=== PATIENT | male | born 1935 | race Caucasian/White ===

== ENCOUNTER 2016-05-27 14:31 | Inpatient (IN) | payer MEDICARE, OTHER ==
[~2016-05-27] VITALS: Ht 180.3 cm; Wt 59.2 kg
[~2016-05-27 14:31] MED LIST: /ADVA50050; /AUGM875TA; /TAMS4CA; ACET500T37 PO; ACET65TA; ALBU17IN INH; AMLO10TA2 PO; AMLO25TA PO; AMOX875T PO; ASPI1TAB PO; ASPI81TA3; BREO1INH INH; BREO1INH3 INH; CALCTAB68 PO; CARB25TA PO; COMBAER6 INH; COUM2.5T11 PO; FERR325T; FERR325T3 PO; FINA5TAB2 PO; FLOM5CAP PO; IPRA2IN INH; IPRASOL4 IN; LANS30CA PO; LATA5OPD OD; LEVA750T PO; MINO100T PO; NASAL SPRAY; OCUVTAB PO; OXYB5TAB PO; PERC5TAB6 PO; PRED20TA; PRED20TA PO; PRED5TA PO; PRIL20CA; ROPI0.5T PO; ROPI2TAB PO; SENO8.6T10 PO; SIMV40TA2 PO; SIMVPOW2; SYMB16INH INH; SYMB80INH INH; TYLE325T5 PO; VENTAER; VITA100072 PO; VITAMIN B12 IM; XALATAN; ZOCO20TA; [UNRECOGNIZED DRUG - OTHER]; mycostatin powder TOP
[2016-05-27] MEDS ORDERED: PERCOCET 5MG/325MG TAB PO PRN (15:15)
[2016-05-27] MEDS ORDERED: ALBUTEROL 90 MCG/ACT 8GM HFA INHALER INH PRN (15:15)
[2016-05-27] MEDS ORDERED: IPRATROPIUM 0.02% SOLN 0.5MG/2.5 ML NEB INH PRN (15:15)
[2016-05-27 15:45] VITALS: BP 112/60
--- NOTE | 2016-05-27 16:24 | HPEPDOC ---
Tire Balancer Note T[employer] Balancer History & Physical Tire Balancer Note DATE OF ADMISSION: May 27, 2016 at 15:40 HISTORY OF PRESENT ILLNESS: 80-year-old male, right hand dominant, independent with ADLs and ambulation (at baseline), with multiple medical comorbidities, on 05/25/2016, was admitted to [facility] after sustaining a mechanical fall at home. He fell while attempting to ambulate to the bathroom, as per records, patient reports that his left leg gave way. Acute trauma workup in the ED revealed left distal femoral neck hip fracture( transverse fracture of the distal subcapital portion of the femoral neck). On 05/25/2016, the patient underwent urgent left hip arthroplasty. Pre-operative patient was found to have dyspnea. He was evaluated and cleared for surgery by medicine. Post- operative patient was found to have intermittent confusion, infectious etiology was ruled out, presumed post-operative anesthesia-induced. His cognitive status improved over the acute hospital course. Since his surgery, patient reports having post-surgical site pain with modest improvement with pain medication. His current weight-bearing status is weight-bearing as tolerated ( WBAT). He remains medically stable on 2L oxygen. He denies any headache, dizziness or chest pain. On 05/27/2016, patient was admitted to acute inpatient [facility] rehabilitation. PAST MEDICAL HISTORY: 1. Parkinson's disease 2. Bulbous pemphigus 3. Peripheral Neuropathy 4. Peripheral vascular disease 5. Hyperlipidemia 6. Chronic obstructive pulmonary disease (COPD) 7. Gastric reflux disease 8. Benign prostatic hypertrophy (BPH) 9. Thyroid Mass (new) PAST SURGICAL HISTORY: 1. Abdominal aortic aneurysm s/p bilateral iliac artery stents (percutaneous placement) 2. Appendectomy 3. Tonsils and adenoids 4. Bilateral cataracts ALLERGIES: See Below MEDICATIONS: See Below FAMILY HISTORY: Mother- breast cancer; father- congestive heart failure; older brother- heart failure SOCIAL HISTORY:The patient is and lives with his . And has supportive family and children. They live in a house with 4 steps to enter. Ex -smoker, he quit smoking about 10 years ago. Denies alcohol use or illicit drug use. REVIEW OF SYSTEMS: Review of Systems: General: +fatigue, no chills, no weight changes. Eyes: no change of vision, wears glasses only for driving long distances. Ears, Nose & Throat: hard of hearing (does not wear hearing aid), no sore throat, no nasal discharge. + history of thyroid mass. Cardiovascular: + bilateral peripheral edema, + history of claudication secondary to peripheral vascular disease, no chest pain, no syncopal episodes. Pul: + cough, +SOB requiring oxygen (at rest) , no orthopnea. GI: + GERD, no constipation, no abdominal pain, no nausea or vomiting. Genitourinary: no dysuria. Musculoskeletal: + left hip pain, + bilateral foot pain. + Mild back, no neck pain, no muscle pain (except for surgical site). Neurological: no tremors, progressive weakness, seizures, or headache. Hematological: No bleeding disorders. Skin: + Bulbous pemphigus lesion with granulation tissue on scalp, discoloration of feet (secondary to severe peripheral vascular disease), + thin skin, chronic subcutaneous hematoma. rashes. Psychiatric: no depression, anxiety, behavioral issues. VITAL SIGNS: 97.5F, pulse of 82, respiratory rate of 18, blood pressure 104/62, 97% saturation on 2L oxygen PHYSICAL EXAMINATION: is at the beside GENERAL: appears mildly pale, cachetic, laying still in bed, no acute distress. Poor hearing, request that provider speak loudly and refer to him as Bhavesh. HEENT: Normocephalic, healing bullous lesion on scalp (no active drainage, no bleeding and no redness). Indolent (with loose teeth) Flat affect, but has appropriate sense of humor. No active signs of confusion. Able to speak in short brief sentences. No facial droop. No lymphadenopathy. No jugular venous distention (JVD). PERRL, EOMI CARDIOVASCULAR: S1, S2, regular rate. + edema bilateral foot, no calf tenderness LUNGS: Significant anterior chest wheezing and congest, decreased breath sounds throughout lungs to auscultation bilaterally ABDOMEN: Soft, nontender, nondistended. Positive normoactive bowel sounds throughout. MUSCULOSKELETAL: Severe tenderness with light palpation to the 4th and 5th metatarsal on left greater than the right. Manual muscle testin/5 strength bilateral upper limbs and right lower limb in all major muscle groups. Except right dorsiflexion and plantar flexion 4+/5; left hip flexors, abductor 4/5; distally 4+/5 on the left. Sensation: Intact to light touch bilateral upper and lower limbs. Deep tendon reflexes: Unable to elicit biceps or patellar bilaterally Skin: left proximal lateral hip surgical site covered with pad, no visible bleeding or drainage. Healing bullous on scalp. Chronic violaceous changes to both feet. Distal pulses palpable, skin cold to touch, bilateral. Neurologic: Alert and oriented x 3. Answers all questions appropriately. Able to follow commands. SKIN: Left lateral hip surgical site covered + luisa in place, no active drainage or bleeding. LABORATORY DATA: Please see below. IMAGING: Reviewed, see [employer]. FUNCTIONAL STATUS: Premorbid: Independent with ADL and ambulation, used cane (infrequent, for balance). On Admission: Patient requires assistance with bed mobility, transfers, total assist with ambulation, bathing and toileting. ASSESSMENT AND PLAN: 80-year-old male status post mechanical fall with left femoral neck fracture now status post hemiarthroplasty with gait abnormality and dysfunctional ADLs. 1. Right displaced femoral neck fracture status post right hemiarthroplasty: Patient is weightbearing as tolerated. He will undergo thorough physical and occupational therapy evaluations followed by daily intensive therapy. Rehabilitation nursing for bladder, bowel, medication management and wound care. 2. Left foot metatarsalgia- new finding on admission, given severe pain with light palpation to left foot, left foot X-ray to rule out possible occult fracture. Right foot exam consistent with sprain/strain, pain significant less on right. 3. COPD/Bronchitis: severe anterior chest wheezing, start on chest PT, Acapella , duo nebs scheduled and prn for wheezing and shortness of breath, and inspirometry. Monitor for signs of possible bacterial infection. As symptoms improved taper off oxygen (NC). 4. Pain: oxycodone 5mg q4 as needed, Percocet 1-2 tabs q4 as needed. 5. Peripheral Neuropathy- gabapentin 200mg tid 6. Peripheral vascular disease/CAD- aspirin 81mg daily, minocycline 100mg bid 7. Parkinson's disease- home regimen Sinemet 1 tab bid and Requip 2mg tid 8. Acute blood loss anemia- in setting of surgery, continue iron supplement bid and vitamin C to increase GI absorption 9. Benign prostatic hypertrophy (BPH)- continue home regimen, finasteride 5mg daily and Ditropan 5mg qhs 10. DVT PPx- Coumadin dose by Nia Cross of the orthopedic service, continue on current dose warfarin 5mg daily. Monitor INR levels. Well also provide SCD and EVELIN stockings. 11. Skin- Bulbous pemphigus- high risk of skin tearing and bleeding, history of closely monitor daily for skin lesions, frequent turns and weight shift. Keep skin clean, dry and apply Eucerin to prevent xeroderma 12. Hyperlipidemia- continue home regimen, simvastatin 40mg qhs. 13. Thyroid Mass (new)- incidental finding during acute hospital admission. Outpatient work-up recommended. 14. Diet/nutrition: Check prealbumin to assess for malnutrition. Mechanical soft diet given indolent with loose teeth. Patient was scheduled for outpatient dental appointment (missed appointment give acute hospitalization). PROGNOSIS: Good ESTIMATED LENGTH OF STAY: 10-14 days. Home Medications Scheduled Aspirin (Aspirin 81) 81 Mg Tab 81 MG PO QPM (Reported) Calcium/Vitamin D (Calcium 600 + D 600-400 mg-Unit) 1 Tab Tab 1 TAB PO DAILY ( Reported) Carbidopa/Levodopa (Carbidopa/Levodopa 25-100 mg) 1 Tab Tab 1 TAB PO TID ( Reported) Finasteride (Finasteride) 5 Mg Tab 5 MG PO QPM (Reported) Fluticasone/Vilanterol (Breo Ellipta 200-25 Mcg/INH) 1 Inh Inh 1 PUFF INH DAILY (Reported) Lansoprazole (Lansoprazole) 30 Mg Cap 30 MG PO QPM (Reported) Latanoprost (Latanoprost) 50 Drop/2.5 Ml Soln 1 DROP OD QHS (Reported) Minocycline HCl (Minocycline HCl) 100 Mg Tab 100 MG PO BID (Reported) Multivitamins (Ocuvite) 1 Tab Tab 1 TAB PO QPM (Reported) Oxybutynin Chloride (Oxybutynin Chloride ER) 5 Mg Tab 5 MG PO QPM (Reported) Prednisone (Prednisone) 5 Mg Tab 5 MG PO DAILY (Reported) Ropinirole Hydrochloride (Ropinirole HCl) 2 Mg Tab 2 MG PO TID (Reported) Simvastatin - High Dose (Simvastatin) 40 Mg Tab 40 MG PO QPM (Reported) Warfarin Sod (Coumadin) 2.5 Mg Tab 1 TAB PO ASDIRECTED MDD = 6 tabs Scheduled PRN Albuterol Sulfate (Ventolin Hfa) 200 Puff/8 Gm Aers 2 PUFF INH Q4H PRN PRN SHORTNESS OF BREATH (Reported) Ipratropium Marks (Ipratropium Marks) 0.5 Mg/2.5 Ml Soln 0.5 MG INH TID PRN PRN SHORTNESS OF BREATH (Reported) Oxycodone/Acetaminophen (Percocet 5-325 mg) 1 Tab Tab 1 TAB PO Q4H PRN PRN PAIN MDD = 6 Allergies Coded Allergies: No Known Allergies (Verified , 05/05/08) ROXIE NIX MD May 27, 2016 16:24 Vital Signs VITAL SIGNS: 97.5F, pulse of 82, respiratory rate of 18, blood pressure 104/62, 97% saturation on 2L oxygen Home Medications Scheduled Aspirin (Aspirin 81) 81 Mg Tab 81 MG PO QPM (Reported) Calcium/Vitamin D (Calcium 600 + D 600-400 mg-Unit) 1 Tab Tab 1 TAB PO DAILY ( Reported) Carbidopa/Levodopa (Carbidopa/Levodopa 25-100 mg) 1 Tab Tab 1 TAB PO TID ( Reported) Finasteride (Finasteride) 5 Mg Tab 5 MG PO QPM (Reported) Fluticasone/Vilanterol (Breo Ellipta 200-25 Mcg/INH) 1 Inh Inh 1 PUFF INH DAILY (Reported) Lansoprazole (Lansoprazole) 30 Mg Cap 30 MG PO QPM (Reported) Latanoprost (Latanoprost) 50 Drop/2.5 Ml Soln 1 DROP OD QHS (Reported) Minocycline HCl (Minocycline HCl) 100 Mg Tab 100 MG PO BID (Reported) Multivitamins (Ocuvite) 1 Tab Tab 1 TAB PO QPM (Reported) Oxybutynin Chloride (Oxybutynin Chloride ER) 5 Mg Tab 5 MG PO QPM (Reported) Prednisone (Prednisone) 5 Mg Tab 5 MG PO DAILY (Reported) Ropinirole Hydrochloride (Ropinirole HCl) 2 Mg Tab 2 MG PO TID (Reported) Simvastatin - High Dose (Simvastatin) 40 Mg Tab 40 MG PO QPM (Reported) Warfarin Sod (Coumadin) 2.5 Mg Tab 1 TAB PO ASDIRECTED MDD = 6 tabs Scheduled PRN Albuterol Sulfate (Ventolin Hfa) 200 Puff/8 Gm Aers 2 PUFF INH Q4H PRN PRN SHORTNESS OF BREATH (Reported) Ipratropium Marks (Ipratropium Marks) 0.5 Mg/2.5 Ml Soln 0.5 MG INH TID PRN PRN SHORTNESS OF BREATH (Reported) Oxycodone/Acetaminophen (Percocet 5-325 mg) 1 Tab Tab 1 TAB PO Q4H PRN PRN PAIN MDD = 6 Allergies Coded Allergies: No Known Allergies (Verified , 05/05/08) ROXIE NIX MD May 27, 2016 16:24 Allergies Coded Allergies: No Known Allergies (Verified , 05/05/08) ROXIE NIX MD May 27, 2016 16:24 drainage. ~ 2cm sore right heel, 2mm sore right lateral malleolus PHYSICAL EXAMINATION: GENERAL: HEENT: . CARDIOVASCULAR: . LUNGS: . ABDOMEN: . NEUROLOGICAL: . EXTREMITIES: . SKIN: . LABORATORY DATA: Please see below. IMAGING: FUNCTIONAL STATUS: Premorbid: On Admission: ASSESSMENT AND PLAN: 1. . 2. . 3. . 4. . 5. . 6. . POST ADMISSION PHYSICIAN EVALUATION: PROGNOSIS: ESTIMATED LENGTH OF STAY: days. Home Medications Scheduled Aspirin (Aspirin 81) 81 Mg Tab 81 MG PO QPM (Reported) Calcium/Vitamin D (Calcium 600 + D 600-400 mg-Unit) 1 Tab Tab 1 TAB PO DAILY ( Reported) Carbidopa/Levodopa (Carbidopa/Levodopa 25-100 mg) 1 Tab Tab 1 TAB PO TID ( Reported) Finasteride (Finasteride) 5 Mg Tab 5 MG PO QPM (Reported) Fluticasone/Vilanterol (Breo Ellipta 200-25 Mcg/INH) 1 Inh Inh 1 PUFF INH DAILY (Reported) Lansoprazole (Lansoprazole) 30 Mg Cap 30 MG PO QPM (Reported) Latanoprost (Latanoprost) 50 Drop/2.5 Ml Soln 1 DROP OD QHS (Reported) Minocycline HCl (Minocycline HCl) 100 Mg Tab 100 MG PO BID (Reported) Multivitamins (Ocuvite) 1 Tab Tab 1 TAB PO QPM (Reported) Oxybutynin Chloride (Oxybutynin Chloride ER) 5 Mg Tab 5 MG PO QPM (Reported) Prednisone (Prednisone) 5 Mg Tab 5 MG PO DAILY (Reported) Ropinirole Hydrochloride (Ropinirole HCl) 2 Mg Tab 2 MG PO TID (Reported) Simvastatin - High Dose (Simvastatin) 40 Mg Tab 40 MG PO QPM (Reported) Warfarin Sod (Coumadin) 2.5 Mg Tab 1 TAB PO ASDIRECTED MDD = 6 tabs Scheduled PRN Albuterol Sulfate (Ventolin Hfa) 200 Puff/8 Gm Aers 2 PUFF INH Q4H PRN PRN SHORTNESS OF BREATH (Reported) Ipratropium Marks (Ipratropium Marks) 0.5 Mg/2.5 Ml Soln 0.5 MG INH TID PRN PRN SHORTNESS OF BREATH (Reported) Oxycodone/Acetaminophen (Percocet 5-325 mg) 1 Tab Tab 1 TAB PO Q4H PRN PRN PAIN MDD = 6 Allergies Coded Allergies: No Known Allergies (Verified , 05/05/08) ROXIE NIX MD May 27, 2016 16:24
[2016-05-27] MEDS ORDERED: IPRATROPIUM 0.5MG/ALBUTEROL 2.5MG INH SOL UD 3ML (DUONEB)(J7620) NEB PRN (16:30)
[2016-05-27] MEDS ORDERED: oxyCODONE 5MG TAB PO PRN (16:30)
[2016-05-27] MEDS ORDERED: guaiFENesin 200 MG TAB PO PRN (16:45)
--- NOTE | 2016-05-27 17:39 | REP ---
Left foot series: Two views. History: Tenderness of the fourth and fifth digits after a fall. Findings: AP and lateral views are obtained. There is considerable overlap of the phalanges on the lateral radiograph. There is no visible fracture or subluxation. There is soft tissue swelling about the ankle mortise. Impression: No fracture appreciated. Limited study. Signed by Dmitriy Stoll MD 05/27/2016 06:45 P
[2016-05-27] MEDS: SINEMET 25-100 MG TAB PO SCH ×2 (18:06→21:13)
[2016-05-27] MEDS: WARFARIN SOD 5 MG TAB PO SCH (18:06)
[2016-05-27] MEDS: rOPINIRole 1MG TAB PO SCH ×2 (18:06→21:14)
[2016-05-27 20:00] VITALS: BP 107/60
[2016-05-27] MEDS ORDERED: ACETYLCYSTEINE 20% 4 ML VIAL (200MG/ML) INH SCH (20:00)
[2016-05-27] MEDS: IPRATROPIUM 0.5MG/ALBUTEROL 2.5MG INH SOL UD 3ML (DUONEB)(J7620) NEB SCH ×2 (20:07→23:45)
[2016-05-27] MEDS: FINASTERIDE 5 MG TAB PO SCH (21:13)
[2016-05-27] MEDS: MINOCYCLINE 50 MG CAP PO SCH (21:13)
[2016-05-27] MEDS: oxyBUTYnin *DITROPAN XL* 5 MG TABCR PO SCH (21:13)
[2016-05-27] MEDS: SIMVASTATIN 40 MG TAB PO SCH (21:13)
[2016-05-27] MEDS: FERROUS GLUCONATE 324 MG TAB PO SCH (21:13)
[2016-05-27] MEDS: ASCORBIC ACID 500 MG TAB PO SCH (21:13)
[2016-05-27] MEDS: EUCERIN 120GM CREAM TOP SCH (21:13)
[2016-05-27] MEDS: OCUVITE 1 TAB PO SCH (21:14)
[2016-05-27] MEDS: GABAPENTIN 100 MG CAP PO SCH (21:14)
[2016-05-27] MEDS: ASPIRIN 81 MG ENTERIC TAB PO SCH (21:14)
[2016-05-28] VITALS: BP 134/71
[2016-05-28] MEDS: LATANOPROST 0.005% OPHTH SOLN 2.5 ML OD SCH ×2 (00:10→20:49)
[2016-05-28] MEDS: IPRATROPIUM 0.5MG/ALBUTEROL 2.5MG INH SOL UD 3ML (DUONEB)(J7620) NEB SCH ×5 (03:21→20:05)
[2016-05-28 06:00] VITALS: BP 132/73
[2016-05-28] MEDS ORDERED: CALCIUM CARBONATE 500 MG CHEW U/D PO ONE (06:00)
[2016-05-28 06:54] LABS: BASO % 0.1 % (0.0-1.0); EOS % 0.1 % (0.0-3.0); LARGE UNSTAINED CELL # 0.2 K/mm3 (0.0-0.4); LARGE UNSTAINED CELL % 1.6 % (0.0-4.0); LYMPH # 1.1 K/mm3 (1.5-4.5); LYMPH % 9.1 % (24.0-44.0); MEAN CORPUSCULAR HEMOGLOBIN 26.6 pg (27.0-33.0); MEAN CORPUSCULAR HGB CONC 30.2 g/dl (32.0-36.5); MEAN CORPUSCULAR VOLUME 87.8 fl (80.0-96.0); MONO # 0.6 K/mm3 (0.0-0.8); MONO % 4.7 % (0.0-5.0); NEUTROPHILS # 10.6 K/mm3 (1.8-7.7); NEUTROPHILS % 84.4 % (36.0-66.0); PLATELET COUNT, AUTOMATED 244 k/mm3 (150-450); RED CELL DISTRIBUTION WIDTH 15.4 % (11.5-14.5); WHITE BLOOD COUNT 12.6 K/mm3 (4.0-10.0)
[2016-05-28 07:19] LABS: ALBUMIN 2.5 GM/DL (3.2-5.2); ALBUMIN/GLOBULIN RATIO 0.78 (1.00-1.93); BILIRUBIN,TOTAL 0.5 MG/DL (0.2-1.0); CALCIUM LEVEL 8.2 MG/DL (8.8-10.2); CREATININE FOR GFR 1.26 MG/DL (0.70-1.30); GLOMERULAR FILTRATION RATE 58.5 (>35); POTASSIUM SERUM 4.5 MEQ/L (3.5-5.1); TOTAL PROTEIN 5.7 GM/DL (6.4-8.2)
[2016-05-28] MEDS: rOPINIRole 1MG TAB PO SCH ×3 (08:26→20:47)
[2016-05-28] MEDS: ASCORBIC ACID 500 MG TAB PO SCH ×2 (08:26→20:47)
[2016-05-28] MEDS: GABAPENTIN 100 MG CAP PO SCH ×3 (08:26→20:48)
[2016-05-28] MEDS: FERROUS GLUCONATE 324 MG TAB PO SCH ×2 (08:26→20:48)
[2016-05-28] MEDS: predniSONE 5 MG TAB PO SCH (08:26)
[2016-05-28] MEDS: SINEMET 25-100 MG TAB PO SCH ×3 (08:26→20:49)
[2016-05-28] MEDS: MINOCYCLINE 50 MG CAP PO SCH ×2 (08:26→20:49)
[2016-05-28] MEDS: MULTIVITAMINS/MINERALS THERAP 1 TAB PO SCH (08:26)
[2016-05-28] MEDS: EUCERIN 120GM CREAM TOP SCH ×2 (08:27→20:50)
[2016-05-28 14:00] VITALS: BP 110/56
[2016-05-28] MEDS: WARFARIN SOD 5 MG TAB PO SCH (17:05)
[2016-05-28 20:00] VITALS: BP 90/54
[2016-05-28] MEDS: FINASTERIDE 5 MG TAB PO SCH (20:47)
[2016-05-28] MEDS: ASPIRIN 81 MG ENTERIC TAB PO SCH (20:47)
[2016-05-28] MEDS: SIMVASTATIN 40 MG TAB PO SCH (20:48)
[2016-05-28] MEDS: OCUVITE 1 TAB PO SCH (20:48)
[2016-05-28] MEDS: oxyBUTYnin *DITROPAN XL* 5 MG TABCR PO SCH (20:48)
[2016-05-28 23:47] VITALS: BP 104/48
[2016-05-29 06:00] VITALS: BP 115/66
[2016-05-29 06:41] LABS: INR 2.2
[2016-05-29] MEDS: IPRATROPIUM 0.5MG/ALBUTEROL 2.5MG INH SOL UD 3ML (DUONEB)(J7620) NEB SCH ×5 (07:18→20:06)
[2016-05-29] MEDS: rOPINIRole 1MG TAB PO SCH ×3 (08:49→21:40)
[2016-05-29] MEDS: predniSONE 5 MG TAB PO SCH (08:50)
[2016-05-29] MEDS: FERROUS GLUCONATE 324 MG TAB PO SCH ×2 (08:50→21:39)
[2016-05-29] MEDS: GABAPENTIN 100 MG CAP PO SCH ×3 (08:51→21:39)
[2016-05-29] MEDS: MINOCYCLINE 50 MG CAP PO SCH ×2 (08:51→21:39)
[2016-05-29] MEDS: MULTIVITAMINS/MINERALS THERAP 1 TAB PO SCH (08:51)
[2016-05-29] MEDS: SINEMET 25-100 MG TAB PO SCH ×3 (08:52→21:40)
[2016-05-29] MEDS: ASCORBIC ACID 500 MG TAB PO SCH ×2 (08:52→21:39)
[2016-05-29] MEDS: EUCERIN 120GM CREAM TOP SCH ×2 (09:00→21:40)
[2016-05-29 14:00] VITALS: BP 120/70
[2016-05-29 20:00] VITALS: BP 118/60
[2016-05-29] MEDS: oxyBUTYnin *DITROPAN XL* 5 MG TABCR PO SCH (21:39)
[2016-05-29] MEDS: OCUVITE 1 TAB PO SCH (21:39)
[2016-05-29] MEDS: LATANOPROST 0.005% OPHTH SOLN 2.5 ML OD SCH (21:40)
[2016-05-29] MEDS: SIMVASTATIN 40 MG TAB PO SCH (21:40)
[2016-05-29] MEDS: FINASTERIDE 5 MG TAB PO SCH (21:40)
[2016-05-29] MEDS: ASPIRIN 81 MG ENTERIC TAB PO SCH (21:40)
[2016-05-30] VITALS (7 sets, daily range): BP systolic 68–120; BP diastolic 40–60
[2016-05-30 06:55] LABS: BASO % 0.3 % (0.0-1.0); EOS % 0.2 % (0.0-3.0); LARGE UNSTAINED CELL # 0.2 K/mm3 (0.0-0.4); LARGE UNSTAINED CELL % 2.4 % (0.0-4.0); LYMPH # 1.2 K/mm3 (1.5-4.5); LYMPH % 14.3 % (24.0-44.0); MEAN CORPUSCULAR HEMOGLOBIN 26.3 pg (27.0-33.0); MEAN CORPUSCULAR HGB CONC 30.2 g/dl (32.0-36.5); MEAN CORPUSCULAR VOLUME 87.3 fl (80.0-96.0); MONO # 0.5 K/mm3 (0.0-0.8); MONO % 6.3 % (0.0-5.0); NEUTROPHILS # 6.3 K/mm3 (1.8-7.7); NEUTROPHILS % 76.5 % (36.0-66.0); PLATELET COUNT, AUTOMATED 280 k/mm3 (150-450); RED CELL DISTRIBUTION WIDTH 15.6 % (11.5-14.5); WHITE BLOOD COUNT 8.2 K/mm3 (4.0-10.0)
[2016-05-30 07:03] LABS: INR 2.42
[2016-05-30] MEDS: IPRATROPIUM 0.5MG/ALBUTEROL 2.5MG INH SOL UD 3ML (DUONEB)(J7620) NEB SCH ×5 (07:20→22:23)
[2016-05-30 07:21] LABS: ANION GAP 10 MEQ/L (8-16); BLOOD UREA NITROGEN 38 MG/DL (7-18); CALCIUM LEVEL 7.7 MG/DL (8.8-10.2); CARBON DIOXIDE LEVEL 26 MEQ/L (21-32); CHLORIDE LEVEL 104 MEQ/L (98-107); GLOMERULAR FILTRATION RATE > 60.0 (>35); GLUCOSE, FASTING 83 MG/DL (83-110); POTASSIUM SERUM 4.3 MEQ/L (3.5-5.1); SODIUM LEVEL 140 MEQ/L (136-145)
[2016-05-30] MEDS: predniSONE 5 MG TAB PO SCH (08:27)
[2016-05-30] MEDS: FERROUS GLUCONATE 324 MG TAB PO SCH ×2 (08:27→20:11)
[2016-05-30] MEDS: ASCORBIC ACID 500 MG TAB PO SCH ×2 (08:27→20:11)
[2016-05-30] MEDS: SINEMET 25-100 MG TAB PO SCH ×3 (08:27→20:11)
[2016-05-30] MEDS: GABAPENTIN 100 MG CAP PO SCH ×3 (08:28→20:10)
[2016-05-30] MEDS: rOPINIRole 1MG TAB PO SCH ×3 (08:28→20:10)
[2016-05-30] MEDS: MULTIVITAMINS/MINERALS THERAP 1 TAB PO SCH (08:29)
[2016-05-30] MEDS: MINOCYCLINE 50 MG CAP PO SCH ×2 (08:29→20:11)
[2016-05-30] MEDS: EUCERIN 120GM CREAM TOP SCH ×2 (08:29→20:12)
[2016-05-30 10:19] LABS: ABG BASE EXCESS 1.7 (-2.0-2.0); ABG HCO3 25.3 MEQ/L (22.0-26.0); ABG PARTIAL PRESSURE CO2 35.6 mmHg (35.0-45.0); ABG PARTIAL PRESSURE O2 67.8 mmHg (75.0-100.0); ABG TOTAL CO2 26.4 MEQ/L (23.0-31.0); ABG pH (ARTERIAL) 7.469 UNITS (7.350-7.450)
--- NOTE | 2016-05-30 10:38 | REP ---
Clinical: Shortness of breath. Comparison: 05/25/2016. Findings: Diffuse chronic interstitial changes are appreciated. Left lower lobe [id number] consolidation and pleural effusion/chronic pleural reaction is again identified. New right lower lobe infiltrate is now appreciated as well. No pneumothorax. Mediastinum and cardiac silhouette stable. Skeletal structures demonstrate osteopenia and degenerative changes. Impression: Left lower lobe consolidation and suspected moderate pleural effusion as well as a right lower lobe consolidation are identified. Associated pulmonary vascular congestion and interstitial edema cannot be excluded. Signed by Don Brownlee MD 05/30/2016 10:29 A
[2016-05-30] MEDS: NS 1,000 ML IV SCH ×2 (10:43→17:36)
[2016-05-30] MEDS ORDERED: VANCOMYCIN HCL 1,000 MG, VIAL MATE ADAPTER 1 EACH in D5W 250 ML IV ONE (14:00)
[2016-05-30] MEDS: DOCUSATE SODIUM 100 MG CAP PO SCH ×2 (14:18→20:11)
[2016-05-30] MEDS: MIRALAX *UNIT DOSE* 17GM PACKET PO SCH (14:19)
--- NOTE | 2016-05-30 14:40 | PHACANCOPD ---
PHARMACY VANCOMYCIN DOSING Pt Demographics Demographics Patient Age:80 , Weight:58.000 , Gender: male Adjusted Body Weight Date: 05/30/16, Adjusted Body Weight: [58] Kg (actual BW) Events Past 24 Hours Events Past 24 Hours: NO: Change in CrCl, Dialysis, Diuretic Therapy, Elevation in WBC, Fever, Other, Pending Diagnostics, Pending Procedures Vancomycin Vancomycin indication: HCAP Vancomycin Target Ranges: 15-20 mcg/ml Vancomycin Load Y/N: Yes Load Dose Date Time Vancomycin Load Dose: 1000mg Date: 05/30 Time: 14:19 Vancomycin Dose Date: 05/30/16. Current Vancomycin Dose: [1g IV q24h @09] Intermittent Dosing?: No Labs Labs Item Value Date Time White Blood Count 12.6 K/mm3 H 05/28/16 0620 White Blood Count 8.2 K/mm3 05/30/16 0644 Creatinine 1.26 MG/DL 05/28/16 0620 Creatinine 1.20 MG/DL 05/30/16 0644 Creatinine Clearance Date:05/30/16. Creatinine Clearance: [39 ml/min using actual BW]. Pending Labs Vanco trough scheduled 06/01 @08:00 Assessment and Plan Maintaining Current Dose?: Yes Reason for dose change: No Dose Change Pharmacist Note Pharmacist Note Date: 05/30/16. Pharmacist note: pt has been started on Cefepime and Vanco for HCAP. He has not been on vancomycin at our facility in the past and does not have a pertinent culture Hx. He received 1g of vancomycin IV this afternoon and I have started him on 1g q24h to start tomorrow morning. I have a trough scheduled before the 3rd dose, we will continue to monitor. Sesar Moe Pharm.D. May 30, 2016 14:40
--- NOTE | 2016-05-30 15:11 | CR.PDOC ---
[facility] Consultation Consultation DATE OF CONSULTATION: 05/30/16 ATTENDING: Montserrat Hightower MD CHIEF COMPLAINT: SOB HISTORY OF PRESENT ILLNESS: 80-year-old male with past medical history of Parkinson's disease, AAA repair, COPD, bullous pemphigus who presents status post fall. In a recent admission, pt had transverse displaced fracture of the subcapital portion of the left femoral neck, evaluated by orthopedics and had a left total hip arthroplasty. Patient tolerated surgery well. He was also anticoagulated with Coumadin for DVT prophylaxis by orthopedics. Pt was transferred to inpatient rehabilitation. Patient and are aware of the thyroid mass with ? tracheal involvement and want to follow-up outpatient for repeat CT chest. I was called by nurse to evaluate patient's for orthostatic hypotension, which patient had an episode earlier today. Upon evaluation of patient, he did note that he's been having a productive cough recently. Has rhonchi. Chest x-ray was done at bedside noting bilateral pneumonia. As patient does not require a higher level of care at this time, patient will be started on broad-spectrum antibiotics at the rehabilitation center. PAST MEDICAL HISTORY: As per HPI PAST SURGICAL HISTORY: Appendectomy, tonsillectomy, AAA repair, cataract repair bilaterally FAMILY HISTORY: Noncontributory: SOCIAL HISTORY: History of tobacco abuse, quit in 1969. Denies alcohol or illicit drug use. ALLERGIES: No known drug allergies REVIEW OF SYSTEMS: HEENT: Denies sore throat/headache CARDIOVASCULAR: Denies chest pain/palpitations RESPIRATORY: No shortness of breath/cough GASTROINTESTINAL: denies nausea/vomiting GENITOURINARY: Denies dysuria/urinary urgency. MUSCULOSKELETAL: Denies myalgias/arthralgias NEUROLOGICAL: Denies any focal weakness Rest of ROS negative. HOME MEDICATIONS: Please see below. PHYSICAL EXAMINATION: VITAL SIGNS: See below General: No acute distress, laying comfortably in bed. HEENT: Moist mucous membranes. Healing bullous lesion on scalp Neck: No JVD or lymphadenopathy Cardiac: RRR, No murmurs Pulm: Coarse crackles and diminished breath sounds b/l. No wheezing, + rhonchi b /l Abd: NT/ND + BS Ext: No edema or cyanosis. Healed bullous on LE. Distal pulses intact b/l. Chronic violaceous changes b/l feet. No bleeding at the surgical site. LABORATORY DATA: See below. IMAGING: CXR 05/30/16 Impression: Left lower lobe consolidation and suspected moderate pleural effusion as well as a right lower lobe consolidation are identified. Associated pulmonary vascular congestion and interstitial edema cannot be excluded. ASSESSMENT/PLAN: HCAP - CXR noted above with b/l PNA. Lactic acid 1.9. Ph 7.46 . WBC 8.2. IVF NS started. Mucinex. Left femur fracture- status post mechanical fall. s/p left total hip arthroplasty by ortho. Getting rehab at this time. Thyroid mass - Pt and would like to f/u outpt. COPD- stable; continue nebs Parkinson's disease- continue home meds GERD- continue meds History of AAA repair - continue aspirin and statin DVT prophylaxis- per orthopedics. Vital Signs/I&O Vital Signs Date Time Temp Pulse Resp B/P Pulse Ox O2 Delivery O2 Flow Rate FiO2 05/30/16 14:00 97.9 92 18 97/55 94 Room Air 05/30/16 08:20 3.0 I&O- Last 24 Hours up to 6 AM 05/30/16 05:59 Intake Total 300 ml Output Total 250 ml Balance 50 ml Laboratory Data Labs 24H Laboratory Tests 2 05/30/16 06:44: Anion Gap 10, White Blood Count 8.2, Red Blood Count 3.13L, Hemoglobin 8.2L, Hematocrit 27.3L, Mean Corpuscular Volume 87.3, Mean Corpuscular Hemoglobin 26.3L, Mean Corpuscular Hemoglobin Concent 30.2L, Red Cell Distribution Width 15.6H, Platelet Count 280, Neutrophils (%) (Auto) 76.5H, Lymphocytes (%) (Auto) 14.3L, Monocytes (%) (Auto) 6.3H, Eosinophils (%) (Auto) 0.2, Basophils (%) ( Auto) 0.3, Neutrophils # (Auto) 6.3, Lymphocytes # (Auto) 1.2L, Monocytes # ( Auto) 0.5, Eosinophils # (Auto) 0.0, Basophils # (Auto) 0.0, Blood Urea Nitrogen 38H, Creatinine 1.20, Sodium Level 140, Potassium Level 4.3, Chloride Level 104, Carbon Dioxide Level 26, Calcium Level 7.7L, Glomerular Filtration Rate > 60.0, Large Unclassified Cells # 0.2, Large Unclassified Cells % 2.4, Prealbumin 12.3L, Prothromb Time International Ratio 2.42, Prothrombin Time 26.4H 05/30/16 10:11: Arterial Blood pH 7.469H, Arterial Blood Partial Pressure CO2 35.6, Arterial Blood Partial Pressure O2 67.8L, Arterial Blood Total CO2 26.4, Arterial Blood HCO3 25.3, Arterial Blood Base Excess 1.7, Arterial Blood Oxygen Saturation 94.4L, Blood Gas Bicarbonate Standard 26.0 05/30/16 14:07: Lactic Acid Level 1.9 CBC/BMP Laboratory Tests 05/30/16 06:44 Calcium Level 7.7 L, Red Blood Count 3.13 L, Mean Corpuscular Volume 87.3, Mean Corpuscular Hemoglobin 26.3 L, Mean Corpuscular Hemoglobin Concent 30.2 L, Red Cell Distribution Width 15.6 H, Neutrophils (%) (Auto) 76.5 H, Lymphocytes (%) ( Auto) 14.3 L, Monocytes (%) (Auto) 6.3 H, Eosinophils (%) (Auto) 0.2, Basophils (%) (Auto) 0.3, Neutrophils # (Auto) 6.3, Lymphocytes # (Auto) 1.2 L, Monocytes # (Auto) 0.5, Eosinophils # (Auto) 0.0, Basophils # (Auto) 0.0 Allergies Coded Allergies: No Known Allergies (Verified , 05/05/08) Home Medications Scheduled Aspirin (Aspirin 81) 81 Mg Tab 81 MG PO QPM (Reported) Calcium/Vitamin D (Calcium 600 + D 600-400 mg-Unit) 1 Tab Tab 1 TAB PO DAILY ( Reported) Carbidopa/Levodopa (Carbidopa/Levodopa 25-100 mg) 1 Tab Tab 1 TAB PO TID ( Reported) Finasteride (Finasteride) 5 Mg Tab 5 MG PO QPM (Reported) Fluticasone/Vilanterol (Breo Ellipta 200-25 Mcg/INH) 1 Inh Inh 1 PUFF INH DAILY (Reported) Lansoprazole (Lansoprazole) 30 Mg Cap 30 MG PO QPM (Reported) Latanoprost (Latanoprost) 50 Drop/2.5 Ml Soln 1 DROP OD QHS (Reported) Minocycline HCl (Minocycline HCl) 100 Mg Tab 100 MG PO BID (Reported) Multivitamins (Ocuvite) 1 Tab Tab 1 TAB PO QPM (Reported) Oxybutynin Chloride (Oxybutynin Chloride ER) 5 Mg Tab 5 MG PO QPM (Reported) Prednisone (Prednisone) 5 Mg Tab 5 MG PO DAILY (Reported) Ropinirole Hydrochloride (Ropinirole HCl) 2 Mg Tab 2 MG PO TID (Reported) Simvastatin - High Dose (Simvastatin) 40 Mg Tab 40 MG PO QPM (Reported) Warfarin Sod (Coumadin) 2.5 Mg Tab #90 1 TAB PO ASDIRECTED MDD = 6 tabs Scheduled PRN Albuterol Sulfate (Ventolin Hfa) 200 Puff/8 Gm Aers 2 PUFF INH Q4H PRN PRN SHORTNESS OF BREATH (Reported) Ipratropium [place] (Ipratropium [place]) 0.5 Mg/2.5 Ml Soln 0.5 MG INH TID PRN PRN SHORTNESS OF BREATH (Reported) Oxycodone/Acetaminophen (Percocet 5-325 mg) 1 Tab Tab #40 1 TAB PO Q4H PRN PRN PAIN MDD = 6 MONTSERRAT HIGHTOWER MD May 30, 2016 15:11
[2016-05-30] MEDS: CEFEPIME HCL 2 GM in D5W MINI-BAG PLUS 50 ML IV SCH (18:06)
[2016-05-30] MEDS: oxyBUTYnin *DITROPAN XL* 5 MG TABCR PO SCH (20:10)
[2016-05-30] MEDS: guaiFENesin ER 600 MG TAB PO SCH (20:10)
[2016-05-30] MEDS: SIMVASTATIN 40 MG TAB PO SCH (20:11)
[2016-05-30] MEDS: ASPIRIN 81 MG ENTERIC TAB PO SCH (20:11)
[2016-05-30] MEDS: OCUVITE 1 TAB PO SCH (20:11)
[2016-05-30] MEDS: FINASTERIDE 5 MG TAB PO SCH (20:11)
[2016-05-30] MEDS: LATANOPROST 0.005% OPHTH SOLN 2.5 ML OD SCH (20:12)
[2016-05-31] VITALS (8 sets, daily range): BP systolic 69–108; BP diastolic 49–69
--- NOTE | 2016-05-31 01:40 | REPUSA ---
CLINICAL HISTORY: Congestion. COMMENTS: The cardiac silhouette is enlarged. There is evidence for pulmonary venous congestion compatible with CHF. Small pleural effusions. Atelectatic airspace disease of the lower lobes. Bronchitis. Bony structures appear normal. Moderately enlarged right thyroid lobe. Mass effect on the trachea which is deviated to the left side . IMPRESSION: 1. Enlarged cardiac silhouette. 2. Pulmonary venous congestion compatible with CHF. 3. Small pleural effusions. Passive atelectatic airspace disease of the lower lobes. 4. Moderately enlarged right thyroid lobe. Mass effect on the trachea which is deviated to the left s nestor. Thank you for your kind referral of this patient.
[2016-05-31] MEDS ORDERED: FUROSEMIDE 40 MG/4 ML VIAL (J1940) IV ONE (02:00)
[2016-05-31] MEDS: CEFEPIME HCL 2 GM in D5W MINI-BAG PLUS 50 ML IV SCH ×2 (05:37→18:01)
[2016-05-31 06:56] LABS: BASO # 0.1 K/mm3 (0.0-0.2); BASO % 0.5 % (0.0-1.0); EOS % 0.1 % (0.0-3.0); LARGE UNSTAINED CELL # 0.2 K/mm3 (0.0-0.4); LARGE UNSTAINED CELL % 1.7 % (0.0-4.0); LYMPH # 1.5 K/mm3 (1.5-4.5); LYMPH % 11.1 % (24.0-44.0); MEAN CORPUSCULAR HEMOGLOBIN 26.6 pg (27.0-33.0); MEAN CORPUSCULAR HGB CONC 30.5 g/dl (32.0-36.5); MEAN CORPUSCULAR VOLUME 87.2 fl (80.0-96.0); MONO # 0.6 K/mm3 (0.0-0.8); MONO % 5.3 % (0.0-5.0); NEUTROPHILS # 9.2 K/mm3 (1.8-7.7); NEUTROPHILS % 81.3 % (36.0-66.0); PLATELET COUNT, AUTOMATED 357 k/mm3 (150-450); RED CELL DISTRIBUTION WIDTH 16.6 % (11.5-14.5); WHITE BLOOD COUNT 11.3 K/mm3 (4.0-10.0)
[2016-05-31 06:58] LABS: INR 2.37
[2016-05-31 07:15] LABS: CREATININE FOR GFR 1.38 MG/DL (0.70-1.30); GLOMERULAR FILTRATION RATE 52.6 (>35); POTASSIUM SERUM 4.2 MEQ/L (3.5-5.1)
[2016-05-31] MEDS: IPRATROPIUM 0.5MG/ALBUTEROL 2.5MG INH SOL UD 3ML (DUONEB)(J7620) NEB SCH ×5 (08:00→20:47)
--- NOTE | 2016-05-31 08:48 | REP ---
Clinical: Thyroid mass. Findings: The right thyroid lobe is heterogeneous and measures 6.4 cm maximal diameter extending to the level of the clavicles causing contralateral deviation of an otherwise normal and patent trachea. Remainder of the evaluation of a noncontrast neck is essentially unremarkable. There is no adenopathy. Osseous structures are normal. Visualized sinuses are within normal limits. Musculature and soft tissues are symmetric. Impression: Heterogeneous enlarged right thyroid lobe measuring 6.4 cm maximal diameter causing contralateral tracheal deviation. Signed by Don Brownlee MD 05/31/2016 08:40 A
[2016-05-31] MEDS: DOCUSATE SODIUM 100 MG CAP PO SCH ×2 (09:30→21:18)
[2016-05-31] MEDS: predniSONE 5 MG TAB PO SCH (09:30)
[2016-05-31] MEDS: FERROUS GLUCONATE 324 MG TAB PO SCH ×2 (09:30→21:18)
[2016-05-31] MEDS: MULTIVITAMINS/MINERALS THERAP 1 TAB PO SCH (09:30)
[2016-05-31] MEDS: guaiFENesin ER 600 MG TAB PO SCH (09:31)
[2016-05-31] MEDS: MINOCYCLINE 50 MG CAP PO SCH (09:31)
[2016-05-31] MEDS: GABAPENTIN 100 MG CAP PO SCH ×3 (09:31→21:18)
[2016-05-31] MEDS: SINEMET 25-100 MG TAB PO SCH ×3 (09:31→21:18)
[2016-05-31] MEDS: VANCOMYCIN HCL 1,000 MG, VIAL MATE ADAPTER 1 EACH in D5W 250 ML IV SCH (09:31)
[2016-05-31] MEDS: rOPINIRole 1MG TAB PO SCH ×3 (09:31→21:19)
[2016-05-31] MEDS: ASCORBIC ACID 500 MG TAB PO SCH ×2 (09:31→21:18)
[2016-05-31] MEDS: MIRALAX *UNIT DOSE* 17GM PACKET PO SCH (09:31)
[2016-05-31] MEDS: EUCERIN 120GM CREAM TOP SCH ×2 (09:32→21:20)
[2016-05-31] MEDS: LACTOBACILLUS ACIDOPHILUS CAP (BACID) PO SCH ×3 (11:11→21:19)
[2016-05-31] MEDS ORDERED: predniSONE 5 MG TAB PO ONE (12:30)
--- NOTE | 2016-05-31 12:57 | IPNPDOC ---
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 Found to have a left displaced femoral neck fracture status post left hip hemiarthroplasty on 05/25/2016. Code Status: Full Weight Bearing: WBAT Subjective: Patient without specific complaints. States his breathing is about the same since his surgery. Reports productive cough, but not always able to expectorate. Denies any chest pain. Report lightheadedness upon sitting and standing. States current lower limb edema is his baseline. Pain adequately controlled. Denies any diaphoresis. Denies any nausea / vomiting. Denies dysuria or constipation. VS: Temperature 99.2F, pulse 95, respiratory rate of 20, blood pressure 106/52 , 93% saturation on 3 L via nasal cannula Physical Exam: GENERAL: Well nourished, well developed, sitting up in bed, no acute distress. HEENT: Normocephalic, + lg leasion parietal region w/ scab, PERRL, EOMI CARDIOVASCULAR: S1, S2, regular rate. 2+ edema left foot, 1+ right foot. LUNGS: Bilateral rhonchi correction up, wheezing upper lung chau. ABDOMEN: Soft, nontender, nondistended. Normoactive bowel sounds throughout. MUSCULOSKELETAL: Manual muscle testing: Approximately 5/5 strength bilateral upper and lower limbs. 3/5 left hip flexors, 5/5 remainder of the left lower limb in all major muscle groups. 5/5 right lower limb in all major muscle groups.. NEUROLOGICAL: Alert and oriented x 3. Answers all questions appropriately. Able to follow commands. SKIN: Left lateral hip thigh surgical site covered with OptiForm. Scalp lesion as above. Diffuse bruising bilateral upper limbs. Labs: 05/31/16 reviewed, see below Assessment & Plan: 80-year-old gentleman with left femoral neck fracture status post hemiarthroplasty. Postoperative course complicated by healthcare associated pneumonia. 1. Femoral neck fracture status post hemiarthroplasty: Weightbearing as tolerated. OptiForm dressing to surgical site every 5-7 days or as needed. Anticoagulation per orthopedic service. Hold on therapy secondary to acute medical issues (Brief exceptions policy). Rehabilitation nursing for bladder, bowel, medication management and wound care. 2. HCAP: Patient started on broad spectrum abx (vancomycin and cefepime) last evening. Will trend inflammatory markers, although interpretation will have to take into account recent surgery. Given his current wheezing, will increase his steroids. Add Tessalon Perles. Continue nebulizer treatments as needed. Continue oxygen supplementation via nasal cannula. 3. Acute kidney injury: Patient is status post IV fluids and subsequent IV diuresis secondary to concern for pulmonary edema. Medications reviewed, will need to monitor renal function closely while on vancomycin. I&Os reviewed, but inaccurate secondary to episodes of incontinence last evening. Will order daily weights in efforts to monitor fluid status. Ordered urinalysis/Ucx, although this likely be inaccurate secondary to his current antibiotics. Obtain bladder scan eval for retention. 4. Hypotension/orthostasis: Patient is s/p IV Lasix but currently not on any antihypertensives. Suspect this is secondary to his infection. As above will continue antibiotics. If patients clinical status does not improve over the next 24 hours, well likely obtain pulmonology and nephrology consultations. 5. Anemia, ABL: Slight trend down today, but this may be delutional. Am labs with iron studies. 6. DVT prophylaxis: Anticoagulation per DARIAN Colin of orthopedic service. SCD and EVELIN orr. 7. Skin - per the patients , the patient was on oral steroid taper at home just prior to admission for his skin condition. As stated above, oral steroids have been continued and are being increased secondary to his pulmonary wheezing. Patient will need outpatient follow-up after discharge for his skin condition. 8. Diet/malnutrition: Prealbumin low. Ensure supplements. Continue regular diet. 9. Pain Management - adequately controlled. Continue Percocet and acetaminophen when necessary. 10. Bowel - added lactobacillus given currently on antibiotics. 11. Bladder -as above, sent to urine sample to evaluate for urinary tract infection. 12. Thyroid nodule: Reviewed CT of the neck report with the patient and his only because patients was insisting on CT results. Informed the and the patient he would need outpatient follow-up on for further recommendations. PREMORBID FUNCTIONAL STATUS: Independent to modified independent with ADLs and ambulation. INTERDISCIPLINARY CARE and DISCHARGE PLANNING 1. The patient continues to require 24-hour rehabilitation nursing and physician management 2. The patient continues to benefit from current level of interdisciplinary care 3. Post discharge follow-up medical appointments: PCP, central supply assistant, orthopedics. 4. Team conference dates: 05/31/16 5. Anticipated discharge date: TBD 6. Anticipated discharge location: Home 7. Anticipated discharge needs: HHS: PT, OT, RN, Bath Aide. Equipment needs: TBD. / Vital Signs Vital Sign - Last 24 Hours 05/30/16 05/30/16 05/30/16 05/30/16 14:00 15:36 16:00 18:11 Temp 97.9 97.6 Pulse 92 84 91 Resp 18 18 18 B/P 97/55 98/58 107/59 Pulse Ox 94 98 O2 Delivery Nasal Cannula Nasal Cannula 05/30/16 05/30/16 05/30/16 05/30/16 18:47 19:50 20:00 20:00 Temp 98.1 Pulse 89 Resp 19 20 B/P 106/58 Pulse Ox 98 O2 Delivery Nasal Cannula Nasal Cannula Nasal Cannula O2 Flow Rate 3.0 3.0 3.0 05/31/16 05/31/16 05/31/16 05/31/16 00:00 00:28 04:00 06:00 Temp 98.3 99.0 99.2 Pulse 92 95 95 Resp 20 20 20 B/P 100/58 106/52 106/52 Pulse Ox 88 93 93 O2 Delivery Nasal Cannula Nasal Cannula Nasal Cannula Nasal Cannula O2 Flow Rate 3.0 3.0 3.0 3.0 05/31/16 05/31/16 05/31/16 08:45 09:00 09:00 B/P 69/49 108/69 O2 Delivery Nasal Cannula O2 Flow Rate 3.0 Laboratory Data CBC/BMP Laboratory Tests 05/31/16 06:29 Calcium Level 8.0 L, Red Blood Count 3.33 L, Mean Corpuscular Volume 87.2, Mean Corpuscular Hemoglobin 26.6 L, Mean Corpuscular Hemoglobin Concent 30.5 L, Red Cell Distribution Width 16.6 H, Neutrophils (%) (Auto) 81.3 H, Lymphocytes (%) ( Auto) 11.1 L, Monocytes (%) (Auto) 5.3 H, Eosinophils (%) (Auto) 0.1, Basophils (%) (Auto) 0.5, Neutrophils # (Auto) 9.2 H, Lymphocytes # (Auto) 1.5, Monocytes # (Auto) 0.6, Eosinophils # (Auto) 0.0, Basophils # (Auto) 0.1 Labs 24H Laboratory Tests 2 05/30/16 14:07: Lactic Acid Level 1.9 05/30/16 19:01: Lactic Acid Level 0.9 05/31/16 06:29: Anion Gap 11, White Blood Count 11.3H, Red Blood Count 3.33L, Hemoglobin 8.9L, Hematocrit 29.0L, Mean Corpuscular Volume 87.2, Mean Corpuscular Hemoglobin 26.6L, Mean Corpuscular Hemoglobin Concent 30.5L, Red Cell Distribution Width 16.6H, Platelet Count 357, Neutrophils (%) (Auto) 81.3H, Lymphocytes (%) (Auto) 11.1L, Monocytes (%) (Auto) 5.3H, Eosinophils (%) (Auto) 0.1, Basophils (%) ( Auto) 0.5, Neutrophils # (Auto) 9.2H, Lymphocytes # (Auto) 1.5, Monocytes # ( Auto) 0.6, Eosinophils # (Auto) 0.0, Basophils # (Auto) 0.1, Blood Urea Nitrogen 36H, Creatinine 1.38H, Sodium Level 141, Potassium Level 4.2, Chloride Level 103, Carbon Dioxide Level 27, Calcium Level 8.0L, Glomerular Filtration Rate 52.6, Large Unclassified Cells # 0.2, Large Unclassified Cells % 1.7, Prothromb Time International Ratio 2.37, Prothrombin Time 26.0H Allergies Allergies: Coded Allergies: No Known Allergies (Verified , 05/05/08) Current Medications Current Medications Current Medications Acetylcysteine (Mucomyst 20% (200mg/ml)) 400 mg RBID INH ; Start 05/27/16 at 20 :00; Stop 05/27/16 at 20:00; Status DC Albuterol Sulfate (Proventil, Ventolin Hfa) 2 puff Q4H PRN INH SHORTNESS OF BREATH; Start 05/27/16 at 15:15; Stop 05/27/16 at 16:28; Status DC Albuterol/ Ipratropium (Duoneb (Ipr 0.5mg/Alb 2.5mg)) 3 ml Q2HP PRN NEB SOB/ WHEEZING Last administered on 05/31/16t 00:31; Start 05/27/16 at 16:30; Stop at 16:29 Albuterol/ Ipratropium (Duoneb (Ipr 0.5mg/Alb 2.5mg)) 3 ml RQ4H NEB Last administered on 05/31/16 12:03; Start 05/27/16 at 20:00; Stop 06/26/16 at 19:59 Ascorbic Acid (Vitamin C) 500 mg BID PO Last administered on 05/31/16 09:31; Start 05/27/16 at 21:00; Stop 06/26/16 at 20:59 Aspirin (Ecotrin) 81 mg QPM PO Last administered on 05/30/16 20:11; Start at 21:00; Stop 06/26/16 at 20:59 Benzonatate (Tessalon Perles) 100 mg TID PO ; Start 05/31/16 at 16:00; Stop at 15:59 Calcium Carbonate 500 mg 500 mg ONCE ONCE PO Last administered on 05/28/16at 06:10; Start 05/28/16 at 06:00; Stop 05/28/16 at 06:01; Status DC Carbidopa/Levodopa (Sinemet 25/100) 1 tab TID PO Last administered on 05/31/16 09:31; Start 05/27/16 at 16:00; Stop 06/26/16 at 15:59 Cefepime HCl/ Dextrose (Maxipime/ Dextrose 5% Mini-Bag Plus) 50 ml @ 100 mls/ hr Q12H IV Last administered on 05/31/16 05:37; Start 05/30/16 at 18:00; Stop at 17:59 Docusate Sodium (Colace) 100 mg BID PO Last administered on 05/31/16 09:30; Start 05/30/16 at 09:00; Stop 06/29/16 at 08:59 Ferrous Gluconate (Fergon) 324 mg BID PO Last administered on 05/31/16 09:30; Start 05/27/16 at 21:00; Stop 06/26/16 at 20:59 Finasteride (Proscar) 5 mg QPM PO Last administered on 05/30/16 20:11; Start 05/27/16 at 21:00; Stop 06/26/16 at 20:59 Furosemide (Lasix) 40 mg ONCE ONCE IV Last administered on 05/31/16 02:10; Start 05/31/16 at 02:00; Stop 05/31/16 at 02:01; Status DC Gabapentin (Neurontin) 200 mg TID PO Last administered on 05/31/16 09:31; Start 05/27/16 at 21:00; Stop 06/26/16 at 20:59 Guaifenesin (Mucinex) 1,200 mg BID PO Last administered on 05/31/16 09:31; Start 05/30/16 at 21:00; Stop 05/31/16 at 12:16; Status DC Guaifenesin (Robitussin) 600 mg Q6HP PRN PO WHEEZING; Start 05/27/16 at 16:45 ; Stop 05/30/16 at 15:13; Status DC Ipratropium [place] (Atrovent 0.02%) 0.5 mg TID PRN INH SHORTNESS OF BREATH; Start 05/27/16 at 15:15; Stop 05/27/16 at 16:30; Status DC Lactobacillus Acidophilus (Bacid) 1 ea TID PO Last administered on 05/31/16 11: 11; Start 05/31/16 at 09:00; Stop 06/30/16 at 08:59 Latanoprost (Xalatan 0.005% Op Soln) 1 drop QHS OD Last administered on 20:12; Start 05/27/16 at 21:00; Stop 06/26/16 at 20:59 Mineral Oil/White Petrolatum (Eucerin) APPLY TO Feet BID TOP Last administered on 05/31/16 09:32; Start 05/27/16 at 21:00; Stop 06/26/16 at 20:59 Minocycline HCl (Minocin) 100 mg BID PO Last administered on 05/31/16 09:31; Start 05/27/16 at 21:00; Stop 05/31/16 at 10:32; Status DC Multivitamins (Ocuvite(I-Marcos)) 1 tab QPM PO Last administered on 05/30/16 20: 11; Start 05/27/16 at 21:00; Stop 06/26/16 at 20:59 Multivitamins (Theragram-M) 1 tab DAILY PO Last administered on 05/31/16 09:30 ; Start 05/28/16 at 09:00; Stop 06/27/16 at 08:59 Oxybutynin Chloride (Ditropan Xl) 5 mg QPM PO Last administered on 05/30/16 20: 10; Start 05/27/16 at 21:00; Stop 06/26/16 at 20:59 Oxycodone HCl (Roxicodone, Oxyir) 10 mg Q6HP PRN PO SEVERE PAIN (PS 8-10); Start 05/27/16 at 16:30; Stop 05/31/16 at 10:33; Status DC Oxycodone/ Acetaminophen (Percocet 5mg/ 325mg Tablet) 1 tab Q4H PRN PO PAIN Last administered on 05/30/16 18:11; Start 05/27/16 at 15:15; Stop 06/03/16 at 15:14 Polyethylene Glycol 1 pkt 1 pkt DAILY PO Last administered on 05/31/16 09:31; Start 05/30/16 at 09:00; Stop 06/29/16 at 08:59 Prednisone (Deltasone) 5 mg DAILY PO Last administered on 05/31/16 09:30; Start 05/28/16 at 09:00; Stop 05/31/16 at 12:14; Status DC Prednisone (Deltasone) 5 mg ONCE ONCE PO Last administered on 05/31/16 12:47; Start 05/31/16 at 12:30; Stop 05/31/16 at 12:31; Status DC Prednisone (Deltasone) 10 mg DAILY PO ; Start 06/01/16 at 09:00; Stop 07/01/16 at 08:59 Ropinirole HCl (Requip) 2 mg TID PO Last administered on 05/31/16 09:31; Start 05/27/16 at 16:00; Stop 06/26/16 at 15:59 Simvastatin (Zocor) 40 mg QPM PO Last administered on 05/30/16 20:11; Start at 21:00; Stop 06/26/16 at 20:59 Sodium Chloride 1,000 ml @ 150 mls/hr Q6H40M IV Last administered on 05/30/16 10:43; Start 05/30/16 at 09:30; Stop 05/30/16 at 22:06; Status DC Vancomycin HCl 1000 mg/IV Miscellaneous Supplies 1 each/ Dextrose 270 ml @ 270 mls/hr ONCE ONCE IV Last administered on 05/30/16 14:19; Start 05/30/16 at 14: 00; Stop 05/30/16 at 14:59; Status DC Vancomycin HCl/IV Miscellaneous Supplies/Dextrose (Vancomycin HCl/ Adapter-Vial Mate/ Dextrose 5%) 270 ml @ 270 mls/hr Q24H IV Last administered on 05/31/16 09:31; Start 05/31/16 at 09:00; Stop 06/07/16 at 08:59 Warfarin Sodium (Coumadin) 5 mg DAILY@17 PO Last administered on 05/28/16at 17: 05; Start 05/27/16 at 17:00; Stop 05/29/16 at 08:05; Status DC ARNEL HERRERA MD May 31, 2016 12:57
--- NOTE | 2016-05-31 13:53 | IPNPDOC ---
Text Note Date of Service The patient was seen on 05/31/16 at 13:48. NOTE Subjective: Patient states shortness of breath has improved. Objective: Vitals: (see below) General: No acute distress, laying comfortably in bed. HEENT: Moist mucous membranes. Healing bullous lesion on scalp Neck: No JVD or lymphadenopathy Cardiac: RRR, No murmurs Pulm: Coarse crackles and diminished breath sounds b/l. No wheezing, + rhonchi b /l Abd: NT/ND + BS Ext: No edema or cyanosis. Healed bullous on LE. Distal pulses intact b/l. Chronic violaceous changes b/l feet. No bleeding at the surgical site. Labs (see below) Images: CXR 05/30/16 Impression: Left lower lobe consolidation and suspected moderate pleural effusion as well as a right lower lobe consolidation are identified. Associated pulmonary vascular congestion and interstitial edema cannot be excluded. CT Neck 05/31/16 Impression: Heterogeneous enlarged right thyroid lobe measuring 6.4 cm maximal diameter causing contralateral tracheal deviation. ASSESSMENT/PLAN: HCAP - CXR noted above with b/l PNA. Lactic acid 1.9. Ph 7.46 . WBC 8.2. IVF NS started. Mucinex. Continue vancomycin and cefepime. Left femur fracture- status post mechanical fall. s/p left total hip arthroplasty by ortho. Getting rehab at this time. Thyroid mass -patient did have a CT of the neck today which shows that the mass is 6.4 cm. There is some tracheal deviation. No airway compromise. I did speak with the ENT Dr. Modi, who will be seeing the patient tomorrow. TSH, T3, T4 and a.m. Nuclear thyroid scan ordered for tomorrow as well. COPD- stable; continue nebs Parkinson's disease- continue home meds GERD- continue meds History of AAA repair - continue aspirin and statin DVT prophylaxis- per orthopedics. VS,Fishbone, I+O VS, Fishbone, I+O Laboratory Tests 05/31/16 06:29 Calcium Level 8.0 L, Red Blood Count 3.33 L, Mean Corpuscular Volume 87.2, Mean Corpuscular Hemoglobin 26.6 L, Mean Corpuscular Hemoglobin Concent 30.5 L, Red Cell Distribution Width 16.6 H, Neutrophils (%) (Auto) 81.3 H, Lymphocytes (%) ( Auto) 11.1 L, Monocytes (%) (Auto) 5.3 H, Eosinophils (%) (Auto) 0.1, Basophils (%) (Auto) 0.5, Neutrophils # (Auto) 9.2 H, Lymphocytes # (Auto) 1.5, Monocytes # (Auto) 0.6, Eosinophils # (Auto) 0.0, Basophils # (Auto) 0.1 Vital Signs Date Time Temp Pulse Resp B/P Pulse Ox O2 Delivery O2 Flow Rate FiO2 05/31/16 09:00 108/69 05/31/16 09:00 Nasal Cannula 3.0 05/31/16 06:00 99.2 95 20 93 I&O- Last 24 Hours up to 6 AM 05/31/16 06:00 Intake Total 2478 ml Output Total 925 ml Balance 1553 ml MONTSERRAT JAIN MD May 31, 2016 13:53
[2016-05-31] MEDS: BENZONATATE 100 MG CAP PO SCH ×2 (16:26→21:18)
[2016-05-31] MEDS: SIMVASTATIN 40 MG TAB PO SCH (21:18)
[2016-05-31] MEDS: ASPIRIN 81 MG ENTERIC TAB PO SCH (21:18)
[2016-05-31] MEDS: LATANOPROST 0.005% OPHTH SOLN 2.5 ML OD SCH (21:19)
[2016-05-31] MEDS: OCUVITE 1 TAB PO SCH (21:19)
[2016-05-31] MEDS: FINASTERIDE 5 MG TAB PO SCH (21:19)
[2016-06-01] MEDS: CEFEPIME HCL 2 GM in D5W MINI-BAG PLUS 50 ML IV SCH ×2 (05:32→18:03)
[2016-06-01 06:00] VITALS: BP 140/78
[2016-06-01] MEDS: IPRATROPIUM 0.5MG/ALBUTEROL 2.5MG INH SOL UD 3ML (DUONEB)(J7620) NEB SCH ×4 (08:00→20:17)
[2016-06-01 08:21] LABS: INR 2.08
[2016-06-01 08:47] LABS: FREE T4 0.87 NG/DL (0.76-1.46)
[2016-06-01] MEDS: LACTOBACILLUS ACIDOPHILUS CAP (BACID) PO SCH ×3 (08:58→20:52)
[2016-06-01] MEDS: GABAPENTIN 100 MG CAP PO SCH ×3 (08:58→20:52)
[2016-06-01] MEDS: FERROUS GLUCONATE 324 MG TAB PO SCH ×2 (08:58→20:52)
[2016-06-01] MEDS: rOPINIRole 1MG TAB PO SCH ×3 (08:58→20:52)
[2016-06-01] MEDS: MULTIVITAMINS/MINERALS THERAP 1 TAB PO SCH (08:58)
[2016-06-01] MEDS: DOCUSATE SODIUM 100 MG CAP PO SCH ×2 (08:58→20:51)
[2016-06-01] MEDS: BENZONATATE 100 MG CAP PO SCH ×3 (08:58→20:51)
[2016-06-01] MEDS: SINEMET 25-100 MG TAB PO SCH ×3 (08:59→20:52)
[2016-06-01] MEDS: ASCORBIC ACID 500 MG TAB PO SCH ×2 (08:59→20:52)
[2016-06-01] MEDS: EUCERIN 120GM CREAM TOP SCH ×2 (08:59→20:52)
[2016-06-01] MEDS: MIRALAX *UNIT DOSE* 17GM PACKET PO SCH (08:59)
[2016-06-01] MEDS: VANCOMYCIN HCL 1,000 MG, VIAL MATE ADAPTER 1 EACH in D5W 250 ML IV SCH (08:59)
[2016-06-01] MEDS: predniSONE 10 MG TAB PO SCH (08:59)
[2016-06-01] MEDS ORDERED: MAGNESIUM CITRATE 300 ML BTL PO ONE (09:30)
[2016-06-01 09:32] LABS: BASO % 0.2 % (0.0-1.0); EOS # 0.1 K/mm3 (0.0-0.50); EOS % 0.7 % (0.0-3.0); LARGE UNSTAINED CELL # 0.2 K/mm3 (0.0-0.4); LARGE UNSTAINED CELL % 1.8 % (0.0-4.0); LYMPH # 1.6 K/mm3 (1.5-4.5); LYMPH % 15.9 % (24.0-44.0); MEAN CORPUSCULAR HEMOGLOBIN 26.4 pg (27.0-33.0); MEAN CORPUSCULAR HGB CONC 29.9 g/dl (32.0-36.5); MEAN CORPUSCULAR VOLUME 88.2 fl (80.0-96.0); MONO # 0.5 K/mm3 (0.0-0.8); MONO % 5.2 % (0.0-5.0); NEUTROPHILS # 7.7 K/mm3 (1.8-7.7); NEUTROPHILS % 76.2 % (36.0-66.0); PLATELET COUNT, AUTOMATED 374 k/mm3 (150-450); RED CELL DISTRIBUTION WIDTH 15.8 % (11.5-14.5); WHITE BLOOD COUNT 10.1 K/mm3 (4.0-10.0)
[2016-06-01 09:34] LABS: ANION GAP 11 MEQ/L (8-16); BLOOD UREA NITROGEN 33 MG/DL (7-18); CALCIUM LEVEL 7.9 MG/DL (8.8-10.2); CARBON DIOXIDE LEVEL 25 MEQ/L (21-32); CHLORIDE LEVEL 107 MEQ/L (98-107); CREATININE FOR GFR 1.26 MG/DL (0.70-1.30); GLOMERULAR FILTRATION RATE 58.5 (>35); GLUCOSE, FASTING 101 MG/DL (83-110); POTASSIUM SERUM 3.9 MEQ/L (3.5-5.1); SODIUM LEVEL 143 MEQ/L (136-145)
[2016-06-01] MEDS: PANTOPRAZOLE 40MG TAB (PROTONIX) PO SCH ×2 (10:30→20:51)
[2016-06-01 11:20] VITALS: BP 119/63
[2016-06-01 14:00] VITALS: BP 111/55
--- NOTE | 2016-06-01 14:39 | IPNPDOC ---
Text Note Date of Service The patient was seen on 06/01/16 at 14:27. NOTE Subjective: Patient is an 80 year old male with a PMHx of Parkinson's disease, AAA repair, COPD, bullous pemphigus who presented after a fall. He was found to have a transverse displaced fracture of the left femoral neck. He is s/p left total hip arthroplasty. He was transferred to inpatient rehabilitation. He was noted have positive orthostatics in the Rehab unit and he noted that he had a productive cough. Patient was seen and examined at the bedside. Clinically he does not have any complaints. He does not that his cough is still persistant. Objective: Vitals (See below) General: Lying in bed, no acute distress, AAOx3 HEENT: NC, AT CVS: RRR, +S1S2 Lungs: Fair air entry b/l, - w/r/r Abdomen: Soft, ND, NT, +BSx4 Extremities: +PPx4, - edema, - calf tenderness Assessment and plan: 1. Hypotension - possibly 2/2 infection, possibly 2/2 autonomic instability 2/2 Parkinson's - BP well controlled at this time - will continue to record orthostatic vital signs - s/p IV fluid hydration 2. HCAP - has has cough that is persistent - no fevers recorded - mild leukocytosis, no elevation in lactic acid - will trend CRP - CXR with left lower lobe consolidation and suspected moderate pleural effusion - will c/w vancomycin and cefepime (Day #2) 2. Left femur fracture - s/p total left hip replacement - c/w rehabilitation 3. Thyroid mass - CT shows evidence of tracheal deviation - TSH elevated with low Free T3 and normal Free T4 - Will check Total T3 - Will need nuclear scan - ENT consulted (Dr. Modi) - appreciate their input 4. COPD - no evidence of exacerbation - c/w duonebs 5. Parkinson's disease - c/w home medications 6. GERD - c/w protonix 7. History of AAA repair - c/w ASA and statin 8. DVT prophylaxis - per orthopedic surgery VS,Fishbone, I+O VS, Fishbone, I+O Laboratory Tests 06/01/16 07:54 Red Blood Count 3.36 L, Mean Corpuscular Volume 88.2, Mean Corpuscular Hemoglobin 26.4 L, Mean Corpuscular Hemoglobin Concent 29.9 L, Red Cell Distribution Width 15.8 H, Neutrophils (%) (Auto) 76.2 H, Lymphocytes (%) (Auto ) 15.9 L, Monocytes (%) (Auto) 5.2 H, Eosinophils (%) (Auto) 0.7, Basophils (%) (Auto) 0.2, Neutrophils # (Auto) 7.7, Lymphocytes # (Auto) 1.6, Monocytes # ( Auto) 0.5, Eosinophils # (Auto) 0.1, Basophils # (Auto) 0.0 06/01/16 07:57 Calcium Level 7.9 L Vital Signs Date Time Temp Pulse Resp B/P Pulse Ox O2 Delivery O2 Flow Rate FiO2 06/01/16 11:20 96.7 79 20 119/63 97 Nasal Cannula 3.0 I&O- Last 24 Hours up to 6 AM 06/01/16 06:00 Intake Total 600 ml Output Total 1425 ml Balance -825 ml WANG SCHWAB MD Jun 01, 2016 14:39
[2016-06-01] MEDS ORDERED: WARFARIN SOD 1 MG TAB PO ONE (17:00)
--- NOTE | 2016-06-01 17:10 | IPNPDOC ---
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 Found to have a left displaced femoral neck fracture status post left hip hemiarthroplasty on 05/25/2016. Code Status: Full Weight Bearing: WBAT Subjective: Patient states feels ok, but still tired. Breathing better. Reported heartburn earlier today (Trop neg). Still with lightheadedness upon sitting and standing. Pain adequately controlled. Denies any diaphoresis. Denies any nausea / vomiting. Denies dysuria.+ constipation. VS: Temperature 96.9F, pulse 79, respiratory rate of 20, blood pressure 111/55 , 95% saturation on 3 L via nasal cannula Physical Exam: GENERAL: Well developed, sitting up in bed, no acute distress. HEENT: Normocephalic, + lg leasion parietal region (~stable), PERRL, EOMI CARDIOVASCULAR: S1, S2, regular rate. 2+ edema left foot, 1+ right foot (~stable ). LUNGS: Bilateral rhonchi (decreased), no wheezing. ABDOMEN: Soft, nontender, nondistended. Normoactive bowel sounds throughout. MUSCULOSKELETAL: MMT: Approximately 5/5 strength bilateral upper and lower limbs. 3/5 left hip flexors, 5/5 remainder of the left lower limb in all major muscle groups. 5/5 right lower limb in all major muscle groups.. NEUROLOGICAL: Alert and oriented x 3. Answers all questions appropriately. Able to follow commands. SKIN: Left lateral hip thigh surgical site covered with OptiForm. Scalp lesion as above. Diffuse bruising bilateral upper limbs (~stable). Labs: 06/01/16 reviewed, see below Assessment & Plan: 80-year-old gentleman with left femoral neck fracture status post hemiarthroplasty. Postoperative course complicated by healthcare associated pneumonia. 1. Femoral neck fracture status post hemiarthroplasty: Weightbearing as tolerated. OptiForm dressing to surgical site every 5-7 days. Anticoagulation per orthopedic service. Continue daily physical and occupational therapy. Rehabilitation nursing for bladder, bowel, medication management and wound care. 2. HCAP: Patient on broad spectrum abx (vancomycin and cefepime) improved today over yesterday. Will trend inflammatory markers, although interpretation will have to take into account recent surgery. Continue oral steroids. Continue Tessalon Perles. Continue nebulizer treatments as needed. Continue oxygen supplementation via nasal cannula. 3. Acute kidney injury: Patient is status post IV fluids and subsequent IV diuresis secondary to concern for pulmonary edema. Monitor renal function closely while on vancomycin. I&Os inaccurate secondary to episodes of incontinence. Continue daily weights in efforts to monitor fluid status. F/u Ucx 4. Hypotension/orthostasis: Patient is s/p IV Lasix but currently not on any antihypertensives. Hold Proscar starting today. As above will continue antibiotics. Reasses clinical status in am. 5. Anemia, ABL: ~stable. Am labs. F/u iron studies. 6. DVT prophylaxis: Anticoagulation per DARIAN Colin of orthopedic service. SCD and EVELIN orr. 7. 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 Patient will need outpatient follow-up after discharge for his skin condition. 8. Diet/malnutrition: Prealbumin low. Ensure supplements. Continue regular diet. 9. Pain Management - adequately controlled. Continue Percocet and acetaminophen when necessary. 10. Bowel Constipation. Mag citrate today. Continue lactobacillus given currently on antibiotics. 11. Bladder -as above, f/u UCx. 12. Thyroid nodule: Dr Hernandez c/s appreciated. Patient will need outpatient f /u. PREMORBID FUNCTIONAL STATUS: Independent to modified independent with ADLs and ambulation. INTERDISCIPLINARY CARE and DISCHARGE PLANNING 1. The patient continues to require 24-hour rehabilitation nursing and physician management 2. The patient continues to benefit from current level of interdisciplinary care 3. 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 4. Team conference dates: 05/31/16 5. Anticipated discharge date: TBD 6. Anticipated discharge location: TBD pending medical stability 7. Anticipated discharge needs: HHS: PT, OT, RN, Bath Aide. Equipment needs: TBD. / Vital Signs Vital Sign - Last 24 Hours 05/31/16 05/31/16 06/01/16 06/01/16 20:00 20:00 06:00 09:00 Temp 97.5 96.5 Pulse 100 88 Resp 20 18 B/P 108/56 140/78 Pulse Ox 94 92 O2 Delivery Nasal Cannula Nasal Cannula Nasal Cannula Nasal Cannula O2 Flow Rate 3.0 3.0 3.0 3.0 06/01/16 06/01/16 06/01/16 11:20 11:20 14:00 Temp 96.7 96.7 96.9 Pulse 79 79 79 Resp 20 20 20 B/P 119/63 119/63 111/55 Pulse Ox 97 97 95 O2 Delivery Nasal Cannula Nasal Cannula Nasal Cannula O2 Flow Rate 3.0 3.0 3.0 Laboratory Data CBC/BMP Laboratory Tests 06/01/16 07:54 Red Blood Count 3.36 L, Mean Corpuscular Volume 88.2, Mean Corpuscular Hemoglobin 26.4 L, Mean Corpuscular Hemoglobin Concent 29.9 L, Red Cell Distribution Width 15.8 H, Neutrophils (%) (Auto) 76.2 H, Lymphocytes (%) (Auto ) 15.9 L, Monocytes (%) (Auto) 5.2 H, Eosinophils (%) (Auto) 0.7, Basophils (%) (Auto) 0.2, Neutrophils # (Auto) 7.7, Lymphocytes # (Auto) 1.6, Monocytes # ( Auto) 0.5, Eosinophils # (Auto) 0.1, Basophils # (Auto) 0.0 06/01/16 07:57 Calcium Level 7.9 L Labs 24H Laboratory Tests 2 06/01/16 07:54: White Blood Count 10.1H, Red Blood Count 3.36L, Hemoglobin 8.9L, Hematocrit 29.7L, Mean Corpuscular Volume 88.2, Mean Corpuscular Hemoglobin 26.4L, Mean Corpuscular Hemoglobin Concent 29.9L, Red Cell Distribution Width 15.8H, Platelet Count 374, Neutrophils (%) (Auto) 76.2H, Lymphocytes (%) (Auto) 15.9L, Monocytes (%) (Auto) 5.2H, Eosinophils (%) (Auto) 0.7, Basophils (%) (Auto) 0.2 , Neutrophils # (Auto) 7.7, Lymphocytes # (Auto) 1.6, Monocytes # (Auto) 0.5, Eosinophils # (Auto) 0.1, Basophils # (Auto) 0.0, Large Unclassified Cells # 0.2 , Large Unclassified Cells % 1.8 06/01/16 07:57: Anion Gap 11, C-Reactive Protein, Quantitative 10.80H, Blood Urea Nitrogen 33H, Creatinine 1.26, Sodium Level 143, Potassium Level 3.9, Chloride Level 107, Carbon Dioxide Level 25, Calcium Level 7.9L, Free Thyroxine 0.87, Free Triiodothyronine 1.2L, Glomerular Filtration Rate 58.5, Prothromb Time International Ratio 2.08, Prothrombin Time 23.5H, Thyroid Stimulating Hormone ( TSH) 4.330H, Troponin I < 0.02, Vancomycin Level Trough 12.9 Microbiology Microbiology 05/31/16 Urine Culture, Received Pending Allergies Allergies: Coded Allergies: No Known Allergies (Verified , 05/05/08) Current Medications Current Medications Current Medications Acetylcysteine (Mucomyst 20% (200mg/ml)) 400 mg RBID INH ; Start 05/27/16 at 20 :00; Stop 05/27/16 at 20:00; Status DC Albuterol Sulfate (Proventil, Ventolin Hfa) 2 puff Q4H PRN INH SHORTNESS OF BREATH; Start 05/27/16 at 15:15; Stop 05/27/16 at 16:28; Status DC Albuterol/ Ipratropium (Duoneb (Ipr 0.5mg/Alb 2.5mg)) 3 ml Q2HP PRN NEB SOB/ WHEEZING Last administered on 05/31/16 00:31; Start 05/27/16 at 16:30; Stop at 16:29 Albuterol/ Ipratropium (Duoneb (Ipr 0.5mg/Alb 2.5mg)) 3 ml RQ4H NEB Last administered on 06/01/16 08:00; Start 05/27/16 at 20:00; Stop 06/26/16 at 19:59 Ascorbic Acid (Vitamin C) 500 mg BID PO Last administered on 06/01/16 08:59; Start 05/27/16 at 21:00; Stop 06/26/16 at 20:59 Aspirin (Ecotrin) 81 mg QPM PO Last administered on 05/31/16 21:18; Start at 21:00; Stop 06/26/16 at 20:59 Benzonatate (Tessalon Perles) 100 mg TID PO Last administered on 06/01/16 16:08 ; Start 05/31/16 at 16:00; Stop 06/30/16 at 15:59 Calcium Carbonate (Tums) 1,000 mg Q4HP PRN PO HEARTBURN; Start 06/01/16 at 14:30 ; Stop 07/01/16 at 14:29 Calcium Carbonate 500 mg 500 mg ONCE ONCE PO Last administered on 05/28/16at 06:10; Start 05/28/16 at 06:00; Stop 05/28/16 at 06:01; Status DC Carbidopa/Levodopa (Sinemet 25/100) 1 tab TID PO Last administered on 06/01/16 16:08; Start 05/27/16 at 16:00; Stop 06/26/16 at 15:59 Cefepime HCl/ Dextrose (Maxipime/ Dextrose 5% Mini-Bag Plus) 50 ml @ 100 mls/ hr Q12H IV Last administered on 06/01/16 05:32; Start 05/30/16 at 18:00; Stop at 17:59 Docusate Sodium (Colace) 100 mg BID PO Last administered on 06/01/16 08:58; Start 05/30/16 at 09:00; Stop 06/29/16 at 08:59 Ferrous Gluconate (Fergon) 324 mg BID PO Last administered on 06/01/16 08:58; Start 05/27/16 at 21:00; Stop 06/26/16 at 20:59 Finasteride (Proscar) 5 mg QPM PO Last administered on 05/31/16 21:19; Start 05/27/16 at 21:00; Stop 06/26/16 at 20:59; Status Future hold Furosemide (Lasix) 40 mg ONCE ONCE IV Last administered on 05/31/16 02:10; Start 05/31/16 at 02:00; Stop 05/31/16 at 02:01; Status DC Gabapentin (Neurontin) 200 mg TID PO Last administered on 06/01/16 16:09; Start 05/27/16 at 21:00; Stop 06/26/16 at 20:59 Guaifenesin (Mucinex) 1,200 mg BID PO Last administered on 05/31/16 09:31; Start 05/30/16 at 21:00; Stop 05/31/16 at 12:16; Status DC Guaifenesin (Robitussin) 600 mg Q6HP PRN PO WHEEZING; Start 05/27/16 at 16:45 ; Stop 05/30/16 at 15:13; Status DC Ipratropium [place] (Atrovent 0.02%) 0.5 mg TID PRN INH SHORTNESS OF BREATH; Start 05/27/16 at 15:15; Stop 05/27/16 at 16:30; Status DC Lactobacillus Acidophilus (Bacid) 1 ea TID PO Last administered on 06/01/16 16: 09; Start 05/31/16 at 09:00; Stop 06/30/16 at 08:59 Latanoprost (Xalatan 0.005% Op Soln) 1 drop QHS OD Last administered on 21:19; Start 05/27/16 at 21:00; Stop 06/26/16 at 20:59 Magnesium Citrate (Citrate Of Magnesia) 300 ml ONCE ONCE PO Last administered on 06/01/16 10:30; Start 06/01/16 at 09:30; Stop 06/01/16 at 09:31; Status DC Mineral Oil/White Petrolatum (Eucerin) APPLY TO Feet BID TOP Last administered on 06/01/16 08:59; Start 05/27/16 at 21:00; Stop 06/26/16 at 20:59 Minocycline HCl (Minocin) 100 mg BID PO Last administered on 05/31/16 09:31; Start 05/27/16 at 21:00; Stop 05/31/16 at 10:32; Status DC Multivitamins (Ocuvite(I-Marcos)) 1 tab QPM PO Last administered on 05/31/16 21: 19; Start 05/27/16 at 21:00; Stop 06/26/16 at 20:59 Multivitamins (Theragram-M) 1 tab DAILY PO Last administered on 06/01/16 08:58 ; Start 05/28/16 at 09:00; Stop 06/27/16 at 08:59 Oxybutynin Chloride (Ditropan Xl) 5 mg QPM PO Last administered on 05/30/16 20: 10; Start 05/27/16 at 21:00; Stop 05/31/16 at 13:00; Status DC Oxycodone HCl (Roxicodone, Oxyir) 10 mg Q6HP PRN PO SEVERE PAIN (PS 8-10); Start 05/27/16 at 16:30; Stop 05/31/16 at 10:33; Status DC Oxycodone/ Acetaminophen (Percocet 5mg/ 325mg Tablet) 1 tab Q4H PRN PO PAIN Last administered on 05/30/16 18:11; Start 05/27/16 at 15:15; Stop 06/03/16 at 15:14 Pantoprazole Sodium (Protonix) 40 mg BID PO Last administered on 06/01/16 10:30 ; Start 06/01/16 at 09:00; Stop 07/01/16 at 08:59 Polyethylene Glycol 1 pkt 1 pkt DAILY PO Last administered on 06/01/16 08:59; Start 05/30/16 at 09:00; Stop 06/29/16 at 08:59 Prednisone (Deltasone) 5 mg DAILY PO Last administered on 05/31/16 09:30; Start 05/28/16 at 09:00; Stop 05/31/16 at 12:14; Status DC Prednisone (Deltasone) 5 mg ONCE ONCE PO Last administered on 05/31/16 12:47; Start 05/31/16 at 12:30; Stop 05/31/16 at 12:31; Status DC Prednisone (Deltasone) 10 mg DAILY PO Last administered on 06/01/16 08:59; Start 06/01/16 at 09:00; Stop 07/01/16 at 08:59 Ropinirole HCl (Requip) 2 mg TID PO Last administered on 06/01/16 16:09; Start 05/27/16 at 16:00; Stop 06/26/16 at 15:59 Simvastatin (Zocor) 40 mg QPM PO Last administered on 05/31/16 21:18; Start at 21:00; Stop 06/26/16 at 20:59 Sodium Chloride 1,000 ml @ 150 mls/hr Q6H40M IV Last administered on 05/30/16 10:43; Start 05/30/16 at 09:30; Stop 05/30/16 at 22:06; Status DC Vancomycin HCl 1000 mg/IV Miscellaneous Supplies 1 each/ Dextrose 270 ml @ 270 mls/hr ONCE ONCE IV Last administered on 05/30/16 14:19; Start 05/30/16 at 14: 00; Stop 05/30/16 at 14:59; Status DC Vancomycin HCl/IV Miscellaneous Supplies/Dextrose (Vancomycin HCl/ Adapter-Vial Mate/ Dextrose 5%) 270 ml @ 270 mls/hr Q24H IV Last administered on 06/01/16 08:59; Start 05/31/16 at 09:00; Stop 06/07/16 at 08:59 Warfarin Sodium (Coumadin) 1 mg 1T@17 ONCE PO ; Start 06/01/16 at 17:00; Stop at 17:01; Status DC Warfarin Sodium (Coumadin) 5 mg DAILY@17 PO Last administered on 05/28/16at 17: 05; Start 05/27/16 at 17:00; Stop 05/29/16 at 08:05; Status DC ARNEL HERRERA MD Jun 01, 2016 17:10
[2016-06-01] MEDS: SODIUM CHLORIDE NASAL 0.65% SPRAY BTL (OCEAN) SCH ×2 (18:04→20:53)
[2016-06-01 20:00] VITALS: BP 128/72
[2016-06-01] MEDS: SIMVASTATIN 40 MG TAB PO SCH (20:51)
[2016-06-01] MEDS: OCUVITE 1 TAB PO SCH (20:52)
[2016-06-01] MEDS: ASPIRIN 81 MG ENTERIC TAB PO SCH (20:52)
[2016-06-01] MEDS: LATANOPROST 0.005% OPHTH SOLN 2.5 ML OD SCH (20:53)
[2016-06-02] MEDS: IPRATROPIUM 0.5MG/ALBUTEROL 2.5MG INH SOL UD 3ML (DUONEB)(J7620) NEB SCH ×6 (04:00→20:12)
[2016-06-02 05:00] VITALS: BP 126/68
[2016-06-02] MEDS: CEFEPIME HCL 2 GM in D5W MINI-BAG PLUS 50 ML IV SCH ×2 (05:20→17:56)
[2016-06-02 07:12] LABS: ANION GAP 7 MEQ/L (8-16); BLOOD UREA NITROGEN 35 MG/DL (7-18); CALCIUM LEVEL 7.9 MG/DL (8.8-10.2); CARBON DIOXIDE LEVEL 29 MEQ/L (21-32); CHLORIDE LEVEL 106 MEQ/L (98-107); CREATININE FOR GFR 1.21 MG/DL (0.70-1.30); FERRITIN 413 NG/ML (26-388); GLOMERULAR FILTRATION RATE > 60.0 (>35); GLUCOSE, FASTING 100 MG/DL (83-110); PERCENT SATURATION 17.4 % (19.7-37.4); POTASSIUM SERUM 4.3 MEQ/L (3.5-5.1); SODIUM LEVEL 142 MEQ/L (136-145); TOTAL IRON BINDING CAPACITY 161 UG/DL (250-450)
[2016-06-02 07:13] LABS: INR 2.12
[2016-06-02 07:19] LABS: BASO # 0.1 K/mm3 (0.0-0.2); BASO % 1.3 % (0.0-1.0); EOS # 0.1 K/mm3 (0.0-0.50); EOS % 0.6 % (0.0-3.0); LARGE UNSTAINED CELL # 0.2 K/mm3 (0.0-0.4); LARGE UNSTAINED CELL % 1.5 % (0.0-4.0); LYMPH # 1.7 K/mm3 (1.5-4.5); LYMPH % 14.3 % (24.0-44.0); MEAN CORPUSCULAR HEMOGLOBIN 26.3 pg (27.0-33.0); MEAN CORPUSCULAR HGB CONC 29.6 g/dl (32.0-36.5); MEAN CORPUSCULAR VOLUME 88.9 fl (80.0-96.0); MONO # 0.5 K/mm3 (0.0-0.8); MONO % 4.7 % (0.0-5.0); NEUTROPHILS # 8.4 K/mm3 (1.8-7.7); NEUTROPHILS % 77.5 % (36.0-66.0); PLATELET COUNT, AUTOMATED 392 k/mm3 (150-450); RED CELL DISTRIBUTION WIDTH 16.7 % (11.5-14.5); WHITE BLOOD COUNT 10.8 K/mm3 (4.0-10.0)
[2016-06-02] MEDS: EUCERIN 120GM CREAM TOP SCH ×2 (09:00→20:38)
[2016-06-02] MEDS: SODIUM CHLORIDE NASAL 0.65% SPRAY BTL (OCEAN) SCH ×3 (09:00→20:41)
[2016-06-02] MEDS: VANCOMYCIN HCL 1,000 MG, VIAL MATE ADAPTER 1 EACH in D5W 250 ML IV SCH (09:48)
[2016-06-02] MEDS: MIRALAX *UNIT DOSE* 17GM PACKET PO SCH (09:48)
[2016-06-02] MEDS: BENZONATATE 100 MG CAP PO SCH ×3 (09:51→20:35)
[2016-06-02] MEDS: predniSONE 10 MG TAB PO SCH (09:52)
[2016-06-02] MEDS: FERROUS GLUCONATE 324 MG TAB PO SCH ×3 (09:52→20:35)
[2016-06-02] MEDS: LACTOBACILLUS ACIDOPHILUS CAP (BACID) PO SCH ×3 (09:52→20:34)
[2016-06-02] MEDS: DOCUSATE SODIUM 100 MG CAP PO SCH ×2 (09:53→20:34)
[2016-06-02] MEDS: SINEMET 25-100 MG TAB PO SCH ×3 (09:53→20:35)
[2016-06-02] MEDS: rOPINIRole 1MG TAB PO SCH ×3 (09:53→20:34)
[2016-06-02] MEDS: MULTIVITAMINS/MINERALS THERAP 1 TAB PO SCH (09:54)
[2016-06-02] MEDS: GABAPENTIN 100 MG CAP PO SCH ×3 (09:54→20:34)
[2016-06-02] MEDS: PANTOPRAZOLE 40MG TAB (PROTONIX) PO SCH ×2 (09:54→20:34)
[2016-06-02] MEDS: ASCORBIC ACID 500 MG TAB PO SCH ×3 (09:54→20:35)
[2016-06-02] MEDS ORDERED: BISACODYL 10 MG SUPP PR ONE (11:45)
--- NOTE | 2016-06-02 11:55 | IPNPDOC ---
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 Found to have a left displaced femoral neck fracture status post left hip hemiarthroplasty on 05/25/2016. Code Status: Full Weight Bearing: WBAT Subjective: Patient states feels better than yesterday, but still tired. Breathing better. Still gets lightheaded. No further heartburn. Wants Andujar out. Pain adequately controlled. Denies any diaphoresis. Denies any nausea / vomiting. Denies dysuria. No BM yet. VS: Temperature 96.3F, pulse 82, respiratory rate of 20, blood pressure 126/68 , 89% saturation on 2L via nasal cannula Physical Exam: GENERAL: Well developed, sitting up in bed, no acute distress. HEENT: Normocephalic, + lg lesion parietal region (~stable), PERRL, EOMI CARDIOVASCULAR: S1, S2, regular rate. 2+ edema left foot, 1+ right foot (~stable ). LUNGS: Scattered rhonchi (decreased since yesterday), no wheezing. ABDOMEN: Soft, nontender, nondistended. Normoactive bowel sounds throughout. MUSCULOSKELETAL: +point tenderness right paraspinals ~T4 level. MMT: Approximately 5/5 strength bilateral upper and lower limbs. 3/5 left hip flexors , 5/5 remainder of the left lower limb in all major muscle groups. 5/5 right lower limb in all major muscle groups.. NEUROLOGICAL: Alert and oriented x 3. Answers all questions appropriately. Able to follow commands. SKIN: Left lateral hip thigh surgical site covered with OptiForm no significant visible drainage. Scalp lesion as above. Diffuse bruising bilateral upper limbs (~stable). 3cm abrasion left proximal forearm. Labs: 06/02/16 reviewed, see below UCx 05/31/16: NG Assessment & Plan: 80-year-old gentleman with left femoral neck fracture status post hemiarthroplasty. Postoperative course complicated by pneumonia. 1. Femoral neck fracture status post hemiarthroplasty: Weightbearing as tolerated. OptiForm dressing to surgical site every 5-7 days. Anticoagulation per orthopedic service. Continue daily physical and occupational therapy. Rehabilitation nursing for bladder, bowel, medication management and wound care. 2. HCAP/early sepsis: Patient on broad spectrum abx (vancomycin and cefepime) patients clinical status continues to improve, but still with orthostasis.Discussed transferring to acute medical floor, but patient requested to be able to try to do his therapies today. Will reassess after today s sessions. Continue oral steroids. Continue Tessalon Perles. Continue nebulizer treatments as needed. Continue oxygen supplementation via nasal cannula. 3. Acute kidney injury: Resolved. [Hx: Patient is status post IV fluids and subsequent IV diuresis secondary to concern for pulmonary edema]. Monitor renal function closely while on vancomycin. Continue daily weights in efforts to monitor fluid status. 4. Hypotension/orthostasis: Patient is s/p IV Lasix but currently not on any antihypertensives. Proscar on hold as of 06/01/16. As above will continue antibiotics. 5. Acute urinary retention: Will do voiding trial today given patients improved clinical status and eagerness to get Andujar removed. 6. Anemia (ABL + iron deficient): Still iron deficient so increased iron supplementation. 7. DVT prophylaxis: Anticoagulation per DARIAN Colin of orthopedic service. SCD and EVELIN orr. 8. Skin PONY TRIMMER condition being treated oral steroids. Patient will need outpatient follow-up after discharge for his skin condition. 9. Diet/malnutrition: Prealbumin low. Ensure supplements. Continue regular diet. 10. Pain Management Will trial Lidoderm patch over upper back pain. Continue Percocet and acetaminophen when necessary. 11. Bowel Constipation, persistent. Dulcolax suppository today. Continue lactobacillus given currently on antibiotics. 12. Thyroid nodule: Dr Hernandez c/s appreciated. Patient will need outpatient f /u [see his c/s note for details]. PREMORBID FUNCTIONAL STATUS: Independent to modified independent with ADLs and ambulation. INTERDISCIPLINARY CARE and DISCHARGE PLANNING 1. The patient continues to require 24-hour rehabilitation nursing and physician management 2. The patient continues to benefit from current level of interdisciplinary care 3. 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 4. Team conference dates: 05/31/16 5. Anticipated discharge date: TBD (not set at last team rounds 2nd acute medical issue) 6. Anticipated discharge location: TBD pending medical stability 7. Anticipated discharge needs: HHS: PT, OT, RN, Bath Aide. Equipment needs: TBD. / Vital Signs Vital Sign - Last 24 Hours 06/01/16 06/01/16 06/01/16 06/01/16 14:00 20:00 20:00 20:17 Temp 96.9 98.1 Pulse 79 91 Resp 20 20 B/P 111/55 128/72 Pulse Ox 95 95 O2 Delivery Nasal Cannula Nasal Cannula Nasal Cannula Nasal Cannula O2 Flow Rate 3.0 3.0 2.0 2.0 06/02/16 05:00 Temp 96.3 Pulse 82 Resp 20 B/P 126/68 Pulse Ox 89 O2 Delivery Nasal Cannula O2 Flow Rate 2.0 Laboratory Data CBC/BMP Laboratory Tests 06/02/16 06:33 Calcium Level 7.9 L, Red Blood Count 3.22 L, Mean Corpuscular Volume 88.9, Mean Corpuscular Hemoglobin 26.3 L, Mean Corpuscular Hemoglobin Concent 29.6 L, Red Cell Distribution Width 16.7 H, Neutrophils (%) (Auto) 77.5 H, Lymphocytes (%) ( Auto) 14.3 L, Monocytes (%) (Auto) 4.7, Eosinophils (%) (Auto) 0.6, Basophils (% ) (Auto) 1.3 H, Neutrophils # (Auto) 8.4 H, Lymphocytes # (Auto) 1.7, Monocytes # (Auto) 0.5, Eosinophils # (Auto) 0.1, Basophils # (Auto) 0.1 Labs 24H Laboratory Tests 2 06/02/16 06:33: Anion Gap 7L, White Blood Count 10.8H, Red Blood Count 3.22L, Hemoglobin 8.5L, Hematocrit 28.6L, Mean Corpuscular Volume 88.9, Mean Corpuscular Hemoglobin 26.3L, Mean Corpuscular Hemoglobin Concent 29.6L, Red Cell Distribution Width 16.7H, Platelet Count 392, Neutrophils (%) (Auto) 77.5H, Lymphocytes (%) (Auto) 14.3L, Monocytes (%) (Auto) 4.7, Eosinophils (%) (Auto) 0.6, Basophils (%) (Auto ) 1.3H, Neutrophils # (Auto) 8.4H, Lymphocytes # (Auto) 1.7, Monocytes # (Auto) 0.5, Eosinophils # (Auto) 0.1, Basophils # (Auto) 0.1, C-Reactive Protein, Quantitative 6.87H, Blood Urea Nitrogen 35H, Creatinine 1.21, Sodium Level 142, Potassium Level 4.3, Chloride Level 106, Carbon Dioxide Level 29, Calcium Level 7.9L, Ferritin 413H, Glomerular Filtration Rate > 60.0, Iron Level 28L, Large Unclassified Cells # 0.2, Large Unclassified Cells % 1.5, Prothromb Time International Ratio 2.12, Prothrombin Time 23.8H, Total Iron Binding Capacity 161L, Transferrin % Saturation 17.4L, Troponin I < 0.02 Microbiology Microbiology 05/31/16 Urine Culture - Final, Complete Allergies Allergies: Coded Allergies: No Known Allergies (Verified , 05/05/08) Current Medications Current Medications Current Medications Acetylcysteine (Mucomyst 20% (200mg/ml)) 400 mg RBID INH ; Start 05/27/16 at 20 :00; Stop 05/27/16 at 20:00; Status DC Albuterol Sulfate (Proventil, Ventolin Hfa) 2 puff Q4H PRN INH SHORTNESS OF BREATH; Start 05/27/16 at 15:15; Stop 05/27/16 at 16:28; Status DC Albuterol/ Ipratropium (Duoneb (Ipr 0.5mg/Alb 2.5mg)) 3 ml Q2HP PRN NEB SOB/ WHEEZING Last administered on 05/31/16 00:31; Start 05/27/16 at 16:30; Stop at 16:29 Albuterol/ Ipratropium (Duoneb (Ipr 0.5mg/Alb 2.5mg)) 3 ml RQ4H NEB Last administered on 06/01/16 16:45; Start 05/27/16 at 20:00; Stop 06/26/16 at 19:59 Ascorbic Acid (Vitamin C) 500 mg BID PO Last administered on 06/01/16 20:52; Start 05/27/16 at 21:00; Stop 06/02/16 at 08:45; Status DC Ascorbic Acid (Vitamin C) 500 mg TID PO Last administered on 06/02/16 09:54; Start 06/02/16 at 09:00; Stop 07/02/16 at 08:59 Aspirin (Ecotrin) 81 mg QPM PO Last administered on 06/01/16 20:52; Start at 21:00; Stop 06/26/16 at 20:59 Benzonatate (Tessalon Perles) 100 mg TID PO Last administered on 06/02/16 09:51 ; Start 05/31/16 at 16:00; Stop 06/30/16 at 15:59 Bisacodyl (Dulcolax) 10 mg ONCE ONCE RI ; Start 06/02/16 at 11:45; Stop 06/02/16 at 11:46; Status DC Calcium Carbonate (Tums) 1,000 mg Q4HP PRN PO HEARTBURN; Start 06/01/16 at 14:30 ; Stop 07/01/16 at 14:29 Calcium Carbonate 500 mg 500 mg ONCE ONCE PO Last administered on 05/28/16at 06:10; Start 05/28/16 at 06:00; Stop 05/28/16 at 06:01; Status DC Carbidopa/Levodopa (Sinemet 25/100) 1 tab TID PO Last administered on 06/02/16 09:53; Start 05/27/16 at 16:00; Stop 06/26/16 at 15:59 Cefepime HCl/ Dextrose (Maxipime/ Dextrose 5% Mini-Bag Plus) 50 ml @ 100 mls/ hr Q12H IV Last administered on 06/02/16 05:20; Start 05/30/16 at 18:00; Stop at 17:59 Docusate Sodium (Colace) 100 mg BID PO Last administered on 06/02/16 09:53; Start 05/30/16 at 09:00; Stop 06/29/16 at 08:59 Ferrous Gluconate (Fergon) 324 mg BID PO Last administered on 06/01/16 20:52; Start 05/27/16 at 21:00; Stop 06/02/16 at 08:45; Status DC Ferrous Gluconate (Fergon) 324 mg TID PO Last administered on 06/02/16 09:52; Start 06/02/16 at 09:00; Stop 07/02/16 at 08:59 Finasteride (Proscar) 5 mg QPM PO Last administered on 05/31/16 21:19; Start 05/27/16 at 21:00; Stop 06/26/16 at 20:59; Status Future hold Furosemide (Lasix) 40 mg ONCE ONCE IV Last administered on 05/31/16 02:10; Start 05/31/16 at 02:00; Stop 05/31/16 at 02:01; Status DC Gabapentin (Neurontin) 200 mg TID PO Last administered on 06/02/16 09:54; Start 05/27/16 at 21:00; Stop 06/26/16 at 20:59 Guaifenesin (Mucinex) 1,200 mg BID PO Last administered on 05/31/16 09:31; Start 05/30/16 at 21:00; Stop 05/31/16 at 12:16; Status DC Guaifenesin (Robitussin) 600 mg Q6HP PRN PO WHEEZING; Start 05/27/16 at 16:45 ; Stop 05/30/16 at 15:13; Status DC Ipratropium Trivoli (Atrovent 0.02%) 0.5 mg TID PRN INH SHORTNESS OF BREATH; Start 05/27/16 at 15:15; Stop 05/27/16 at 16:30; Status DC Lactobacillus Acidophilus (Bacid) 1 ea TID PO Last administered on 06/02/16 09: 52; Start 05/31/16 at 09:00; Stop 06/30/16 at 08:59 Latanoprost (Xalatan 0.005% Op Soln) 1 drop QHS OD Last administered on 20:53; Start 05/27/16 at 21:00; Stop 06/26/16 at 20:59 Lidocaine (Lidoderm Patch) 1 patch DAILY TD ; Start 06/02/16 at 09:00; Stop at 08:59 Magnesium Citrate (Citrate Of Magnesia) 300 ml ONCE ONCE PO Last administered on 06/01/16 10:30; Start 06/01/16 at 09:30; Stop 06/01/16 at 09:31; Status DC Mineral Oil/White Petrolatum (Eucerin) APPLY TO Feet BID TOP Last administered on 06/02/16 09:00; Start 05/27/16 at 21:00; Stop 06/26/16 at 20:59 Minocycline HCl (Minocin) 100 mg BID PO Last administered on 05/31/16 09:31; Start 05/27/16 at 21:00; Stop 05/31/16 at 10:32; Status DC Multivitamins (Ocuvite(I-Marcos)) 1 tab QPM PO Last administered on 06/01/16 20: 52; Start 05/27/16 at 21:00; Stop 06/26/16 at 20:59 Multivitamins (Theragram-M) 1 tab DAILY PO Last administered on 06/02/16 09:54 ; Start 05/28/16 at 09:00; Stop 06/27/16 at 08:59 Non-Formulary Medication ( See Comment Field Below ) REMOVE LIDODERM PATCH DAILY@21 XX ; Start 06/02/16 at 21:00; Stop 07/02/16 at 20:59 Oxybutynin Chloride (Ditropan Xl) 5 mg QPM PO Last administered on 05/30/16 20: 10; Start 05/27/16 at 21:00; Stop 05/31/16 at 13:00; Status DC Oxycodone HCl (Roxicodone, Oxyir) 10 mg Q6HP PRN PO SEVERE PAIN (PS 8-10); Start 05/27/16 at 16:30; Stop 05/31/16 at 10:33; Status DC Oxycodone/ Acetaminophen (Percocet 5mg/ 325mg Tablet) 1 tab Q4H PRN PO PAIN Last administered on 05/30/16 18:11; Start 05/27/16 at 15:15; Stop 06/03/16 at 15:14 Pantoprazole Sodium (Protonix) 40 mg BID PO Last administered on 06/02/16 09:54 ; Start 06/01/16 at 09:00; Stop 07/01/16 at 08:59 Polyethylene Glycol 1 pkt 1 pkt DAILY PO Last administered on 06/02/16 09:48; Start 05/30/16 at 09:00; Stop 06/29/16 at 08:59 Prednisone (Deltasone) 5 mg DAILY PO Last administered on 05/31/16 09:30; Start 05/28/16 at 09:00; Stop 05/31/16 at 12:14; Status DC Prednisone (Deltasone) 5 mg ONCE ONCE PO Last administered on 05/31/16 12:47; Start 05/31/16 at 12:30; Stop 05/31/16 at 12:31; Status DC Prednisone (Deltasone) 10 mg DAILY PO Last administered on 06/02/16 09:52; Start 06/01/16 at 09:00; Stop 07/01/16 at 08:59 Ropinirole HCl (Requip) 2 mg TID PO Last administered on 06/02/16 09:53; Start 05/27/16 at 16:00; Stop 06/26/16 at 15:59 Simvastatin (Zocor) 40 mg QPM PO Last administered on 06/01/16 20:51; Start at 21:00; Stop 06/26/16 at 20:59 Sodium Chloride 1,000 ml @ 150 mls/hr Q6H40M IV Last administered on 05/30/16 10:43; Start 05/30/16 at 09:30; Stop 05/30/16 at 22:06; Status DC Sodium Chloride ([place] Nasal [place]) 2 spray TID NA Last administered on 20:53; Start 06/01/16 at 16:00; Stop 07/01/16 at 15:59 Vancomycin HCl 1000 mg/IV Miscellaneous Supplies 1 each/ Dextrose 270 ml @ 270 mls/hr ONCE ONCE IV Last administered on 05/30/16 14:19; Start 05/30/16 at 14: 00; Stop 05/30/16 at 14:59; Status DC Vancomycin HCl/IV Miscellaneous Supplies/Dextrose (Vancomycin HCl/ Adapter-Vial Mate/ Dextrose 5%) 270 ml @ 270 mls/hr Q24H IV Last administered on 06/02/16 09:48; Start 05/31/16 at 09:00; Stop 06/07/16 at 08:59 Warfarin Sodium (Coumadin) 1 mg 1T@17 ONCE PO Last administered on 06/01/16 18 :03; Start 06/01/16 at 17:00; Stop 06/01/16 at 17:01; Status DC Warfarin Sodium (Coumadin) 1 mg 1T@17 ONCE PO ; Start 06/02/16 at 17:00; Stop at 17:01 Warfarin Sodium (Coumadin) 5 mg DAILY@17 PO Last administered on 05/28/16at 17: 05; Start 05/27/16 at 17:00; Stop 05/29/16 at 08:05; Status DC ARNEL HERRERA MD Jun 02, 2016 11:55
[2016-06-02] MEDS: LIDOCAINE 5% (LIDODERM) PATCH TD SCH (13:07)
[2016-06-02 14:00] VITALS: BP_SYST 105; BP_SYST 95; BP_DIAS 52; BP_DIAS 55
[2016-06-02] MEDS ORDERED: SODIUM CHLORIDE 0.9% 1000 ML IV ONE (14:45)
--- NOTE | 2016-06-02 15:05 | IPNPDOC ---
Text Note Date of Service The patient was seen on 06/02/16 at 14:54. NOTE Subjective: Patient is an 80 year old male with a PMHx of Parkinson's disease, AAA repair, COPD, bullous pemphigus who presented after a fall. He was found to have a transverse displaced fracture of the left femoral neck. He is s/p left total hip arthroplasty. He was transferred to inpatient rehabilitation. He was noted have positive orthostatics in the Rehab unit and he noted that he had a productive cough. Patient was seen and examined at the bedside. He notes that he is feeling tired. He did report that he has been making some progress with physical therapy today. He did some activities in bed. I attempted to get orthostatic vital signs from the patient, however he was too dizzy to remain standing. Immediately upon sitting his BP was noted to be 65/40. Objective: Vitals (See below) General: Lying in bed, no acute distress, AAOx3 HEENT: NC, AT CVS: RRR, +S1S2 Lungs: Fair air entry b/l, - w/r/r Abdomen: Soft, ND, NT, +BSx4 Extremities: +PPx4, - edema, - calf tenderness Assessment and plan: 1. Hypotension - possibly 2/2 infection, possibly 2/2 autonomic instability 2/2 Parkinson's - BP was hypotensive upon examination today; BP of 60s/40s - will continue to record orthostatic vital signs - Ins/outs shows negative fluid balance over last 48 hours - will check cortisol level - will give IV fluid bolus at this time - will check lactic acid 2. HCAP - has has cough that is persistent - no fevers recorded - mild leukocytosis, no elevation in lactic acid - CRP has been noted to be trending down - CXR with left lower lobe consolidation and suspected moderate pleural effusion - will c/w vancomycin and cefepime (Day #3) 3. Left femur fracture - s/p total left hip replacement - c/w rehabilitation 4. Thyroid mass - CT shows evidence of tracheal deviation - TSH elevated with low Free T3 and normal Free T4 - Will check Total T3 - Will need nuclear scan as an outpatient - ENT consulted (Dr. Modi) - appreciate their input 5. Normocytic anemia - likely 2/2 RICH - c/w ferrous sulfate - will continue to follow H&H 6. s/p LISSET - likely 2/2 pre-renal etiology - Cr peaked at 1.38 - has trended down 7. COPD - no evidence of exacerbation - c/w duonebs 8. Parkinson's disease - c/w home medications 9. History of AAA repair - c/w ASA and statin 10. Skin condition - on prednisone - will need outpatient follow up 11. GERD - c/w protonix 12. DVT prophylaxis - per orthopedic surgery VS,Fishbone, I+O VS, Fishbone, I+O Laboratory Tests 06/02/16 06:33 Calcium Level 7.9 L, Red Blood Count 3.22 L, Mean Corpuscular Volume 88.9, Mean Corpuscular Hemoglobin 26.3 L, Mean Corpuscular Hemoglobin Concent 29.6 L, Red Cell Distribution Width 16.7 H, Neutrophils (%) (Auto) 77.5 H, Lymphocytes (%) ( Auto) 14.3 L, Monocytes (%) (Auto) 4.7, Eosinophils (%) (Auto) 0.6, Basophils (% ) (Auto) 1.3 H, Neutrophils # (Auto) 8.4 H, Lymphocytes # (Auto) 1.7, Monocytes # (Auto) 0.5, Eosinophils # (Auto) 0.1, Basophils # (Auto) 0.1 Vital Signs Date Time Temp Pulse Resp B/P Pulse Ox O2 Delivery O2 Flow Rate FiO2 06/02/16 05:00 96.3 82 20 126/68 89 Nasal Cannula 2.0 I&O- Last 24 Hours up to 6 AM 06/02/16 06:00 Intake Total 880 ml Output Total 825 ml Balance 55 ml WANG SCHWAB MD Jun 02, 2016 15:05
[2016-06-02] MEDS ORDERED: WARFARIN SOD 1 MG TAB PO ONE (17:00)
[2016-06-02 20:15] VITALS: BP 100/50
[2016-06-02] MEDS: OCUVITE 1 TAB PO SCH (20:34)
[2016-06-02] MEDS: SODIUM CHLORIDE 0.9% INJ 10 ML SYR IV SCH (20:35)
[2016-06-02] MEDS: ASPIRIN 81 MG ENTERIC TAB PO SCH (20:35)
[2016-06-02] MEDS: LATANOPROST 0.005% OPHTH SOLN 2.5 ML OD SCH (20:38)
[2016-06-02] MEDS: SIMVASTATIN 40 MG TAB PO SCH (20:41)
[2016-06-02] MEDS: **NOTE PATIENT COMMENT** MISC XX SCH (20:42)
[2016-06-03] MEDS: IPRATROPIUM 0.5MG/ALBUTEROL 2.5MG INH SOL UD 3ML (DUONEB)(J7620) NEB SCH ×6 (04:00→20:00)
[2016-06-03 06:00] VITALS: BP 123/69
[2016-06-03] MEDS: CEFEPIME HCL 2 GM in D5W MINI-BAG PLUS 50 ML IV SCH ×2 (06:00→18:18)
[2016-06-03] MEDS: SODIUM CHLORIDE 0.9% INJ 10 ML SYR IV PRN ×2 (06:00→11:34)
[2016-06-03] MEDS: SODIUM CHLORIDE 0.9% INJ 10 ML SYR IV SCH ×2 (06:46→18:00)
[2016-06-03 07:20] LABS: INR 2.1
[2016-06-03 07:21] LABS: BASO % 0.5 % (0.0-1.0); EOS # 0.1 K/mm3 (0.0-0.50); EOS % 0.9 % (0.0-3.0); LARGE UNSTAINED CELL # 0.2 K/mm3 (0.0-0.4); LARGE UNSTAINED CELL % 1.9 % (0.0-4.0); LYMPH # 1.7 K/mm3 (1.5-4.5); LYMPH % 18.1 % (24.0-44.0); MEAN CORPUSCULAR HEMOGLOBIN 26.3 pg (27.0-33.0); MEAN CORPUSCULAR HGB CONC 29.5 g/dl (32.0-36.5); MONO # 0.4 K/mm3 (0.0-0.8); MONO % 4.7 % (0.0-5.0); NEUTROPHILS # 6.9 K/mm3 (1.8-7.7); NEUTROPHILS % 73.8 % (36.0-66.0); PLATELET COUNT, AUTOMATED 444 k/mm3 (150-450); RED CELL DISTRIBUTION WIDTH 15.9 % (11.5-14.5); WHITE BLOOD COUNT 9.3 K/mm3 (4.0-10.0)
[2016-06-03 07:36] LABS: ANION GAP 9 MEQ/L (8-16); BLOOD UREA NITROGEN 29 MG/DL (7-18); CALCIUM LEVEL 7.7 MG/DL (8.8-10.2); CARBON DIOXIDE LEVEL 28 MEQ/L (21-32); CHLORIDE LEVEL 105 MEQ/L (98-107); CREATININE FOR GFR 1.23 MG/DL (0.70-1.30); GLOMERULAR FILTRATION RATE > 60.0 (>35); GLUCOSE, FASTING 91 MG/DL (83-110); SODIUM LEVEL 142 MEQ/L (136-145)
[2016-06-03] MEDS: MIRALAX *UNIT DOSE* 17GM PACKET PO SCH (08:57)
[2016-06-03] MEDS: VANCOMYCIN HCL 1,000 MG, VIAL MATE ADAPTER 1 EACH in D5W 250 ML IV SCH (08:58)
[2016-06-03] MEDS: LIDOCAINE 5% (LIDODERM) PATCH TD SCH (09:00)
[2016-06-03] MEDS: BENZONATATE 100 MG CAP PO SCH ×3 (09:05→21:38)
[2016-06-03] MEDS: PANTOPRAZOLE 40MG TAB (PROTONIX) PO SCH ×2 (09:05→21:39)
[2016-06-03] MEDS: DOCUSATE SODIUM 100 MG CAP PO SCH ×2 (09:05→21:39)
[2016-06-03] MEDS: ASCORBIC ACID 500 MG TAB PO SCH ×3 (09:05→21:38)
[2016-06-03] MEDS: FERROUS GLUCONATE 324 MG TAB PO SCH ×3 (09:06→21:38)
[2016-06-03] MEDS: SINEMET 25-100 MG TAB PO SCH ×3 (09:06→21:39)
[2016-06-03] MEDS: MULTIVITAMINS/MINERALS THERAP 1 TAB PO SCH (09:06)
[2016-06-03] MEDS: rOPINIRole 1MG TAB PO SCH ×3 (09:06→21:38)
[2016-06-03] MEDS: GABAPENTIN 100 MG CAP PO SCH ×3 (09:06→21:38)
[2016-06-03] MEDS: predniSONE 10 MG TAB PO SCH (09:07)
[2016-06-03] MEDS: LACTOBACILLUS ACIDOPHILUS CAP (BACID) PO SCH ×3 (09:07→21:37)
[2016-06-03] MEDS: SODIUM CHLORIDE NASAL 0.65% SPRAY BTL (OCEAN) SCH ×3 (09:07→21:39)
[2016-06-03] MEDS: EUCERIN 120GM CREAM TOP SCH ×2 (09:08→21:40)
[2016-06-03] MEDS ORDERED: SODIUM CHLORIDE 0.9% 1000 ML IV ONE (10:45)
[2016-06-03 10:49] LABS: CORTISOL AM 17.1 UG/DL (4.3-22.4)
[2016-06-03] MEDS ORDERED: NS 1,000 ML IV ONE (11:15)
--- NOTE | 2016-06-03 13:15 | IPNPDOC ---
Text Note Date of Service The patient was seen on 06/03/16 at 13:06. NOTE Subjective: Patient is an 80 year old male with a PMHx of Parkinson's disease, AAA repair, COPD, bullous pemphigus who presented after a fall. He was found to have a transverse displaced fracture of the left femoral neck. He is s/p left total hip arthroplasty. He was transferred to inpatient rehabilitation. He was noted have positive orthostatics in the Rehab unit and he noted that he had a productive cough. On 06/02 patient was noted to be hypotensive (SBPs of 80s) with an elevated lactic acid. He had a PICC line placed urgently. His blood pressure prior to Iv fluid infusion was 120s. He received 500cc of NS bolus. His lactic acid trended down. Patient was seen and examined at the bedside. Today he was still found to have positive orthostatics. He was also found to have urinary retention and a urinary catheter was placed this morning. Objective: Vitals (See below) General: Lying in bed, no acute distress, AAOx3 HEENT: NC, AT CVS: RRR, +S1S2 Lungs: Fair air entry b/l, - w/r/r Abdomen: Soft, ND, NT, +BSx4 Extremities: +PPx4, - edema, - calf tenderness Assessment and plan: 1. Orthostatic hypotension - possibly 2/2 infection, possibly 2/2 autonomic instability 2/2 Parkinson's - BP was normotensive upon examination today; however his orthostatics remained positive - will continue to record orthostatic vital signs - will continue to follow ins/outs - cortisol level appropriate - lactic acid elevated initially; normalized with IV fluid hydration - will c/w IV fluid hydration 2. Sepsis 2/2 HCAP - has has cough that is persistent - no fevers recorded - mild leukocytosis - resolving, lactic acid elevated - but normalized now - CRP has been noted to be trending down - CXR with left lower lobe consolidation and suspected moderate pleural effusion - c/w vancomycin and cefepime (Day #4) 3. Left femur fracture - s/p total left hip replacement - c/w rehabilitation 4. Thyroid mass - CT shows evidence of tracheal deviation - TSH elevated with low Free T3 and normal Free T4 - Will check Total T3 - Will need nuclear scan as an outpatient - ENT consulted (Dr. Modi) - appreciate their input 5. Normocytic anemia - likely 2/2 RICH - Hg slightly lower than baseline from yesterday; will continue to follow - c/w ferrous sulfate - will transfuse if Hg if <7 or symptomatic - will continue to follow H&H 6. s/p LISSET - likely 2/2 pre-renal etiology - Cr peaked at 1.38 - has trended down 7. COPD - no evidence of exacerbation - c/w duonebs 8. Parkinson's disease - c/w home medications 9. History of AAA repair - c/w ASA and statin 10. Skin condition - on prednisone - will need outpatient follow up 11. GERD - c/w protonix 12. DVT prophylaxis - per orthopedic surgery VS,Fishbone, I+O VS, Fishbone, I+O Laboratory Tests 06/03/16 06:40 Calcium Level 7.7 L, Red Blood Count 3.06 L, Mean Corpuscular Volume 89.0, Mean Corpuscular Hemoglobin 26.3 L, Mean Corpuscular Hemoglobin Concent 29.5 L, Red Cell Distribution Width 15.9 H, Neutrophils (%) (Auto) 73.8 H, Lymphocytes (%) ( Auto) 18.1 L, Monocytes (%) (Auto) 4.7, Eosinophils (%) (Auto) 0.9, Basophils (% ) (Auto) 0.5, Neutrophils # (Auto) 6.9, Lymphocytes # (Auto) 1.7, Monocytes # ( Auto) 0.4, Eosinophils # (Auto) 0.1, Basophils # (Auto) 0.0 Vital Signs Date Time Temp Pulse Resp B/P Pulse Ox O2 Delivery O2 Flow Rate FiO2 06/03/16 09:10 Nasal Cannula 3.0 06/03/16 06:00 96.8 78 20 123/69 97 I&O- Last 24 Hours up to 6 AM 06/03/16 06:00 Intake Total 1040 ml Output Total 825 ml Balance 215 ml WANG SCHWAB MD Jun 03, 2016 13:15
[2016-06-03 15:08] VITALS: BP 116/60
--- NOTE | 2016-06-03 15:14 | IPNPDOC ---
Scanner Supervisor Progress Note PROGRESS NOTE DATE OF SERVICE: 06/03/2016 DATE OF ADMISSION: 05/27/2016 Patient Identification: 80-year-old gentleman with multiple medical comorbidities including COPD admitted to [facility] status post mechanical fall. Found to have a left displaced femoral neck fracture status post left hip hemiarthroplasty on 05/25/2016. Code Status: Full Weight Bearing: WBAT Subjective: Patient states feels ok, still tired but better than yesterday. Breathing better. Still gets lightheaded when seated or standing. No further heartburn. Hasnt been able to urinate, no pressure. Pain adequately controlled. Denies any diaphoresis. Denies any nausea / vomiting. Denies dysuria. No BM yet. VS: Temperature 96.8F, pulse 78, respiratory rate of 20, blood pressure 123/69 , 97% saturation on 2L via nasal cannula Physical Exam: GENERAL: Well developed, sitting up in bed, no acute distress. HEENT: Normocephalic, + lg lesion parietal region (~stable), PERRL, EOMI CARDIOVASCULAR: S1, S2, regular rate. 2+ edema left foot, 1+ right foot (~stable ). LUNGS: Scattered rhonchi (decreased), no wheezing. ABDOMEN: Soft, nontender, nondistended. Normoactive bowel sounds throughout. MUSCULOSKELETAL: MMT: 5/5 strength bilateral upper and lower limbs. 3/5 left hip flexors, 5/5 remainder of the left lower limb in all major muscle groups. 5/ 5 right lower limb in all major muscle groups.. NEUROLOGICAL: Alert and oriented x 3. Answers all questions appropriately. Able to follow commands. SKIN: Left lateral hip thigh surgical site covered with OptiForm no significant visible drainage. Scalp lesion as above. Diffuse bruising bilateral upper limbs (~stable). 3cm abrasion left proximal forearm. Labs: 06/03/16 reviewed, see below UCx 05/31/16: NG Assessment & Plan: 80-year-old gentleman with left femoral neck fracture status post hemiarthroplasty. Postoperative course complicated by pneumonia. 1. Femoral neck fracture status post hemiarthroplasty: Weightbearing as tolerated. OptiForm dressing to surgical site every 5-7 days. Anticoagulation per orthopedic service. Continue daily physical and occupational therapy. Rehabilitation nursing for bladder, bowel, medication management and wound care. 2. HCAP/sepsis: Patient responding to abx (vancomycin and cefepime) & his clinical status continues to improve, but still with orthostasis. Now on IVF. Patient adement about doing therapy wants to go home. Though d/c too far away. Informed him if he progresses rapidly, can advance date. Continue oral steroids. Continue Tessalon Perles. Continue nebulizer treatments as needed. Continue oxygen supplementation via nasal cannula. 3. Acute kidney injury: Resolved. [Hx: Patient is status post IV fluids and subsequent IV diuresis secondary to concern for pulmonary edema]. Monitor renal function closely while on vancomycin. Continue daily weights in efforts to monitor fluid status. 4. Hypotension/orthostasis: Patient now on IVF. Countinue to monitor fluid status. Proscar on hold as of 06/01/16. As above will continue antibiotics. 5. Acute urinary retention: Failed voiding trial. Will reinsert Andujar and repeat trial after restarting Proscar and once more ambulatory. 6. Anemia (ABL + iron deficient): S/p increased iron supplementation 06/02/16. 7. DVT prophylaxis: Anticoagulation per DARIAN Colin of orthopedic service. SCD and EVELIN orr. 8. Skin [employer] condition being treated oral steroids. Patient will need outpatient follow-up after discharge for his skin condition. 9. Diet/malnutrition: Prealbumin low. Ensure supplements. Continue regular diet. 10. Pain Management Continue Percocet and acetaminophen when necessary. Never trial Lidoderm due to back pain resolving. 11. Bowel Had BM yesterday s/p Dulcolax suppository. Continue lactobacillus given currently on antibiotics. 12. Thyroid nodule: Dr Hernandez c/s appreciated. Patient will need outpatient f /u [see his c/s note for details]. PREMORBID FUNCTIONAL STATUS: Independent to modified independent with ADLs and ambulation. INTERDISCIPLINARY CARE and DISCHARGE PLANNING 1. The patient continues to require 24-hour rehabilitation nursing and physician management 2. The patient continues to benefit from current level of interdisciplinary care 3. Post discharge follow-up medical appointments: PCP, general dentist, orthopedics, ENT. 4. Team conference dates: 05/31/16 5. Anticipated discharge date: 06/16/16 6. Anticipated discharge location: TBD pending medical stability 7. Anticipated discharge needs: HHS: PT, OT, RN, Bath Aide. Equipment needs: TBD. / Vital Signs Vital Sign - Last 24 Hours 06/02/16 06/02/16 06/02/16 06/03/16 20:00 20:12 20:15 06:00 Temp 98.0 96.8 Pulse 85 78 Resp 20 20 B/P 100/50 123/69 Pulse Ox 97 97 O2 Delivery Nasal Cannula Nasal Cannula Nasal Cannula Nasal Cannula O2 Flow Rate 3.0 3.0 3.0 3.0 06/03/16 06/03/16 06/03/16 09:10 14:00 15:08 Temp 97.2 Pulse 83 Resp 20 B/P 116/60 Pulse Ox 99 O2 Delivery Nasal Cannula Nasal Cannula Nasal Cannula O2 Flow Rate 3.0 2.0 2.0 Laboratory Data CBC/BMP Laboratory Tests 06/03/16 06:40 Calcium Level 7.7 L, Red Blood Count 3.06 L, Mean Corpuscular Volume 89.0, Mean Corpuscular Hemoglobin 26.3 L, Mean Corpuscular Hemoglobin Concent 29.5 L, Red Cell Distribution Width 15.9 H, Neutrophils (%) (Auto) 73.8 H, Lymphocytes (%) ( Auto) 18.1 L, Monocytes (%) (Auto) 4.7, Eosinophils (%) (Auto) 0.9, Basophils (% ) (Auto) 0.5, Neutrophils # (Auto) 6.9, Lymphocytes # (Auto) 1.7, Monocytes # ( Auto) 0.4, Eosinophils # (Auto) 0.1, Basophils # (Auto) 0.0 Labs 24H Laboratory Tests 2 06/02/16 19:48: Lactic Acid Level 1.3 06/03/16 06:40: Anion Gap 9, White Blood Count 9.3, Red Blood Count 3.06L, Hemoglobin 8.0L, Hematocrit 27.3L, Mean Corpuscular Volume 89.0, Mean Corpuscular Hemoglobin 26.3L, Mean Corpuscular Hemoglobin Concent 29.5L, Red Cell Distribution Width 15.9H, Platelet Count 444, Neutrophils (%) (Auto) 73.8H, Lymphocytes (%) (Auto) 18.1L, Monocytes (%) (Auto) 4.7, Eosinophils (%) (Auto) 0.9, Basophils (%) (Auto ) 0.5, Neutrophils # (Auto) 6.9, Lymphocytes # (Auto) 1.7, Monocytes # (Auto) 0.4, Eosinophils # (Auto) 0.1, Basophils # (Auto) 0.0, C-Reactive Protein, Quantitative 4.45H, Blood Urea Nitrogen 29H, Creatinine 1.23, Sodium Level 142, Potassium Level 4.0, Chloride Level 105, Carbon Dioxide Level 28, Calcium Level 7.7L, Cortisol AM Sample 17.1, Glomerular Filtration Rate > 60.0, Large Unclassified Cells # 0.2, Large Unclassified Cells % 1.9, Prothromb Time International Ratio 2.10, Prothrombin Time 23.6H 06/03/16 06:41: Lactic Acid Level 0.9, B-Type Natriuretic Peptide 95.8 Microbiology Microbiology 05/31/16 Urine Culture - Final, Complete Allergies Allergies: Coded Allergies: No Known Allergies (Verified , 05/05/08) Current Medications Current Medications Current Medications Acetylcysteine (Mucomyst 20% (200mg/ml)) 400 mg RBID INH ; Start 05/27/16 at 20 :00; Stop 05/27/16 at 20:00; Status DC Albuterol Sulfate (Proventil, Ventolin Hfa) 2 puff Q4H PRN INH SHORTNESS OF BREATH; Start 05/27/16 at 15:15; Stop 05/27/16 at 16:28; Status DC Albuterol/ Ipratropium (Duoneb (Ipr 0.5mg/Alb 2.5mg)) 3 ml Q2HP PRN NEB SOB/ WHEEZING Last administered on 05/31/16 00:31; Start 05/27/16 at 16:30; Stop at 16:29 Albuterol/ Ipratropium (Duoneb (Ipr 0.5mg/Alb 2.5mg)) 3 ml RQ4H NEB Last administered on 06/03/16 07:05; Start 05/27/16 at 20:00; Stop 06/26/16 at 19:59 Ascorbic Acid (Vitamin C) 500 mg BID PO Last administered on 06/01/16 20:52; Start 05/27/16 at 21:00; Stop 06/02/16 at 08:45; Status DC Ascorbic Acid (Vitamin C) 500 mg TID PO Last administered on 06/03/16 09:05; Start 06/02/16 at 09:00; Stop 07/02/16 at 08:59 Aspirin (Ecotrin) 81 mg QPM PO Last administered on 06/02/16 20:35; Start at 21:00; Stop 06/26/16 at 20:59 Benzonatate (Tessalon Perles) 100 mg TID PO Last administered on 06/03/16 09:05 ; Start 05/31/16 at 16:00; Stop 06/30/16 at 15:59 Bisacodyl (Dulcolax) 10 mg ONCE ONCE ND Last administered on 06/02/16 13:06; Start 06/02/16 at 11:45; Stop 06/02/16 at 11:46; Status DC Calcium Carbonate (Tums) 1,000 mg Q4HP PRN PO HEARTBURN; Start 06/01/16 at 14:30 ; Stop 07/01/16 at 14:29 Calcium Carbonate 500 mg 500 mg ONCE ONCE PO Last administered on 05/28/16at 06:10; Start 05/28/16 at 06:00; Stop 05/28/16 at 06:01; Status DC Carbidopa/Levodopa (Sinemet 25/100) 1 tab TID PO Last administered on 06/03/16 09:06; Start 05/27/16 at 16:00; Stop 06/26/16 at 15:59 Cefepime HCl/ Dextrose (Maxipime/ Dextrose 5% Mini-Bag Plus) 50 ml @ 100 mls/ hr Q12H IV Last administered on 06/03/16 06:00; Start 05/30/16 at 18:00; Stop at 17:59 Docusate Sodium (Colace) 100 mg BID PO Last administered on 06/03/16 09:05; Start 05/30/16 at 09:00; Stop 06/29/16 at 08:59 Ferrous Gluconate (Fergon) 324 mg BID PO Last administered on 06/01/16 20:52; Start 05/27/16 at 21:00; Stop 06/02/16 at 08:45; Status DC Ferrous Gluconate (Fergon) 324 mg TID PO Last administered on 06/03/16 09:06; Start 06/02/16 at 09:00; Stop 07/02/16 at 08:59 Finasteride (Proscar) 5 mg QPM PO Last administered on 05/31/16 21:19; Start 05/27/16 at 21:00; Stop 06/26/16 at 20:59; Status Future hold Furosemide (Lasix) 40 mg ONCE ONCE IV Last administered on 05/31/16 02:10; Start 05/31/16 at 02:00; Stop 05/31/16 at 02:01; Status DC Gabapentin (Neurontin) 200 mg TID PO Last administered on 06/03/16 09:06; Start 05/27/16 at 21:00; Stop 06/26/16 at 20:59 Guaifenesin (Mucinex) 1,200 mg BID PO Last administered on 05/31/16 09:31; Start 05/30/16 at 21:00; Stop 05/31/16 at 12:16; Status DC Guaifenesin (Robitussin) 600 mg Q6HP PRN PO WHEEZING; Start 05/27/16 at 16:45 ; Stop 05/30/16 at 15:13; Status DC Heparin Sodium (Heparin (Flush)) 200 units ASDIRECTED PRN IV SEE LABEL COMMENTS Last administered on 06/03/16 11:34; Start 06/02/16 at 20:00; Stop at 19:59 Heparin Sodium (Heparin (Flush)) 200 units PICC IV Last administered on 06:00; Start 06/03/16 at 06:00; Stop 07/03/16 at 05:59 Heparin Sodium (Heparin (Flush)) 300 units STK-MED ONCE As Ordered ; Start at 16:18; Stop 06/02/16 at 16:19; Status DC Heparin Sodium (Heparin Flush Bag) 1,000 units STK-MED ONCE As Ordered ; Start 06/02/16 at 16:18; Stop 06/02/16 at 16:19; Status DC Ipratropium [place] (Atrovent 0.02%) 0.5 mg TID PRN INH SHORTNESS OF BREATH; Start 05/27/16 at 15:15; Stop 05/27/16 at 16:30; Status DC Lactobacillus Acidophilus (Bacid) 1 ea TID PO Last administered on 06/03/16 09: 07; Start 05/31/16 at 09:00; Stop 06/30/16 at 08:59 Latanoprost (Xalatan 0.005% Op Soln) 1 drop QHS OD Last administered on 20:38; Start 05/27/16 at 21:00; Stop 06/26/16 at 20:59 Lidocaine (Lidoderm Patch) 1 patch DAILY TD Last administered on 06/02/16 13:07 ; Start 06/02/16 at 09:00; Stop 07/02/16 at 08:59 Magnesium Citrate (Citrate Of Magnesia) 300 ml ONCE ONCE PO Last administered on 06/01/16 10:30; Start 06/01/16 at 09:30; Stop 06/01/16 at 09:31; Status DC Mineral Oil/White Petrolatum (Eucerin) APPLY TO Feet BID TOP Last administered on 06/03/16 09:08; Start 05/27/16 at 21:00; Stop 06/26/16 at 20:59 Minocycline HCl (Minocin) 100 mg BID PO Last administered on 05/31/16 09:31; Start 05/27/16 at 21:00; Stop 05/31/16 at 10:32; Status DC Multivitamins (Ocuvite(I-Marcos)) 1 tab QPM PO Last administered on 06/02/16 20: 34; Start 05/27/16 at 21:00; Stop 06/26/16 at 20:59 Multivitamins (Theragram-M) 1 tab DAILY PO Last administered on 06/03/16 09:06 ; Start 05/28/16 at 09:00; Stop 06/27/16 at 08:59 Non-Formulary Medication ( See Comment Field Below ) REMOVE LIDODERM PATCH DAILY@21 XX Last administered on 06/02/16 20:42; Start 06/02/16 at 21:00; Stop 07/02/16 at 20:59 Oxybutynin Chloride (Ditropan Xl) 5 mg QPM PO Last administered on 05/30/16 20: 10; Start 05/27/16 at 21:00; Stop 05/31/16 at 13:00; Status DC Oxycodone HCl (Roxicodone, Oxyir) 10 mg Q6HP PRN PO SEVERE PAIN (PS 8-10); Start 05/27/16 at 16:30; Stop 05/31/16 at 10:33; Status DC Oxycodone/ Acetaminophen (Percocet 5mg/ 325mg Tablet) 1 tab Q4H PRN PO PAIN Last administered on 05/30/16 18:11; Start 05/27/16 at 15:15; Stop 06/09/16 at 15:14 Pantoprazole Sodium (Protonix) 40 mg BID PO Last administered on 06/03/16 09:05 ; Start 06/01/16 at 09:00; Stop 07/01/16 at 08:59 Polyethylene Glycol 1 pkt 1 pkt DAILY PO Last administered on 06/03/16 08:57; Start 05/30/16 at 09:00; Stop 06/29/16 at 08:59 Prednisone (Deltasone) 5 mg DAILY PO Last administered on 05/31/16 09:30; Start 05/28/16 at 09:00; Stop 05/31/16 at 12:14; Status DC Prednisone (Deltasone) 5 mg ONCE ONCE PO Last administered on 05/31/16 12:47; Start 05/31/16 at 12:30; Stop 05/31/16 at 12:31; Status DC Prednisone (Deltasone) 10 mg DAILY PO Last administered on 06/03/16 09:07; Start 06/01/16 at 09:00; Stop 07/01/16 at 08:59 Ropinirole HCl (Requip) 2 mg TID PO Last administered on 06/03/16 09:06; Start 05/27/16 at 16:00; Stop 06/26/16 at 15:59 Simvastatin (Zocor) 40 mg QPM PO Last administered on 06/02/16 20:41; Start at 21:00; Stop 06/26/16 at 20:59 Sodium Chloride 1,000 ml @ 150 mls/hr Q6H40M IV Last administered on 05/30/16 10:43; Start 05/30/16 at 09:30; Stop 05/30/16 at 22:06; Status DC Sodium Chloride (Nacl 0.9%) 500 ml BOLUS ONCE IV Last administered on 15:00; Start 06/02/16 at 14:45; Stop 06/02/16 at 14:46; Status DC Sodium Chloride (Nacl 0.9%) 1,000 ml @ 80 mls/hr [id number] ONCE IV Last administered on 06/03/16 11:43; Start 06/03/16 at 11:15; Stop 06/03/16 at 23:44 Sodium Chloride ([place] Nasal [place]) 2 spray TID NA Last administered on 09:07; Start 06/01/16 at 16:00; Stop 07/01/16 at 15:59 Sodium Chloride (Saline Lock Flush) 10 ml ASDIRECTED PRN IV SEE LABEL COMMENTS Last administered on 06/03/16 11:34; Start 06/02/16 at 20:00; Stop 07/02/16 at 19: 59 Sodium Chloride (Saline Lock Flush) 10 ml PICC IV Last administered on 06:46; Start 06/02/16 at 20:00; Stop 07/02/16 at 19:59 Sodium Chloride 80 ml 80 ml BOLUS ONCE IV ; Start 06/03/16 at 10:45; Stop at 11:06; Status DC Vancomycin HCl 1000 mg/IV Miscellaneous Supplies 1 each/ Dextrose 270 ml @ 270 mls/hr ONCE ONCE IV Last administered on 05/30/16 14:19; Start 05/30/16 at 14: 00; Stop 05/30/16 at 14:59; Status DC Vancomycin HCl/IV Miscellaneous Supplies/Dextrose (Vancomycin HCl/ Adapter-Vial Mate/ Dextrose 5%) 270 ml @ 270 mls/hr Q24H IV Last administered on 06/03/16 08:58; Start 05/31/16 at 09:00; Stop 06/07/16 at 08:59 Warfarin Sodium (Coumadin) 1 mg 1T@17 ONCE PO Last administered on 06/01/16 18 :03; Start 06/01/16 at 17:00; Stop 06/01/16 at 17:01; Status DC Warfarin Sodium (Coumadin) 1 mg 1T@17 ONCE PO Last administered on 06/02/16 18 :07; Start 06/02/16 at 17:00; Stop 06/02/16 at 17:01; Status DC Warfarin Sodium (Coumadin) 2 mg 1T@17 ONCE PO ; Start 06/03/16 at 17:00; Stop at 17:01 Warfarin Sodium (Coumadin) 5 mg DAILY@17 PO Last administered on 05/28/16at 17: 05; Start 05/27/16 at 17:00; Stop 05/29/16 at 08:05; Status DC ARNEL HERRERA MD Jun 03, 2016 15:13
[2016-06-03 15:15] VITALS: BP 94/54
[2016-06-03] MEDS ORDERED: WARFARIN SOD 2 MG TAB PO ONE (17:00)
[2016-06-03 20:00] VITALS: BP 103/57
[2016-06-03] MEDS: **NOTE PATIENT COMMENT** MISC XX SCH (21:00)
[2016-06-03] MEDS: OCUVITE 1 TAB PO SCH (21:37)
[2016-06-03] MEDS: SIMVASTATIN 40 MG TAB PO SCH (21:38)
[2016-06-03] MEDS: ASPIRIN 81 MG ENTERIC TAB PO SCH (21:38)
[2016-06-03] MEDS: LATANOPROST 0.005% OPHTH SOLN 2.5 ML OD SCH (21:39)
[2016-06-03] MEDS: FINASTERIDE 5 MG TAB PO SCH (21:39)
[2016-06-04] MEDS: IPRATROPIUM 0.5MG/ALBUTEROL 2.5MG INH SOL UD 3ML (DUONEB)(J7620) NEB SCH ×7 (00:43→21:33)
[2016-06-04] MEDS: SODIUM CHLORIDE 0.9% INJ 10 ML SYR IV SCH ×3 (05:14→17:20)
[2016-06-04 06:00] VITALS: BP 112/60
[2016-06-04] MEDS: GABAPENTIN 100 MG CAP PO SCH ×3 (08:32→21:24)
[2016-06-04] MEDS: ASCORBIC ACID 500 MG TAB PO SCH ×3 (08:32→21:24)
[2016-06-04] MEDS: DOCUSATE SODIUM 100 MG CAP PO SCH ×2 (08:32→21:24)
[2016-06-04] MEDS: BENZONATATE 100 MG CAP PO SCH ×3 (08:32→21:24)
[2016-06-04] MEDS: rOPINIRole 1MG TAB PO SCH ×3 (08:33→21:24)
[2016-06-04] MEDS: PANTOPRAZOLE 40MG TAB (PROTONIX) PO SCH ×2 (08:33→21:24)
[2016-06-04] MEDS: SINEMET 25-100 MG TAB PO SCH ×3 (08:33→21:24)
[2016-06-04] MEDS: FERROUS GLUCONATE 324 MG TAB PO SCH ×3 (08:33→21:24)
[2016-06-04] MEDS: predniSONE 10 MG TAB PO SCH (08:33)
[2016-06-04] MEDS: MULTIVITAMINS/MINERALS THERAP 1 TAB PO SCH (08:33)
[2016-06-04] MEDS: LACTOBACILLUS ACIDOPHILUS CAP (BACID) PO SCH ×3 (08:33→21:24)
[2016-06-04] MEDS: SODIUM CHLORIDE NASAL 0.65% SPRAY BTL (OCEAN) SCH ×3 (08:34→21:24)
[2016-06-04] MEDS: EUCERIN 120GM CREAM TOP SCH ×2 (08:35→21:28)
[2016-06-04] MEDS: MIRALAX *UNIT DOSE* 17GM PACKET PO SCH (08:37)
[2016-06-04 08:48] LABS: MEAN CORPUSCULAR HEMOGLOBIN 25.9 pg (27.0-33.0); MEAN CORPUSCULAR HGB CONC 29.4 g/dl (32.0-36.5); PLATELET COUNT, AUTOMATED 460 k/mm3 (150-450); WHITE BLOOD COUNT 10.1 K/mm3 (4.0-10.0)
[2016-06-04 08:53] LABS: ALBUMIN 2.2 GM/DL (3.2-5.2); ALBUMIN/GLOBULIN RATIO 0.85 (1.00-1.93); ALKALINE PHOSPHATASE 64 U/L (45-117); ALT/SGPT 16 U/L (12-78); ANION GAP 8 MEQ/L (8-16); AST/SGOT 24 U/L (15-37); BILIRUBIN,TOTAL 0.4 MG/DL (0.2-1.0); BLOOD UREA NITROGEN 23 MG/DL (7-18); CALCIUM LEVEL 7.5 MG/DL (8.8-10.2); CARBON DIOXIDE LEVEL 28 MEQ/L (21-32); CHLORIDE LEVEL 107 MEQ/L (98-107); CREATININE FOR GFR 1.05 MG/DL (0.70-1.30); GLOMERULAR FILTRATION RATE > 60.0 (>35); GLUCOSE, FASTING 94 MG/DL (83-110); MAGNESIUM LEVEL 2.4 MG/DL (1.8-2.4); POTASSIUM SERUM 3.8 MEQ/L (3.5-5.1); SODIUM LEVEL 143 MEQ/L (136-145); TOTAL PROTEIN 4.8 GM/DL (6.4-8.2)
[2016-06-04 09:00] LABS: INR 2.13
[2016-06-04 09:04] LABS: ANISOCYTOSIS 1+; EOSINOPHILS 1 % (0-5); HYPOCHROMASIA 2+; NUCLEATED RED BLOOD CELL 2 % (0-0)
--- NOTE | 2016-06-04 11:52 | IPNPDOC ---
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 Found to have a left displaced femoral neck fracture status post left hip hemiarthroplasty on 05/25/2016. Code Status: Full Weight Bearing: WBAT Subjective: Patient states feels tired, didnt sleep well 2nd being interrupted by nurse. Breathing ok. Still gets lightheaded when seated or standing, but less. Pain adequately controlled. Denies any diaphoresis. Denies any nausea / vomiting. Denies dysuria. No BM yet. VS: Temperature 96.9F, pulse 68, respiratory rate of 20, blood pressure 112/60 , 97% saturation on 3L via nasal cannula Physical Exam: GENERAL: Well developed, sitting up in bed, no acute distress. HEENT: Normocephalic, + lg lesion parietal region (~stable), PERRL, EOMI CARDIOVASCULAR: S1, S2, regular rate. 1-2+ edema left foot (decreased), trace - 1+ right foot (decreased). LUNGS: Improved BS, no wheezing. ABDOMEN: Soft, nontender, nondistended. Normoactive bowel sounds throughout. MUSCULOSKELETAL: MMT: 5/5 strength bilateral upper and lower limbs. 3/5 left hip flexors, 5/5 remainder of the left lower limb in all major muscle groups. 5/ 5 right lower limb in all major muscle groups.. NEUROLOGICAL: Alert and oriented x 3. Answers all questions appropriately. Able to follow commands. SKIN: Left lateral hip thigh surgical site covered with OptiForm no significant visible drainage. Scalp lesion as above. Diffuse bruising bilateral upper limbs (~stable). 3cm abrasion left proximal forearm. +PICC right arm Labs: 06/04/16 reviewed, see below UCx 05/31/16: NG Assessment & Plan: 80-year-old gentleman with left femoral neck fracture status post hemiarthroplasty. Postoperative course complicated by pneumonia. 1. Femoral neck fracture status post hemiarthroplasty: WBAT. OptiForm dressing to surgical site every 5-7 days. Anticoagulation per orthopedic service. Continue daily physical and occupational therapy. Rehabilitation nursing for bladder, bowel, medication management and wound care. 2. HCAP/sepsis: S/p PICC 06/02/16 per RN, arm became swollen last night and persistently set of pump alarm. Have ordered Fluoro w contrast to eval for placement and patency. Patient is responding to abx (vancomycin and cefepime) & his clinical status continues to improve, although still with orthostasis. IVF were stopped last evening 2nd issue with PICC. Continue oral steroids (pending clinical status will consider slow taper). Continue Tessalon Perles. Continue nebulizer treatments as needed. Continue oxygen supplementation via nasal cannula. 3. Acute kidney injury: Resolved. [Hx: Patient is status post IV fluids and subsequent IV diuresis secondary to concern for pulmonary edema]. Monitor renal function closely while on vancomycin. Continue daily weights in efforts to monitor fluid status. 4. Hypotension/orthostasis: Will consider restarting IVF once PICC evaluated. Countinue to monitor fluid status. Proscar on hold as of 06/01/16. As above will continue antibiotics. 5. Acute urinary retention: Failed voiding trial. Reinsert Andujar 06/03/16 and repeat trial after restarting Proscar and once more ambulatory. 6. Anemia (ABL + iron deficient): S/p increased iron supplementation 06/02/16. 7. DVT prophylaxis: Anticoagulation per DARIAN Colin of orthopedic service. SCD and EVELIN orr. 8. 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 Patient will need outpatient follow-up after discharge for his skin condition. 9. Diet/malnutrition: Prealbumin low. Ensure supplements. Continue regular diet. 10. Pain Management Continue Percocet and acetaminophen when necessary. Never trial Lidoderm due to back pain resolving. 11. Bowel Constipation resolved s/p Dulcolax suppository. Continue lactobacillus given currently on antibiotics. 12. Thyroid nodule: Dr Hernandez c/s appreciated. Patient will need outpatient f /u [see his c/s note for details]. PREMORBID FUNCTIONAL STATUS: Independent to modified independent with ADLs and ambulation. INTERDISCIPLINARY CARE and DISCHARGE PLANNING 1. The patient continues to require 24-hour rehabilitation nursing and physician management 2. The patient continues to benefit from current level of interdisciplinary care 3. Post discharge follow-up medical appointments: PCP, straightener, orthopedics, ENT. 4. Team conference dates: 05/31/16 5. Anticipated discharge date: 06/16/16 6. Anticipated discharge location: TBD pending medical stability 7. Anticipated discharge needs: HHS: PT, OT, RN, Bath Aide. Equipment needs: TBD. / Vital Signs Vital Sign - Last 24 Hours 06/03/16 06/03/16 06/03/16 06/03/16 14:00 15:08 15:15 20:00 Temp 97.2 Pulse 83 82 Resp 20 B/P 116/60 94/54 Pulse Ox 99 O2 Delivery Nasal Cannula Nasal Cannula Nasal Cannula O2 Flow Rate 2.0 2.0 3.0 06/03/16 06/04/16 06/04/16 20:00 06:00 09:00 Temp 97.8 96.9 Pulse 87 68 Resp 20 20 B/P 103/57 112/60 Pulse Ox 96 97 O2 Delivery Nasal Cannula Nasal Cannula Nasal Cannula O2 Flow Rate 3.0 3.0 3.0 Laboratory Data CBC/BMP Laboratory Tests 06/04/16 08:12 Calcium Level 7.5 L, Aspartate Amino Transf (AST/SGOT) 24, Alanine Aminotransferase (ALT/SGPT) 16, Alkaline Phosphatase 64, Total Bilirubin 0.4, Total Protein 4.8 L, Albumin 2.2 L, Red Blood Count 3.30 L, Mean Corpuscular Volume 88.0, Mean Corpuscular Hemoglobin 25.9 L, Mean Corpuscular Hemoglobin Concent 29.4 L, Red Cell Distribution Width 16.0 H, Neutrophils (%) (Auto) , Lymphocytes (%) (Auto) , Monocytes (%) (Auto) , Eosinophils (%) (Auto) , Basophils (%) (Auto) , Neutrophils # (Auto) , Lymphocytes # (Auto) , Monocytes # (Auto) , Eosinophils # (Auto) , Basophils # (Auto) Labs 24H Laboratory Tests 2 06/04/16 08:12: Blood Urea Nitrogen 23H, Creatinine 1.05, Sodium Level 143, Potassium Level 3.8 , Chloride Level 107, Carbon Dioxide Level 28, Calcium Level 7.5L, Aspartate Amino Transf (AST/SGOT) 24, Alanine Aminotransferase (ALT/SGPT) 16, Alkaline Phosphatase 64, Total Bilirubin 0.4, Total Protein 4.8L, Albumin 2.2L, Albumin/ Globulin Ratio 0.85L, Anion Gap 8, Anisocytosis 1+, Atypical Lymphocytes 1, White Blood Count 10.1H, Red Blood Count 3.30L, Hemoglobin 8.5L, Hematocrit 29.1L, Mean Corpuscular Volume 88.0, Mean Corpuscular Hemoglobin 25.9L, Mean Corpuscular Hemoglobin Concent 29.4L, Red Cell Distribution Width 16.0H, Platelet Count 460H, Neutrophils (%) (Auto) , Lymphocytes (%) (Auto) , Monocytes (%) (Auto) , Eosinophils (%) (Auto) , Basophils (%) (Auto) , Neutrophils # (Auto) , Lymphocytes # (Auto) , Monocytes # (Auto) , Eosinophils # (Auto) , Basophils # (Auto) , C-Reactive Protein, Quantitative 3.27H, Eosinophils (Manual) 1, Glomerular Filtration Rate > 60.0, Hypochromasia 2+, Large Unclassified Cells # , Large Unclassified Cells % , Lymphocytes (Manual) 13L, Magnesium Level 2.4, Metamyelocytes 6H, Monocytes (Manual) 4, Myelocytes 3H , Neutrophils 72, Nucleated Red Blood Cells 2H, Platelet Estimate INCREASED, Prothromb Time International Ratio 2.13, Prothrombin Time 23.9H, Vancomycin Level Trough 16.9 Microbiology Microbiology 05/31/16 Urine Culture - Final, Complete Allergies Allergies: Coded Allergies: No Known Allergies (Verified , 05/05/08) Current Medications Current Medications Current Medications Acetylcysteine (Mucomyst 20% (200mg/ml)) 400 mg RBID INH ; Start 05/27/16 at 20 :00; Stop 05/27/16 at 20:00; Status DC Albuterol Sulfate (Proventil, Ventolin Hfa) 2 puff Q4H PRN INH SHORTNESS OF BREATH; Start 05/27/16 at 15:15; Stop 05/27/16 at 16:28; Status DC Albuterol/ Ipratropium (Duoneb (Ipr 0.5mg/Alb 2.5mg)) 3 ml Q2HP PRN NEB SOB/ WHEEZING Last administered on 05/31/16 00:31; Start 05/27/16 at 16:30; Stop at 16:29 Albuterol/ Ipratropium (Duoneb (Ipr 0.5mg/Alb 2.5mg)) 3 ml RQ4H NEB Last administered on 06/04/16 11:41; Start 05/27/16 at 20:00; Stop 06/26/16 at 19:59 Ascorbic Acid (Vitamin C) 500 mg BID PO Last administered on 06/01/16 20:52; Start 05/27/16 at 21:00; Stop 06/02/16 at 08:45; Status DC Ascorbic Acid (Vitamin C) 500 mg TID PO Last administered on 06/04/16 08:32; Start 06/02/16 at 09:00; Stop 07/02/16 at 08:59 Aspirin (Ecotrin) 81 mg QPM PO Last administered on 06/03/16 21:38; Start at 21:00; Stop 06/26/16 at 20:59 Benzonatate (Tessalon Perles) 100 mg TID PO Last administered on 06/04/16 08:32 ; Start 05/31/16 at 16:00; Stop 06/30/16 at 15:59 Bisacodyl (Dulcolax) 10 mg ONCE ONCE [place] Last administered on 06/02/16 13:06; Start 06/02/16 at 11:45; Stop 06/02/16 at 11:46; Status DC Calcium Carbonate (Tums) 1,000 mg Q4HP PRN PO HEARTBURN; Start 06/01/16 at 14:30 ; Stop 07/01/16 at 14:29 Calcium Carbonate 500 mg 500 mg ONCE ONCE PO Last administered on 05/28/16at 06:10; Start 05/28/16 at 06:00; Stop 05/28/16 at 06:01; Status DC Carbidopa/Levodopa (Sinemet 25/100) 1 tab TID PO Last administered on 06/04/16 08:33; Start 05/27/16 at 16:00; Stop 06/26/16 at 15:59 Cefepime HCl/ Dextrose (Maxipime/ Dextrose 5% Mini-Bag Plus) 50 ml @ 100 mls/ hr Q12H IV Last administered on 06/03/16 18:18; Start 05/30/16 at 18:00; Stop at 17:59; Status Future hold Docusate Sodium (Colace) 100 mg BID PO Last administered on 06/04/16 08:32; Start 05/30/16 at 09:00; Stop 06/29/16 at 08:59 Ferrous Gluconate (Fergon) 324 mg BID PO Last administered on 06/01/16 20:52; Start 05/27/16 at 21:00; Stop 06/02/16 at 08:45; Status DC Ferrous Gluconate (Fergon) 324 mg TID PO Last administered on 06/04/16 08:33; Start 06/02/16 at 09:00; Stop 07/02/16 at 08:59 Finasteride (Proscar) 5 mg QPM PO Last administered on 06/03/16 21:39; Start 05/27/16 at 21:00; Stop 06/26/16 at 20:59; Status Future hold Furosemide (Lasix) 40 mg ONCE ONCE IV Last administered on 05/31/16 02:10; Start 05/31/16 at 02:00; Stop 05/31/16 at 02:01; Status DC Gabapentin (Neurontin) 200 mg TID PO Last administered on 06/04/16 08:32; Start 05/27/16 at 21:00; Stop 06/26/16 at 20:59 Guaifenesin (Mucinex) 1,200 mg BID PO Last administered on 05/31/16 09:31; Start 05/30/16 at 21:00; Stop 05/31/16 at 12:16; Status DC Guaifenesin (Robitussin) 600 mg Q6HP PRN PO WHEEZING; Start 05/27/16 at 16:45 ; Stop 05/30/16 at 15:13; Status DC Heparin Sodium (Heparin (Flush)) 200 units ASDIRECTED PRN IV SEE LABEL COMMENTS Last administered on 06/03/16 11:34; Start 06/02/16 at 20:00; Stop at 19:59 Heparin Sodium (Heparin (Flush)) 200 units PICC IV Last administered on 06:00; Start 06/03/16 at 06:00; Stop 07/03/16 at 05:59 Heparin Sodium (Heparin (Flush)) 300 units STK-MED ONCE As Ordered ; Start at 16:18; Stop 06/02/16 at 16:19; Status DC Heparin Sodium (Heparin Flush Bag) 1,000 units STK-MED ONCE As Ordered ; Start 06/02/16 at 16:18; Stop 06/02/16 at 16:19; Status DC Ipratropium [place] (Atrovent 0.02%) 0.5 mg TID PRN INH SHORTNESS OF BREATH; Start 05/27/16 at 15:15; Stop 05/27/16 at 16:30; Status DC Lactobacillus Acidophilus (Bacid) 1 ea TID PO Last administered on 06/04/16 08: 33; Start 05/31/16 at 09:00; Stop 06/30/16 at 08:59 Latanoprost (Xalatan 0.005% Op Soln) 1 drop QHS OD Last administered on 21:39; Start 05/27/16 at 21:00; Stop 06/26/16 at 20:59 Lidocaine (Lidoderm Patch) 1 patch DAILY TD Last administered on 06/02/16 13:07 ; Start 06/02/16 at 09:00; Stop 06/03/16 at 17:44; Status DC Magnesium Citrate (Citrate Of Magnesia) 300 ml ONCE ONCE PO Last administered on 06/01/16 10:30; Start 06/01/16 at 09:30; Stop 06/01/16 at 09:31; Status DC Mineral Oil/White Petrolatum (Eucerin) APPLY TO Feet BID TOP Last administered on 06/04/16 08:35; Start 05/27/16 at 21:00; Stop 06/26/16 at 20:59 Minocycline HCl (Minocin) 100 mg BID PO Last administered on 05/31/16 09:31; Start 05/27/16 at 21:00; Stop 05/31/16 at 10:32; Status DC Multivitamins (Ocuvite(I-Marcos)) 1 tab QPM PO Last administered on 06/03/16 21: 37; Start 05/27/16 at 21:00; Stop 06/26/16 at 20:59 Multivitamins (Theragram-M) 1 tab DAILY PO Last administered on 06/04/16 08:33 ; Start 05/28/16 at 09:00; Stop 06/27/16 at 08:59 Non-Formulary Medication ( See Comment Field Below ) REMOVE LIDODERM PATCH DAILY@21 XX Last administered on 06/03/16 21:00; Start 06/02/16 at 21:00; Stop 07/02/16 at 20:59 Oxybutynin Chloride (Ditropan Xl) 5 mg QPM PO Last administered on 05/30/16 20: 10; Start 05/27/16 at 21:00; Stop 05/31/16 at 13:00; Status DC Oxycodone HCl (Roxicodone, Oxyir) 10 mg Q6HP PRN PO SEVERE PAIN (PS 8-10); Start 05/27/16 at 16:30; Stop 05/31/16 at 10:33; Status DC Oxycodone/ Acetaminophen (Percocet 5mg/ 325mg Tablet) 1 tab Q4H PRN PO PAIN Last administered on 05/30/16 18:11; Start 05/27/16 at 15:15; Stop 06/09/16 at 15:14 Pantoprazole Sodium (Protonix) 40 mg BID PO Last administered on 06/04/16 08:33 ; Start 06/01/16 at 09:00; Stop 07/01/16 at 08:59 Polyethylene Glycol 1 pkt 1 pkt DAILY PO Last administered on 06/04/16 08:37; Start 05/30/16 at 09:00; Stop 06/29/16 at 08:59 Prednisone (Deltasone) 5 mg DAILY PO Last administered on 05/31/16 09:30; Start 05/28/16 at 09:00; Stop 05/31/16 at 12:14; Status DC Prednisone (Deltasone) 5 mg ONCE ONCE PO Last administered on 05/31/16 12:47; Start 05/31/16 at 12:30; Stop 05/31/16 at 12:31; Status DC Prednisone (Deltasone) 10 mg DAILY PO Last administered on 06/04/16 08:33; Start 06/01/16 at 09:00; Stop 07/01/16 at 08:59 Ropinirole HCl (Requip) 2 mg TID PO Last administered on 06/04/16 08:33; Start 05/27/16 at 16:00; Stop 06/26/16 at 15:59 Simvastatin (Zocor) 40 mg QPM PO Last administered on 06/03/16 21:38; Start at 21:00; Stop 06/26/16 at 20:59 Sodium Chloride 1,000 ml @ 150 mls/hr Q6H40M IV Last administered on 05/30/16 10:43; Start 05/30/16 at 09:30; Stop 05/30/16 at 22:06; Status DC Sodium Chloride (Nacl 0.9%) 500 ml BOLUS ONCE IV Last administered on 15:00; Start 06/02/16 at 14:45; Stop 06/02/16 at 14:46; Status DC Sodium Chloride (Nacl 0.9%) 1,000 ml @ 80 mls/hr [id number] ONCE IV Last administered on 06/03/16 11:43; Start 06/03/16 at 11:15; Stop 06/03/16 at 23:44; Status DC Sodium Chloride ([place] Nasal [place]) 2 spray TID NA Last administered on 08:34; Start 06/01/16 at 16:00; Stop 07/01/16 at 15:59 Sodium Chloride (Saline Lock Flush) 10 ml ASDIRECTED PRN IV SEE LABEL COMMENTS Last administered on 06/03/16 11:34; Start 06/02/16 at 20:00; Stop 07/02/16 at 19: 59 Sodium Chloride (Saline Lock Flush) 10 ml PICC IV Last administered on 06:46; Start 06/02/16 at 20:00; Stop 07/02/16 at 19:59 Sodium Chloride 80 ml 80 ml BOLUS ONCE IV ; Start 06/03/16 at 10:45; Stop at 11:06; Status DC Vancomycin HCl 1000 mg/IV Miscellaneous Supplies 1 each/ Dextrose 270 ml @ 270 mls/hr ONCE ONCE IV Last administered on 05/30/16 14:19; Start 05/30/16 at 14: 00; Stop 05/30/16 at 14:59; Status DC Vancomycin HCl/IV Miscellaneous Supplies/Dextrose (Vancomycin HCl/ Adapter-Vial Mate/ Dextrose 5%) 270 ml @ 270 mls/hr Q24H IV Last administered on 06/03/16 08:58; Start 05/31/16 at 09:00; Stop 06/07/16 at 08:59; Status Future hold Warfarin Sodium (Coumadin) 1 mg 1T@17 ONCE PO Last administered on 06/01/16 18 :03; Start 06/01/16 at 17:00; Stop 06/01/16 at 17:01; Status DC Warfarin Sodium (Coumadin) 1 mg 1T@17 ONCE PO Last administered on 06/02/16 18 :07; Start 06/02/16 at 17:00; Stop 06/02/16 at 17:01; Status DC Warfarin Sodium (Coumadin) 1 mg 1T@17 ONCE PO ; Start 06/04/16 at 17:00; Stop at 17:01 Warfarin Sodium (Coumadin) 2 mg 1T@17 ONCE PO Last administered on 06/03/16 16 :42; Start 06/03/16 at 17:00; Stop 06/03/16 at 17:01; Status DC Warfarin Sodium (Coumadin) 5 mg DAILY@17 PO Last administered on 05/28/16at 17: 05; Start 05/27/16 at 17:00; Stop 05/29/16 at 08:05; Status DC ARNEL HERRERA MD Jun 04, 2016 11:52
[2016-06-04] MEDS ORDERED: ISOVUE-300 61% 50ML VIAL (Q9967) As Ordered ONE (12:43)
[2016-06-04] MEDS ORDERED: ISOVUE-370 76% 100ML VIAL (Q9967) As Ordered ONE (12:43)
--- NOTE | 2016-06-04 13:33 | REP ---
Procedure: PICC line insertion with [place] The procedure was performed under the direct supervision of Dr. Monroy. The risks and benefits of the procedure were explained to the patient and informed consent was obtained. The right basilic vein was localized using ultrasound guidance. The skin was prepped and draped in a sterile fashion. 2% lidocaine was used as a local anesthetic. Using ultrasound guidance the basilic vein was cannulated and a 0.018 guidewire was inserted and advanced to the SVC using fluoroscopic guidance. The needle was removed and a 4.5 [place] dilator and peel-away sheath was inserted over the guide wire. A 4.5 [place] single lumen catheter was cut to length of 43 cm. The dilator was removed and the catheter was inserted over the guide wire with the tip ending in the SVC. The peel-away sheath was removed and the catheter was flushed with heparinized saline as per Hospital protocol. The catheter was affixed to the skin and a sterile dressing was applied. The the patient tolerated the procedure well and there were no immediate complications. 0.3 minutes of fluoro time was utilized for this procedure. Reviewed by JIN Moore 06/03/2016 04:43 PSigned by Darin Monroy MD 06/04/2016 01:25 P
[2016-06-04 14:00] VITALS: BP 99/54
--- NOTE | 2016-06-04 15:10 | REP ---
FLUORO GUIDANCE FOR PICC LINE PATENCY CHECK: The procedure was performed under the direct supervision of Dr. Monroy. The patient had a PICC line inserted on 06/02/2016. Last evening the patient was receiving an infusion and complained of arm pain and possible occlusion. The patient is referred for a patency check. 3 mL of Isovue-300 was injected. There is free flow of contrast into the superior vena cava. There is no evidence of occlusion or extravasation. The tip of the catheter is in the appropriate place in the SVC. These findings were relayed to Dr. Chauhan through the nurse on the floor. 0.1 minutes of fluoroscopy time was utilized for this procedure. Reviewed by JIN Moore 06/04/2016 04:22 PEdited and Signed by Darin Monroy MD 06/04/2016 05:25 P
[2016-06-04] MEDS: CEFEPIME HCL 2 GM in D5W MINI-BAG PLUS 50 ML IV SCH (15:12)
[2016-06-04] MEDS: CALCIUM CARBONATE 500 MG CHEW U/D PO PRN (15:23)
[2016-06-04] MEDS: VANCOMYCIN HCL 1,000 MG, VIAL MATE ADAPTER 1 EACH in D5W 250 ML IV SCH (15:52)
--- NOTE | 2016-06-04 16:07 | IPNPDOC ---
Text Note Date of Service The patient was seen on 06/04/16 at 15:59. NOTE Subjective: Patient is an 80 year old male with a PMHx of Parkinson's disease, AAA repair, COPD, bullous pemphigus who presented after a fall. He was found to have a transverse displaced fracture of the left femoral neck. He is s/p left total hip arthroplasty. He was transferred to inpatient rehabilitation. He was noted have positive orthostatics in the Rehab unit and he noted that he had a productive cough. On 06/02 patient was noted to be hypotensive (SBPs of 80s) with an elevated lactic acid. He had a PICC line placed urgently. His blood pressure prior to Iv fluid infusion was 120s. He received 500cc of NS bolus. His lactic acid trended down. On 06/03 evening patient had what was suspected to be an infiltration of his PICC line. They had stopped IV fluids overnight and missed his AM dose of antibiotics. He subsequently went for evaluation of the PICC line that afternoon. Good placement. Patient was seen and examined at the bedside. Again he remains dizzy upon standing. Objective: Vitals (See below) General: Lying in bed, no acute distress, AAOx3 HEENT: NC, AT CVS: RRR, +S1S2 Lungs: Fair air entry b/l, - w/r/r Abdomen: Soft, ND, NT, +BSx4 Extremities: +PPx4, - edema, - calf tenderness Assessment and plan: 1. Orthostatic hypotension - possibly 2/2 medication or autonomic instability 2/ 2 Parkinson's, possibly 2/2 infection - BP was normotensive upon examination today; however his orthostatics remained positive - will continue to record orthostatic vital signs - will continue to follow ins/outs - cortisol level appropriate - lactic acid elevated initially; normalized with IV fluid hydration - will c/w IV fluid hydration until his symptoms have resolved 2. Sepsis 2/2 HCAP - has has cough that is persistent - no fevers recorded - mild leukocytosis - resolving, lactic acid elevated - but normalized now - CRP has been noted to be trending down - CXR with left lower lobe consolidation and suspected moderate pleural effusion - c/w vancomycin and cefepime (Day #5) - missed 1 dose of cefepime 1/6 AM 3. Infiltration of R arm PICC line - re-evaluated in laboratory machinist with fluroscopy; no evidence of thrombosis - in good position - will continue to use 4. Left femur fracture - s/p total left hip replacement - c/w rehabilitation 5. Thyroid mass - CT shows evidence of tracheal deviation - TSH elevated with low Free T3 and normal Free T4, total T3 low - Will need nuclear scan as an outpatient - ENT consulted (Dr. Modi) - appreciate their input 6. Normocytic anemia - likely 2/2 RICH - Hg slightly lower than baseline from yesterday; will continue to follow - c/w ferrous sulfate - will transfuse if Hg if <7 or symptomatic - will continue to follow H&H 7. s/p LISSET - likely 2/2 pre-renal etiology - Cr peaked at 1.38 - has trended down 8. COPD - no evidence of exacerbation - c/w dustephani 9. Parkinson's disease - c/w home medications 10. History of AAA repair - c/w ASA and statin 11. Skin condition - on prednisone - will need outpatient follow up 12. GERD - c/w protonix 13. DVT prophylaxis - per orthopedic surgery VS,Fishbone, I+O VS, Fishbone, I+O Laboratory Tests 06/04/16 08:12 Calcium Level 7.5 L, Aspartate Amino Transf (AST/SGOT) 24, Alanine Aminotransferase (ALT/SGPT) 16, Alkaline Phosphatase 64, Total Bilirubin 0.4, Total Protein 4.8 L, Albumin 2.2 L, Red Blood Count 3.30 L, Mean Corpuscular Volume 88.0, Mean Corpuscular Hemoglobin 25.9 L, Mean Corpuscular Hemoglobin Concent 29.4 L, Red Cell Distribution Width 16.0 H, Neutrophils (%) (Auto) , Lymphocytes (%) (Auto) , Monocytes (%) (Auto) , Eosinophils (%) (Auto) , Basophils (%) (Auto) , Neutrophils # (Auto) , Lymphocytes # (Auto) , Monocytes # (Auto) , Eosinophils # (Auto) , Basophils # (Auto) Vital Signs Date Time Temp Pulse Resp B/P Pulse Ox O2 Delivery O2 Flow Rate FiO2 06/04/16 09:00 Nasal Cannula 3.0 06/04/16 06:00 96.9 68 20 112/60 97 I&O- Last 24 Hours up to 6 AM 06/04/16 05:59 Intake Total 1667 ml Output Total 600 ml Balance 1067 ml WANG SCHWAB MD Jun 04, 2016 16:07
[2016-06-04] MEDS ORDERED: WARFARIN SOD 1 MG TAB PO ONE (17:00)
[2016-06-04] MEDS: NS 1,000 ML IV SCH (17:18)
[2016-06-04 20:00] VITALS: BP 111/55
[2016-06-04] MEDS: **NOTE PATIENT COMMENT** MISC XX SCH (21:00)
[2016-06-04] MEDS: ASPIRIN 81 MG ENTERIC TAB PO SCH (21:24)
[2016-06-04] MEDS: LATANOPROST 0.005% OPHTH SOLN 2.5 ML OD SCH (21:24)
[2016-06-04] MEDS: FINASTERIDE 5 MG TAB PO SCH (21:24)
[2016-06-04] MEDS: SIMVASTATIN 40 MG TAB PO SCH (21:24)
[2016-06-04] MEDS: OCUVITE 1 TAB PO SCH (21:27)
[2016-06-05 06:00] VITALS: BP 114/63
[2016-06-05] MEDS: CEFEPIME HCL 2 GM in D5W MINI-BAG PLUS 50 ML IV SCH (06:10)
[2016-06-05 06:55] LABS: BASO % 0.5 % (0.0-1.0); EOS # 0.1 K/mm3 (0.0-0.50); EOS % 0.5 % (0.0-3.0); INR 1.73; LARGE UNSTAINED CELL # 0.2 K/mm3 (0.0-0.4); LARGE UNSTAINED CELL % 1.9 % (0.0-4.0); LYMPH # 2.1 K/mm3 (1.5-4.5); LYMPH % 18.5 % (24.0-44.0); MEAN CORPUSCULAR HGB CONC 29.2 g/dl (32.0-36.5); MEAN CORPUSCULAR VOLUME 89.2 fl (80.0-96.0); MONO # 0.4 K/mm3 (0.0-0.8); NEUTROPHILS # 8.3 K/mm3 (1.8-7.7); NEUTROPHILS % 74.7 % (36.0-66.0); PLATELET COUNT, AUTOMATED 433 k/mm3 (150-450); RED CELL DISTRIBUTION WIDTH 16.2 % (11.5-14.5); WHITE BLOOD COUNT 11.1 K/mm3 (4.0-10.0)
[2016-06-05 07:12] LABS: ANION GAP 9 MEQ/L (8-16); BLOOD UREA NITROGEN 22 MG/DL (7-18); CALCIUM LEVEL 7.7 MG/DL (8.8-10.2); CARBON DIOXIDE LEVEL 26 MEQ/L (21-32); CHLORIDE LEVEL 110 MEQ/L (98-107); GLOMERULAR FILTRATION RATE > 60.0 (>35); GLUCOSE, FASTING 119 MG/DL (83-110); POTASSIUM SERUM 3.8 MEQ/L (3.5-5.1); SODIUM LEVEL 145 MEQ/L (136-145)
[2016-06-05] MEDS: IPRATROPIUM 0.5MG/ALBUTEROL 2.5MG INH SOL UD 3ML (DUONEB)(J7620) NEB SCH ×5 (08:02→23:23)
[2016-06-05] MEDS: MIRALAX *UNIT DOSE* 17GM PACKET PO SCH (08:26)
[2016-06-05] MEDS: ASCORBIC ACID 500 MG TAB PO SCH ×3 (08:27→21:37)
[2016-06-05] MEDS: predniSONE 10 MG TAB PO SCH (08:27)
[2016-06-05] MEDS: GABAPENTIN 100 MG CAP PO SCH ×3 (08:27→21:37)
[2016-06-05] MEDS: PANTOPRAZOLE 40MG TAB (PROTONIX) PO SCH ×2 (08:27→21:38)
[2016-06-05] MEDS: SINEMET 25-100 MG TAB PO SCH ×3 (08:27→21:38)
[2016-06-05] MEDS: FERROUS GLUCONATE 324 MG TAB PO SCH ×3 (08:27→21:42)
[2016-06-05] MEDS: BENZONATATE 100 MG CAP PO SCH ×3 (08:27→21:38)
[2016-06-05] MEDS: DOCUSATE SODIUM 100 MG CAP PO SCH ×2 (08:27→21:37)
[2016-06-05] MEDS: LACTOBACILLUS ACIDOPHILUS CAP (BACID) PO SCH ×3 (08:27→21:38)
[2016-06-05] MEDS: MULTIVITAMINS/MINERALS THERAP 1 TAB PO SCH (08:27)
[2016-06-05] MEDS: VANCOMYCIN HCL 1,000 MG, VIAL MATE ADAPTER 1 EACH in D5W 250 ML IV SCH (08:28)
[2016-06-05] MEDS: rOPINIRole 1MG TAB PO SCH ×3 (08:33→21:37)
[2016-06-05] MEDS: SODIUM CHLORIDE NASAL 0.65% SPRAY BTL (OCEAN) SCH ×3 (08:33→21:38)
[2016-06-05] MEDS: EUCERIN 120GM CREAM TOP SCH ×2 (08:33→21:39)
--- NOTE | 2016-06-05 09:46 | REP ---
portable chest x-ray: Sitting AP view. History: Evaluate consolidation. Comparison chest x-ray May 31, 2016. Findings: A right-sided PICC line is seen in place with its tip in the superior vena cava. There is blunting of the left lateral pleural angle indicating a small left pleural effusion. Cardiomegaly is observed. These findings are unchanged. There is a large right thyroid mass widening the right mediastinum and deviating the trachea to the left unchanged from the comparison study. Increased markings persist in the right base and right perihilar region. These are unchanged from the comparison study. No new infiltrate is seen. Signed by Dmitriy Stoll MD 06/05/2016 10:12 A
[2016-06-05] MEDS: NS 1,000 ML IV SCH (13:21)
[2016-06-05 13:43] LABS: MEAN CORPUSCULAR HEMOGLOBIN 26.3 pg (27.0-33.0); MEAN CORPUSCULAR VOLUME 90.7 fl (80.0-96.0); PLATELET COUNT, AUTOMATED 446 k/mm3 (150-450); RED CELL DISTRIBUTION WIDTH 17.3 % (11.5-14.5); WHITE BLOOD COUNT 14.4 K/mm3 (4.0-10.0)
[2016-06-05 13:55] LABS: ANISOCYTOSIS 1+; BASOPHILS 1 % (0-4); HYPOCHROMASIA 2+
[2016-06-05 14:00] VITALS: BP 130/68
--- NOTE | 2016-06-05 14:24 | IPNPDOC ---
Text Note Date of Service The patient was seen on 06/05/16 at 14:20. NOTE Subjective: Patient is an 80 year old male with a PMHx of Parkinson's disease, AAA repair, COPD, bullous pemphigus who presented after a fall. He was found to have a transverse displaced fracture of the left femoral neck. He is s/p left total hip arthroplasty. He was transferred to inpatient rehabilitation. He was noted have positive orthostatics in the Rehab unit and he noted that he had a productive cough. On 06/02 patient was noted to be hypotensive (SBPs of 80s) with an elevated lactic acid. He had a PICC line placed urgently. His blood pressure prior to Iv fluid infusion was 120s. He received 500cc of NS bolus. His lactic acid trended down. On 06/03 evening patient had what was suspected to be an infiltration of his PICC line. They had stopped IV fluids overnight and missed his AM dose of antibiotics. He subsequently went for evaluation of the PICC line that afternoon. Good placement. Patient was seen and examined at the bedside. He reports that he doesn't get dizzy upon siting up in bed. Has been continuing to make progress with physical therapy. Objective: Vitals (See below) General: Lying in bed, no acute distress, AAOx3 HEENT: NC, AT CVS: RRR, +S1S2 Lungs: Fair air entry b/l, - w/r/r Abdomen: Soft, ND, NT, +BSx4 Extremities: +PPx4, - edema, - calf tenderness Assessment and plan: 1. Orthostatic hypotension - possibly 2/2 medication or autonomic instability 2/ 2 Parkinson's, possibly 2/2 infection - BP was normotensive upon examination today; - will continue to record orthostatic vital signs - will continue to follow ins/outs - cortisol level appropriate - lactic acid elevated initially; normalized with IV fluid hydration - will c/w IV fluid hydration until his symptoms have resolved - no signs of fluid overload on physical this morning 2. Sepsis 2/2 HCAP - has has cough that is persistent - no fevers recorded - lactic acid elevated - but normalized now - CRP has been noted to be trending down; Zachery in WBC count this morning - CXR with left lower lobe consolidation and suspected moderate pleural effusion - will follow up blood cultures, sputum cultures, urine legionella / strep pneumonia antigens, stool for c. diff - On vancomycin and cefepime (Day #6 of antibiotics) - missed 1 dose of cefepime 1/6 AM - Will d/c Cefepime and start Meropenem 3. Infiltration of R arm PICC line - re-evaluated in lab head with fluroscopy; no evidence of thrombosis - in good position - will continue to use 4. Left femur fracture - s/p total left hip replacement - c/w rehabilitation 5. Thyroid mass - CT shows evidence of tracheal deviation - TSH elevated with low Free T3 and normal Free T4, total T3 low - Will need nuclear scan as an outpatient - ENT consulted (Dr. Modi) - appreciate their input 6. Normocytic anemia - likely 2/2 RICH - Hg this morning of 7.5; repeat CBC shows 8.1 - will check stool occult blood - will transfuse if Hg if <7 or symptomatic - will hold for now - will continue to follow H&H - c/w ferrous sulfate 7. s/p LISSET - likely 2/2 pre-renal etiology - Cr peaked at 1.38 - has trended down 8. COPD - no evidence of exacerbation - c/w manju 9. Parkinson's disease - c/w home medications 10. History of AAA repair - c/w ASA and statin 11. Skin condition - on prednisone - will need outpatient follow up 12. GERD - c/w protonix 13. DVT prophylaxis - per orthopedic surgery VS,Fishbone, I+O VS, Fishbone, I+O Laboratory Tests 06/05/16 06:08 Calcium Level 7.7 L, Red Blood Count 2.87 L, Mean Corpuscular Volume 89.2, Mean Corpuscular Hemoglobin 26.0 L, Mean Corpuscular Hemoglobin Concent 29.2 L, Red Cell Distribution Width 16.2 H, Neutrophils (%) (Auto) 74.7 H, Lymphocytes (%) ( Auto) 18.5 L, Monocytes (%) (Auto) 4.0, Eosinophils (%) (Auto) 0.5, Basophils (% ) (Auto) 0.5, Neutrophils # (Auto) 8.3 H, Lymphocytes # (Auto) 2.1, Monocytes # (Auto) 0.4, Eosinophils # (Auto) 0.1, Basophils # (Auto) 0.0 06/05/16 13:12 Red Blood Count 3.10 L, Mean Corpuscular Volume 90.7, Mean Corpuscular Hemoglobin 26.3 L, Mean Corpuscular Hemoglobin Concent 29.0 L, Red Cell Distribution Width 17.3 H, Neutrophils (%) (Auto) , Lymphocytes (%) (Auto) , Monocytes (%) (Auto) , Eosinophils (%) (Auto) , Basophils (%) (Auto) , Neutrophils # (Auto) , Lymphocytes # (Auto) , Monocytes # (Auto) , Eosinophils # (Auto) , Basophils # (Auto) Vital Signs Date Time Temp Pulse Resp B/P Pulse Ox O2 Delivery O2 Flow Rate FiO2 06/05/16 14:00 97.9 88 20 130/68 98 Nasal Cannula 3.0 I&O- Last 24 Hours up to 6 AM 06/05/16 06:00 Intake Total 785 ml Output Total 1050 ml Balance -265 ml WANG SCHWAB MD Jun 05, 2016 14:24
[2016-06-05] MEDS: MEROPENEM INJ 1 GM in D5W MINI-BAG PLUS 100 ML IV SCH ×2 (16:18→23:53)
[2016-06-05] MEDS ORDERED: WARFARIN SOD 2.5 MG TAB PO ONE (17:00)
[2016-06-05] MEDS: SODIUM CHLORIDE 0.9% INJ 10 ML SYR IV SCH (18:15)
[2016-06-05 21:00] VITALS: BP 103/65
[2016-06-05] MEDS: OCUVITE 1 TAB PO SCH (21:37)
[2016-06-05] MEDS: FINASTERIDE 5 MG TAB PO SCH (21:38)
[2016-06-05] MEDS: SIMVASTATIN 40 MG TAB PO SCH (21:38)
[2016-06-05] MEDS: ASPIRIN 81 MG ENTERIC TAB PO SCH (21:38)
[2016-06-05] MEDS: LATANOPROST 0.005% OPHTH SOLN 2.5 ML OD SCH (21:38)
[2016-06-06] MEDS: CALCIUM CARBONATE 500 MG CHEW U/D PO PRN (03:44)
[2016-06-06] MEDS: IPRATROPIUM 0.5MG/ALBUTEROL 2.5MG INH SOL UD 3ML (DUONEB)(J7620) NEB SCH ×5 (04:00→20:00)
[2016-06-06 06:00] VITALS: BP 107/58
[2016-06-06] MEDS: SODIUM CHLORIDE 0.9% INJ 10 ML SYR IV SCH ×2 (06:00→17:45)
[2016-06-06 06:58] LABS: INR 1.29
[2016-06-06 07:01] LABS: BASO # 0.1 K/mm3 (0.0-0.2); BASO % 0.5 % (0.0-1.0); EOS # 0.1 K/mm3 (0.0-0.50); EOS % 0.9 % (0.0-3.0); LARGE UNSTAINED CELL # 0.2 K/mm3 (0.0-0.4); LARGE UNSTAINED CELL % 1.5 % (0.0-4.0); LYMPH # 2.1 K/mm3 (1.5-4.5); LYMPH % 15.1 % (24.0-44.0); MEAN CORPUSCULAR HEMOGLOBIN 26.3 pg (27.0-33.0); MEAN CORPUSCULAR HGB CONC 29.4 g/dl (32.0-36.5); MEAN CORPUSCULAR VOLUME 89.6 fl (80.0-96.0); MONO # 0.5 K/mm3 (0.0-0.8); MONO % 3.5 % (0.0-5.0); NEUTROPHILS # 10.6 K/mm3 (1.8-7.7); NEUTROPHILS % 78.4 % (36.0-66.0); PLATELET COUNT, AUTOMATED 427 k/mm3 (150-450); RED CELL DISTRIBUTION WIDTH 16.6 % (11.5-14.5); WHITE BLOOD COUNT 13.6 K/mm3 (4.0-10.0)
[2016-06-06 07:05] LABS: ANION GAP 8 MEQ/L (8-16); BLOOD UREA NITROGEN 19 MG/DL (7-18); CALCIUM LEVEL 7.8 MG/DL (8.8-10.2); CARBON DIOXIDE LEVEL 28 MEQ/L (21-32); CHLORIDE LEVEL 109 MEQ/L (98-107); CREATININE FOR GFR 0.93 MG/DL (0.70-1.30); GLOMERULAR FILTRATION RATE > 60.0 (>35); GLUCOSE, FASTING 107 MG/DL (83-110); POTASSIUM SERUM 3.6 MEQ/L (3.5-5.1); SODIUM LEVEL 145 MEQ/L (136-145)
[2016-06-06] MEDS: MEROPENEM INJ 1 GM in D5W MINI-BAG PLUS 100 ML IV SCH ×2 (08:05→16:01)
[2016-06-06] MEDS: NS 1,000 ML IV SCH (08:30)
[2016-06-06] MEDS: DOCUSATE SODIUM 100 MG CAP PO SCH ×2 (08:42→21:00)
[2016-06-06] MEDS: PANTOPRAZOLE 40MG TAB (PROTONIX) PO SCH ×2 (08:42→21:01)
[2016-06-06] MEDS: LACTOBACILLUS ACIDOPHILUS CAP (BACID) PO SCH ×3 (08:43→21:00)
[2016-06-06] MEDS: SINEMET 25-100 MG TAB PO SCH ×3 (08:43→21:02)
[2016-06-06] MEDS: predniSONE 10 MG TAB PO SCH (08:43)
[2016-06-06] MEDS: VANCOMYCIN HCL 1,000 MG, VIAL MATE ADAPTER 1 EACH in D5W 250 ML IV SCH (08:43)
[2016-06-06] MEDS: ASCORBIC ACID 500 MG TAB PO SCH ×3 (08:43→21:02)
[2016-06-06] MEDS: FERROUS GLUCONATE 324 MG TAB PO SCH ×3 (08:43→21:01)
[2016-06-06] MEDS: MULTIVITAMINS/MINERALS THERAP 1 TAB PO SCH (08:43)
[2016-06-06] MEDS: MIRALAX *UNIT DOSE* 17GM PACKET PO SCH (08:43)
[2016-06-06] MEDS: rOPINIRole 1MG TAB PO SCH ×3 (08:43→21:00)
[2016-06-06] MEDS: BENZONATATE 100 MG CAP PO SCH ×3 (08:43→21:01)
[2016-06-06] MEDS: GABAPENTIN 100 MG CAP PO SCH ×3 (08:43→21:01)
[2016-06-06] MEDS: SODIUM CHLORIDE NASAL 0.65% SPRAY BTL (OCEAN) SCH ×3 (08:44→21:04)
[2016-06-06] MEDS: EUCERIN 120GM CREAM TOP SCH ×2 (08:44→21:04)
[2016-06-06 14:00] VITALS: BP 110/57
--- NOTE | 2016-06-06 15:43 | IPNPDOC ---
Text Note Date of Service The patient was seen on 06/06/16 at 15:38. NOTE Subjective: Patient is an 80 year old male with a PMHx of Parkinson's disease, AAA repair, COPD, bullous pemphigus who presented after a fall. He was found to have a transverse displaced fracture of the left femoral neck. He is s/p left total hip arthroplasty. He was transferred to inpatient rehabilitation. He was noted have positive orthostatics in the Rehab unit and he noted that he had a productive cough. On 06/02 patient was noted to be hypotensive (SBPs of 80s) with an elevated lactic acid. He had a PICC line placed urgently. His blood pressure prior to Iv fluid infusion was 120s. He received 500cc of NS bolus. His lactic acid trended down. On 06/03 evening patient had what was suspected to be an infiltration of his PICC line. They had stopped IV fluids overnight and missed his AM dose of antibiotics. He subsequently went for evaluation of the PICC line that afternoon. Good placement. Patient was seen and examined at the bedside. He denies any problems, is very conversive. Has had some physical therapy this morning. Objective: Vitals (See below) General: Lying in bed, no acute distress, AAOx3 HEENT: NC, AT CVS: RRR, +S1S2 Lungs: Fair air entry b/l, - w/r/r Abdomen: Soft, ND, NT, +BSx4 Extremities: +PPx4, - edema, - calf tenderness Assessment and plan: 1. Orthostatic hypotension - possibly 2/2 medication or autonomic instability 2/ 2 Parkinson's, possibly 2/2 infection - BP was normotensive upon examination today; - will continue to record orthostatic vital signs - will continue to follow ins/outs - cortisol level appropriate - lactic acid elevated initially; normalized with IV fluid hydration - will c/w IV fluid hydration until his symptoms have resolved - no signs of fluid overload on physical this morning 2. Sepsis 2/2 HCAP - persistent cough, afebrile - normalized lactic acid - CRP has been noted to be trending down; Leukocytosis improving - CXR with left lower lobe consolidation and suspected moderate pleural effusion - Blood cultures /7 negative; Sputum culture pending, urine legionella / strep pneumonia antigens - c/w vancomycin and meropenem (Day #7 of antibiotics); s/p cefepime 3. Normocytic anemia - likely 2/2 RICH - Hg this morning of 7.6 - will check stool occult blood - will continue to follow H&H - Will transfuse 1 unit PRBC today - c/w ferrous sulfate 4. Infiltration of R arm PICC line - re-evaluated in laborer prestressed concrete with fluroscopy; no evidence of thrombosis - in good position - will continue to use 5. Left femur fracture - s/p total left hip replacement - c/w rehabilitation 6. Thyroid mass - CT shows evidence of tracheal deviation - TSH elevated with low Free T3 and normal Free T4, total T3 low - Will need nuclear scan as an outpatient - ENT consulted (Dr. Modi) - appreciate their input 7. s/p LISSET - likely 2/2 pre-renal etiology - Cr peaked at 1.38 - has trended down 8. COPD - no evidence of exacerbation - c/w duonebs 9. Parkinson's disease - c/w home medications 10. History of AAA repair - c/w ASA and statin 11. Skin condition - on prednisone - will need outpatient follow up 12. GERD - c/w protonix 13. DVT prophylaxis - per orthopedic surgery VS,Fishbone, I+O VS, Fishbone, I+O Laboratory Tests 06/06/16 06:14 Calcium Level 7.8 L, Red Blood Count 2.87 L, Mean Corpuscular Volume 89.6, Mean Corpuscular Hemoglobin 26.3 L, Mean Corpuscular Hemoglobin Concent 29.4 L, Red Cell Distribution Width 16.6 H, Neutrophils (%) (Auto) 78.4 H, Lymphocytes (%) ( Auto) 15.1 L, Monocytes (%) (Auto) 3.5, Eosinophils (%) (Auto) 0.9, Basophils (% ) (Auto) 0.5, Neutrophils # (Auto) 10.6 H, Lymphocytes # (Auto) 2.1, Monocytes # (Auto) 0.5, Eosinophils # (Auto) 0.1, Basophils # (Auto) 0.1 Vital Signs Date Time Temp Pulse Resp B/P Pulse Ox O2 Delivery O2 Flow Rate FiO2 06/06/16 14:00 98.3 80 20 110/57 98 Nasal Cannula 3.0 I&O- Last 24 Hours up to 6 AM 06/06/16 06:00 Intake Total 1525 ml Output Total 950 ml Balance 575 ml WANG SCHWAB MD Jun 06, 2016 15:43
[2016-06-06 15:58] LABS: ADD MORPHOLOGY? YES; BASO # 0.1 K/mm3 (0.0-0.2); BASO % 0.7 % (0.0-1.0); EOS % 0.2 % (0.0-3.0); LARGE UNSTAINED CELL # 0.1 K/mm3 (0.0-0.4); LARGE UNSTAINED CELL % 0.8 % (0.0-4.0); LYMPH # 0.9 K/mm3 (1.5-4.5); LYMPH % 5.3 % (24.0-44.0); MEAN CORPUSCULAR HEMOGLOBIN 26.4 pg (27.0-33.0); MEAN CORPUSCULAR HGB CONC 31.1 g/dl (32.0-36.5); MEAN CORPUSCULAR VOLUME 85.1 fl (80.0-96.0); MONO # 0.4 K/mm3 (0.0-0.8); MONO % 2.5 % (0.0-5.0); NEUTROPHILS # 13.6 K/mm3 (1.8-7.7); NEUTROPHILS % 90.5 % (36.0-66.0); PLATELET COUNT, AUTOMATED 433 k/mm3 (150-450); RED CELL DISTRIBUTION WIDTH 17.6 % (11.5-14.5)
[2016-06-06 16:28] LABS: POLYCHROMASIA 1+
[2016-06-06 16:29] LABS: ANISOCYTOSIS 2+; HYPOCHROMASIA 2+
[2016-06-06] MEDS ORDERED: WARFARIN SOD 3 MG TAB PO ONE (17:00)
[2016-06-06 20:00] VITALS: BP 102/56
[2016-06-06] MEDS: OCUVITE 1 TAB PO SCH (21:00)
[2016-06-06] MEDS: ASPIRIN 81 MG ENTERIC TAB PO SCH (21:01)
[2016-06-06] MEDS: FINASTERIDE 5 MG TAB PO SCH (21:01)
[2016-06-06] MEDS: LATANOPROST 0.005% OPHTH SOLN 2.5 ML OD SCH (21:02)
[2016-06-06] MEDS: SIMVASTATIN 40 MG TAB PO SCH (21:02)
[2016-06-07] MEDS: MEROPENEM INJ 1 GM in D5W MINI-BAG PLUS 100 ML IV SCH ×3 (00:18→15:55)
[2016-06-07] MEDS: IPRATROPIUM 0.5MG/ALBUTEROL 2.5MG INH SOL UD 3ML (DUONEB)(J7620) NEB SCH ×6 (03:08→20:56)
[2016-06-07] MEDS: SODIUM CHLORIDE 0.9% INJ 10 ML SYR IV SCH ×2 (05:20→17:35)
[2016-06-07] MEDS: NS 1,000 ML IV SCH (05:24)
[2016-06-07 06:00] VITALS: BP 109/61
[2016-06-07 07:54] LABS: ADD MORPHOLOGY? YES; BASO # 0.1 K/mm3 (0.0-0.2); BASO % 0.6 % (0.0-1.0); EOS # 0.1 K/mm3 (0.0-0.50); EOS % 0.7 % (0.0-3.0); LARGE UNSTAINED CELL # 0.2 K/mm3 (0.0-0.4); LARGE UNSTAINED CELL % 1.5 % (0.0-4.0); LYMPH # 1.9 K/mm3 (1.5-4.5); LYMPH % 14.6 % (24.0-44.0); MEAN CORPUSCULAR VOLUME 86.8 fl (80.0-96.0); MONO # 0.5 K/mm3 (0.0-0.8); MONO % 3.8 % (0.0-5.0); NEUTROPHILS # 10.5 K/mm3 (1.8-7.7); NEUTROPHILS % 78.9 % (36.0-66.0); PLATELET COUNT, AUTOMATED 402 k/mm3 (150-450); RED CELL DISTRIBUTION WIDTH 17.3 % (11.5-14.5); WHITE BLOOD COUNT 13.2 K/mm3 (4.0-10.0)
[2016-06-07 08:00] LABS: INR 1.3
[2016-06-07] MEDS: MIRALAX *UNIT DOSE* 17GM PACKET PO SCH (08:12)
[2016-06-07] MEDS: ASCORBIC ACID 500 MG TAB PO SCH ×3 (08:13→20:39)
[2016-06-07] MEDS: FERROUS GLUCONATE 324 MG TAB PO SCH ×3 (08:13→20:40)
[2016-06-07] MEDS: DOCUSATE SODIUM 100 MG CAP PO SCH ×2 (08:13→20:40)
[2016-06-07] MEDS: SINEMET 25-100 MG TAB PO SCH ×3 (08:13→20:40)
[2016-06-07] MEDS: rOPINIRole 1MG TAB PO SCH ×3 (08:13→20:39)
[2016-06-07] MEDS: PANTOPRAZOLE 40MG TAB (PROTONIX) PO SCH ×2 (08:13→20:40)
[2016-06-07] MEDS: BENZONATATE 100 MG CAP PO SCH ×3 (08:13→20:40)
[2016-06-07] MEDS: LACTOBACILLUS ACIDOPHILUS CAP (BACID) PO SCH ×3 (08:13→20:40)
[2016-06-07] MEDS: predniSONE 10 MG TAB PO SCH (08:13)
[2016-06-07] MEDS: GABAPENTIN 100 MG CAP PO SCH ×3 (08:13→20:40)
[2016-06-07] MEDS: MULTIVITAMINS/MINERALS THERAP 1 TAB PO SCH (08:13)
[2016-06-07] MEDS: EUCERIN 120GM CREAM TOP SCH ×2 (08:14→20:41)
[2016-06-07] MEDS: SODIUM CHLORIDE NASAL 0.65% SPRAY BTL (OCEAN) SCH ×3 (08:14→20:41)
[2016-06-07 08:19] LABS: ALBUMIN 1.9 GM/DL (3.2-5.2); ALKALINE PHOSPHATASE 61 U/L (45-117); ALT/SGPT 11 U/L (12-78); ANION GAP 9 MEQ/L (8-16); AST/SGOT 17 U/L (15-37); BILIRUBIN,TOTAL 0.3 MG/DL (0.2-1.0); BLOOD UREA NITROGEN 18 MG/DL (7-18); CALCIUM LEVEL 7.4 MG/DL (8.8-10.2); CARBON DIOXIDE LEVEL 28 MEQ/L (21-32); CHLORIDE LEVEL 110 MEQ/L (98-107); CREATININE FOR GFR 0.91 MG/DL (0.70-1.30); GLOMERULAR FILTRATION RATE > 60.0 (>35); GLUCOSE, FASTING 109 MG/DL (83-110); MAGNESIUM LEVEL 2.2 MG/DL (1.8-2.4); PHOSPHORUS LEVEL 1.6 MG/DL (2.5-4.9); POTASSIUM SERUM 3.4 MEQ/L (3.5-5.1); SODIUM LEVEL 147 MEQ/L (136-145); TOTAL PROTEIN 4.6 GM/DL (6.4-8.2)
[2016-06-07 08:21] LABS: HYPOCHROMASIA 2+
[2016-06-07 08:22] LABS: ANISOCYTOSIS 1+; POLYCHROMASIA 1+
[2016-06-07] MEDS ORDERED: POTASSIUM CHLORIDE 10 MEQ SR TABLET PO ONE ×3 (08:30→10:45)
[2016-06-07] MEDS: VANCOMYCIN HCL 1,000 MG, VIAL MATE ADAPTER 1 EACH in D5W 250 ML IV SCH (08:52)
[2016-06-07] MEDS ORDERED: PRED10TA PO (08:55)
[2016-06-07] MEDS ORDERED: IPRASOL4 NEB ×2 (08:55)
[2016-06-07] MEDS ORDERED: ROPI1TAB PO (08:55)
[2016-06-07] MEDS ORDERED: CARB25TA PO (08:55)
[2016-06-07] MEDS ORDERED: RISATAB3 PO (08:55)
[2016-06-07] MEDS ORDERED: VITA-130 PO (08:55)
[2016-06-07] MEDS ORDERED: PANT40TA2 PO (08:55)
[2016-06-07] MEDS ORDERED: BENZ100C5 PO (08:55)
[2016-06-07] MEDS ORDERED: FERR32TA PO (08:55)
--- NOTE | 2016-06-07 10:41 | DS.PDOC ---
Insurance Adjustor Discharge Note DISCHARGE SUMMARY DATE OF DISCHARGE: 06/07/2016 DATE OF ADMISSION: 05/27/2016 DISCHARGE DIAGNOSES 1. Femoral neck fracture status post hemiarthroplasty 2. HCAP/sepsis 3. Acute kidney injury 4. Hypotension/orthostasis 5. Acute urinary retention 6. Acute blood loss 7. COPD 8. Malnutrition 9. Constipation Patient Identification: 80-year-old gentleman with multiple medical comorbidities including COPD admitted to [facility] status post mechanical fall. Found to have a left displaced femoral neck fracture status post left hip hemiarthroplasty on 05/25/2016. Code Status: Full Weight Bearing: WBAT HOSPITAL COURSE Patient was admitted to the acute rehabilitation unit. He underwent thorough physical and occupational therapy evaluations. He was noted to be requiring supplemental oxygen via nasal cannula, which was not his baseline. He developed signs and symptoms of pneumonia/only sepsis. He was placed on brief exceptions policy and started on IV antibiotics. His oral prednisone which he had been on for a skin condition was increased by 5 mg. During this time he underwent an ENT consult for thyroid nodule seen on imaging. Recommendation was for follow- up testing once medically appropriate. PICC line was placed due to poor venous access. Patient was also received gentle IV hydration. Patients pulmonary condition improved so therapy was resumed. However, patient remained significantly orthostatic. He was also found to be in acute urinary retention for which a Andujar catheter was replaced. Proscar was discontinued after replacing Andujar catheter due to concerns for contributing to the orthostasis. However, after several days of being off Proscar, there was no improvement in his orthostatic hypertension. On 06/05/2016 patient was noted to have acute decline in his hemoglobin. He underwent a transfusion of one unit of packed red blood cells with appropriate rise in his hemoglobin, but subsequent decline in the following day. Due to his persistent acute medical issues (pneumonia/sepsis , orthostatic hypotension, acute blood loss, and acute urinary retention) repeat preempting awful participation in the acute rehabilitation program, patient was discharged on 06/07/16 back to the hospitalist service for higher level of care and medical stabilization. VS: Temperature 98.2F, pulse 83, respiratory rate 20, blood pressure 109/61, 94 % saturation on 3L via nasal cannula Physical Exam: GENERAL: Well developed, sitting up in bed, no acute distress. HEENT: Normocephalic, +lg lesion parietal region (decreased), PERRL, EOMI CARDIOVASCULAR: S1, S2, regular rate. 1-2+ edema left foot (decreased), trace - 1+ right foot (decreased). LUNGS: Improved BS, no wheezing. ABDOMEN: Soft, nontender, nondistended. Normoactive bowel sounds throughout. MUSCULOSKELETAL: MMT: 5/5 strength bilateral upper and lower limbs. 3/5 left hip flexors, 5/5 remainder of the left lower limb in all major muscle groups. 5/ 5 right lower limb in all major muscle groups. NEUROLOGICAL: Alert and oriented x 3. Answers all questions appropriately. Able to follow commands. SKIN: Left lateral hip thigh surgical site covered with OptiForm no significant visible drainage. Scalp lesion as above. Diffuse bruising bilateral upper limbs (~stable). 3cm abrasion left proximal forearm. +PICC right arm Labs: 06/07/16 reviewed, see below Sputum 06/06/16: pending Respiratory virus panel 06/05/16: negative BloodCx 06/05/16: NGTD UCx 05/31/16: NG CXR 06/05/16: L LL consolidation and pleural effusion DISCHARGE DISPOSITION: 1. The patient discharge to [facility] under care of Dr. Waller for higher level of service 2. The patient discharged in stable condition 3. Medications: see below, changes per hospitalist team 4. 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 / Vital Signs/I&O Vital Sign - Last 24 Hours 06/06/16 06/06/16 06/06/16 06/07/16 14:00 20:00 21:30 06:00 Temp 98.3 98.1 98.2 Pulse 80 90 83 Resp 20 20 20 B/P 110/57 102/56 109/61 Pulse Ox 98 96 94 O2 Delivery Nasal Cannula Nasal Cannula Nasal Cannula Nasal Cannula O2 Flow Rate 3.0 3.0 3.0 3.0 I&O- Last 24 Hours up to 6 AM 06/07/16 06:00 Intake Total 2531 ml Output Total 950 ml Balance 1581 ml Laboratory Data CBC/BMP Laboratory Tests 06/05/16 13:12 Red Blood Count 3.10 L, Mean Corpuscular Volume 90.7, Mean Corpuscular Hemoglobin 26.3 L, Mean Corpuscular Hemoglobin Concent 29.0 L, Red Cell Distribution Width 17.3 H, Neutrophils (%) (Auto) , Lymphocytes (%) (Auto) , Monocytes (%) (Auto) , Eosinophils (%) (Auto) , Basophils (%) (Auto) , Neutrophils # (Auto) , Lymphocytes # (Auto) , Monocytes # (Auto) , Eosinophils # (Auto) , Basophils # (Auto) 06/06/16 06:14 Red Blood Count 2.87 L, Mean Corpuscular Volume 89.6, Mean Corpuscular Hemoglobin 26.3 L, Mean Corpuscular Hemoglobin Concent 29.4 L, Red Cell Distribution Width 16.6 H, Neutrophils (%) (Auto) 78.4 H, Lymphocytes (%) (Auto ) 15.1 L, Monocytes (%) (Auto) 3.5, Eosinophils (%) (Auto) 0.9, Basophils (%) ( Auto) 0.5, Neutrophils # (Auto) 10.6 H, Lymphocytes # (Auto) 2.1, Monocytes # ( Auto) 0.5, Eosinophils # (Auto) 0.1, Basophils # (Auto) 0.1, Calcium Level 7.8 L 06/06/16 15:26 Red Blood Count 3.24 L, Mean Corpuscular Volume 85.1, Mean Corpuscular Hemoglobin 26.4 L, Mean Corpuscular Hemoglobin Concent 31.1 L, Red Cell Distribution Width 17.6 H, Neutrophils (%) (Auto) 90.5 H, Lymphocytes (%) (Auto ) 5.3 L, Monocytes (%) (Auto) 2.5, Eosinophils (%) (Auto) 0.2, Basophils (%) ( Auto) 0.7, Neutrophils # (Auto) 13.6 H, Lymphocytes # (Auto) 0.9 L, Monocytes # (Auto) 0.4, Eosinophils # (Auto) 0.0, Basophils # (Auto) 0.1 06/07/16 07:33 Red Blood Count 3.09 L, Mean Corpuscular Volume 86.8, Mean Corpuscular Hemoglobin 26.0 L, Mean Corpuscular Hemoglobin Concent 30.0 L, Red Cell Distribution Width 17.3 H, Neutrophils (%) (Auto) 78.9 H, Lymphocytes (%) (Auto ) 14.6 L, Monocytes (%) (Auto) 3.8, Eosinophils (%) (Auto) 0.7, Basophils (%) ( Auto) 0.6, Neutrophils # (Auto) 10.5 H, Lymphocytes # (Auto) 1.9, Monocytes # ( Auto) 0.5, Eosinophils # (Auto) 0.1, Basophils # (Auto) 0.1, Calcium Level 7.4 L , Phosphorus Level 1.6 L, Aspartate Amino Transf (AST/SGOT) 17, Alanine Aminotransferase (ALT/SGPT) 11 L, Alkaline Phosphatase 61, Total Bilirubin 0.3, Total Protein 4.6 L, Albumin 1.9 L Labs 48H Laboratory Tests 06/05/16 13:12: Anisocytosis 1+, Atypical Lymphocytes 1, White Blood Count 14.4H, Red Blood Count 3.10L, Hemoglobin 8.1L, Hematocrit 28.1L, Mean Corpuscular Volume 90.7, Mean Corpuscular Hemoglobin 26.3L, Mean Corpuscular Hemoglobin Concent 29.0L, Red Cell Distribution Width 17.3H, Platelet Count 446, Neutrophils (%) (Auto) , Lymphocytes (%) (Auto) , Monocytes (%) (Auto) , Eosinophils (%) (Auto) , Basophils (%) (Auto) , Neutrophils # (Auto) , Lymphocytes # (Auto) , Monocytes # (Auto) , Eosinophils # (Auto) , Basophils # (Auto) , Basophils (Manual) 1, Hypochromasia 2+, Large Unclassified Cells # , Large Unclassified Cells % , Lymphocytes (Manual) 8L, Metamyelocytes 5H, Monocytes (Manual) 2, Neutrophils 83H, Platelet Estimate INCREASED 06/05/16 16:12: 06/06/16 06:14: White Blood Count 13.6H, Red Blood Count 2.87L, Hemoglobin 7.6L, Hematocrit 25.7L, Mean Corpuscular Volume 89.6, Mean Corpuscular Hemoglobin 26.3L, Mean Corpuscular Hemoglobin Concent 29.4L, Red Cell Distribution Width 16.6H, Platelet Count 427, Neutrophils (%) (Auto) 78.4H, Lymphocytes (%) (Auto) 15.1L, Monocytes (%) (Auto) 3.5, Eosinophils (%) (Auto) 0.9, Basophils (%) (Auto) 0.5, Neutrophils # (Auto) 10.6H, Lymphocytes # (Auto) 2.1, Monocytes # (Auto) 0.5, Eosinophils # (Auto) 0.1, Basophils # (Auto) 0.1, Large Unclassified Cells # 0.2 , Large Unclassified Cells % 1.5, Anion Gap 8, B-Type Natriuretic Peptide 81.1, Blood Urea Nitrogen 19H, Creatinine 0.93, Sodium Level 145, Potassium Level 3.6 , Chloride Level 109H, Carbon Dioxide Level 28, Calcium Level 7.8L, C-Reactive Protein, Quantitative 1.31H, Fasting Glucose 107, Glomerular Filtration Rate > 60.0, Prothromb Time International Ratio 1.29, Prothrombin Time 16.2H 06/06/16 15:26: Anisocytosis 2+, White Blood Count 15.0H, Red Blood Count 3.24L, Hemoglobin 8.6L , Hematocrit 27.6L, Mean Corpuscular Volume 85.1, Mean Corpuscular Hemoglobin 26.4L, Mean Corpuscular Hemoglobin Concent 31.1L, Red Cell Distribution Width 17.6H, Platelet Count 433, Neutrophils (%) (Auto) 90.5H, Lymphocytes (%) (Auto) 5.3L, Monocytes (%) (Auto) 2.5, Eosinophils (%) (Auto) 0.2, Basophils (%) (Auto ) 0.7, Neutrophils # (Auto) 13.6H, Lymphocytes # (Auto) 0.9L, Monocytes # (Auto ) 0.4, Eosinophils # (Auto) 0.0, Basophils # (Auto) 0.1, Hypochromasia 2+, Large Unclassified Cells # 0.1, Large Unclassified Cells % 0.8, Platelet Estimate NORMAL, Polychromasia 1+ 06/07/16 07:33: Blood Urea Nitrogen 18, Creatinine 0.91, Sodium Level 147H, Potassium Level 3.4L , Chloride Level 110H, Carbon Dioxide Level 28, Calcium Level 7.4L, Phosphorus Level 1.6L, Aspartate Amino Transf (AST/SGOT) 17, Alanine Aminotransferase (ALT/ SGPT) 11L, Alkaline Phosphatase 61, Total Bilirubin 0.3, Total Protein 4.6L, Albumin 1.9L, Albumin/Globulin Ratio 0.70L, Anion Gap 9, Anisocytosis 1+, White Blood Count 13.2H, Red Blood Count 3.09L, Hemoglobin 8.0L, Hematocrit 26.8L, Mean Corpuscular Volume 86.8, Mean Corpuscular Hemoglobin 26.0L, Mean Corpuscular Hemoglobin Concent 30.0L, Red Cell Distribution Width 17.3H, Platelet Count 402, Neutrophils (%) (Auto) 78.9H, Lymphocytes (%) (Auto) 14.6L, Monocytes (%) (Auto) 3.8, Eosinophils (%) (Auto) 0.7, Basophils (%) (Auto) 0.6, Neutrophils # (Auto) 10.5H, Lymphocytes # (Auto) 1.9, Monocytes # (Auto) 0.5, Eosinophils # (Auto) 0.1, Basophils # (Auto) 0.1, Fasting Glucose 109, Glomerular Filtration Rate > 60.0, Hypochromasia 2+, Large Unclassified Cells # 0.2, Large Unclassified Cells % 1.5, Magnesium Level 2.2, Platelet Estimate NORMAL, Polychromasia 1+, Prothromb Time International Ratio 1.30, Prothrombin Time 16.3H Microbiology Microbiology 06/05/16 Blood Culture - Preliminary, Resulted No Growth after 48 hours. All Specime... 06/05/16 Blood Culture - Preliminary, Resulted No Growth after 48 hours. All Specime... 06/06/16 Gram Stain - Final, Resulted 06/06/16 Sputum Culture, Resulted Pending 06/05/16 Respiratory Virus Panel (PCR) (VIOLETTE) - Final, Complete 05/31/16 Urine Culture - Final, Complete Medications Medications Current Medications Acetylcysteine (Mucomyst 20% (200mg/ml)) 400 mg RBID INH ; Start 05/27/16 at 20 :00; Stop 05/27/16 at 20:00; Status DC Albuterol Sulfate (Proventil, Ventolin Hfa) 2 puff Q4H PRN INH SHORTNESS OF BREATH; Start 05/27/16 at 15:15; Stop 05/27/16 at 16:28; Status DC Albuterol/ Ipratropium (Duoneb (Ipr 0.5mg/Alb 2.5mg)) 3 ml Q2HP PRN NEB SOB/ WHEEZING Last administered on 05/31/16t 00:31; Start 05/27/16 at 16:30; Stop at 16:29 Albuterol/ Ipratropium (Duoneb (Ipr 0.5mg/Alb 2.5mg)) 3 ml RQ4H NEB Last administered on 06/07/16 07:42; Start 05/27/16 at 20:00; Stop 06/26/16 at 19:59 Ascorbic Acid (Vitamin C) 500 mg BID PO Last administered on 06/01/16 20:52; Start 05/27/16 at 21:00; Stop 06/02/16 at 08:45; Status DC Ascorbic Acid (Vitamin C) 500 mg TID PO Last administered on 06/07/16 08:13; Start 06/02/16 at 09:00; Stop 07/02/16 at 08:59 Aspirin (Ecotrin) 81 mg QPM PO Last administered on 06/06/16 21:01; Start at 21:00; Stop 06/26/16 at 20:59 Benzonatate (Tessalon Perles) 100 mg TID PO Last administered on 06/07/16 08:13 ; Start 05/31/16 at 16:00; Stop 06/30/16 at 15:59 Bisacodyl (Dulcolax) 10 mg ONCE ONCE AL Last administered on 06/02/16 13:06; Start 06/02/16 at 11:45; Stop 06/02/16 at 11:46; Status DC Calcium Carbonate (Tums) 1,000 mg Q4HP PRN PO HEARTBURN Last administered on 03:44; Start 06/01/16 at 14:30; Stop 07/01/16 at 14:29 Calcium Carbonate 500 mg 500 mg ONCE ONCE PO Last administered on 05/28/16at 06:10; Start 05/28/16 at 06:00; Stop 05/28/16 at 06:01; Status DC Carbidopa/Levodopa (Sinemet 25/100) 1 tab TID PO Last administered on 06/07/16 08:13; Start 05/27/16 at 16:00; Stop 06/26/16 at 15:59 Cefepime HCl/ Dextrose (Maxipime/ Dextrose 5% Mini-Bag Plus) 50 ml @ 100 mls/ hr Q12H IV Last administered on 06/05/16 06:10; Start 05/30/16 at 18:00; Stop at 14:20; Status DC Docusate Sodium (Colace) 100 mg BID PO Last administered on 06/07/16 08:13; Start 05/30/16 at 09:00; Stop 06/29/16 at 08:59 Ferrous Gluconate (Fergon) 324 mg BID PO Last administered on 06/01/16 20:52; Start 05/27/16 at 21:00; Stop 06/02/16 at 08:45; Status DC Ferrous Gluconate (Fergon) 324 mg TID PO Last administered on 06/07/16 08:13; Start 06/02/16 at 09:00; Stop 07/02/16 at 08:59 Finasteride (Proscar) 5 mg QPM PO Last administered on 06/06/16 21:01; Start 05/27/16 at 21:00; Stop 06/26/16 at 20:59; Status Future hold Furosemide (Lasix) 40 mg ONCE ONCE IV Last administered on 05/31/16 02:10; Start 05/31/16 at 02:00; Stop 05/31/16 at 02:01; Status DC Gabapentin (Neurontin) 200 mg TID PO Last administered on 06/07/16 08:13; Start 05/27/16 at 21:00; Stop 06/26/16 at 20:59 Guaifenesin (Mucinex) 1,200 mg BID PO Last administered on 05/31/16 09:31; Start 05/30/16 at 21:00; Stop 05/31/16 at 12:16; Status DC Guaifenesin (Robitussin) 600 mg Q6HP PRN PO WHEEZING; Start 05/27/16 at 16:45 ; Stop 05/30/16 at 15:13; Status DC Heparin Sodium (Heparin (Flush)) 200 units ASDIRECTED PRN IV SEE LABEL COMMENTS Last administered on 06/03/16 11:34; Start 06/02/16 at 20:00; Stop at 19:59 Heparin Sodium (Heparin (Flush)) 200 units PICC IV Last administered on 17:45; Start 06/03/16 at 06:00; Stop 07/03/16 at 05:59 Heparin Sodium (Heparin (Flush)) 300 units STK-MED ONCE As Ordered ; Start at 16:18; Stop 06/02/16 at 16:19; Status DC Heparin Sodium (Heparin (Flush)) 300 units STK-MED ONCE As Ordered ; Start at 12:43; Stop 06/04/16 at 12:44; Status DC Heparin Sodium (Heparin Flush Bag) 1,000 units STK-MED ONCE As Ordered ; Start 06/02/16 at 16:18; Stop 06/02/16 at 16:19; Status DC Heparin Sodium 1000 units 1,000 units STK-MED ONCE As Ordered ; Start 06/04/16 at 12:43; Stop 06/04/16 at 12:44; Status DC Iopamidol (Isovue-300 61%) 50 ml STK-MED ONCE As Ordered ; Start 06/04/16 at 12: 43; Stop 06/04/16 at 12:44; Status DC Iopamidol (Isovue-370 76%) 100 ml STK-MED ONCE As Ordered ; Start 06/04/16 at 12: 43; Stop 06/04/16 at 12:44; Status DC Ipratropium Superior (Atrovent 0.02%) 0.5 mg TID PRN INH SHORTNESS OF BREATH; Start 05/27/16 at 15:15; Stop 05/27/16 at 16:30; Status DC Lactobacillus Acidophilus (Bacid) 1 ea TID PO Last administered on 06/07/16 08: 13; Start 05/31/16 at 09:00; Stop 06/30/16 at 08:59 Latanoprost (Xalatan 0.005% Op Soln) 1 drop QHS OD Last administered on 21:02; Start 05/27/16 at 21:00; Stop 06/26/16 at 20:59 Lidocaine (Lidoderm Patch) 1 patch DAILY TD Last administered on 06/02/16 13:07 ; Start 06/02/16 at 09:00; Stop 06/03/16 at 17:44; Status DC Magnesium Citrate (Citrate Of Magnesia) 300 ml ONCE ONCE PO Last administered on 06/01/16 10:30; Start 06/01/16 at 09:30; Stop 06/01/16 at 09:31; Status DC Meropenem/Dextrose (Merrem/Dextrose 5% Mini-Bag Plus) 100 ml @ 200 mls/hr Q8H IV Last administered on 06/07/16 08:12; Start 06/05/16 at 16:00; Stop 06/12/16 at 15:59 Mineral Oil/White Petrolatum (Eucerin) APPLY TO Feet BID TOP Last administered on 06/07/16 08:14; Start 05/27/16 at 21:00; Stop 06/26/16 at 20:59 Minocycline HCl (Minocin) 100 mg BID PO Last administered on 05/31/16 09:31; Start 05/27/16 at 21:00; Stop 05/31/16 at 10:32; Status DC Multivitamins (Ocuvite(I-Marcos)) 1 tab QPM PO Last administered on 06/06/16 21: 00; Start 05/27/16 at 21:00; Stop 06/26/16 at 20:59 Multivitamins (Theragram-M) 1 tab DAILY PO Last administered on 06/07/16 08:13 ; Start 05/28/16 at 09:00; Stop 06/27/16 at 08:59 Non-Formulary Medication ( See Comment Field Below ) REMOVE LIDODERM PATCH DAILY@21 XX Last administered on 06/03/16 21:00; Start 06/02/16 at 21:00; Stop 06/05/16 at 04:43; Status DC Oxybutynin Chloride (Ditropan Xl) 5 mg QPM PO Last administered on 05/30/16 20: 10; Start 05/27/16 at 21:00; Stop 05/31/16 at 13:00; Status DC Oxycodone HCl (Roxicodone, Oxyir) 10 mg Q6HP PRN PO SEVERE PAIN (PS 8-10); Start 05/27/16 at 16:30; Stop 05/31/16 at 10:33; Status DC Oxycodone/ Acetaminophen (Percocet 5mg/ 325mg Tablet) 1 tab Q4H PRN PO PAIN Last administered on 05/30/16 18:11; Start 05/27/16 at 15:15; Stop 06/09/16 at 15:14 Pantoprazole Sodium (Protonix) 40 mg BID PO Last administered on 06/07/16 08:13 ; Start 06/01/16 at 09:00; Stop 07/01/16 at 08:59 Polyethylene Glycol 1 pkt 1 pkt DAILY PO Last administered on 06/07/16 08:12; Start 05/30/16 at 09:00; Stop 06/29/16 at 08:59 Potassium Chloride (Micro-K Extencaps) 20 meq ONCE ONCE PO Last administered on 06/07/16 08:52; Start 06/07/16 at 08:45; Stop 06/07/16 at 08:46; Status DC Potassium Chloride (Micro-K Extencaps) 20 meq ONCE ONCE PO ; Start 06/07/16 at 10:45; Stop 06/07/16 at 10:46; Status UNV Potassium Chloride (Micro-K Extencaps) 40 meq ONCE ONCE PO ; Start 06/07/16 at 08:30; Stop 06/07/16 at 08:30; Status DC Prednisone (Deltasone) 5 mg DAILY PO Last administered on 05/31/16 09:30; Start 05/28/16 at 09:00; Stop 05/31/16 at 12:14; Status DC Prednisone (Deltasone) 5 mg ONCE ONCE PO Last administered on 05/31/16 12:47; Start 05/31/16 at 12:30; Stop 05/31/16 at 12:31; Status DC Prednisone (Deltasone) 10 mg DAILY PO Last administered on 06/07/16 08:13; Start 06/01/16 at 09:00; Stop 07/01/16 at 08:59 Ropinirole HCl (Requip) 2 mg TID PO Last administered on 06/07/16 08:13; Start 05/27/16 at 16:00; Stop 06/26/16 at 15:59 Simvastatin (Zocor) 40 mg QPM PO Last administered on 06/06/16 21:02; Start at 21:00; Stop 06/26/16 at 20:59 Sodium Chloride 1,000 ml @ 50 mls/hr Q20H IV Last administered on 06/07/16 05: 24; Start 06/04/16 at 16:15; Stop 07/04/16 at 16:14 Sodium Chloride 1,000 ml @ 150 mls/hr Q6H40M IV Last administered on 05/30/16 10:43; Start 05/30/16 at 09:30; Stop 05/30/16 at 22:06; Status DC Sodium Chloride (Nacl 0.9%) 500 ml BOLUS ONCE IV Last administered on 15:00; Start 06/02/16 at 14:45; Stop 06/02/16 at 14:46; Status DC Sodium Chloride (Nacl 0.9%) 1,000 ml @ 80 mls/hr [id number] ONCE IV Last administered on 06/03/16 11:43; Start 06/03/16 at 11:15; Stop 06/03/16 at 23:44; Status DC Sodium Chloride (Mineral Nasal [place]) 2 spray TID NA Last administered on 08:14; Start 06/01/16 at 16:00; Stop 07/01/16 at 15:59 Sodium Chloride (Saline Lock Flush) 10 ml ASDIRECTED PRN IV SEE LABEL COMMENTS Last administered on 06/03/16 11:34; Start 06/02/16 at 20:00; Stop 07/02/16 at 19: 59 Sodium Chloride (Saline Lock Flush) 10 ml PICC IV Last administered on 17:45; Start 06/02/16 at 20:00; Stop 07/02/16 at 19:59 Sodium Chloride 80 ml 80 ml BOLUS ONCE IV ; Start 06/03/16 at 10:45; Stop at 11:06; Status DC Vancomycin HCl 1000 mg/IV Miscellaneous Supplies 1 each/ Dextrose 270 ml @ 270 mls/hr ONCE ONCE IV Last administered on 05/30/16 14:19; Start 05/30/16 at 14: 00; Stop 05/30/16 at 14:59; Status DC Vancomycin HCl/IV Miscellaneous Supplies/Dextrose (Vancomycin HCl/ Adapter-Vial Mate/ Dextrose 5%) 270 ml @ 270 mls/hr Q24H IV Last administered on 06/04/16 15:52; Start 05/31/16 at 09:00; Stop 06/04/16 at 19:00; Status DC Vancomycin HCl/IV Miscellaneous Supplies/Dextrose (Vancomycin HCl/ Adapter-Vial Mate/ Dextrose 5%) 270 ml @ 270 mls/hr Q24H IV Last administered on 06/07/16 08:52; Start 06/05/16 at 09:00; Stop 06/13/16 at 08:59 Warfarin Sodium (Coumadin) 1 mg 1T@17 ONCE PO Last administered on 06/01/16 18 :03; Start 06/01/16 at 17:00; Stop 06/01/16 at 17:01; Status DC Warfarin Sodium (Coumadin) 1 mg 1T@17 ONCE PO Last administered on 06/02/16 18 :07; Start 06/02/16 at 17:00; Stop 06/02/16 at 17:01; Status DC Warfarin Sodium (Coumadin) 1 mg 1T@17 ONCE PO Last administered on 06/04/16 17 :18; Start 06/04/16 at 17:00; Stop 06/04/16 at 17:01; Status DC Warfarin Sodium (Coumadin) 2 mg 1T@17 ONCE PO Last administered on 06/03/16 16 :42; Start 06/03/16 at 17:00; Stop 06/03/16 at 17:01; Status DC Warfarin Sodium (Coumadin) 5 mg DAILY@17 PO Last administered on 05/28/16at 17: 05; Start 05/27/16 at 17:00; Stop 05/29/16 at 08:05; Status DC Warfarin Sodium (Coumadin) 6 mg 1T@17 ONCE PO Last administered on 06/06/16 17 :45; Start 06/06/16 at 17:00; Stop 06/06/16 at 17:01; Status DC Warfarin Sodium (Coumadin) 7.5 mg 1T@17 ONCE PO ; Start 06/07/16 at 17:00; Stop 06/07/16 at 17:01 Warfarin Sodium 2.5 mg 2.5 mg 1T@17 ONCE PO Last administered on 06/05/16 18: 15; Start 06/05/16 at 17:00; Stop 06/05/16 at 17:01; Status DC Scheduled ([place]-Bid Probiotic) 1 Tab Tab 1 EA PO TID Albuterol/Ipratropium (Ipratropium Superior/Albut 0.5-2.5 (3) mg/3Ml) 1 Samantha Samantha 3 ML NEB RQ4H Ascorbic Acid (Vitamin C) 500 Mg Tab 500 MG PO TID Aspirin (Aspirin 81) 81 Mg Tab 81 MG PO QPM (Reported) Benzonatate (Benzonatate) 100 Mg Cap 100 MG PO TID Calcium/Vitamin D (Calcium 600 + D 600-400 mg-Unit) 1 Tab Tab 1 TAB PO DAILY ( Reported) Carbidopa/Levodopa (Carbidopa/Levodopa 25-100 mg) 1 Tab Tab 1 TAB PO TID Ferrous Gluconate (Ferrous Gluconate) 324 Mg Tab 324 MG PO TID Finasteride (Finasteride) 5 Mg Tab 5 MG PO QPM (Reported) Fluticasone/Vilanterol (Breo Ellipta 200-25 Mcg/INH) 1 Inh Inh 1 PUFF INH DAILY (Reported) Latanoprost (Latanoprost) 50 Drop/2.5 Ml Soln 1 DROP OD QHS (Reported) Multivitamins (Ocuvite) 1 Tab Tab 1 TAB PO QPM (Reported) Pantoprazole Sodium (Pantoprazole Sodium) 40 Mg Tab 40 MG PO BID Prednisone (Prednisone) 10 Mg Tab 10 MG PO DAILY Ropinirole Hydrochloride (Ropinirole HCl) 1 Mg Tab 2 MG PO TID Simvastatin - High Dose (Simvastatin) 40 Mg Tab 40 MG PO QPM (Reported) Scheduled PRN Albuterol Sulfate (Ventolin Hfa) 200 Puff/8 Gm Aers 2 PUFF INH Q4H PRN PRN SHORTNESS OF BREATH (Reported) Albuterol/Ipratropium (Ipratropium Superior/Albut 0.5-2.5 (3) mg/3Ml) 1 Samantha Samantha 3 ML NEB Q2HP PRN PRN SOB/WHEEZING Oxycodone/Acetaminophen (Percocet 5-325 mg) 1 Tab Tab 1 TAB PO Q4H PRN PRN PAIN MDD = 6 Allergies Coded Allergies: No Known Allergies (Verified , 05/05/08) ARNEL HERRERA MD Jun 07, 2016 10:41
--- NOTE | 2016-06-07 11:16 | CR ---
DATE OF CONSULTATION: 06/01/2016 Dr. Hightower requested ears, nose, and throat (ENT) consultation on this pleasant 80-year-old white male who was admitted because of a hip fracture. He underwent surgery for repair of his hip fracture, and he developed pneumonia. A CT scan of his chest showed an enlarged right lobe of his thyroid, and a CT scan of his neck performed on 05/31/2016 showed an enlarged right lobe of the thyroid measuring 6.4 cm in hits largest diameter, causing the trachea to be deviated to the contralateral side. They requested ENT consultation because of this mass. In discussing with the patient his thyroid nodule, he has known that for some time now. It was evaluated by Dr. Glover some time back, and it was decided not to proceed with any further intervention on it. At the present time, the patient has no ear pain, drainage, difficulty hearing, or ringing in his ears. He has no trouble breathing through his nose, runny nose, or postnasal drip. He has no sore throat or hoarseness. He does note some burning when he swallows. Nurses note that he has been started on Protonix today and has been taking Tums, because he has been on steroids for quite some time. PHYSICAL EXAMINATION: The patient's ear canals are clear. The tympanic membranes are intact with normal coloration and landmarks. Examination of the nose reveal a little dried, crusty mucus in the nose secondary to his oxygen by nasal cannula, which has no heated humidity, but otherwise there are no masses or mucosal lesions. Examination of the mouth and pharynx are unremarkable. Examination of the neck: The large right lobe of the thyroid is readily palpable and feels approximately the size as is measured on the CT scan. Review of the patient's lab work that had been obtained on 06/01/2016: His T3 is 1.2, which is a little low. His T4 is 0.87, which is within normal limits, and his TSH is 4.330, which is elevated. The CT scan of his neck on 05/31/2016, as reported in his initial history, showed a right lobe his thyroid measuring 6.4 cm in largest dimension with a deviation of the trachea to the left. The trachea, on viewing the films, does not appear to be compromised in terms of its lumen, or just being pushed off to the side by the enlarged lobe of the thyroid. IMPRESSION: Large thyroid nodule occupying essentially the complete right lobe of the thyroid. RECOMMENDATIONS: I would recommend a nuclear medicine scan of the patient's thyroid. This has been postponed because of his needs for time and physical therapy on the rehabilitation unit but can be scheduled when time seems appropriate. He also needs to have an ultrasound-guided fine needle biopsy of his right lobe of his thyroid done in radiology. I will follow the patient while he is in the hospital. If these cannot be performed while he is in the hospital, then they can be done as an outpatient on an outpatient basis. Once he is discharged further planning for treatment of this large right lobe of his thyroid can then be made. Thank you very much for this consult. Will follow.
[2016-06-07 14:00] VITALS: BP 118/59
--- NOTE | 2016-06-07 16:27 | HPEPDOC ---
General Date of Admission May 27, 2016 at 15:40 Chief Complaint The patient is a 80-year-old male Transferred from inpatient acute rehabilitation unit because of orthostatic hypotension History of Present Illness Patient is an 80 year old male with a PMHx of Parkinson's disease, AAA repair, COPD, bullous pemphigus who presented after a fall. At home patient is very independent. Patient was ambulating to bathroom when he fell. He was taken to the ER where he was found to have a transverse displaced fracture of the left femoral neck. He was admitted to hospitalist service and cleared for surgery. He is s/p left total hip arthroplasty. He was transferred to inpatient rehabilitation. In the inpatient acute rehabilitation he was noted have positive orthostatics in the Rehab unit and he noted that he had a productive cough. Hospitalist team was consulted. He had imaging which revealed a new developing pneumonia and he was given 1 L of NS and started on Cefepime and Vacomycin. On 06/02 patient was noted to be hypotensive (SBPs of 80s) with an elevated lactic acid. He had a PICC line placed urgently. His blood pressure prior to Iv fluid infusion was 120s. He received 500cc of NS bolus. His lactic acid trended down. On 06/03 evening patient had what was suspected to be an infiltration of his PICC line. They had stopped IV fluids overnight and missed his AM dose of antibiotics. He subsequently went for evaluation of the PICC line that afternoon. Good placement. On 06/06 he was found to have a lower than baseline Hg and was transfused 1 unit of PRBC. This morning patient is not able to continue with physical therapy given that he continues to feel dizzy with positive orthostatics. He was transferred to acute medical floor. Home Medications Scheduled ([place]-Bid Probiotic) 1 Tab Tab 1 EA PO TID Albuterol/Ipratropium (Ipratropium [place]/Albut 0.5-2.5 (3) mg/3Ml) 1 Samantha Samantha 3 ML NEB RQ4H Ascorbic Acid (Vitamin C) 500 Mg Tab 500 MG PO TID Aspirin (Aspirin 81) 81 Mg Tab 81 MG PO QPM (Reported) Benzonatate (Benzonatate) 100 Mg Cap 100 MG PO TID Calcium/Vitamin D (Calcium 600 + D 600-400 mg-Unit) 1 Tab Tab 1 TAB PO DAILY ( Reported) Carbidopa/Levodopa (Carbidopa/Levodopa 25-100 mg) 1 Tab Tab 1 TAB PO TID Ferrous Gluconate (Ferrous Gluconate) 324 Mg Tab 324 MG PO TID Finasteride (Finasteride) 5 Mg Tab 5 MG PO QPM (Reported) Fluticasone/Vilanterol (Breo Ellipta 200-25 Mcg/INH) 1 Inh Inh 1 PUFF INH DAILY (Reported) Latanoprost (Latanoprost) 50 Drop/2.5 Ml Soln 1 DROP OD QHS (Reported) Multivitamins (Ocuvite) 1 Tab Tab 1 TAB PO QPM (Reported) Pantoprazole Sodium (Pantoprazole Sodium) 40 Mg Tab 40 MG PO BID Prednisone (Prednisone) 10 Mg Tab 10 MG PO DAILY Ropinirole Hydrochloride (Ropinirole HCl) 1 Mg Tab 2 MG PO TID Simvastatin - High Dose (Simvastatin) 40 Mg Tab 40 MG PO QPM (Reported) Scheduled PRN Albuterol Sulfate (Ventolin Hfa) 200 Puff/8 Gm Aers 2 PUFF INH Q4H PRN PRN SHORTNESS OF BREATH (Reported) Albuterol/Ipratropium (Ipratropium [place]/Albut 0.5-2.5 (3) mg/3Ml) 1 Samantha Samantha 3 ML NEB Q2HP PRN PRN SOB/WHEEZING Oxycodone/Acetaminophen (Percocet 5-325 mg) 1 Tab Tab 1 TAB PO Q4H PRN PRN PAIN MDD = 6 Allergies Coded Allergies: No Known Allergies (Verified , 05/05/08) Past Medical History Medical History Parkinson's disease AAA repair COPD Bullous pemphigus Neuropathy DLP GERD Thyroid mass (recently diagnosed) Surgical History s/p bilateral iliac artery stents (percutaneous placement) for Abdominal aortic aneurysm s/p Appendectomy s/p Tonsillectomy and adenoidectomy s/p Bilateral cataract surgery Family History Family History Non contributory Social History Social History - Denies the use of alcohol or illicit drugs; Quit smoking 10 years ago - Denies recent travel or sick contacts - Lives with Review of Symptoms Other systems Constitutional: Denies weight loss, change in appetite, Trauma prior to arrival Eyes: No visual changes or eye pain Ears, Nose, Throat: Denies nose bleeds, or difficulty swallowing Cardiovascular: Denies chest pain, sweating, or orthopnea Respiratory: Positive cough, No wheezing, or shortness of breath GI: Mingo nausea, vomiting, abdominal pain, diarrhea or constipation : Denies pain with urination or frequency; Has had urinary retention problems as an inpatient Musculoskeletal: Denies joint pain or swelling Neuro / Psych: Denies muscle weakness or sensory loss; Reports generalized fatigue Skin: No skin rashes noted All other review of systems negative; otherwise stated in history of present illness Vital Signs - Vitals: BP 118/59, HR 84, RR 18, Sat 97%NC3L, Temp 97.6F - General: Lying in bed, No acute distress, Speaking in full sentences, AAOx3 - HEENT: NC, AT, PERRLA, EOMI - CVS: RRR, +S1S2 - Lungs: Fair air entry bilaterally, Clear to auscultation, No wheezing / rales / rhonchi - Abdomen: Soft, Non-distended, Non-tender, + Bowel sounds x 4 - Extremities: + PPx4, No lower extremity edema, No calf tenderness - Neuro: No focal motor or sensory deficit - Skin: No visible rashes Laboratory Data Labs 24H Laboratory Tests 2 06/07/16 07:33: Blood Urea Nitrogen 18, Creatinine 0.91, Sodium Level 147H, Potassium Level 3.4L , Chloride Level 110H, Carbon Dioxide Level 28, Calcium Level 7.4L, Phosphorus Level 1.6L, Aspartate Amino Transf (AST/SGOT) 17, Alanine Aminotransferase (ALT/ SGPT) 11L, Alkaline Phosphatase 61, Total Bilirubin 0.3, Total Protein 4.6L, Albumin 1.9L, Albumin/Globulin Ratio 0.70L, Anion Gap 9, Anisocytosis 1+, White Blood Count 13.2H, Red Blood Count 3.09L, Hemoglobin 8.0L, Hematocrit 26.8L, Mean Corpuscular Volume 86.8, Mean Corpuscular Hemoglobin 26.0L, Mean Corpuscular Hemoglobin Concent 30.0L, Red Cell Distribution Width 17.3H, Platelet Count 402, Neutrophils (%) (Auto) 78.9H, Lymphocytes (%) (Auto) 14.6L, Monocytes (%) (Auto) 3.8, Eosinophils (%) (Auto) 0.7, Basophils (%) (Auto) 0.6, Neutrophils # (Auto) 10.5H, Lymphocytes # (Auto) 1.9, Monocytes # (Auto) 0.5, Eosinophils # (Auto) 0.1, Basophils # (Auto) 0.1, Glomerular Filtration Rate > 60.0, Hypochromasia 2+, Large Unclassified Cells # 0.2, Large Unclassified Cells % 1.5, Magnesium Level 2.2, Platelet Estimate NORMAL, Polychromasia 1+, Prothromb Time International Ratio 1.30, Prothrombin Time 16.3H CBC/BMP Laboratory Tests 06/07/16 07:33 Calcium Level 7.4 L, Phosphorus Level 1.6 L, Aspartate Amino Transf (AST/SGOT) 17, Alanine Aminotransferase (ALT/SGPT) 11 L, Alkaline Phosphatase 61, Total Bilirubin 0.3, Total Protein 4.6 L, Albumin 1.9 L, Red Blood Count 3.09 L, Mean Corpuscular Volume 86.8, Mean Corpuscular Hemoglobin 26.0 L, Mean Corpuscular Hemoglobin Concent 30.0 L, Red Cell Distribution Width 17.3 H, Neutrophils (%) ( Auto) 78.9 H, Lymphocytes (%) (Auto) 14.6 L, Monocytes (%) (Auto) 3.8, Eosinophils (%) (Auto) 0.7, Basophils (%) (Auto) 0.6, Neutrophils # (Auto) 10.5 H, Lymphocytes # (Auto) 1.9, Monocytes # (Auto) 0.5, Eosinophils # (Auto) 0.1, Basophils # (Auto) 0.1 Microbiology Microbiology 06/05/16 Blood Culture - Preliminary, Resulted No Growth after 48 hours. All Specime... 06/05/16 Blood Culture - Preliminary, Resulted No Growth after 48 hours. All Specime... 06/06/16 Gram Stain - Final, Resulted 06/06/16 Sputum Culture, Resulted Pending 06/05/16 Respiratory Virus Panel (PCR) (VIOLETTE) - Final, Complete 05/31/16 Urine Culture - Final, Complete Plan / VTE VTE Prophylaxis Ordered?: Yes Plan / Urinary Catheter Reason for insertion/continuin: Acute obstruct/retention Plan Plan 1. Orthostatic hypotension - possibly 2/2 medication or autonomic instability 2/ 2 Parkinson's, possibly 2/2 infection - Examination of orthostatics today were positive; 107/60 laying flat, 103/61 sitting up, 71/43 standing - will continue to record orthostatic vital signs - will continue to follow ins/outs - cortisol level appropriate - s/p lactic acidosis - will c/w IV fluid hydration until his symptoms have resolved - no signs of fluid overload on physical this morning - will order thigh high compression stockings 2. Sepsis 2/2 HCAP - persistent cough, afebrile - normalized lactic acid - CRP has been noted to be trending down; Leukocytosis improving - CXR with left lower lobe consolidation and suspected moderate pleural effusion - Blood cultures 06/05 negative; Sputum culture pending, urine legionella / strep pneumonia antigens - c/w vancomycin and meropenem 06/05, s/p cefepime (Day #8 of antibiotics) 3. Normocytic anemia - likely 2/2 RICH - Hg this morning of 8.0 - will check stool occult blood - will continue to follow H&H - s/p 1 unit PRBC today - c/w ferrous sulfate 4. Infiltration of R arm PICC line - re-evaluated in finishing lab technician with fluroscopy; no evidence of thrombosis - in good position - will continue to use 5. Left femur fracture - s/p total left hip replacement - c/w rehabilitation 6. Thyroid mass - CT shows evidence of tracheal deviation - TSH elevated with low Free T3 and normal Free T4, total T3 low - Will need nuclear scan as an outpatient - ENT consulted (Dr. Modi) - appreciate their input 7. s/p LISSET - likely 2/2 pre-renal etiology - Cr peaked at 1.38 - has trended down 8. COPD - no evidence of exacerbation - c/w duonebs 9. Parkinson's disease - c/w home medications 10. History of AAA repair - c/w ASA and statin 11. Skin condition - on prednisone - will need outpatient follow up 12. GERD - c/w protonix 13. DVT prophylaxis - per orthopedic surgery WANG SCHWAB MD Jun 07, 2016 16:27
[2016-06-07] MEDS ORDERED: WARFARIN SOD 7.5 MG TAB PO ONE (17:00)
[2016-06-07 17:39] LABS: BASO % 0.3 % (0.0-1.0); EOS % 0.3 % (0.0-3.0); LARGE UNSTAINED CELL # 0.1 K/mm3 (0.0-0.4); LARGE UNSTAINED CELL % 0.7 % (0.0-4.0); LYMPH # 0.9 K/mm3 (1.5-4.5); LYMPH % 5.7 % (24.0-44.0); MEAN CORPUSCULAR HEMOGLOBIN 26.3 pg (27.0-33.0); MEAN CORPUSCULAR HGB CONC 29.9 g/dl (32.0-36.5); MEAN CORPUSCULAR VOLUME 88.1 fl (80.0-96.0); MONO # 0.4 K/mm3 (0.0-0.8); MONO % 2.6 % (0.0-5.0); NEUTROPHILS # 14.4 K/mm3 (1.8-7.7); NEUTROPHILS % 90.5 % (36.0-66.0); PLATELET COUNT, AUTOMATED 450 k/mm3 (150-450); RED CELL DISTRIBUTION WIDTH 17.3 % (11.5-14.5); WHITE BLOOD COUNT 15.9 K/mm3 (4.0-10.0)
[2016-06-07 20:00] VITALS: BP 134/63
[2016-06-07] MEDS: SIMVASTATIN 40 MG TAB PO SCH (20:39)
[2016-06-07] MEDS: ASPIRIN 81 MG ENTERIC TAB PO SCH (20:40)
[2016-06-07] MEDS: FINASTERIDE 5 MG TAB PO SCH (20:40)
[2016-06-07] MEDS: OCUVITE 1 TAB PO SCH (20:40)
[2016-06-07] MEDS: LATANOPROST 0.005% OPHTH SOLN 2.5 ML OD SCH (20:41)
[2016-06-12 00:08] LABS: ORGANISM ID Not indicated. (.); SPECIMEN SOURCE Urine (.)
== END 2016-06-07 22:31 | DRG 559 ==
LOC: M PM&R 15:40
PROVIDERS: ADMIT Pain Medicine Interventional Pain Medicine; ATTEND Internal Medicine
PROC: 02HV33Z Insertion of Infusion Device into Superior Vena Cava, Percutaneous Approach (ICD-10-PCS; 2016-06-02)
PROC: 30233N1 Transfusion of Nonautologous Red Blood Cells into Peripheral Vein, Percutaneous Approach (ICD-10-PCS; principal; 2016-06-06)
DX: S72.012D Unspecified intracapsular fracture of left femur, subsequent encounter for closed fracture with routine healing (principal); A41.9 Sepsis, unspecified organism; J18.9 Pneumonia, unspecified organism; N17.9 Acute kidney failure, unspecified; D62 Acute posthemorrhagic anemia; E46 Unspecified protein-calorie malnutrition; L12.0 Bullous pemphigoid; K59.00 Constipation, unspecified; J44.9 Chronic obstructive pulmonary disease, unspecified; Z96.642 Presence of left artificial hip joint; E04.1 Nontoxic single thyroid nodule; I95.1 Orthostatic hypotension; R33.9 Retention of urine, unspecified; G20 Parkinson's disease; N40.0 Benign prostatic hyperplasia without lower urinary tract symptoms; E78.5 Hyperlipidemia, unspecified; M77.42 Metatarsalgia, left foot; Z79.899 Other long term (current) drug therapy; Z79.82 Long term (current) use of aspirin

== ENCOUNTER 2016-06-07 17:39 | Inpatient (IN) | payer MEDICARE, OTHER ==
[~2016-06-07] VITALS: Ht 180.3 cm; Wt 60.1 kg
[~2016-06-07 17:39] MED LIST changes: +BENZ100C5 PO; +FERR32TA PO; +IPRASOL4 NEB; +PANT40TA2 PO; +PRED10TA PO; +RISATAB3 PO; +ROPI1TAB PO; +VITA-130 PO
[2016-06-07] MEDS ORDERED: NS 1,000 ML IV SCH (17:41)
[2016-06-07] MEDS ORDERED: IPRATROPIUM 0.5MG/ALBUTEROL 2.5MG INH SOL UD 3ML (DUONEB)(J7620) NEB PRN (18:00)
[2016-06-07] MEDS ORDERED: PERCOCET 5MG/325MG TAB PO PRN (18:00)
[2016-06-07] MEDS ORDERED: CALCIUM CARBONATE 500 MG CHEW U/D PO PRN (18:00)
[2016-06-07] MEDS: NS 1,000 ML IV SCH (18:00)
--- NOTE | 2016-06-07 18:37 | IPNPDOC ---
Text Note Date of Service The patient was seen on 06/07/16 at 18:35. NOTE [facility] History and Physical Patient Name: Victoriano Agosto Unit Number: [id number] Date of : 1935 Patient Status: Admitted Inpatient Attending Doctor: Theo Schwab MD [facility] Medical History & Physical General Date of Admission May 27, 2016 at 15:40 Chief Complaint The patient is a 80-year-old male Transferred from inpatient acute rehabilitation unit because of orthostatic hypotension History of Present Illness Patient is an 80 year old male with a PMHx of Parkinson's disease, AAA repair, COPD, bullous pemphigus who presented after a fall. At home patient is very independent. Patient was ambulating to bathroom when he fell. He was taken to the ER where he was found to have a transverse displaced fracture of the left femoral neck. He was admitted to hospitalist service and cleared for surgery. He is s/p left total hip arthroplasty. He was transferred to inpatient rehabilitation. In the inpatient acute rehabilitation he was noted have positive orthostatics in the Rehab unit and he noted that he had a productive cough. Hospitalist team was consulted. He had imaging which revealed a new developing pneumonia and he was given 1 L of NS and started on Cefepime and Vacomycin. On 06/02 patient was noted to be hypotensive (SBPs of 80s) with an elevated lactic acid. He had a PICC line placed urgently. His blood pressure prior to Iv fluid infusion was 120s. He received 500cc of NS bolus. His lactic acid trended down. On 06/03 evening patient had what was suspected to be an infiltration of his PICC line. They had stopped IV fluids overnight and missed his AM dose of antibiotics. He subsequently went for evaluation of the PICC line that afternoon. Good placement. On 06/06 he was found to have a lower than baseline Hg and was transfused 1 unit of PRBC. This morning patient is not able to continue with physical therapy given that he continues to feel dizzy with positive orthostatics. He was transferred to acute medical floor. Home Medications Scheduled ([place]-Bid Probiotic) 1 Tab Tab 1 EA PO TID Albuterol/Ipratropium (Ipratropium [place]/Albut 0.5-2.5 (3) mg/3Ml) 1 Samantha Samantha 3 ML NEB RQ4H Ascorbic Acid (Vitamin C) 500 Mg Tab 500 MG PO TID Aspirin (Aspirin 81) 81 Mg Tab 81 MG PO QPM (Reported) Benzonatate (Benzonatate) 100 Mg Cap 100 MG PO TID Calcium/Vitamin D (Calcium 600 + D 600-400 mg-Unit) 1 Tab Tab 1 TAB PO DAILY ( Reported) Carbidopa/Levodopa (Carbidopa/Levodopa 25-100 mg) 1 Tab Tab 1 TAB PO TID Ferrous Gluconate (Ferrous Gluconate) 324 Mg Tab 324 MG PO TID Finasteride (Finasteride) 5 Mg Tab 5 MG PO QPM (Reported) Fluticasone/Vilanterol (Breo Ellipta 200-25 Mcg/INH) 1 Inh Inh 1 PUFF INH DAILY (Reported) Latanoprost (Latanoprost) 50 Drop/2.5 Ml Soln 1 DROP OD QHS (Reported) Multivitamins (Ocuvite) 1 Tab Tab 1 TAB PO QPM (Reported) Pantoprazole Sodium (Pantoprazole Sodium) 40 Mg Tab 40 MG PO BID Prednisone (Prednisone) 10 Mg Tab 10 MG PO DAILY Ropinirole Hydrochloride (Ropinirole HCl) 1 Mg Tab 2 MG PO TID Simvastatin - High Dose (Simvastatin) 40 Mg Tab 40 MG PO QPM (Reported) Scheduled PRN Albuterol Sulfate (Ventolin Hfa) 200 Puff/8 Gm Aers 2 PUFF INH Q4H PRN PRN SHORTNESS OF BREATH (Reported) Albuterol/Ipratropium (Ipratropium [place]/Albut 0.5-2.5 (3) mg/3Ml) 1 Samantha Samantha 3 ML NEB Q2HP PRN PRN SOB/WHEEZING Oxycodone/Acetaminophen (Percocet 5-325 mg) 1 Tab Tab 1 TAB PO Q4H PRN PRN PAIN MDD = 6 Allergies Coded Allergies: No Known Allergies (Verified , 05/05/08) Past Medical History Parkinson's disease AAA repair COPD Bullous pemphigus Neuropathy DLP GERD Thyroid mass (recently diagnosed) Surgical History s/p bilateral iliac artery stents (percutaneous placement) for Abdominal aortic aneurysm s/p Appendectomy s/p Tonsillectomy and adenoidectomy s/p Bilateral cataract surgery Family History Non contributory Social History - Denies the use of alcohol or illicit drugs; Quit smoking 10 years ago - Denies recent travel or sick contacts - Lives with Review of Systems Constitutional: Denies weight loss, change in appetite, Trauma prior to arrival Eyes: No visual changes or eye pain Ears, Nose, Throat: Denies nose bleeds, or difficulty swallowing Cardiovascular: Denies chest pain, sweating, or orthopnea Respiratory: Positive cough, No wheezing, or shortness of breath GI: Mingo nausea, vomiting, abdominal pain, diarrhea or constipation : Denies pain with urination or frequency; Has had urinary retention problems as an inpatient Musculoskeletal: Denies joint pain or swelling Neuro / Psych: Denies muscle weakness or sensory loss; Reports generalized fatigue Skin: No skin rashes noted All other review of systems negative; otherwise stated in history of present illness Physical Examination Vital Signs - Vitals: BP 118/59, HR 84, RR 18, Sat 97%NC3L, Temp 97.6F - General: Lying in bed, No acute distress, Speaking in full sentences, AAOx3 - HEENT: NC, AT, PERRLA, EOMI - CVS: RRR, +S1S2 - Lungs: Fair air entry bilaterally, Clear to auscultation, No wheezing / rales / rhonchi - Abdomen: Soft, Non-distended, Non-tender, + Bowel sounds x 4 - Extremities: + PPx4, No lower extremity edema, No calf tenderness - Neuro: No focal motor or sensory deficit - Skin: No visible rashes Laboratory Data Labs 24H Laboratory Tests 2 06/07/16 07:33: Blood Urea Nitrogen 18, Creatinine 0.91, Sodium Level 147H, Potassium Level 3.4L , Chloride Level 110H, Carbon Dioxide Level 28, Calcium Level 7.4L, Phosphorus Level 1.6L, Aspartate Amino Transf (AST/SGOT) 17, Alanine Aminotransferase (ALT/ SGPT) 11L, Alkaline Phosphatase 61, Total Bilirubin 0.3, Total Protein 4.6L, Albumin 1.9L, Albumin/Globulin Ratio 0.70L, Anion Gap 9, Anisocytosis 1+, White Blood Count 13.2H, Red Blood Count 3.09L, Hemoglobin 8.0L, Hematocrit 26.8L, Mean Corpuscular Volume 86.8, Mean Corpuscular Hemoglobin 26.0L, Mean Corpuscular Hemoglobin Concent 30.0L, Red Cell Distribution Width 17.3H, Platelet Count 402, Neutrophils (%) (Auto) 78.9H, Lymphocytes (%) (Auto) 14.6L, Monocytes (%) (Auto) 3.8, Eosinophils (%) (Auto) 0.7, Basophils (%) (Auto) 0.6, Neutrophils # (Auto) 10.5H, Lymphocytes # (Auto) 1.9, Monocytes # (Auto) 0.5, Eosinophils # (Auto) 0.1, Basophils # (Auto) 0.1, Glomerular Filtration Rate > 60.0, Hypochromasia 2+, Large Unclassified Cells # 0.2, Large Unclassified Cells % 1.5, Magnesium Level 2.2, Platelet Estimate NORMAL, Polychromasia 1+, Prothromb Time International Ratio 1.30, Prothrombin Time 16.3H CBC/BMP Laboratory Tests 06/07/16 07:33 Calcium Level 7.4 L, Phosphorus Level 1.6 L, Aspartate Amino Transf (AST/SGOT) 17, Alanine Aminotransferase (ALT/SGPT) 11 L, Alkaline Phosphatase 61, Total Bilirubin 0.3, Total Protein 4.6 L, Albumin 1.9 L, Red Blood Count 3.09 L, Mean Corpuscular Volume 86.8, Mean Corpuscular Hemoglobin 26.0 L, Mean Corpuscular Hemoglobin Concent 30.0 L, Red Cell Distribution Width 17.3 H, Neutrophils (%) ( Auto) 78.9 H, Lymphocytes (%) (Auto) 14.6 L, Monocytes (%) (Auto) 3.8, Eosinophils (%) (Auto) 0.7, Basophils (%) (Auto) 0.6, Neutrophils # (Auto) 10.5 H, Lymphocytes # (Auto) 1.9, Monocytes # (Auto) 0.5, Eosinophils # (Auto) 0.1, Basophils # (Auto) 0.1 Microbiology Microbiology 06/05/16 Blood Culture - Preliminary, Resulted No Growth after 48 hours. All Specime... 06/05/16 Blood Culture - Preliminary, Resulted No Growth after 48 hours. All Specime... 06/06/16 Gram Stain - Final, Resulted 06/06/16 Sputum Culture, Resulted Pending 06/05/16 Respiratory Virus Panel (PCR) (VIOLETTE) - Final, Complete 05/31/16 Urine Culture - Final, Complete Assessment/Plan 1. Orthostatic hypotension - possibly 2/2 medication or autonomic instability 2/ 2 Parkinson's, possibly 2/2 infection - Examination of orthostatics today were positive; 107/60 laying flat, 103/61 sitting up, 71/43 standing - will continue to record orthostatic vital signs - will continue to follow ins/outs - cortisol level appropriate - s/p lactic acidosis - will c/w IV fluid hydration until his symptoms have resolved - no signs of fluid overload on physical this morning - will order thigh high compression stockings 2. Sepsis 2/2 HCAP - persistent cough, afebrile - normalized lactic acid - CRP has been noted to be trending down; Leukocytosis improving - CXR with left lower lobe consolidation and suspected moderate pleural effusion - Blood cultures 06/05 negative; Sputum culture pending, urine legionella / strep pneumonia antigens - c/w vancomycin and meropenem 06/05, s/p cefepime (Day #8 of antibiotics) 3. Normocytic anemia - likely 2/2 RICH - Hg this morning of 8.0 - will check stool occult blood - will continue to follow H&H - s/p 1 unit PRBC today - c/w ferrous sulfate 4. Infiltration of R arm PICC line - re-evaluated in tree tapping laborer with fluroscopy; no evidence of thrombosis - in good position - will continue to use 5. Left femur fracture - s/p total left hip replacement - c/w rehabilitation 6. Thyroid mass - CT shows evidence of tracheal deviation - TSH elevated with low Free T3 and normal Free T4, total T3 low - Will need nuclear scan as an outpatient - ENT consulted (Dr. Modi) - appreciate their input 7. s/p LISSET - likely 2/2 pre-renal etiology - Cr peaked at 1.38 - has trended down 8. COPD - no evidence of exacerbation - c/w duonebs 9. Parkinson's disease - c/w home medications 10. History of AAA repair - c/w ASA and statin 11. Skin condition - on prednisone - will need outpatient follow up 12. GERD - c/w protonix 13. DVT prophylaxis - per orthopedic surgery THEO SCHWAB MD Jun 07, 2016 18:37
[2016-06-07 22:33] VITALS: BP 108/55
[2016-06-07 22:45] VITALS: BP_SYST 113; BP_SYST 124; BP_SYST 92; BP_DIAS 51; BP_DIAS 62; BP_DIAS 67
[2016-06-07] MEDS: IPRATROPIUM 0.5MG/ALBUTEROL 2.5MG INH SOL UD 3ML (DUONEB)(J7620) NEB SCH (23:54)
[2016-06-08] MEDS: MEROPENEM INJ 1 GM in D5W MINI-BAG PLUS 100 ML IV SCH ×4 (00:48→23:29)
[2016-06-08] MEDS: IPRATROPIUM 0.5MG/ALBUTEROL 2.5MG INH SOL UD 3ML (DUONEB)(J7620) NEB SCH ×6 (03:36→23:18)
[2016-06-08 04:00] VITALS: BP 117/67
[2016-06-08] MEDS: SODIUM CHLORIDE 0.9% INJ 10 ML SYR IV SCH ×2 (05:20→17:07)
[2016-06-08 05:36] LABS: BASO % 0.4 % (0.0-1.0); EOS # 0.1 K/mm3 (0.0-0.50); EOS % 0.8 % (0.0-3.0); LARGE UNSTAINED CELL # 0.2 K/mm3 (0.0-0.4); LARGE UNSTAINED CELL % 1.6 % (0.0-4.0); LYMPH # 2.2 K/mm3 (1.5-4.5); LYMPH % 16.3 % (24.0-44.0); MEAN CORPUSCULAR HEMOGLOBIN 27.1 pg (27.0-33.0); MEAN CORPUSCULAR VOLUME 87.5 fl (80.0-96.0); MONO # 0.5 K/mm3 (0.0-0.8); MONO % 3.8 % (0.0-5.0); NEUTROPHILS # 10.6 K/mm3 (1.8-7.7); NEUTROPHILS % 77.1 % (36.0-66.0); PLATELET COUNT, AUTOMATED 414 k/mm3 (150-450); RED CELL DISTRIBUTION WIDTH 17.4 % (11.5-14.5); WHITE BLOOD COUNT 13.8 K/mm3 (4.0-10.0)
[2016-06-08 05:52] LABS: INR 1.55
[2016-06-08 06:17] LABS: ALBUMIN/GLOBULIN RATIO 0.74 (1.00-1.93); ALKALINE PHOSPHATASE 63 U/L (45-117); ALT/SGPT 11 U/L (12-78); ANION GAP 9 MEQ/L (8-16); AST/SGOT 17 U/L (15-37); BILIRUBIN,TOTAL 0.3 MG/DL (0.2-1.0); BLOOD UREA NITROGEN 16 MG/DL (7-18); CALCIUM LEVEL 7.6 MG/DL (8.8-10.2); CARBON DIOXIDE LEVEL 27 MEQ/L (21-32); CHLORIDE LEVEL 110 MEQ/L (98-107); CREATININE FOR GFR 0.97 MG/DL (0.70-1.30); GLOMERULAR FILTRATION RATE > 60.0 (>35); GLUCOSE, FASTING 99 MG/DL (83-110); MAGNESIUM LEVEL 2.2 MG/DL (1.8-2.4); POTASSIUM SERUM 3.6 MEQ/L (3.5-5.1); SODIUM LEVEL 146 MEQ/L (136-145); TOTAL PROTEIN 4.7 GM/DL (6.4-8.2)
[2016-06-08] MEDS: LACTOBACILLUS ACIDOPHILUS CAP (BACID) PO SCH ×3 (09:06→21:17)
[2016-06-08] MEDS: OCUVITE 1 TAB PO SCH (09:06)
[2016-06-08] MEDS: ASCORBIC ACID 500 MG TAB PO SCH ×3 (09:06→21:18)
[2016-06-08] MEDS: FERROUS GLUCONATE 324 MG TAB PO SCH ×3 (09:06→21:17)
[2016-06-08] MEDS: rOPINIRole 1MG TAB PO SCH ×3 (09:06→21:17)
[2016-06-08] MEDS: MULTIVITAMINS/MINERALS THERAP 1 TAB PO SCH (09:06)
[2016-06-08] MEDS: BENZONATATE 100 MG CAP PO SCH ×3 (09:06→21:17)
[2016-06-08] MEDS: MIRALAX *UNIT DOSE* 17GM PACKET PO SCH (09:06)
[2016-06-08] MEDS: DOCUSATE SODIUM 100 MG CAP PO SCH ×2 (09:06→21:17)
[2016-06-08] MEDS: GABAPENTIN 100 MG CAP PO SCH ×3 (09:06→21:17)
[2016-06-08] MEDS: predniSONE 10 MG TAB PO SCH (09:06)
[2016-06-08] MEDS: SINEMET 25-100 MG TAB PO SCH ×3 (09:07→21:17)
[2016-06-08] MEDS: VANCOMYCIN HCL 1,000 MG, VIAL MATE ADAPTER 1 EACH in D5W 250 ML IV SCH (09:26)
[2016-06-08 10:00] VITALS: BP_SYST 119; BP_SYST 97; BP_DIAS 55; BP_DIAS 63; BP_DIAS 67
[2016-06-08 14:00] VITALS: BP 102/56
[2016-06-08] MEDS: NS 1,000 ML IV SCH (14:00)
[2016-06-08 15:00] VITALS: BP_SYST 75; BP_SYST 88; BP_SYST 89; BP_DIAS 46; BP_DIAS 52; BP_DIAS 53
[2016-06-08] MEDS ORDERED: WARFARIN SOD 7.5 MG TAB PO SCH (17:00)
[2016-06-08 17:05] VITALS: BP 102/62
--- NOTE | 2016-06-08 17:12 | IPNPDOC ---
Text Note Date of Service The patient was seen on 06/08/16 at 17:03. NOTE Subjective: Patient states he feels much better. His shortness of breath has improved. Objective: Vitals: (see below) General: No acute distress, laying comfortably in bed. HEENT: Moist mucous membranes. Healing bullous lesion on scalp Neck: No JVD or lymphadenopathy Cardiac: RRR, No murmurs Pulm: Coarse crackles and diminished breath sounds b/l. No wheezing, + rhonchi b /l Abd: NT/ND + BS Ext: No edema or cyanosis. Healed bullous on LE. Distal pulses intact b/l. Chronic violaceous changes b/l feet. No bleeding at the surgical site. Labs (see below) Images: CXR 05/30/16 Impression: Left lower lobe consolidation and suspected moderate pleural effusion as well as a right lower lobe consolidation are identified. Associated pulmonary vascular congestion and interstitial edema cannot be excluded. Assessment/Plan 1. HCAP - CXR noted above with b/l PNA. Lactic acid trending down. WBC 8.2. IVF NS started. Mucinex. Continue current antibiotics. 2. Orthostatic hypotension- initially thought to be secondary to #1. The patient continues to be symptomatic we will continue starting Midodrin as this may be related to the patient's Parkinson's disease. 3. Left femur fracture- status post mechanical fall. s/p left total hip arthroplasty by ortho. Will return to rehab when stable. 4. Thyroid mass -patient did have a CT of the neck today which shows that the mass is 6.4 cm. There is some tracheal deviation. No airway compromise. Appreciate ENT input. 5. COPD- stable; continue nebs 6. Parkinson's disease- continue home meds 7. GERD- continue meds 8. History of AAA repair - continue aspirin and statin DVT prophylaxis- per orthopedics. VS,Fishbone, I+O VS, Fishbone, I+O Laboratory Tests 06/08/16 05:15 Calcium Level 7.6 L, Aspartate Amino Transf (AST/SGOT) 17, Alanine Aminotransferase (ALT/SGPT) 11 L, Alkaline Phosphatase 63, Total Bilirubin 0.3, Total Protein 4.7 L, Albumin 2.0 L, Red Blood Count 3.19 L, Mean Corpuscular Volume 87.5, Mean Corpuscular Hemoglobin 27.1, Mean Corpuscular Hemoglobin Concent 31.0 L, Red Cell Distribution Width 17.4 H, Neutrophils (%) (Auto) 77.1 H, Lymphocytes (%) (Auto) 16.3 L, Monocytes (%) (Auto) 3.8, Eosinophils (%) ( Auto) 0.8, Basophils (%) (Auto) 0.4, Neutrophils # (Auto) 10.6 H, Lymphocytes # (Auto) 2.2, Monocytes # (Auto) 0.5, Eosinophils # (Auto) 0.1, Basophils # (Auto ) 0.0 Vital Signs Date Time Temp Pulse Resp B/P Pulse Ox O2 Delivery O2 Flow Rate FiO2 06/08/16 15:00 91 89/53 91 88/52 92 75/46 06/08/16 14:00 95.4 17 95 Nasal Cannula 3.0 I&O- Last 24 Hours up to 6 AM 06/08/16 06:00 Intake Total 0 ml Output Total 650 ml Balance -650 ml MONTSERRAT JAIN MD Jun 08, 2016 17:12
[2016-06-08 17:54] LABS: MEAN CORPUSCULAR HEMOGLOBIN 27.7 pg (27.0-33.0); MEAN CORPUSCULAR HGB CONC 31.2 g/dl (32.0-36.5); RED CELL DISTRIBUTION WIDTH 17.3 % (11.5-14.5); WHITE BLOOD COUNT 15.1 K/mm3 (4.0-10.0)
[2016-06-08 18:07] LABS: ANION GAP 7 MEQ/L (8-16); BLOOD UREA NITROGEN 17 MG/DL (7-18); CALCIUM LEVEL 7.4 MG/DL (8.8-10.2); CARBON DIOXIDE LEVEL 27 MEQ/L (21-32); CHLORIDE LEVEL 108 MEQ/L (98-107); CREATININE FOR GFR 0.92 MG/DL (0.70-1.30); GLOMERULAR FILTRATION RATE > 60.0 (>35); GLUCOSE, FASTING 193 MG/DL (83-110); POTASSIUM SERUM 4.3 MEQ/L (3.5-5.1); SODIUM LEVEL 142 MEQ/L (136-145)
[2016-06-08] MEDS: LATANOPROST 0.005% OPHTH SOLN 2.5 ML OD SCH (21:17)
[2016-06-08] MEDS: ASPIRIN 81 MG CHEW TABLET PO SCH (21:17)
[2016-06-08] MEDS: PANTOPRAZOLE 40MG TAB (PROTONIX) PO SCH (21:18)
[2016-06-08] MEDS: SIMVASTATIN 40 MG TAB PO SCH (21:18)
[2016-06-08 22:00] VITALS: BP 106/61
[2016-06-09 02:00] VITALS: BP 91/50
[2016-06-09] MEDS: IPRATROPIUM 0.5MG/ALBUTEROL 2.5MG INH SOL UD 3ML (DUONEB)(J7620) NEB SCH ×6 (04:00→23:39)
[2016-06-09] MEDS: NS 1,000 ML IV SCH (05:14)
[2016-06-09] MEDS: SODIUM CHLORIDE 0.9% INJ 10 ML SYR IV SCH ×2 (05:14→18:27)
[2016-06-09 05:34] LABS: BASO % 0.3 % (0.0-1.0); EOS # 0.1 K/mm3 (0.0-0.50); EOS % 0.7 % (0.0-3.0); LARGE UNSTAINED CELL # 0.1 K/mm3 (0.0-0.4); LYMPH # 1.7 K/mm3 (1.5-4.5); LYMPH % 13.7 % (24.0-44.0); MEAN CORPUSCULAR HEMOGLOBIN 27.5 pg (27.0-33.0); MEAN CORPUSCULAR HGB CONC 31.6 g/dl (32.0-36.5); MONO # 0.4 K/mm3 (0.0-0.8); MONO % 3.4 % (0.0-5.0); NEUTROPHILS # 9.9 K/mm3 (1.8-7.7); NEUTROPHILS % 80.9 % (36.0-66.0); PLATELET COUNT, AUTOMATED 398 k/mm3 (150-450); RED CELL DISTRIBUTION WIDTH 17.5 % (11.5-14.5); WHITE BLOOD COUNT 12.2 K/mm3 (4.0-10.0)
[2016-06-09 05:54] LABS: ALBUMIN 1.9 GM/DL (3.2-5.2); ALBUMIN/GLOBULIN RATIO 0.83 (1.00-1.93); ALKALINE PHOSPHATASE 64 U/L (45-117); ALT/SGPT 10 U/L (12-78); ANION GAP 10 MEQ/L (8-16); AST/SGOT 16 U/L (15-37); BILIRUBIN,TOTAL 0.3 MG/DL (0.2-1.0); BLOOD UREA NITROGEN 16 MG/DL (7-18); CALCIUM LEVEL 7.4 MG/DL (8.8-10.2); CARBON DIOXIDE LEVEL 26 MEQ/L (21-32); CHLORIDE LEVEL 109 MEQ/L (98-107); CREATININE FOR GFR 0.93 MG/DL (0.70-1.30); GLOMERULAR FILTRATION RATE > 60.0 (>35); GLUCOSE, FASTING 102 MG/DL (83-110); MAGNESIUM LEVEL 2.1 MG/DL (1.8-2.4); SODIUM LEVEL 145 MEQ/L (136-145); TOTAL PROTEIN 4.2 GM/DL (6.4-8.2)
[2016-06-09 06:00] VITALS: BP 102/61
[2016-06-09] MEDS: MEROPENEM INJ 1 GM in D5W MINI-BAG PLUS 100 ML IV SCH (07:51)
[2016-06-09] MEDS: predniSONE 10 MG TAB PO SCH (07:53)
[2016-06-09] MEDS: LACTOBACILLUS ACIDOPHILUS CAP (BACID) PO SCH ×3 (07:53→20:49)
[2016-06-09] MEDS: GABAPENTIN 100 MG CAP PO SCH ×3 (07:53→20:50)
[2016-06-09] MEDS: FERROUS GLUCONATE 324 MG TAB PO SCH ×3 (07:53→20:49)
[2016-06-09] MEDS: BENZONATATE 100 MG CAP PO SCH ×3 (07:53→20:49)
[2016-06-09] MEDS: rOPINIRole 1MG TAB PO SCH ×3 (07:53→20:50)
[2016-06-09] MEDS: ASCORBIC ACID 500 MG TAB PO SCH ×3 (07:54→20:49)
[2016-06-09] MEDS: MULTIVITAMINS/MINERALS THERAP 1 TAB PO SCH (07:54)
[2016-06-09] MEDS: OCUVITE 1 TAB PO SCH (07:54)
[2016-06-09] MEDS: MIRALAX *UNIT DOSE* 17GM PACKET PO SCH (07:54)
[2016-06-09] MEDS: DOCUSATE SODIUM 100 MG CAP PO SCH ×2 (07:54→20:49)
[2016-06-09] MEDS: SINEMET 25-100 MG TAB PO SCH ×3 (07:54→20:49)
[2016-06-09 08:07] LABS: INR 2.99
[2016-06-09] MEDS: VANCOMYCIN HCL 1,000 MG, VIAL MATE ADAPTER 1 EACH in D5W 250 ML IV SCH (09:03)
[2016-06-09] MEDS: MIDODRINE 2.5 MG TAB PO SCH ×3 (09:03→16:45)
[2016-06-09 10:00] VITALS: BP_SYST 103; BP_SYST 94; BP_DIAS 56; BP_DIAS 57
[2016-06-09 14:00] VITALS: BP_SYST 109; BP_SYST 72; BP_SYST 85; BP_DIAS 38; BP_DIAS 53; BP_DIAS 56
--- NOTE | 2016-06-09 15:27 | IPNPDOC ---
Text Note Date of Service The patient was seen on 06/09/16 at 15:23. NOTE Subjective: Patient states he still gets dizzy upon standing. Denies any SOB. Objective: Vitals: (see below) General: No acute distress, laying comfortably in bed. HEENT: Moist mucous membranes. Healing bullous lesion on scalp Neck: No JVD or lymphadenopathy Cardiac: RRR, No murmurs Pulm: Coarse crackles and diminished breath sounds b/l. No wheezing, + rhonchi b /l Abd: NT/ND + BS Ext: Trace edema. No cyanosis. Healed bullous on LE. Distal pulses intact b/l. Chronic violaceous changes b/l feet. No bleeding at the surgical site. Labs (see below) Images: CXR 05/30/16 Impression: Left lower lobe consolidation and suspected moderate pleural effusion as well as a right lower lobe consolidation are identified. Associated pulmonary vascular congestion and interstitial edema cannot be excluded. Assessment/Plan 1. HCAP - CXR noted above with b/l PNA. Lactic acid trending down. WBC 8.2. D/c IVF. Completed Abx today. 2. Orthostatic hypotension- Pt is well hydrated. This is likely 2/2 Parkinson's disease. Will start low doses of midodrine. 3. Left femur fracture- status post mechanical fall. s/p left total hip arthroplasty by ortho. Will return to rehab when stable. 4. Thyroid mass -patient did have a CT of the neck today which shows that the mass is 6.4 cm. There is some tracheal deviation. No airway compromise. Appreciate ENT input. 5. COPD- stable; continue nebs 6. Parkinson's disease- continue home meds 7. GERD- continue meds 8. History of AAA repair - continue aspirin and statin DVT prophylaxis- per orthopedics - coumadin to be changed to 5mg given INR 2.99 today. VS,Fishbone, I+O VS, Fishbone, I+O Laboratory Tests 06/08/16 17:42 Calcium Level 7.4 L, Red Blood Count 3.19 L, Mean Corpuscular Volume 89.0, Mean Corpuscular Hemoglobin 27.7, Mean Corpuscular Hemoglobin Concent 31.2 L, Red Cell Distribution Width 17.3 H 06/09/16 05:21 Calcium Level 7.4 L, Red Blood Count 3.09 L, Mean Corpuscular Volume 87.0, Mean Corpuscular Hemoglobin 27.5, Mean Corpuscular Hemoglobin Concent 31.6 L, Red Cell Distribution Width 17.5 H, Aspartate Amino Transf (AST/SGOT) 16, Alanine Aminotransferase (ALT/SGPT) 10 L, Alkaline Phosphatase 64, Total Bilirubin 0.3, Total Protein 4.2 L, Albumin 1.9 L, Neutrophils (%) (Auto) 80.9 H, Lymphocytes ( %) (Auto) 13.7 L, Monocytes (%) (Auto) 3.4, Eosinophils (%) (Auto) 0.7, Basophils (%) (Auto) 0.3, Neutrophils # (Auto) 9.9 H, Lymphocytes # (Auto) 1.7, Monocytes # (Auto) 0.4, Eosinophils # (Auto) 0.1, Basophils # (Auto) 0.0 Vital Signs Date Time Temp Pulse Resp B/P Pulse Ox O2 Delivery O2 Flow Rate FiO2 06/09/16 10:00 92 103/56 91 94/57 06/09/16 09:00 Room Air 06/09/16 06:00 97.5 18 94 06/09/16 02:00 1.0 I&O- Last 24 Hours up to 6 AM 06/09/16 05:59 Intake Total 2730 ml Output Total 1750 ml Balance 980 ml MONTSERRAT JAIN MD Jun 09, 2016 15:27
[2016-06-09] MEDS ORDERED: WARFARIN SOD 5 MG TAB PO SCH (17:00)
--- NOTE | 2016-06-09 19:42 | REP ---
Right upper extremity Doppler venous ultrasound: 06/09/2016: Clinical history: Right upper extremity swelling, evaluate for DVT. The patient has a PICC line placed 1 week ago. Standard duplex techniques are utilized. The PICC line is seen extending from the right basilic vein upward through the axillary vein and into the subclavian vein. The deep venous system including the jugular, subclavian and axillary veins as well as the paired brachial veins show full compressibility throughout their course. The cephalic vein is without thrombus in its superficial venous structures. The basilic has the PICC line. There is a large mass in the right thyroid lobe 6.7 x 5.8 x 5.9 cm as seen on the CT neck 05/31/2016. Impression: 1. There is no Doppler venous ultrasound evidence of DVT in the right upper extremity. The PICC line is seen in the superficial venous system involving the basilic vein extending into the axillary and subclavian region. Right thyroid mass. Signed by Mark Redding MD 06/09/2016 08:06 P
[2016-06-09] MEDS: SIMVASTATIN 40 MG TAB PO SCH (20:49)
[2016-06-09] MEDS: ASPIRIN 81 MG CHEW TABLET PO SCH (20:49)
[2016-06-09] MEDS: PANTOPRAZOLE 40MG TAB (PROTONIX) PO SCH (20:49)
[2016-06-09] MEDS: LATANOPROST 0.005% OPHTH SOLN 2.5 ML OD SCH (20:50)
[2016-06-09 22:00] VITALS: BP 88/50
[2016-06-10 02:00] VITALS: BP 95/56
[2016-06-10] MEDS: IPRATROPIUM 0.5MG/ALBUTEROL 2.5MG INH SOL UD 3ML (DUONEB)(J7620) NEB SCH ×6 (03:54→23:03)
[2016-06-10] MEDS: SODIUM CHLORIDE 0.9% INJ 10 ML SYR IV SCH ×2 (05:02→16:14)
[2016-06-10 05:35] LABS: ALBUMIN/GLOBULIN RATIO 0.74 (1.00-1.93); ALKALINE PHOSPHATASE 65 U/L (45-117); ALT/SGPT 12 U/L (12-78); ANION GAP 6 MEQ/L (8-16); AST/SGOT 19 U/L (15-37); BILIRUBIN,TOTAL 0.3 MG/DL (0.2-1.0); BLOOD UREA NITROGEN 19 MG/DL (7-18); CALCIUM LEVEL 7.4 MG/DL (8.8-10.2); CARBON DIOXIDE LEVEL 27 MEQ/L (21-32); CHLORIDE LEVEL 110 MEQ/L (98-107); CREATININE FOR GFR 1.01 MG/DL (0.70-1.30); GLOMERULAR FILTRATION RATE > 60.0 (>35); GLUCOSE, FASTING 106 MG/DL (83-110); MAGNESIUM LEVEL 2.3 MG/DL (1.8-2.4); POTASSIUM SERUM 3.9 MEQ/L (3.5-5.1); SODIUM LEVEL 143 MEQ/L (136-145); TOTAL PROTEIN 4.7 GM/DL (6.4-8.2)
[2016-06-10 05:36] LABS: INR 3.09
[2016-06-10 05:37] LABS: BASO % 0.3 % (0.0-1.0); EOS # 0.1 K/mm3 (0.0-0.50); EOS % 0.8 % (0.0-3.0); LARGE UNSTAINED CELL # 0.2 K/mm3 (0.0-0.4); LARGE UNSTAINED CELL % 1.6 % (0.0-4.0); LYMPH # 2.2 K/mm3 (1.5-4.5); LYMPH % 17.8 % (24.0-44.0); MEAN CORPUSCULAR HGB CONC 30.9 g/dl (32.0-36.5); MEAN CORPUSCULAR VOLUME 87.6 fl (80.0-96.0); MONO # 0.6 K/mm3 (0.0-0.8); MONO % 4.5 % (0.0-5.0); NEUTROPHILS # 9.4 K/mm3 (1.8-7.7); PLATELET COUNT, AUTOMATED 412 k/mm3 (150-450); RED CELL DISTRIBUTION WIDTH 17.4 % (11.5-14.5); WHITE BLOOD COUNT 12.5 K/mm3 (4.0-10.0)
[2016-06-10 06:00] VITALS: BP 96/59
[2016-06-10] MEDS: LACTOBACILLUS ACIDOPHILUS CAP (BACID) PO SCH ×3 (09:42→20:26)
[2016-06-10] MEDS: GABAPENTIN 100 MG CAP PO SCH ×3 (09:42→20:26)
[2016-06-10] MEDS: FERROUS GLUCONATE 324 MG TAB PO SCH ×3 (09:42→20:27)
[2016-06-10] MEDS: MIRALAX *UNIT DOSE* 17GM PACKET PO SCH (09:42)
[2016-06-10] MEDS: rOPINIRole 1MG TAB PO SCH ×3 (09:42→20:26)
[2016-06-10] MEDS: OCUVITE 1 TAB PO SCH (09:42)
[2016-06-10] MEDS: BENZONATATE 100 MG CAP PO SCH ×3 (09:42→20:27)
[2016-06-10] MEDS: ASCORBIC ACID 500 MG TAB PO SCH ×3 (09:42→20:27)
[2016-06-10] MEDS: MIDODRINE 2.5 MG TAB PO SCH ×3 (09:42→16:13)
[2016-06-10] MEDS: DOCUSATE SODIUM 100 MG CAP PO SCH ×2 (09:42→20:26)
[2016-06-10] MEDS: SINEMET 25-100 MG TAB PO SCH ×3 (09:42→20:27)
[2016-06-10] MEDS: predniSONE 10 MG TAB PO SCH (09:42)
[2016-06-10] MEDS: MULTIVITAMINS/MINERALS THERAP 1 TAB PO SCH (09:42)
[2016-06-10 10:00] VITALS: BP_SYST 111; BP_SYST 120; BP_SYST 96; BP_DIAS 53; BP_DIAS 62
[2016-06-10 14:00] VITALS: BP 99/57
--- NOTE | 2016-06-10 15:58 | IPNPDOC ---
Text Note Date of Service The patient was seen on 06/10/16 at 15:56. NOTE Subjective: Denies any current complaints. Had urinary retention last night and had to have the Andujar placed back. Objective: Vitals: (see below) General: No acute distress, laying comfortably in bed. HEENT: Moist mucous membranes. Healing bullous lesion on scalp Neck: No JVD or lymphadenopathy Cardiac: RRR, No murmurs Pulm: Coarse crackles and diminished breath sounds b/l. No wheezing, + rhonchi b /l Abd: NT/ND + BS Ext: Trace edema. No cyanosis. Healed bullous on LE. Distal pulses intact b/l. Chronic violaceous changes b/l feet. No bleeding at the surgical site. Labs (see below) Images: CXR 05/30/16 Impression: Left lower lobe consolidation and suspected moderate pleural effusion as well as a right lower lobe consolidation are identified. Associated pulmonary vascular congestion and interstitial edema cannot be excluded. Assessment/Plan 1. HCAP - CXR noted above with b/l PNA. Completed Abx. 2. Orthostatic hypotension- Pt is well hydrated. This is likely 2/2 Parkinson's disease. Cont low doses of midodrine. 3. Left femur fracture- status post mechanical fall. s/p left total hip arthroplasty by ortho. Will return to rehab when stable. 4. Thyroid mass -patient did have a CT of the neck today which shows that the mass is 6.4 cm. There is some tracheal deviation. No airway compromise. Appreciate ENT input. 5. COPD- stable; continue nebs 6. Parkinson's disease- continue home meds 7. GERD- continue meds 8. History of AAA repair - continue aspirin and statin DVT prophylaxis- per orthopedics - On coumadin VS,Fishbone, I+O VS, Fishbone, I+O Laboratory Tests 06/10/16 05:07 Calcium Level 7.4 L, Aspartate Amino Transf (AST/SGOT) 19, Alanine Aminotransferase (ALT/SGPT) 12, Alkaline Phosphatase 65, Total Bilirubin 0.3, Total Protein 4.7 L, Albumin 2.0 L, Red Blood Count 3.26 L, Mean Corpuscular Volume 87.6, Mean Corpuscular Hemoglobin 27.0, Mean Corpuscular Hemoglobin Concent 30.9 L, Red Cell Distribution Width 17.4 H, Neutrophils (%) (Auto) 75.0 H, Lymphocytes (%) (Auto) 17.8 L, Monocytes (%) (Auto) 4.5, Eosinophils (%) ( Auto) 0.8, Basophils (%) (Auto) 0.3, Neutrophils # (Auto) 9.4 H, Lymphocytes # ( Auto) 2.2, Monocytes # (Auto) 0.6, Eosinophils # (Auto) 0.1, Basophils # (Auto) 0.0 Vital Signs Date Time Temp Pulse Resp B/P Pulse Ox O2 Delivery O2 Flow Rate FiO2 06/10/16 14:00 96.9 85 16 99/57 90 Room Air 06/09/16 02:00 1.0 I&O- Last 24 Hours up to 6 AM 06/10/16 06:00 Intake Total 1975 ml Output Total 1500 ml Balance 475 ml MONTSERRAT JAIN MD Jun 10, 2016 15:58
[2016-06-10 18:00] VITALS: BP 101/60
[2016-06-10] MEDS: ASPIRIN 81 MG CHEW TABLET PO SCH (20:27)
[2016-06-10] MEDS: SIMVASTATIN 40 MG TAB PO SCH (20:27)
[2016-06-10] MEDS: PANTOPRAZOLE 40MG TAB (PROTONIX) PO SCH (20:27)
[2016-06-10] MEDS: LATANOPROST 0.005% OPHTH SOLN 2.5 ML OD SCH (20:44)
[2016-06-10 22:00] VITALS: BP 97/55
[2016-06-11 02:00] VITALS: BP 103/57
[2016-06-11] MEDS: IPRATROPIUM 0.5MG/ALBUTEROL 2.5MG INH SOL UD 3ML (DUONEB)(J7620) NEB SCH ×5 (04:00→19:38)
[2016-06-11 06:00] VITALS: BP 118/69
[2016-06-11] MEDS: SODIUM CHLORIDE 0.9% INJ 10 ML SYR IV SCH ×2 (06:05→16:55)
[2016-06-11 06:17] LABS: BASO # 0.1 K/mm3 (0.0-0.2); BASO % 0.7 % (0.0-1.0); EOS # 0.1 K/mm3 (0.0-0.50); LARGE UNSTAINED CELL # 0.2 K/mm3 (0.0-0.4); LARGE UNSTAINED CELL % 1.6 % (0.0-4.0); LYMPH # 2.5 K/mm3 (1.5-4.5); LYMPH % 19.5 % (24.0-44.0); MEAN CORPUSCULAR HEMOGLOBIN 25.9 pg (27.0-33.0); MEAN CORPUSCULAR VOLUME 86.3 fl (80.0-96.0); MONO # 0.5 K/mm3 (0.0-0.8); MONO % 4.7 % (0.0-5.0); NEUTROPHILS # 8.5 K/mm3 (1.8-7.7); NEUTROPHILS % 72.5 % (36.0-66.0); PLATELET COUNT, AUTOMATED 430 k/mm3 (150-450); RED CELL DISTRIBUTION WIDTH 18.5 % (11.5-14.5); WHITE BLOOD COUNT 11.7 K/mm3 (4.0-10.0)
[2016-06-11 06:22] LABS: INR 3.23
[2016-06-11 06:44] LABS: ALKALINE PHOSPHATASE 72 U/L (45-117); ALT/SGPT 10 U/L (12-78); ANION GAP 6 MEQ/L (8-16); AST/SGOT 20 U/L (15-37); BILIRUBIN,TOTAL 0.2 MG/DL (0.2-1.0); BLOOD UREA NITROGEN 22 MG/DL (7-18); CALCIUM LEVEL 7.5 MG/DL (8.8-10.2); CARBON DIOXIDE LEVEL 27 MEQ/L (21-32); CHLORIDE LEVEL 111 MEQ/L (98-107); CREATININE FOR GFR 1.02 MG/DL (0.70-1.30); GLOMERULAR FILTRATION RATE > 60.0 (>35); GLUCOSE, FASTING 113 MG/DL (83-110); MAGNESIUM LEVEL 2.4 MG/DL (1.8-2.4); SODIUM LEVEL 144 MEQ/L (136-145); TOTAL PROTEIN 4.5 GM/DL (6.4-8.2)
[2016-06-11 10:00] VITALS: BP 106/58
[2016-06-11] MEDS: GABAPENTIN 100 MG CAP PO SCH ×3 (10:28→20:07)
[2016-06-11] MEDS: FERROUS GLUCONATE 324 MG TAB PO SCH ×3 (10:28→20:07)
[2016-06-11] MEDS: LACTOBACILLUS ACIDOPHILUS CAP (BACID) PO SCH ×3 (10:28→20:07)
[2016-06-11] MEDS: OCUVITE 1 TAB PO SCH (10:28)
[2016-06-11] MEDS: ASCORBIC ACID 500 MG TAB PO SCH ×3 (10:28→20:07)
[2016-06-11] MEDS: SINEMET 25-100 MG TAB PO SCH ×3 (10:28→20:07)
[2016-06-11] MEDS: DOCUSATE SODIUM 100 MG CAP PO SCH ×2 (10:29→20:07)
[2016-06-11] MEDS: predniSONE 10 MG TAB PO SCH (10:29)
[2016-06-11] MEDS: MIDODRINE 5 MG TAB PO SCH ×2 (10:29→16:55)
[2016-06-11] MEDS: MULTIVITAMINS/MINERALS THERAP 1 TAB PO SCH (10:29)
[2016-06-11] MEDS: rOPINIRole 1MG TAB PO SCH ×3 (10:29→20:06)
[2016-06-11] MEDS: BENZONATATE 100 MG CAP PO SCH ×3 (10:30→20:07)
[2016-06-11] MEDS: MIRALAX *UNIT DOSE* 17GM PACKET PO SCH (10:30)
[2016-06-11 13:30] VITALS: BP_SYST 112; BP_SYST 82; BP_DIAS 50; BP_DIAS 54
--- NOTE | 2016-06-11 14:10 | IPNPDOC ---
Text Note Date of Service The patient was seen on 06/11/16 at 14:09. NOTE Subjective: Denies any current complaints. No acute changes overnight. Objective: Vitals: (see below) General: No acute distress, laying comfortably in bed. HEENT: Moist mucous membranes. Healing bullous lesion on scalp Neck: No JVD or lymphadenopathy Cardiac: RRR, No murmurs Pulm: Coarse crackles and diminished breath sounds b/l. No wheezing, + rhonchi b /l Abd: NT/ND + BS Ext: Trace edema. No cyanosis. Healed bullous on LE. Distal pulses intact b/l. Chronic violaceous changes b/l feet. No bleeding at the surgical site. Labs (see below) Images: CXR 05/30/16 Impression: Left lower lobe consolidation and suspected moderate pleural effusion as well as a right lower lobe consolidation are identified. Associated pulmonary vascular congestion and interstitial edema cannot be excluded. Assessment/Plan 1. HCAP - CXR noted above with b/l PNA. Completed Abx. 2. Orthostatic hypotension- Pt is well hydrated. This is likely 2/2 Parkinson's disease. Midodrine dose increased 3. Left femur fracture- status post mechanical fall. s/p left total hip arthroplasty by ortho. Will return to rehab when stable. 4. Thyroid mass -patient did have a CT of the neck today which shows that the mass is 6.4 cm. There is some tracheal deviation. No airway compromise. Appreciate ENT input. 5. COPD- stable; continue nebs 6. Parkinson's disease- continue home meds 7. GERD- continue meds 8. History of AAA repair - continue aspirin and statin DVT prophylaxis- per orthopedics - On coumadin VS,Fishbone, I+O VS, Fishbone, I+O Laboratory Tests 06/11/16 06:02 Calcium Level 7.5 L, Aspartate Amino Transf (AST/SGOT) 20, Alanine Aminotransferase (ALT/SGPT) 10 L, Alkaline Phosphatase 72, Total Bilirubin 0.2, Total Protein 4.5 L, Albumin 2.0 L, Red Blood Count 3.30 L, Mean Corpuscular Volume 86.3, Mean Corpuscular Hemoglobin 25.9 L, Mean Corpuscular Hemoglobin Concent 30.0 L, Red Cell Distribution Width 18.5 H, Neutrophils (%) (Auto) 72.5 H, Lymphocytes (%) (Auto) 19.5 L, Monocytes (%) (Auto) 4.7, Eosinophils (%) ( Auto) 1.0, Basophils (%) (Auto) 0.7, Neutrophils # (Auto) 8.5 H, Lymphocytes # ( Auto) 2.5, Monocytes # (Auto) 0.5, Eosinophils # (Auto) 0.1, Basophils # (Auto) 0.1 Vital Signs Date Time Temp Pulse Resp B/P Pulse Ox O2 Delivery O2 Flow Rate FiO2 06/11/16 10:00 98.1 68 18 106/58 95 Room Air 06/09/16 02:00 1.0 I&O- Last 24 Hours up to 6 AM 06/11/16 06:00 Intake Total 1420 ml Output Total 1725 ml Balance -305 ml MONTSERRAT JAIN MD Jun 11, 2016 14:10
[2016-06-11] MEDS ORDERED: WARFARIN SOD 5 MG TAB PO SCH (17:00)
[2016-06-11] MEDS: SIMVASTATIN 40 MG TAB PO SCH (20:06)
[2016-06-11] MEDS: PANTOPRAZOLE 40MG TAB (PROTONIX) PO SCH (20:06)
[2016-06-11] MEDS: ASPIRIN 81 MG CHEW TABLET PO SCH (20:07)
[2016-06-11] MEDS: LATANOPROST 0.005% OPHTH SOLN 2.5 ML OD SCH (20:07)
[2016-06-11 22:00] VITALS: BP 114/65
[2016-06-12 02:00] VITALS: BP 104/59
[2016-06-12] MEDS: IPRATROPIUM 0.5MG/ALBUTEROL 2.5MG INH SOL UD 3ML (DUONEB)(J7620) NEB SCH ×7 (03:50→23:11)
[2016-06-12] MEDS: SODIUM CHLORIDE 0.9% INJ 10 ML SYR IV SCH ×2 (05:13→17:00)
[2016-06-12 05:27] LABS: BASO % 0.3 % (0.0-1.0); EOS # 0.1 K/mm3 (0.0-0.50); EOS % 0.7 % (0.0-3.0); LARGE UNSTAINED CELL # 0.2 K/mm3 (0.0-0.4); LARGE UNSTAINED CELL % 1.6 % (0.0-4.0); LYMPH # 2.2 K/mm3 (1.5-4.5); MEAN CORPUSCULAR HGB CONC 30.8 g/dl (32.0-36.5); MEAN CORPUSCULAR VOLUME 87.6 fl (80.0-96.0); MONO # 0.4 K/mm3 (0.0-0.8); MONO % 3.7 % (0.0-5.0); NEUTROPHILS # 8.7 K/mm3 (1.8-7.7); NEUTROPHILS % 74.8 % (36.0-66.0); PLATELET COUNT, AUTOMATED 406 k/mm3 (150-450); RED CELL DISTRIBUTION WIDTH 17.5 % (11.5-14.5); WHITE BLOOD COUNT 11.6 K/mm3 (4.0-10.0)
[2016-06-12 05:37] LABS: INR 2.49
[2016-06-12 06:00] VITALS: BP 107/57
[2016-06-12 06:10] LABS: ALBUMIN 2.1 GM/DL (3.2-5.2); ALBUMIN/GLOBULIN RATIO 0.84 (1.00-1.93); ALKALINE PHOSPHATASE 66 U/L (45-117); ALT/SGPT 13 U/L (12-78); ANION GAP 8 MEQ/L (8-16); AST/SGOT 21 U/L (15-37); BILIRUBIN,TOTAL 0.4 MG/DL (0.2-1.0); BLOOD UREA NITROGEN 21 MG/DL (7-18); CALCIUM LEVEL 7.1 MG/DL (8.8-10.2); CARBON DIOXIDE LEVEL 27 MEQ/L (21-32); CHLORIDE LEVEL 108 MEQ/L (98-107); CREATININE FOR GFR 0.98 MG/DL (0.70-1.30); GLOMERULAR FILTRATION RATE > 60.0 (>35); GLUCOSE, FASTING 86 MG/DL (83-110); MAGNESIUM LEVEL 2.5 MG/DL (1.8-2.4); POTASSIUM SERUM 4.4 MEQ/L (3.5-5.1); SODIUM LEVEL 143 MEQ/L (136-145); TOTAL PROTEIN 4.6 GM/DL (6.4-8.2)
[2016-06-12] MEDS: BENZONATATE 100 MG CAP PO SCH ×3 (09:01→20:42)
[2016-06-12] MEDS: DOCUSATE SODIUM 100 MG CAP PO SCH ×2 (09:01→20:42)
[2016-06-12] MEDS: FERROUS GLUCONATE 324 MG TAB PO SCH ×3 (09:01→20:43)
[2016-06-12] MEDS: MIDODRINE 5 MG TAB PO SCH ×2 (09:01→16:58)
[2016-06-12] MEDS: ASCORBIC ACID 500 MG TAB PO SCH ×3 (09:01→20:43)
[2016-06-12] MEDS: SINEMET 25-100 MG TAB PO SCH ×3 (09:02→20:43)
[2016-06-12] MEDS: MIRALAX *UNIT DOSE* 17GM PACKET PO SCH (09:02)
[2016-06-12] MEDS: OCUVITE 1 TAB PO SCH (09:02)
[2016-06-12] MEDS: LACTOBACILLUS ACIDOPHILUS CAP (BACID) PO SCH ×3 (09:02→20:43)
[2016-06-12] MEDS: rOPINIRole 1MG TAB PO SCH ×3 (09:02→20:43)
[2016-06-12] MEDS: GABAPENTIN 100 MG CAP PO SCH ×3 (09:02→20:43)
[2016-06-12] MEDS: predniSONE 10 MG TAB PO SCH (09:03)
[2016-06-12] MEDS: MULTIVITAMINS/MINERALS THERAP 1 TAB PO SCH (09:03)
[2016-06-12 09:20] VITALS: BP_SYST 122; BP_SYST 81; BP_SYST 99; BP_DIAS 51; BP_DIAS 55; BP_DIAS 67
--- NOTE | 2016-06-12 11:34 | IPNPDOC ---
Text Note Date of Service The patient was seen on 06/12/16 at 11:33. NOTE Subjective: No CP/SOB/Palpitations. No acute changes overnight. Still orthostatic. Objective: Vitals: (see below) General: No acute distress, laying comfortably in bed. HEENT: Moist mucous membranes. Healing bullous lesion on scalp Neck: No JVD or lymphadenopathy Cardiac: RRR, No murmurs Pulm: Coarse crackles and diminished breath sounds b/l. No wheezing, + rhonchi b /l Abd: NT/ND + BS Ext: Trace edema. No cyanosis. Healed bullous on LE. Distal pulses intact b/l. Chronic violaceous changes b/l feet. No bleeding at the surgical site. Labs (see below) Images: CXR 05/30/16 Impression: Left lower lobe consolidation and suspected moderate pleural effusion as well as a right lower lobe consolidation are identified. Associated pulmonary vascular congestion and interstitial edema cannot be excluded. Assessment/Plan 1. HCAP - CXR noted above with b/l PNA. Completed Abx. 2. Orthostatic hypotension- Pt is well hydrated. This is likely 2/2 Parkinson's disease. Midodrine dose increased. EVELIN stockings. 3. Left femur fracture- status post mechanical fall. s/p left total hip arthroplasty by ortho. Will return to rehab when stable. 4. Thyroid mass -patient did have a CT of the neck today which shows that the mass is 6.4 cm. There is some tracheal deviation. No airway compromise. Appreciate ENT input. 5. COPD- stable; continue nebs 6. Parkinson's disease- continue home meds 7. GERD- continue meds 8. History of AAA repair - continue aspirin and statin DVT prophylaxis- per orthopedics - On coumadin VS,Fishbone, I+O VS, Fishbone, I+O Laboratory Tests 06/12/16 05:15 Calcium Level 7.1 L, Aspartate Amino Transf (AST/SGOT) 21, Alanine Aminotransferase (ALT/SGPT) 13, Alkaline Phosphatase 66, Total Bilirubin 0.4 #, Total Protein 4.6 L, Albumin 2.1 L, Red Blood Count 3.10 L, Mean Corpuscular Volume 87.6, Mean Corpuscular Hemoglobin 27.0, Mean Corpuscular Hemoglobin Concent 30.8 L, Red Cell Distribution Width 17.5 H, Neutrophils (%) (Auto) 74.8 H, Lymphocytes (%) (Auto) 19.0 L, Monocytes (%) (Auto) 3.7, Eosinophils (%) ( Auto) 0.7, Basophils (%) (Auto) 0.3, Neutrophils # (Auto) 8.7 H, Lymphocytes # ( Auto) 2.2, Monocytes # (Auto) 0.4, Eosinophils # (Auto) 0.1, Basophils # (Auto) 0.0 Vital Signs Date Time Temp Pulse Resp B/P Pulse Ox O2 Delivery O2 Flow Rate FiO2 06/12/16 09:20 122/67 99/55 81/51 06/12/16 06:00 97.1 81 18 91 Room Air 06/09/16 02:00 1.0 I&O- Last 24 Hours up to 6 AM 06/12/16 06:00 Intake Total 1200 ml Output Total 1500 ml Balance -300 ml MONTSERRAT JAIN MD Jun 12, 2016 11:34
[2016-06-12 14:00] VITALS: BP_SYST 105; BP_SYST 113; BP_SYST 66; BP_SYST 97; BP_DIAS 42; BP_DIAS 55; BP_DIAS 56; BP_DIAS 57
[2016-06-12] MEDS ORDERED: WARFARIN SOD 5 MG TAB PO SCH (17:00)
[2016-06-12 18:00] VITALS: BP 103/60
[2016-06-12] MEDS: ASPIRIN 81 MG CHEW TABLET PO SCH (20:43)
[2016-06-12] MEDS: SIMVASTATIN 40 MG TAB PO SCH (20:43)
[2016-06-12] MEDS: PANTOPRAZOLE 40MG TAB (PROTONIX) PO SCH (20:43)
[2016-06-12] MEDS: LATANOPROST 0.005% OPHTH SOLN 2.5 ML OD SCH (20:44)
[2016-06-12 22:00] VITALS: BP 119/65
[2016-06-13] VITALS (7 sets, daily range): BP systolic 61–131; BP diastolic 40–66
[2016-06-13] MEDS: IPRATROPIUM 0.5MG/ALBUTEROL 2.5MG INH SOL UD 3ML (DUONEB)(J7620) NEB SCH ×6 (03:18→23:43)
[2016-06-13] MEDS: SODIUM CHLORIDE 0.9% INJ 10 ML SYR IV SCH ×2 (05:19→16:46)
[2016-06-13 05:43] LABS: BASO % 0.3 % (0.0-1.0); EOS # 0.1 K/mm3 (0.0-0.50); EOS % 0.9 % (0.0-3.0); LARGE UNSTAINED CELL # 0.2 K/mm3 (0.0-0.4); LYMPH # 1.9 K/mm3 (1.5-4.5); MEAN CORPUSCULAR HEMOGLOBIN 26.2 pg (27.0-33.0); MEAN CORPUSCULAR HGB CONC 29.7 g/dl (32.0-36.5); MEAN CORPUSCULAR VOLUME 88.3 fl (80.0-96.0); MONO # 0.5 K/mm3 (0.0-0.8); MONO % 4.6 % (0.0-5.0); NEUTROPHILS # 8.4 K/mm3 (1.8-7.7); NEUTROPHILS % 75.2 % (36.0-66.0); PLATELET COUNT, AUTOMATED 390 k/mm3 (150-450); RED CELL DISTRIBUTION WIDTH 17.4 % (11.5-14.5); WHITE BLOOD COUNT 11.2 K/mm3 (4.0-10.0)
[2016-06-13 05:57] LABS: INR 1.9
[2016-06-13 05:59] LABS: ALBUMIN 2.1 GM/DL (3.2-5.2); ALBUMIN/GLOBULIN RATIO 0.84 (1.00-1.93); ALKALINE PHOSPHATASE 74 U/L (45-117); ALT/SGPT 11 U/L (12-78); ANION GAP 7 MEQ/L (8-16); AST/SGOT 13 U/L (15-37); BILIRUBIN,TOTAL 0.3 MG/DL (0.2-1.0); BLOOD UREA NITROGEN 25 MG/DL (7-18); CALCIUM LEVEL 7.6 MG/DL (8.8-10.2); CARBON DIOXIDE LEVEL 27 MEQ/L (21-32); CHLORIDE LEVEL 112 MEQ/L (98-107); CREATININE FOR GFR 0.97 MG/DL (0.70-1.30); GLOMERULAR FILTRATION RATE > 60.0 (>35); GLUCOSE, FASTING 95 MG/DL (83-110); MAGNESIUM LEVEL 2.5 MG/DL (1.8-2.4); POTASSIUM SERUM 4.1 MEQ/L (3.5-5.1); SODIUM LEVEL 146 MEQ/L (136-145); TOTAL PROTEIN 4.6 GM/DL (6.4-8.2)
[2016-06-13] MEDS: predniSONE 10 MG TAB PO SCH (09:57)
[2016-06-13] MEDS: SINEMET 25-100 MG TAB PO SCH ×3 (09:57→20:48)
[2016-06-13] MEDS: rOPINIRole 1MG TAB PO SCH ×3 (09:57→20:49)
[2016-06-13] MEDS: ASCORBIC ACID 500 MG TAB PO SCH ×3 (09:57→20:48)
[2016-06-13] MEDS: OCUVITE 1 TAB PO SCH (09:58)
[2016-06-13] MEDS: MIRALAX *UNIT DOSE* 17GM PACKET PO SCH (09:58)
[2016-06-13] MEDS: BENZONATATE 100 MG CAP PO SCH ×3 (09:58→20:48)
[2016-06-13] MEDS: GABAPENTIN 100 MG CAP PO SCH ×3 (09:58→20:49)
[2016-06-13] MEDS: LACTOBACILLUS ACIDOPHILUS CAP (BACID) PO SCH ×3 (09:58→20:48)
[2016-06-13] MEDS: FERROUS GLUCONATE 324 MG TAB PO SCH ×3 (09:58→20:48)
[2016-06-13] MEDS: MIDODRINE 5 MG TAB PO SCH ×2 (09:58→16:45)
[2016-06-13] MEDS: MULTIVITAMINS/MINERALS THERAP 1 TAB PO SCH (09:58)
[2016-06-13] MEDS: ACETAMINOPHEN TAB 650MG DOSE (2X325MG) PO PRN (09:59)
[2016-06-13] MEDS: DOCUSATE SODIUM 100 MG CAP PO SCH ×2 (10:07→20:48)
--- NOTE | 2016-06-13 13:51 | IPNPDOC ---
Text Note Date of Service The patient was seen on 06/13/16 at 13:50. NOTE Subjective: No acute changes overnight. Still orthostatic. Objective: Vitals: (see below) General: No acute distress, laying comfortably in bed. HEENT: Moist mucous membranes. Healing bullous lesion on scalp Neck: No JVD or lymphadenopathy Cardiac: RRR, No murmurs Pulm: Coarse crackles and diminished breath sounds b/l. No wheezing, + rhonchi b /l Abd: NT/ND + BS Ext: Trace edema. No cyanosis. Healed bullous on LE. Distal pulses intact b/l. Chronic violaceous changes b/l feet. No bleeding at the surgical site. Labs (see below) Images: CXR 05/30/16 Impression: Left lower lobe consolidation and suspected moderate pleural effusion as well as a right lower lobe consolidation are identified. Associated pulmonary vascular congestion and interstitial edema cannot be excluded. Assessment/Plan 1. HCAP - CXR noted above with b/l PNA. Completed Abx. 2. Orthostatic hypotension- Pt is well hydrated. This is likely 2/2 Parkinson's disease. Midodrine dose increased. EVELIN stockings. Will consult cardiology tomorrow if still orthostatic. 3. Left femur fracture- status post mechanical fall. s/p left total hip arthroplasty by ortho. Will return to rehab when stable. 4. Thyroid mass -patient did have a CT of the neck today which shows that the mass is 6.4 cm. There is some tracheal deviation. No airway compromise. Appreciate ENT input. 5. COPD- stable; continue nebs 6. Parkinson's disease- continue home meds 7. GERD- continue meds 8. History of AAA repair - continue aspirin and statin DVT prophylaxis- per orthopedics - On coumadin VS,Fishbone, I+O VS, Fishbone, I+O Laboratory Tests 06/13/16 05:24 Calcium Level 7.6 L, Aspartate Amino Transf (AST/SGOT) 13 L, Alanine Aminotransferase (ALT/SGPT) 11 L, Alkaline Phosphatase 74, Total Bilirubin 0.3, Total Protein 4.6 L, Albumin 2.1 L, Red Blood Count 3.21 L, Mean Corpuscular Volume 88.3, Mean Corpuscular Hemoglobin 26.2 L, Mean Corpuscular Hemoglobin Concent 29.7 L, Red Cell Distribution Width 17.4 H, Neutrophils (%) (Auto) 75.2 H, Lymphocytes (%) (Auto) 17.0 L, Monocytes (%) (Auto) 4.6, Eosinophils (%) ( Auto) 0.9, Basophils (%) (Auto) 0.3, Neutrophils # (Auto) 8.4 H, Lymphocytes # ( Auto) 1.9, Monocytes # (Auto) 0.5, Eosinophils # (Auto) 0.1, Basophils # (Auto) 0.0 Vital Signs Date Time Temp Pulse Resp B/P Pulse Ox O2 Delivery O2 Flow Rate FiO2 06/13/16 10:00 96.7 98 19 113/57 95 Room Air 06/09/16 02:00 1.0 I&O- Last 24 Hours up to 6 AM 06/13/16 06:00 Intake Total 600 ml Output Total 1425 ml Balance -825 ml MONTSERRAT JAIN MD Jun 13, 2016 13:51
[2016-06-13] MEDS ORDERED: SODIUM CHLORIDE 0.9% 1000 ML IV ONE (14:30)
[2016-06-13] MEDS: WARFARIN SOD 7.5 MG TAB PO SCH (16:45)
[2016-06-13] MEDS: ASPIRIN 81 MG CHEW TABLET PO SCH (20:48)
[2016-06-13] MEDS: SIMVASTATIN 40 MG TAB PO SCH (20:48)
[2016-06-13] MEDS: PANTOPRAZOLE 40MG TAB (PROTONIX) PO SCH (20:48)
[2016-06-13] MEDS: LATANOPROST 0.005% OPHTH SOLN 2.5 ML OD SCH (20:49)
[2016-06-14 02:00] VITALS: BP 101/58
[2016-06-14] MEDS: IPRATROPIUM 0.5MG/ALBUTEROL 2.5MG INH SOL UD 3ML (DUONEB)(J7620) NEB SCH ×6 (03:48→23:37)
[2016-06-14] MEDS: SODIUM CHLORIDE 0.9% INJ 10 ML SYR IV SCH ×2 (05:27→16:38)
[2016-06-14 05:56] LABS: BASO % 0.2 % (0.0-1.0); EOS # 0.1 K/mm3 (0.0-0.50); LARGE UNSTAINED CELL # 0.2 K/mm3 (0.0-0.4); LARGE UNSTAINED CELL % 1.9 % (0.0-4.0); LYMPH % 19.9 % (24.0-44.0); MEAN CORPUSCULAR HGB CONC 30.5 g/dl (32.0-36.5); MEAN CORPUSCULAR VOLUME 88.4 fl (80.0-96.0); MONO # 0.5 K/mm3 (0.0-0.8); MONO % 5.1 % (0.0-5.0); NEUTROPHILS # 7.1 K/mm3 (1.8-7.7); NEUTROPHILS % 71.9 % (36.0-66.0); PLATELET COUNT, AUTOMATED 364 k/mm3 (150-450); RED CELL DISTRIBUTION WIDTH 17.6 % (11.5-14.5); WHITE BLOOD COUNT 9.8 K/mm3 (4.0-10.0)
[2016-06-14 06:00] VITALS: BP_SYST 93; BP_SYST 94; BP_SYST 96; BP_DIAS 51; BP_DIAS 54; BP_DIAS 56
[2016-06-14 06:00] LABS: INR 2.43
[2016-06-14 06:30] LABS: ALBUMIN 2.2 GM/DL (3.2-5.2); ALBUMIN/GLOBULIN RATIO 0.96 (1.00-1.93); ALKALINE PHOSPHATASE 72 U/L (45-117); ALT/SGPT 11 U/L (12-78); ANION GAP 8 MEQ/L (8-16); AST/SGOT 13 U/L (15-37); BILIRUBIN,TOTAL 0.3 MG/DL (0.2-1.0); BLOOD UREA NITROGEN 22 MG/DL (7-18); CALCIUM LEVEL 7.5 MG/DL (8.8-10.2); CARBON DIOXIDE LEVEL 26 MEQ/L (21-32); CHLORIDE LEVEL 112 MEQ/L (98-107); CREATININE FOR GFR 1.07 MG/DL (0.70-1.30); GLOMERULAR FILTRATION RATE > 60.0 (>35); GLUCOSE, FASTING 106 MG/DL (83-110); MAGNESIUM LEVEL 2.3 MG/DL (1.8-2.4); SODIUM LEVEL 146 MEQ/L (136-145); TOTAL PROTEIN 4.5 GM/DL (6.4-8.2)
[2016-06-14] MEDS ORDERED: SODIUM CHLORIDE 0.9% 1000 ML IV ONE (08:30)
[2016-06-14] MEDS: SINEMET 25-100 MG TAB PO SCH ×3 (08:40→20:04)
[2016-06-14] MEDS: MIRALAX *UNIT DOSE* 17GM PACKET PO SCH (08:40)
[2016-06-14] MEDS: ASCORBIC ACID 500 MG TAB PO SCH ×3 (08:40→20:04)
[2016-06-14] MEDS: OCUVITE 1 TAB PO SCH (08:40)
[2016-06-14] MEDS: rOPINIRole 1MG TAB PO SCH ×3 (08:40→20:03)
[2016-06-14] MEDS: MIDODRINE 5 MG TAB PO SCH ×2 (08:40→16:38)
[2016-06-14] MEDS: LACTOBACILLUS ACIDOPHILUS CAP (BACID) PO SCH ×3 (08:40→20:04)
[2016-06-14] MEDS: BENZONATATE 100 MG CAP PO SCH ×3 (08:40→20:04)
[2016-06-14] MEDS: GABAPENTIN 100 MG CAP PO SCH ×3 (08:40→20:03)
[2016-06-14] MEDS: MULTIVITAMINS/MINERALS THERAP 1 TAB PO SCH (08:41)
[2016-06-14] MEDS: FERROUS GLUCONATE 324 MG TAB PO SCH ×3 (08:41→20:04)
[2016-06-14] MEDS: DOCUSATE SODIUM 100 MG CAP PO SCH ×2 (08:41→20:04)
[2016-06-14 10:00] VITALS: BP 106/60
[2016-06-14] MEDS: NS 1,000 ML IV SCH ×2 (10:53→18:29)
[2016-06-14] MEDS: ACETAMINOPHEN TAB 650MG DOSE (2X325MG) PO PRN (10:55)
--- NOTE | 2016-06-14 12:56 | IPNPDOC ---
Text Note Date of Service The patient was seen on 06/14/16 at 12:53. NOTE Subjective: No acute changes overnight. Pt is not orthostatic today. Objective: Vitals: (see below) General: No acute distress, laying comfortably in bed. HEENT: Moist mucous membranes. Healing bullous lesion on scalp Neck: No JVD or lymphadenopathy Cardiac: RRR, No murmurs Pulm: Coarse crackles and diminished breath sounds b/l. No wheezing, + rhonchi b /l Abd: NT/ND + BS Ext: Trace edema. No cyanosis. Healed bullous on LE. Distal pulses intact b/l. Chronic violaceous changes b/l feet. No bleeding at the surgical site. Labs (see below) Images: CXR 05/30/16 Impression: Left lower lobe consolidation and suspected moderate pleural effusion as well as a right lower lobe consolidation are identified. Associated pulmonary vascular congestion and interstitial edema cannot be excluded. Assessment/Plan 1. HCAP - CXR noted above with b/l PNA. Completed Abx. 2. Orthostatic hypotension- This is likely 2/2 Parkinson's disease. Cont midodrine. EVELIN stockings. Orthostatics negative this am. Gentle IVF. If becomes orthostatic again, will need a cardio consult. 3. Left femur fracture- status post mechanical fall. s/p left total hip arthroplasty by ortho. Will return to rehab when stable. 4. Thyroid mass -patient did have a CT of the neck today which shows that the mass is 6.4 cm. There is some tracheal deviation. No airway compromise. Appreciate ENT input. 5. COPD- stable; continue nebs 6. Parkinson's disease- continue home meds 7. GERD- continue meds 8. History of AAA repair - continue aspirin and statin DVT prophylaxis- per orthopedics - On coumadin PT/OT will be working more with patient as orthostatics are improving. VS,Fishbone, I+O VS, Fishbone, I+O Laboratory Tests 06/14/16 05:35 Calcium Level 7.5 L, Aspartate Amino Transf (AST/SGOT) 13 L, Alanine Aminotransferase (ALT/SGPT) 11 L, Alkaline Phosphatase 72, Total Bilirubin 0.3, Total Protein 4.5 L, Albumin 2.2 L, Red Blood Count 3.00 L, Mean Corpuscular Volume 88.4, Mean Corpuscular Hemoglobin 27.0, Mean Corpuscular Hemoglobin Concent 30.5 L, Red Cell Distribution Width 17.6 H, Neutrophils (%) (Auto) 71.9 H, Lymphocytes (%) (Auto) 19.9 L, Monocytes (%) (Auto) 5.1 H, Eosinophils (%) ( Auto) 1.0, Basophils (%) (Auto) 0.2, Neutrophils # (Auto) 7.1, Lymphocytes # ( Auto) 2.0, Monocytes # (Auto) 0.5, Eosinophils # (Auto) 0.1, Basophils # (Auto) 0.0 Vital Signs Date Time Temp Pulse Resp B/P Pulse Ox O2 Delivery O2 Flow Rate FiO2 06/14/16 10:00 96.8 90 20 106/60 93 Room Air 06/09/16 02:00 1.0 I&O- Last 24 Hours up to 6 AM 06/14/16 06:00 Intake Total 1310 ml Output Total 975 ml Balance 335 ml MONTSERRAT JAIN MD Jun 14, 2016 12:56
[2016-06-14 14:00] VITALS: BP 93/53
[2016-06-14] MEDS: WARFARIN SOD 7.5 MG TAB PO SCH (16:34)
[2016-06-14 18:00] VITALS: BP 125/68
[2016-06-14] MEDS: SIMVASTATIN 40 MG TAB PO SCH (20:04)
[2016-06-14] MEDS: LATANOPROST 0.005% OPHTH SOLN 2.5 ML OD SCH (20:04)
[2016-06-14] MEDS: PANTOPRAZOLE 40MG TAB (PROTONIX) PO SCH (20:04)
[2016-06-14] MEDS: ASPIRIN 81 MG CHEW TABLET PO SCH (20:04)
[2016-06-14 22:00] VITALS: BP 109/60
[2016-06-15] VITALS (8 sets, daily range): BP systolic 88–135; BP diastolic 48–70
[2016-06-15] MEDS: IPRATROPIUM 0.5MG/ALBUTEROL 2.5MG INH SOL UD 3ML (DUONEB)(J7620) NEB SCH ×6 (03:44→23:20)
[2016-06-15] MEDS: SODIUM CHLORIDE 0.9% INJ 10 ML SYR IV SCH ×2 (05:34→16:15)
[2016-06-15 06:04] LABS: INR 2.82
[2016-06-15] MEDS: MIDODRINE 5 MG TAB PO SCH ×2 (09:42→16:07)
[2016-06-15] MEDS: MIRALAX *UNIT DOSE* 17GM PACKET PO SCH (09:42)
[2016-06-15] MEDS: ASCORBIC ACID 500 MG TAB PO SCH ×3 (09:43→19:54)
[2016-06-15] MEDS: BENZONATATE 100 MG CAP PO SCH ×3 (09:43→19:55)
[2016-06-15] MEDS: DOCUSATE SODIUM 100 MG CAP PO SCH ×2 (09:43→19:55)
[2016-06-15] MEDS: FERROUS GLUCONATE 324 MG TAB PO SCH ×3 (09:43→19:54)
[2016-06-15] MEDS: MULTIVITAMINS/MINERALS THERAP 1 TAB PO SCH (09:43)
[2016-06-15] MEDS: SINEMET 25-100 MG TAB PO SCH ×3 (09:43→19:54)
[2016-06-15] MEDS: GABAPENTIN 100 MG CAP PO SCH ×3 (09:43→19:53)
[2016-06-15] MEDS: OCUVITE 1 TAB PO SCH (09:44)
[2016-06-15] MEDS: LACTOBACILLUS ACIDOPHILUS CAP (BACID) PO SCH ×3 (09:44→19:53)
[2016-06-15] MEDS: ACETAMINOPHEN TAB 650MG DOSE (2X325MG) PO PRN ×2 (09:45→18:05)
[2016-06-15] MEDS: NS 1,000 ML IV SCH (09:46)
[2016-06-15] MEDS: rOPINIRole 1MG TAB PO SCH (09:47)
[2016-06-15] MEDS ORDERED: MIDODRINE 2.5 MG TAB PO ONE (11:15)
--- NOTE | 2016-06-15 11:39 | IPNPDOC ---
Text Note Date of Service The patient was seen on 06/15/16 at 11:34. NOTE Subjective: Patient is an 80 year old male with a PMHx of Parkinson's disease, AAA repair, COPD, bullous pemphigus who presented after a fall. He was found to have a transverse displaced fracture of the left femoral neck. He is s/p left total hip arthroplasty. He was at inpatient rehabilitation and developed HCAP pneumonia and orthostatic hypotension. Was transferred to medical floor for acute care. Patient was seen and examined at the bedside. He notes that he is not coughing anymore, but still experiences positive orthostatics. Objective: Vitals (See below) General: Lying in bed, no acute distress, AAOx3 HEENT: NC, AT CVS: RRR, +S1S2 Lungs: Fair air entry b/l, - w/r/r Abdomen: Soft, ND, NT, +BSx4 Extremities: +PPx4, - edema, - calf tenderness Assessment and plan: 1. Orthostatic hypotension - possibly 2/2 medication (Alpha estefany, Ropinirole ) or autonomic instability 2/2 Parkinson's, less likely 2/2 infection - Positive orthostatic vital signs - will continue to follow ins/outs - cortisol was check before - level appropriate - will c/w IV fluid hydration until his symptoms have resolved - will discontinue Ropinirole - will c/w Midodrine; will increase dose again today 2. s/p HCAP - completed course of vancomycin and meropenem 3. Normocytic anemia - likely 2/2 RICH - c/w ferrous sulfate 4. Left femur fracture - s/p total left hip replacement - c/w rehabilitation 5. Thyroid mass - CT shows evidence of tracheal deviation - TSH elevated with low Free T3 and normal Free T4, total T3 low - Will need nuclear scan as an outpatient - ENT consulted (Dr. Modi) - appreciate their input 6. COPD - no evidence of exacerbation - c/w manju 7. Parkinson's disease - c/w home medications 8. History of AAA repair - c/w ASA and statin 9. Skin condition - on prednisone - will need outpatient follow up 10. GERD - c/w protonix 11. DVT prophylaxis - per orthopedic surgery VS,Fishbone, I+O VS, Fishbone, I+O Vital Signs Date Time Temp Pulse Resp B/P Pulse Ox O2 Delivery O2 Flow Rate FiO2 1/17/17 09:56 90/48 06/15/16 06:00 84 82 06/15/16 06:00 97.8 19 90 Room Air 06/09/16 02:00 1.0 I&O- Last 24 Hours up to 6 AM 06/15/16 06:00 Intake Total 2370 ml Output Total 1275 ml Balance 1095 ml WANG SCHWAB MD Jun 15, 2016 11:34
[2016-06-15] MEDS: SODIUM CHLORIDE 0.9% INJ 10 ML SYR IV PRN (15:21)
[2016-06-15] MEDS: WARFARIN SOD 7.5 MG TAB PO SCH (16:09)
[2016-06-15] MEDS: SIMVASTATIN 40 MG TAB PO SCH (19:54)
[2016-06-15] MEDS: PANTOPRAZOLE 40MG TAB (PROTONIX) PO SCH (19:54)
[2016-06-15] MEDS: ASPIRIN 81 MG CHEW TABLET PO SCH (19:54)
[2016-06-15] MEDS: LATANOPROST 0.005% OPHTH SOLN 2.5 ML OD SCH (19:55)
[2016-06-16 02:00] VITALS: BP 115/63
[2016-06-16] MEDS: IPRATROPIUM 0.5MG/ALBUTEROL 2.5MG INH SOL UD 3ML (DUONEB)(J7620) NEB SCH ×6 (03:20→22:59)
[2016-06-16] MEDS: SODIUM CHLORIDE 0.9% INJ 10 ML SYR IV SCH ×2 (05:50→17:02)
[2016-06-16 06:00] VITALS: BP 102/60
[2016-06-16 06:00] LABS: INR 3.81
[2016-06-16 06:07] LABS: ANION GAP 8 MEQ/L (8-16); BLOOD UREA NITROGEN 15 MG/DL (7-18); CALCIUM LEVEL 7.5 MG/DL (8.8-10.2); CARBON DIOXIDE LEVEL 25 MEQ/L (21-32); CHLORIDE LEVEL 112 MEQ/L (98-107); CREATININE FOR GFR 1.03 MG/DL (0.70-1.30); GLOMERULAR FILTRATION RATE > 60.0 (>35); GLUCOSE, FASTING 92 MG/DL (83-110); POTASSIUM SERUM 3.6 MEQ/L (3.5-5.1); SODIUM LEVEL 145 MEQ/L (136-145)
[2016-06-16 06:12] LABS: MEAN CORPUSCULAR HEMOGLOBIN 26.4 pg (27.0-33.0); MEAN CORPUSCULAR HGB CONC 29.3 g/dl (32.0-36.5); MEAN CORPUSCULAR VOLUME 90.1 fl (80.0-96.0); RED CELL DISTRIBUTION WIDTH 18.9 % (11.5-14.5); WHITE BLOOD COUNT 10.9 K/mm3 (4.0-10.0)
[2016-06-16] MEDS: DOCUSATE SODIUM 100 MG CAP PO SCH ×3 (09:00→20:31)
[2016-06-16] MEDS: MIDODRINE 5 MG TAB PO SCH ×2 (09:57→17:03)
[2016-06-16] MEDS: OCUVITE 1 TAB PO SCH (09:57)
[2016-06-16] MEDS: GABAPENTIN 100 MG CAP PO SCH ×3 (09:57→20:30)
[2016-06-16] MEDS: LACTOBACILLUS ACIDOPHILUS CAP (BACID) PO SCH ×3 (09:57→20:30)
[2016-06-16] MEDS: SINEMET 25-100 MG TAB PO SCH ×3 (09:58→20:30)
[2016-06-16] MEDS: BENZONATATE 100 MG CAP PO SCH ×3 (09:58→20:30)
[2016-06-16] MEDS: ASCORBIC ACID 500 MG TAB PO SCH ×3 (09:58→20:30)
[2016-06-16] MEDS: MULTIVITAMINS/MINERALS THERAP 1 TAB PO SCH (09:58)
[2016-06-16] MEDS: MIRALAX *UNIT DOSE* 17GM PACKET PO SCH (09:58)
[2016-06-16] MEDS: FERROUS GLUCONATE 324 MG TAB PO SCH ×3 (09:58→20:30)
[2016-06-16 10:00] VITALS: BP_SYST 77; BP_SYST 95; BP_SYST 99; BP_DIAS 48; BP_DIAS 54; BP_DIAS 57
[2016-06-16] MEDS: ACETAMINOPHEN TAB 650MG DOSE (2X325MG) PO PRN ×2 (10:24→22:57)
[2016-06-16] MEDS ORDERED: NS 1,000 ML IV SCH (12:00)
--- NOTE | 2016-06-16 12:03 | IPNPDOC ---
Text Note Date of Service The patient was seen on 06/16/16 at 12:00. NOTE Subjective: Patient is an 80 year old male with a PMHx of Parkinson's disease, AAA repair, COPD, bullous pemphigus who presented after a fall. He was found to have a transverse displaced fracture of the left femoral neck. He is s/p left total hip arthroplasty. He was at inpatient rehabilitation and developed HCAP pneumonia and orthostatic hypotension. Was transferred to medical floor for acute care. Patient was seen and examined at the bedside. He notes that he wasn't able to sit up this morning because of dizziness. Objective: Vitals (See below) General: Lying in bed, no acute distress, AAOx3 HEENT: NC, AT CVS: RRR, +S1S2 Lungs: Fair air entry b/l, - w/r/r Abdomen: Soft, ND, NT, +BSx4 Extremities: +PPx4, - edema, - calf tenderness Assessment and plan: 1. Orthostatic hypotension - possibly 2/2 medication (Alpha estefany, Ropinirole ) or autonomic instability 2/2 Parkinson's, less likely 2/2 infection - Positive orthostatic vital signs - will continue to follow ins/outs - cortisol was check before - level appropriate - will discontinue Ropinirole - will restart IV fluids (was stopped yesterday for possible fluid overload - currently not significant edema) - will c/w Midodrine with adjsuted dose 2. s/p HCAP - completed course of vancomycin and meropenem 3. Normocytic anemia - likely 2/2 RICH - c/w ferrous sulfate 4. Left femur fracture - s/p total left hip replacement - c/w rehabilitation 5. Thyroid mass - CT shows evidence of tracheal deviation - TSH elevated with low Free T3 and normal Free T4, total T3 low - Will need nuclear scan as an outpatient - ENT consulted (Dr. Modi) - appreciate their input 6. COPD - no evidence of exacerbation - c/w manju 7. Parkinson's disease - c/w home medications 8. History of AAA repair - c/w ASA and statin 9. Skin condition - on prednisone - will need outpatient follow up 10. GERD - c/w protonix 11. DVT prophylaxis - on Coumadin - INR today is supra-therapeutic will hold Coumadin - Will repeat INR tomorrow VS,Fishbone, I+O VS, Fishbone, I+O Laboratory Tests 06/16/16 05:21 Calcium Level 7.5 L, Red Blood Count 3.23 L, Mean Corpuscular Volume 90.1, Mean Corpuscular Hemoglobin 26.4 L, Mean Corpuscular Hemoglobin Concent 29.3 L, Red Cell Distribution Width 18.9 H Vital Signs Date Time Temp Pulse Resp B/P Pulse Ox O2 Delivery O2 Flow Rate FiO2 06/16/16 06:00 99.3 88 18 102/60 90 Room Air I&O- Last 24 Hours up to 6 AM 06/16/16 06:00 Intake Total 2120 ml Output Total 1775 ml Balance 345 ml WANG SCHWAB MD Jun 16, 2016 12:03
[2016-06-16 14:00] VITALS: BP 125/67
[2016-06-16 18:00] VITALS: BP 112/58
[2016-06-16] MEDS: PANTOPRAZOLE 40MG TAB (PROTONIX) PO SCH (20:30)
[2016-06-16] MEDS: LATANOPROST 0.005% OPHTH SOLN 2.5 ML OD SCH (20:30)
[2016-06-16] MEDS: ASPIRIN 81 MG CHEW TABLET PO SCH (20:30)
[2016-06-16] MEDS: SIMVASTATIN 40 MG TAB PO SCH (20:30)
[2016-06-16 22:00] VITALS: BP 138/78
[2016-06-17 02:00] VITALS: BP 115/62
[2016-06-17] MEDS: SODIUM CHLORIDE 0.9% INJ 10 ML SYR IV SCH ×2 (05:13→17:26)
[2016-06-17 05:43] LABS: MEAN CORPUSCULAR HEMOGLOBIN 27.5 pg (27.0-33.0); MEAN CORPUSCULAR HGB CONC 31.1 g/dl (32.0-36.5); MEAN CORPUSCULAR VOLUME 88.4 fl (80.0-96.0); RED CELL DISTRIBUTION WIDTH 17.7 % (11.5-14.5); WHITE BLOOD COUNT 8.4 K/mm3 (4.0-10.0)
[2016-06-17 06:00] VITALS: BP_SYST 103; BP_SYST 122; BP_SYST 64; BP_DIAS 41; BP_DIAS 63; BP_DIAS 64
[2016-06-17 06:13] LABS: CHLORIDE LEVEL 116 MEQ/L (98-107); POTASSIUM SERUM 3.1 MEQ/L (3.5-5.1); SODIUM LEVEL 149 MEQ/L (136-145)
[2016-06-17] MEDS: IPRATROPIUM 0.5MG/ALBUTEROL 2.5MG INH SOL UD 3ML (DUONEB)(J7620) NEB SCH ×4 (07:15→19:43)
[2016-06-17 07:22] LABS: ANION GAP 11 MEQ/L (8-16); BLOOD UREA NITROGEN 14 MG/DL (7-18); CALCIUM LEVEL 6.6 MG/DL (8.8-10.2); CARBON DIOXIDE LEVEL 22 MEQ/L (21-32); CREATININE FOR GFR 0.74 MG/DL (0.70-1.30); GLOMERULAR FILTRATION RATE > 60.0 (>35); GLUCOSE, FASTING 78 MG/DL (83-110)
[2016-06-17] MEDS: MULTIVITAMINS/MINERALS THERAP 1 TAB PO SCH (08:06)
[2016-06-17] MEDS: FERROUS GLUCONATE 324 MG TAB PO SCH ×3 (08:06→20:14)
[2016-06-17] MEDS: DOCUSATE SODIUM 100 MG CAP PO SCH ×2 (08:06→20:15)
[2016-06-17] MEDS: SINEMET 25-100 MG TAB PO SCH ×3 (08:06→20:14)
[2016-06-17] MEDS: BENZONATATE 100 MG CAP PO SCH ×3 (08:06→20:14)
[2016-06-17] MEDS: GABAPENTIN 100 MG CAP PO SCH ×3 (08:06→20:15)
[2016-06-17] MEDS: OCUVITE 1 TAB PO SCH (08:06)
[2016-06-17] MEDS: MIDODRINE 5 MG TAB PO SCH ×3 (08:06→17:26)
[2016-06-17] MEDS: LACTOBACILLUS ACIDOPHILUS CAP (BACID) PO SCH ×3 (08:06→20:14)
[2016-06-17] MEDS: ASCORBIC ACID 500 MG TAB PO SCH ×3 (08:06→20:14)
[2016-06-17] MEDS: MIRALAX *UNIT DOSE* 17GM PACKET PO SCH (08:07)
[2016-06-17] MEDS: ACETAMINOPHEN TAB 650MG DOSE (2X325MG) PO PRN (09:24)
[2016-06-17 10:00] VITALS: BP 135/74
[2016-06-17 10:07] LABS: INR 3.69
--- NOTE | 2016-06-17 10:52 | IPNPDOC ---
Text Note Date of Service The patient was seen on 06/17/16 at 10:46. NOTE Subjective: Patient is an 80 year old male with a PMHx of Parkinson's disease, AAA repair, COPD, bullous pemphigus who presented after a fall. He was found to have a transverse displaced fracture of the left femoral neck. He is s/p left total hip arthroplasty. He was at inpatient rehabilitation and developed HCAP pneumonia and orthostatic hypotension. Was transferred to medical floor for acute care. Patient was seen and examined at the bedside. Notes that he was a little upset that he had to have his orthostatic vital signs checked at night. Objective: Vitals (See below) General: Lying in bed, no acute distress, AAOx3 HEENT: NC, AT CVS: RRR, +S1S2 Lungs: Fair air entry b/l, - w/r/r Abdomen: Soft, ND, NT, +BSx4 Extremities: +PPx4, - edema, - calf tenderness Assessment and plan: 1. Orthostatic hypotension - possibly 2/2 medication (Alpha estefany, Ropinirole ) or autonomic instability 2/2 Parkinson's, less likely 2/2 infection - Positive orthostatic vital signs again this morning - cortisol was checked before - level appropriate - s/p Ropinirole; s/p IV fluid - c/w Midodrine at 10 TID - If orthostatic vital signs still remain positive after 5 doses of Midodrine; will start fludrocortisone 0.1 mg 2. s/p HCAP - completed course of vancomycin and meropenem 3. Normocytic anemia - likely 2/2 RICH - c/w ferrous sulfate 4. Left femur fracture - s/p total left hip replacement - c/w rehabilitation 5. Thyroid mass - CT shows evidence of tracheal deviation - TSH elevated with low Free T3 and normal Free T4, total T3 low - Will need nuclear scan as an outpatient - ENT consulted (Dr. Modi) - appreciate their input 6. COPD - no evidence of exacerbation - c/w manju 7. Parkinson's disease - c/w home medications 8. History of AAA repair - c/w ASA and statin 9. Skin condition - on prednisone - will need outpatient follow up 10. GERD - c/w protonix 11. DVT prophylaxis - on Coumadin - INR today is supra-therapeutic will continue to hold Coumadin - Will repeat INR tomorrow VS,Fishbone, I+O VS, Fishbone, I+O Laboratory Tests 06/17/16 05:17 Calcium Level 6.6 L, Red Blood Count 3.22 L, Mean Corpuscular Volume 88.4, Mean Corpuscular Hemoglobin 27.5, Mean Corpuscular Hemoglobin Concent 31.1 L, Red Cell Distribution Width 17.7 H Vital Signs Date Time Temp Pulse Resp B/P Pulse Ox O2 Delivery O2 Flow Rate FiO2 06/17/16 06:00 78 122/63 74 103/64 79 64/41 06/17/16 06:00 96.9 18 92 Room Air I&O- Last 24 Hours up to 6 AM 06/17/16 06:00 Intake Total 1320 ml Output Total 1250 ml Balance 70 ml WANG SCHWAB MD Jun 17, 2016 10:52
[2016-06-17 14:00] VITALS: BP_SYST 113; BP_SYST 121; BP_SYST 79; BP_SYST 90; BP_DIAS 52; BP_DIAS 56; BP_DIAS 68; BP_DIAS 70
[2016-06-17] MEDS ORDERED: POTASSIUM CHLORIDE 10 MEQ SR TABLET PO ONE (14:30)
[2016-06-17] MEDS ORDERED: CALCIUM GLUCONATE 1,000 MG in D5W MINI-BAG PLUS 100 ML IV ONE (15:00)
[2016-06-17] MEDS: FLUDROCORTISONE ACETATE 0.1 MG TAB PO SCH (15:08)
[2016-06-17 18:00] VITALS: BP 118/57
[2016-06-17] MEDS: SIMVASTATIN 40 MG TAB PO SCH (20:14)
[2016-06-17] MEDS: ASPIRIN 81 MG CHEW TABLET PO SCH (20:14)
[2016-06-17] MEDS: PANTOPRAZOLE 40MG TAB (PROTONIX) PO SCH (20:14)
[2016-06-17] MEDS: LATANOPROST 0.005% OPHTH SOLN 2.5 ML OD SCH (20:15)
[2016-06-17 22:00] VITALS: BP 107/61
[2016-06-18 02:00] VITALS: BP 127/70
[2016-06-18] MEDS: IPRATROPIUM 0.5MG/ALBUTEROL 2.5MG INH SOL UD 3ML (DUONEB)(J7620) NEB SCH ×7 (04:00→23:40)
[2016-06-18] MEDS: SODIUM CHLORIDE 0.9% INJ 10 ML SYR IV SCH ×2 (05:07→16:20)
[2016-06-18 05:35] LABS: MEAN CORPUSCULAR HEMOGLOBIN 27.2 pg (27.0-33.0); MEAN CORPUSCULAR HGB CONC 30.6 g/dl (32.0-36.5); MEAN CORPUSCULAR VOLUME 88.8 fl (80.0-96.0); RED CELL DISTRIBUTION WIDTH 17.6 % (11.5-14.5); WHITE BLOOD COUNT 8.4 K/mm3 (4.0-10.0)
[2016-06-18 05:37] LABS: INR 3.47
[2016-06-18 05:45] LABS: ANION GAP 10 MEQ/L (8-16); BLOOD UREA NITROGEN 16 MG/DL (7-18); CALCIUM LEVEL 7.6 MG/DL (8.8-10.2); CARBON DIOXIDE LEVEL 24 MEQ/L (21-32); CHLORIDE LEVEL 114 MEQ/L (98-107); CREATININE FOR GFR 0.91 MG/DL (0.70-1.30); GLOMERULAR FILTRATION RATE > 60.0 (>35); GLUCOSE, FASTING 89 MG/DL (83-110); MAGNESIUM LEVEL 2.1 MG/DL (1.8-2.4); PHOSPHORUS LEVEL 2.6 MG/DL (2.5-4.9); POTASSIUM SERUM 3.9 MEQ/L (3.5-5.1); SODIUM LEVEL 148 MEQ/L (136-145)
[2016-06-18 06:00] VITALS: BP_SYST 110; BP_SYST 82; BP_SYST 84; BP_DIAS 51; BP_DIAS 52; BP_DIAS 61
[2016-06-18] MEDS: FERROUS GLUCONATE 324 MG TAB PO SCH ×3 (08:54→21:17)
[2016-06-18] MEDS: SINEMET 25-100 MG TAB PO SCH (08:54)
[2016-06-18] MEDS: OCUVITE 1 TAB PO SCH (08:54)
[2016-06-18] MEDS: ASCORBIC ACID 500 MG TAB PO SCH ×3 (08:54→21:16)
[2016-06-18] MEDS: LACTOBACILLUS ACIDOPHILUS CAP (BACID) PO SCH ×3 (08:55→21:16)
[2016-06-18] MEDS: FLUDROCORTISONE ACETATE 0.1 MG TAB PO SCH (08:55)
[2016-06-18] MEDS: DOCUSATE SODIUM 100 MG CAP PO SCH ×2 (08:55→21:00)
[2016-06-18] MEDS: MIDODRINE 5 MG TAB PO SCH ×3 (08:55→17:43)
[2016-06-18] MEDS: GABAPENTIN 100 MG CAP PO SCH ×3 (08:55→21:16)
[2016-06-18] MEDS: BENZONATATE 100 MG CAP PO SCH ×3 (08:55→21:16)
[2016-06-18] MEDS: MULTIVITAMINS/MINERALS THERAP 1 TAB PO SCH (08:55)
[2016-06-18] MEDS: ACETAMINOPHEN TAB 650MG DOSE (2X325MG) PO PRN (08:56)
[2016-06-18] MEDS: MIRALAX *UNIT DOSE* 17GM PACKET PO SCH (08:56)
--- NOTE | 2016-06-18 12:04 | IPNPDOC ---
Text Note Date of Service The patient was seen on 06/18/16 at 11:59. NOTE Subjective: Patient is an 80 year old male with a PMHx of Parkinson's disease, AAA repair, COPD, bullous pemphigus who presented after a fall. He was found to have a transverse displaced fracture of the left femoral neck. He is s/p left total hip arthroplasty. He was at inpatient rehabilitation and developed HCAP pneumonia and orthostatic hypotension. Was transferred to medical floor for acute care. Patient was seen and examined at the bedside. Has no new complaints this morning. Objective: Vitals (See below) General: Lying in bed, no acute distress, AAOx3 HEENT: NC, AT CVS: RRR, +S1S2 Lungs: Fair air entry b/l, - w/r/r Abdomen: Soft, ND, NT, +BSx4 Extremities: +PPx4, - edema, - calf tenderness Assessment and plan: 1. Orthostatic hypotension - likely 2/2 autonomic instability 2/2 Parkinson's, possibly 2/2 medication (Alpha estefany, Ropinirole), less likely 2/2 infection - Positive orthostatic vital signs again this morning - cortisol was checked before - level appropriate - s/p Ropinirole; s/p IV fluid - c/w Midodrine at 10 TID; c/w Fludrocortisone 0.1mg PO QD - Will discontinue Cinemet, will start thigh high compression stockings 2. s/p HCAP - completed course of vancomycin and meropenem 3. Normocytic anemia - likely 2/2 RICH - c/w ferrous sulfate 4. Left femur fracture - s/p total left hip replacement - c/w rehabilitation 5. Thyroid mass - CT shows evidence of tracheal deviation - TSH elevated with low Free T3 and normal Free T4, total T3 low - Will need nuclear scan - ENT consulted (Dr. Modi) - appreciate their input - Will continue to workup as an outpatient 6. COPD - no evidence of exacerbation - c/w manju 7. Parkinson's disease - c/w home medications 8. History of AAA repair - c/w ASA and statin 9. Skin condition - on prednisone - will need outpatient follow up 10. GERD - c/w protonix 11. DVT prophylaxis - on Coumadin - INR today remains supra-therapeutic will continue to hold Coumadin - Will repeat INR tomorrow VS,Fishbone, I+O VS, Fishbone, I+O Laboratory Tests 06/18/16 05:11 Calcium Level 7.6 #L, Red Blood Count 3.29 L, Mean Corpuscular Volume 88.8, Mean Corpuscular Hemoglobin 27.2, Mean Corpuscular Hemoglobin Concent 30.6 L, Red Cell Distribution Width 17.6 H Vital Signs Date Time Temp Pulse Resp B/P Pulse Ox O2 Delivery O2 Flow Rate FiO2 06/18/16 06:00 86 110/61 85 84/51 82/52 06/18/16 06:00 96.8 18 91 Room Air I&O- Last 24 Hours up to 6 AM 06/18/16 06:00 Intake Total 1310 ml Output Total 1625 ml Balance -315 ml WANG SCHWAB MD Jun 18, 2016 12:04
[2016-06-18 14:00] VITALS: BP 141/74
[2016-06-18 15:00] VITALS: BP_SYST 141; BP_SYST 70; BP_SYST 82; BP_DIAS 44; BP_DIAS 51; BP_DIAS 74
[2016-06-18 18:00] VITALS: BP 137/69
[2016-06-18] MEDS: ASPIRIN 81 MG CHEW TABLET PO SCH (21:16)
[2016-06-18] MEDS: PANTOPRAZOLE 40MG TAB (PROTONIX) PO SCH (21:16)
[2016-06-18] MEDS: SIMVASTATIN 40 MG TAB PO SCH (21:17)
[2016-06-18] MEDS: LATANOPROST 0.005% OPHTH SOLN 2.5 ML OD SCH (21:17)
[2016-06-18 22:00] VITALS: BP 130/76
[2016-06-19] MEDS: IPRATROPIUM 0.5MG/ALBUTEROL 2.5MG INH SOL UD 3ML (DUONEB)(J7620) NEB SCH ×5 (01:02→19:11)
[2016-06-19 02:00] VITALS: BP 131/78
[2016-06-19] MEDS: SODIUM CHLORIDE 0.9% INJ 10 ML SYR IV SCH ×2 (05:46→17:22)
[2016-06-19 05:54] LABS: MEAN CORPUSCULAR HEMOGLOBIN 26.7 pg (27.0-33.0); MEAN CORPUSCULAR VOLUME 89.2 fl (80.0-96.0); RED CELL DISTRIBUTION WIDTH 17.2 % (11.5-14.5); WHITE BLOOD COUNT 7.3 K/mm3 (4.0-10.0)
[2016-06-19 06:00] VITALS: BP 118/65
[2016-06-19 06:01] LABS: INR 2.89
[2016-06-19 06:15] LABS: ANION GAP 8 MEQ/L (8-16); BLOOD UREA NITROGEN 17 MG/DL (7-18); CALCIUM LEVEL 7.8 MG/DL (8.8-10.2); CARBON DIOXIDE LEVEL 25 MEQ/L (21-32); CHLORIDE LEVEL 115 MEQ/L (98-107); CREATININE FOR GFR 1.03 MG/DL (0.70-1.30); GLOMERULAR FILTRATION RATE > 60.0 (>35); GLUCOSE, FASTING 92 MG/DL (83-110); POTASSIUM SERUM 3.5 MEQ/L (3.5-5.1); SODIUM LEVEL 148 MEQ/L (136-145)
[2016-06-19] MEDS: DOCUSATE SODIUM 100 MG CAP PO SCH ×2 (09:00→21:18)
[2016-06-19] MEDS: MIRALAX *UNIT DOSE* 17GM PACKET PO SCH (09:00)
[2016-06-19] MEDS: LACTOBACILLUS ACIDOPHILUS CAP (BACID) PO SCH ×3 (09:09→21:17)
[2016-06-19] MEDS: ASCORBIC ACID 500 MG TAB PO SCH ×2 (09:09→16:00)
[2016-06-19] MEDS: OCUVITE 1 TAB PO SCH (09:09)
[2016-06-19] MEDS: MIDODRINE 5 MG TAB PO SCH ×3 (09:09→17:21)
[2016-06-19] MEDS: FERROUS GLUCONATE 324 MG TAB PO SCH ×3 (09:10→21:17)
[2016-06-19] MEDS: FLUDROCORTISONE ACETATE 0.1 MG TAB PO SCH (09:10)
[2016-06-19] MEDS: BENZONATATE 100 MG CAP PO SCH ×2 (09:10→16:00)
[2016-06-19] MEDS: GABAPENTIN 100 MG CAP PO SCH ×2 (09:10→16:00)
[2016-06-19] MEDS: MULTIVITAMINS/MINERALS THERAP 1 TAB PO SCH (09:11)
[2016-06-19 10:00] VITALS: BP_SYST 139; BP_SYST 150; BP_SYST 92; BP_DIAS 53; BP_DIAS 74; BP_DIAS 80
[2016-06-19] MEDS: ACETAMINOPHEN TAB 650MG DOSE (2X325MG) PO PRN (11:07)
--- NOTE | 2016-06-19 12:15 | IPNPDOC ---
Text Note Date of Service The patient was seen on 06/19/16 at 12:12. NOTE Subjective: Patient is an 80 year old male with a PMHx of Parkinson's disease, AAA repair, COPD, bullous pemphigus who presented after a fall. He was found to have a transverse displaced fracture of the left femoral neck. He is s/p left total hip arthroplasty. He was at inpatient rehabilitation and developed HCAP pneumonia and orthostatic hypotension. Was transferred to medical floor for acute care. Patient was seen and examined at the bedside. Patient appears to be upset, still concerned that his BP drops. Patient has had some improvement in his resting BP, but his orthostatics remain positive. Objective: Vitals (See below) General: Lying in bed, no acute distress, AAOx3 HEENT: NC, AT CVS: RRR, +S1S2 Lungs: Fair air entry b/l, - w/r/r Abdomen: Soft, ND, NT, +BSx4 Extremities: +PPx4, - edema, - calf tenderness Assessment and plan: 1. Orthostatic hypotension - likely 2/2 autonomic instability 2/2 Parkinson's, possibly 2/2 medication (Alpha estefany, Ropinirole), less likely 2/2 infection - Positive orthostatic vital signs again this morning - cortisol was checked before - level appropriate - s/p Ropinirole, s/p Cinemet; s/p IV fluid - c/w Midodrine at 10 TID; c/w Fludrocortisone 0.1mg PO QD - Awaiting thigh high compression stockings 2. s/p HCAP - completed course of vancomycin and meropenem 3. Normocytic anemia - likely 2/2 RICH - c/w ferrous sulfate 4. Left femur fracture - s/p total left hip replacement - c/w rehabilitation 5. Thyroid mass - CT shows evidence of tracheal deviation - TSH elevated with low Free T3 and normal Free T4, total T3 low - Will need nuclear scan - ENT consulted (Dr. Modi) - appreciate their input - Will continue to workup as an outpatient 6. COPD - no evidence of exacerbation - c/w duonebs 7. Parkinson's disease - c/w home medications 8. History of AAA repair - c/w ASA and statin 9. Skin condition - on prednisone - will need outpatient follow up 10. GERD - c/w protonix 11. DVT prophylaxis - on Coumadin - INR therapeutic today; s/p supra-therapeutic - Will restart Coumadin at lower dose VS,Fishbone, I+O VS, Fishbone, I+O Laboratory Tests 06/19/16 05:33 Calcium Level 7.8 L, Red Blood Count 3.21 L, Mean Corpuscular Volume 89.2, Mean Corpuscular Hemoglobin 26.7 L, Mean Corpuscular Hemoglobin Concent 30.0 L, Red Cell Distribution Width 17.2 H Vital Signs Date Time Temp Pulse Resp B/P Pulse Ox O2 Delivery O2 Flow Rate FiO2 06/19/16 10:00 150/80 139/74 92/53 06/19/16 10:00 98.0 88 17 94 Room Air I&O- Last 24 Hours up to 6 AM 06/19/16 06:00 Intake Total 660 ml Output Total 1175 ml Balance -515 ml WANG SCHWAB MD Jun 19, 2016 12:15
[2016-06-19 14:00] VITALS: BP_SYST 104; BP_SYST 156; BP_DIAS 58; BP_DIAS 84
[2016-06-19] MEDS ORDERED: WARFARIN SOD 2.5 MG TAB PO ONE (17:00)
[2016-06-19 18:00] VITALS: BP 109/67
[2016-06-19] MEDS: SIMVASTATIN 40 MG TAB PO SCH (21:00)
[2016-06-19] MEDS: PANTOPRAZOLE 40MG TAB (PROTONIX) PO SCH (21:17)
[2016-06-19] MEDS: ASPIRIN 81 MG CHEW TABLET PO SCH (21:18)
[2016-06-19] MEDS: LATANOPROST 0.005% OPHTH SOLN 2.5 ML OD SCH (21:18)
[2016-06-19 22:00] VITALS: BP 125/72
[2016-06-20] VITALS (7 sets, daily range): BP systolic 80–160; BP diastolic 53–92
[2016-06-20] MEDS: IPRATROPIUM 0.5MG/ALBUTEROL 2.5MG INH SOL UD 3ML (DUONEB)(J7620) NEB SCH ×6 (00:37→19:31)
[2016-06-20] MEDS: ACETAMINOPHEN TAB 650MG DOSE (2X325MG) PO PRN ×2 (01:00→11:57)
[2016-06-20 05:44] LABS: MEAN CORPUSCULAR HEMOGLOBIN 26.9 pg (27.0-33.0); MEAN CORPUSCULAR HGB CONC 29.7 g/dl (32.0-36.5); MEAN CORPUSCULAR VOLUME 90.5 fl (80.0-96.0); RED CELL DISTRIBUTION WIDTH 18.5 % (11.5-14.5); WHITE BLOOD COUNT 8.3 K/mm3 (4.0-10.0)
[2016-06-20 05:45] LABS: INR 2.03
[2016-06-20] MEDS: SODIUM CHLORIDE 0.9% INJ 10 ML SYR IV SCH ×2 (06:00→16:55)
[2016-06-20 06:06] LABS: ANION GAP 11 MEQ/L (8-16); BLOOD UREA NITROGEN 15 MG/DL (7-18); CALCIUM LEVEL 7.7 MG/DL (8.8-10.2); CARBON DIOXIDE LEVEL 24 MEQ/L (21-32); CHLORIDE LEVEL 112 MEQ/L (98-107); CREATININE FOR GFR 0.92 MG/DL (0.70-1.30); GLOMERULAR FILTRATION RATE > 60.0 (>35); GLUCOSE, FASTING 91 MG/DL (83-110); POTASSIUM SERUM 3.2 MEQ/L (3.5-5.1); SODIUM LEVEL 147 MEQ/L (136-145)
[2016-06-20] MEDS ORDERED: POTASSIUM CHLORIDE 10 MEQ SR TABLET PO ONE (08:00)
[2016-06-20] MEDS: DOCUSATE SODIUM 100 MG CAP PO SCH ×2 (09:00→21:03)
[2016-06-20] MEDS: MIRALAX *UNIT DOSE* 17GM PACKET PO SCH (09:00)
[2016-06-20] MEDS: MIDODRINE 5 MG TAB PO SCH ×3 (10:32→16:54)
[2016-06-20] MEDS: FLUDROCORTISONE ACETATE 0.1 MG TAB PO SCH (10:32)
[2016-06-20] MEDS: MULTIVITAMINS/MINERALS THERAP 1 TAB PO SCH (10:33)
[2016-06-20] MEDS: FERROUS GLUCONATE 324 MG TAB PO SCH ×3 (10:33→21:04)
[2016-06-20] MEDS: LACTOBACILLUS ACIDOPHILUS CAP (BACID) PO SCH ×3 (10:33→21:04)
[2016-06-20] MEDS: OCUVITE 1 TAB PO SCH (10:33)
--- NOTE | 2016-06-20 13:15 | IPNPDOC ---
Text Note Date of Service The patient was seen on 06/20/16 at 13:08. NOTE Subjective: Patient is an 80 year old male with a PMHx of Parkinson's disease, AAA repair, COPD, bullous pemphigus who presented after a fall. He was found to have a transverse displaced fracture of the left femoral neck. He is s/p left total hip arthroplasty. He was at inpatient rehabilitation and developed HCAP pneumonia and orthostatic hypotension. Was transferred to medical floor for acute care. Patient was seen and examined at the bedside. He did not have any new complaints today. I discussed the case with his . Objective: Vitals (See below) General: Lying in bed, no acute distress, AAOx3 HEENT: NC, AT CVS: RRR, +S1S2 Lungs: Fair air entry b/l, - w/r/r Abdomen: Soft, ND, NT, +BSx4 Extremities: +PPx4, - edema, - calf tenderness Assessment and plan: 1. Orthostatic hypotension - likely 2/2 autonomic instability 2/2 Parkinson's, possibly 2/2 medication (Alpha estefany, Ropinirole), less likely 2/2 infection - Positive orthostatic vital signs again this morning - cortisol was checked before - level appropriate - s/p Ropinirole, s/p Cinemet; s/p IV fluid - c/w Midodrine at 10 TID; c/w Fludrocortisone 0.1mg PO QD - Discussed with central supply - will order thigh high compression stockings 2. s/p HCAP - completed course of vancomycin and meropenem 3. Normocytic anemia - likely 2/2 RICH - c/w ferrous sulfate 4. Left femur fracture - s/p total left hip replacement - c/w rehabilitation 5. Thyroid mass - CT shows evidence of tracheal deviation - TSH elevated with low Free T3 and normal Free T4, total T3 low - Will need nuclear scan - ENT consulted (Dr. Modi) - appreciate their input - Will continue to workup as an outpatient 6. COPD - no evidence of exacerbation - c/w duonebs 7. Parkinson's disease - c/w home medications 8. History of AAA repair - c/w ASA and statin 9. Skin condition - on prednisone - will need outpatient follow up 10. GERD - c/w protonix 11. DVT prophylaxis - INR therapeutic today; s/p supra-therapeutic - c/w Coumadin at 4mg PO QD VS,Fishbone, I+O VS, Fishbone, I+O Laboratory Tests 06/20/16 05:21 Calcium Level 7.7 L, Red Blood Count 3.27 L, Mean Corpuscular Volume 90.5, Mean Corpuscular Hemoglobin 26.9 L, Mean Corpuscular Hemoglobin Concent 29.7 L, Red Cell Distribution Width 18.5 H Vital Signs Date Time Temp Pulse Resp B/P Pulse Ox O2 Delivery O2 Flow Rate FiO2 06/20/16 10:00 99.1 89 18 128/71 93 Room Air I&O- Last 24 Hours up to 6 AM 06/20/16 05:59 Intake Total 920 ml Output Total 1150 ml Balance -230 ml WANG SCHWAB MD Jun 20, 2016 13:14
[2016-06-20] MEDS: WARFARIN SOD 4 MG TAB PO SCH (16:54)
--- NOTE | 2016-06-20 17:16 | REP ---
Right lower extremity soft tissue ultrasound: Ultrasonography in the area of pain in the right gomez and calf is performed. Soft tissue edema is identified. There is no nodule, mass or cyst. Signed by Darin Mathur MD 06/20/2016 05:08 P
[2016-06-20] MEDS: PANTOPRAZOLE 40MG TAB (PROTONIX) PO SCH (21:03)
[2016-06-20] MEDS: SIMVASTATIN 40 MG TAB PO SCH (21:04)
[2016-06-20] MEDS: ASPIRIN 81 MG CHEW TABLET PO SCH (21:04)
[2016-06-20] MEDS: LATANOPROST 0.005% OPHTH SOLN 2.5 ML OD SCH (21:07)
[2016-06-21] MEDS: SODIUM CHLORIDE 0.9% INJ 10 ML SYR IV SCH ×2 (05:16→17:48)
[2016-06-21 05:25] LABS: MEAN CORPUSCULAR HEMOGLOBIN 27.1 pg (27.0-33.0); MEAN CORPUSCULAR HGB CONC 30.7 g/dl (32.0-36.5); MEAN CORPUSCULAR VOLUME 88.2 fl (80.0-96.0); RED CELL DISTRIBUTION WIDTH 17.3 % (11.5-14.5); WHITE BLOOD COUNT 8.3 K/mm3 (4.0-10.0)
[2016-06-21 05:31] LABS: INR 2.21
[2016-06-21 06:00] VITALS: BP_SYST 103; BP_SYST 144; BP_DIAS 61; BP_DIAS 83
[2016-06-21 06:17] LABS: ANION GAP 9 MEQ/L (8-16); BLOOD UREA NITROGEN 14 MG/DL (7-18); CALCIUM LEVEL 7.9 MG/DL (8.8-10.2); CARBON DIOXIDE LEVEL 24 MEQ/L (21-32); CHLORIDE LEVEL 112 MEQ/L (98-107); CREATININE FOR GFR 0.88 MG/DL (0.70-1.30); GLOMERULAR FILTRATION RATE > 60.0 (>35); GLUCOSE, FASTING 92 MG/DL (83-110); POTASSIUM SERUM 3.4 MEQ/L (3.5-5.1); SODIUM LEVEL 145 MEQ/L (136-145)
[2016-06-21] MEDS: IPRATROPIUM 0.5MG/ALBUTEROL 2.5MG INH SOL UD 3ML (DUONEB)(J7620) NEB SCH ×6 (07:16→23:04)
[2016-06-21] MEDS: MIRALAX *UNIT DOSE* 17GM PACKET PO SCH (09:00)
[2016-06-21] MEDS: DOCUSATE SODIUM 100 MG CAP PO SCH ×2 (09:00→20:52)
[2016-06-21] MEDS: OCUVITE 1 TAB PO SCH (09:31)
[2016-06-21] MEDS: MULTIVITAMINS/MINERALS THERAP 1 TAB PO SCH (09:31)
[2016-06-21] MEDS: MIDODRINE 5 MG TAB PO SCH ×3 (09:31→16:35)
[2016-06-21] MEDS: LACTOBACILLUS ACIDOPHILUS CAP (BACID) PO SCH ×3 (09:31→20:52)
[2016-06-21] MEDS: FERROUS GLUCONATE 324 MG TAB PO SCH ×3 (09:31→20:52)
[2016-06-21] MEDS: FLUDROCORTISONE ACETATE 0.1 MG TAB PO SCH (09:31)
[2016-06-21] MEDS: ACETAMINOPHEN TAB 650MG DOSE (2X325MG) PO PRN (09:37)
[2016-06-21 10:00] VITALS: BP 150/84
--- NOTE | 2016-06-21 11:19 | IPNPDOC ---
Text Note Date of Service The patient was seen on 06/21/16 at 11:18. NOTE Subjective: Patient is an 80 year old male with a PMHx of Parkinson's disease, AAA repair, COPD, bullous pemphigus who presented after a fall. He was found to have a transverse displaced fracture of the left femoral neck. He is s/p left total hip arthroplasty. He was at inpatient rehabilitation and developed HCAP pneumonia and orthostatic hypotension. Was transferred to medical floor for acute care. Patient was seen and examined at the bedside. Again he has no new complaints. Objective: Vitals (See below) General: Lying in bed, no acute distress, AAOx3 HEENT: NC, AT CVS: RRR, +S1S2 Lungs: Fair air entry b/l, - w/r/r Abdomen: Soft, ND, NT, +BSx4 Extremities: +PPx4, - edema, - calf tenderness Assessment and plan: 1. Orthostatic hypotension - likely 2/2 autonomic instability 2/2 Parkinson's, possibly 2/2 medication (Alpha estefany, Ropinirole), less likely 2/2 infection - Positive orthostatics - Cortisol was checked before - level appropriate - s/p Ropinirole, s/p Cinemet; s/p IV fluid - c/w Midodrine at 10 TID; c/w Fludrocortisone 0.1mg PO QD - Will again attempt to get compression stockings, if not will try NADIR wrapping 2. s/p HCAP - completed course of vancomycin and meropenem 3. Normocytic anemia - likely 2/2 RICH - c/w ferrous sulfate 4. Left femur fracture - s/p total left hip replacement - c/w rehabilitation 5. Thyroid mass - CT shows evidence of tracheal deviation - TSH elevated with low Free T3 and normal Free T4, total T3 low - Will need nuclear scan - ENT consulted (Dr. Modi) - appreciate their input - Will continue to workup as an outpatient 6. COPD - no evidence of exacerbation - c/w dustephani 7. Parkinson's disease - c/w home medications 8. History of AAA repair - c/w ASA and statin 9. Skin condition - on prednisone - will need outpatient follow up 10. GERD - c/w protonix 11. DVT prophylaxis - INR therapeutic today; s/p supra-therapeutic - c/w Coumadin at 4mg PO QD VS,Fishbone, I+O VS, Fishbone, I+O Laboratory Tests 06/21/16 05:00 Calcium Level 7.9 L, Red Blood Count 3.48 L, Mean Corpuscular Volume 88.2, Mean Corpuscular Hemoglobin 27.1, Mean Corpuscular Hemoglobin Concent 30.7 L, Red Cell Distribution Width 17.3 H Vital Signs Date Time Temp Pulse Resp B/P Pulse Ox O2 Delivery O2 Flow Rate FiO2 06/21/16 09:00 Room Air 06/21/16 08:00 18 06/21/16 06:00 99.3 89 144/83 93 I&O- Last 24 Hours up to 6 AM 06/21/16 06:00 Intake Total 700 ml Output Total 1825 ml Balance -1125 ml WANG SCHWAB MD Jun 21, 2016 11:19
[2016-06-21 12:00] VITALS: BP_SYST 101; BP_SYST 110; BP_SYST 140; BP_DIAS 62; BP_DIAS 66; BP_DIAS 80
[2016-06-21 14:00] VITALS: BP 131/81
[2016-06-21] MEDS: WARFARIN SOD 4 MG TAB PO SCH (16:34)
[2016-06-21 18:00] VITALS: BP 158/78
[2016-06-21] MEDS: PANTOPRAZOLE 40MG TAB (PROTONIX) PO SCH (20:52)
[2016-06-21] MEDS: ASPIRIN 81 MG CHEW TABLET PO SCH (20:52)
[2016-06-21] MEDS: SIMVASTATIN 40 MG TAB PO SCH (20:52)
[2016-06-21] MEDS: LATANOPROST 0.005% OPHTH SOLN 2.5 ML OD SCH (20:53)
[2016-06-21 22:00] VITALS: BP 142/82
[2016-06-22 02:00] VITALS: BP 147/81
[2016-06-22] MEDS: SODIUM CHLORIDE 0.9% INJ 10 ML SYR IV SCH ×2 (05:25→17:55)
[2016-06-22 05:44] LABS: MEAN CORPUSCULAR HEMOGLOBIN 27.1 pg (27.0-33.0); MEAN CORPUSCULAR HGB CONC 30.9 g/dl (32.0-36.5); MEAN CORPUSCULAR VOLUME 87.7 fl (80.0-96.0)
[2016-06-22 05:49] LABS: INR 2.45
[2016-06-22 06:00] VITALS: BP_SYST 142; BP_SYST 86; BP_SYST 92; BP_DIAS 47; BP_DIAS 60; BP_DIAS 81; BP_DIAS 82
[2016-06-22 06:03] LABS: ANION GAP 10 MEQ/L (8-16); BLOOD UREA NITROGEN 14 MG/DL (7-18); CALCIUM LEVEL 8.1 MG/DL (8.8-10.2); CARBON DIOXIDE LEVEL 25 MEQ/L (21-32); CHLORIDE LEVEL 112 MEQ/L (98-107); CREATININE FOR GFR 0.86 MG/DL (0.70-1.30); GLOMERULAR FILTRATION RATE > 60.0 (>35); GLUCOSE, FASTING 89 MG/DL (83-110); POTASSIUM SERUM 3.3 MEQ/L (3.5-5.1); SODIUM LEVEL 147 MEQ/L (136-145)
[2016-06-22] MEDS: IPRATROPIUM 0.5MG/ALBUTEROL 2.5MG INH SOL UD 3ML (DUONEB)(J7620) NEB SCH ×4 (07:12→19:37)
[2016-06-22] MEDS ORDERED: POTASSIUM CHLORIDE 10 MEQ SR TABLET PO ONE (08:45)
[2016-06-22] MEDS: MIRALAX *UNIT DOSE* 17GM PACKET PO SCH (09:09)
[2016-06-22] MEDS: MIDODRINE 5 MG TAB PO SCH ×3 (09:10→17:55)
[2016-06-22] MEDS: LACTOBACILLUS ACIDOPHILUS CAP (BACID) PO SCH ×3 (09:10→20:50)
[2016-06-22] MEDS: DOCUSATE SODIUM 100 MG CAP PO SCH ×2 (09:10→20:50)
[2016-06-22] MEDS: FLUDROCORTISONE ACETATE 0.1 MG TAB PO SCH (09:10)
[2016-06-22] MEDS: MULTIVITAMINS/MINERALS THERAP 1 TAB PO SCH (09:10)
[2016-06-22] MEDS: OCUVITE 1 TAB PO SCH (09:10)
[2016-06-22] MEDS: ACETAMINOPHEN TAB 650MG DOSE (2X325MG) PO PRN (09:11)
[2016-06-22] MEDS: FERROUS GLUCONATE 324 MG TAB PO SCH ×3 (09:11→20:50)
[2016-06-22 10:00] VITALS: BP 154/84
[2016-06-22] MEDS ORDERED: FLUDROCORTISONE ACETATE 0.1 MG TAB PO ONE (13:00)
[2016-06-22 14:00] VITALS: BP_SYST 106; BP_SYST 118; BP_SYST 171; BP_DIAS 56; BP_DIAS 70; BP_DIAS 96
--- NOTE | 2016-06-22 14:34 | IPNPDOC ---
Text Note Date of Service The patient was seen on 06/22/16 at 14:27. NOTE Subjective: No acute changes overnight. Pt denies any complaints. Objective: Vitals: (see below) General: No acute distress, laying comfortably in bed. HEENT: Moist mucous membranes. Healing bullous lesion on scalp Neck: No JVD or lymphadenopathy Cardiac: RRR, No murmurs Pulm: Coarse crackles and diminished breath sounds b/l. No wheezing, + rhonchi b /l Abd: NT/ND + BS Ext: Trace edema. No cyanosis. Healed bullous on LE. Distal pulses intact b/l. Chronic violaceous changes b/l feet. No bleeding at the surgical site. Labs (see below) Images: CXR 05/30/16 Impression: Left lower lobe consolidation and suspected moderate pleural effusion as well as a right lower lobe consolidation are identified. Associated pulmonary vascular congestion and interstitial edema cannot be excluded. Assessment/Plan 1. Orthostatic hypotension - This is likely 2/2 Parkinson's disease. On midodrine & florinef; discussed with Dr. De La Cruz with recommendations to increase midodrine to 15 TID and florinef to 0.2. EVELIN stockings. Orthostatics positive this am. Gentle IVF. 2. HCAP - CXR noted above with b/l PNA. Completed Abx. 3. Left femur fracture- status post mechanical fall. s/p left total hip arthroplasty by ortho. Will return to rehab when stable. 4. Thyroid mass -patient did have a CT of the neck today which shows that the mass is 6.4 cm. There is some tracheal deviation. No airway compromise. Appreciate ENT input. 5. COPD- stable; continue nebs 6. Parkinson's disease- cinemet/ropinirole were d/c on the - Spoke with Dr. Rolon who recommended restarting them to prevent worsening of parkinson's dx and dysphasia. 7. GERD- continue meds 8. History of AAA repair - continue aspirin and statin DVT prophylaxis- per orthopedics - On coumadin VS,Fishbone, I+O VS, Fishbone, I+O Laboratory Tests 06/22/16 05:31 Calcium Level 8.1 L, Red Blood Count 3.40 L, Mean Corpuscular Volume 87.7, Mean Corpuscular Hemoglobin 27.1, Mean Corpuscular Hemoglobin Concent 30.9 L, Red Cell Distribution Width 17.0 H Vital Signs Date Time Temp Pulse Resp B/P Pulse Ox O2 Delivery O2 Flow Rate FiO2 06/22/16 10:00 97.8 89 20 154/84 94 Room Air I&O- Last 24 Hours up to 6 AM 06/22/16 06:00 Intake Total 820 ml Output Total 1475 ml Balance -655 ml MONTSERRAT JAIN MD Jun 22, 2016 14:34
[2016-06-22] MEDS: SINEMET 25-100 MG TAB PO SCH ×2 (16:12→20:50)
[2016-06-22] MEDS: rOPINIRole 1MG TAB PO SCH ×2 (16:12→20:50)
[2016-06-22] MEDS: WARFARIN SOD 4 MG TAB PO SCH (16:12)
[2016-06-22 18:00] VITALS: BP 146/84
[2016-06-22] MEDS: PANTOPRAZOLE 40MG TAB (PROTONIX) PO SCH (20:50)
[2016-06-22] MEDS: SIMVASTATIN 40 MG TAB PO SCH (20:50)
[2016-06-22] MEDS: ASPIRIN 81 MG CHEW TABLET PO SCH (20:50)
[2016-06-22] MEDS: LATANOPROST 0.005% OPHTH SOLN 2.5 ML OD SCH (20:51)
[2016-06-22 22:00] VITALS: BP 164/84
[2016-06-23 02:00] VITALS: BP 148/84
[2016-06-23] MEDS: IPRATROPIUM 0.5MG/ALBUTEROL 2.5MG INH SOL UD 3ML (DUONEB)(J7620) NEB SCH ×7 (03:27→22:37)
[2016-06-23] MEDS: SODIUM CHLORIDE 0.9% INJ 10 ML SYR IV SCH ×2 (05:18→17:50)
[2016-06-23 05:49] LABS: INR 2.84
[2016-06-23 06:00] VITALS: BP_SYST 133; BP_SYST 138; BP_DIAS 68; BP_DIAS 76
[2016-06-23 06:04] LABS: MEAN CORPUSCULAR HEMOGLOBIN 26.7 pg (27.0-33.0); MEAN CORPUSCULAR HGB CONC 30.8 g/dl (32.0-36.5); MEAN CORPUSCULAR VOLUME 86.9 fl (80.0-96.0); RED CELL DISTRIBUTION WIDTH 16.8 % (11.5-14.5); WHITE BLOOD COUNT 7.9 K/mm3 (4.0-10.0)
[2016-06-23 06:10] LABS: ANION GAP 9 MEQ/L (8-16); BLOOD UREA NITROGEN 14 MG/DL (7-18); CALCIUM LEVEL 8.1 MG/DL (8.8-10.2); CARBON DIOXIDE LEVEL 25 MEQ/L (21-32); CHLORIDE LEVEL 113 MEQ/L (98-107); GLOMERULAR FILTRATION RATE > 60.0 (>35); GLUCOSE, FASTING 84 MG/DL (83-110); POTASSIUM SERUM 3.4 MEQ/L (3.5-5.1); SODIUM LEVEL 147 MEQ/L (136-145)
[2016-06-23] MEDS: ACETAMINOPHEN TAB 650MG DOSE (2X325MG) PO PRN (06:10)
[2016-06-23] MEDS: LACTOBACILLUS ACIDOPHILUS CAP (BACID) PO SCH ×3 (08:20→20:02)
[2016-06-23] MEDS: OCUVITE 1 TAB PO SCH (08:20)
[2016-06-23] MEDS: SINEMET 25-100 MG TAB PO SCH ×3 (08:21→20:02)
[2016-06-23] MEDS: MIDODRINE 5 MG TAB PO SCH ×3 (08:21→16:39)
[2016-06-23] MEDS: DOCUSATE SODIUM 100 MG CAP PO SCH ×2 (08:21→20:02)
[2016-06-23] MEDS: MIRALAX *UNIT DOSE* 17GM PACKET PO SCH (08:22)
[2016-06-23] MEDS: FERROUS GLUCONATE 324 MG TAB PO SCH ×3 (08:22→20:02)
[2016-06-23] MEDS: FLUDROCORTISONE ACETATE 0.1 MG TAB PO SCH (08:22)
[2016-06-23] MEDS: rOPINIRole 1MG TAB PO SCH ×3 (08:22→20:02)
[2016-06-23] MEDS: MULTIVITAMINS/MINERALS THERAP 1 TAB PO SCH (08:22)
[2016-06-23] MEDS ORDERED: POTASSIUM CHLORIDE 10 MEQ SR TABLET PO ONE (09:00)
[2016-06-23] MEDS ORDERED: D5W 1000 ML IV ONE (09:00)
[2016-06-23 14:00] VITALS: BP_SYST 142; BP_SYST 54; BP_SYST 88; BP_DIAS 40; BP_DIAS 58; BP_DIAS 72
--- NOTE | 2016-06-23 14:26 | IPNPDOC ---
Text Note Date of Service The patient was seen on 06/23/16 at 14:24. NOTE Subjective: No acute changes overnight. Still orthostatic. Objective: Vitals: (see below) General: No acute distress, laying comfortably in bed. HEENT: Moist mucous membranes. Healing bullous lesion on scalp Neck: No JVD or lymphadenopathy Cardiac: RRR, No murmurs Pulm: Coarse crackles and diminished breath sounds b/l. No wheezing, + rhonchi b /l Abd: NT/ND + BS Ext: Trace edema. No cyanosis. Healed bullous on LE. Distal pulses intact b/l. Chronic violaceous changes b/l feet. No bleeding at the surgical site. Labs (see below) Images: CXR 05/30/16 Impression: Left lower lobe consolidation and suspected moderate pleural effusion as well as a right lower lobe consolidation are identified. Associated pulmonary vascular congestion and interstitial edema cannot be excluded. Assessment/Plan 1. Orthostatic hypotension - This is likely 2/2 Parkinson's disease. On midodrine & florinef; discussed with Dr. De La Cruz with recommendations to increase midodrine to 15 TID and florinef to 0.2. EVELIN stockings. Orthostatics positive still this am. 2. HCAP - CXR noted above with b/l PNA. Completed Abx. 3. Left femur fracture- status post mechanical fall. s/p left total hip arthroplasty by ortho. Will return to rehab when stable. 4. Thyroid mass -patient did have a CT of the neck today which shows that the mass is 6.4 cm. There is some tracheal deviation. No airway compromise. Appreciate ENT input. 5. COPD- stable; continue nebs 6. Parkinson's disease- cinemet/ropinirole were d/c on the - Spoke with Dr. Rolon who recommended restarting them to prevent worsening of parkinson's dx and dysphasia. 7. GERD- continue meds 8. History of AAA repair - continue aspirin and statin DVT prophylaxis- per orthopedics - On coumadin VS,Fishbone, I+O VS, Fishbone, I+O Laboratory Tests 06/23/16 05:26 Calcium Level 8.1 L, Red Blood Count 3.37 L, Mean Corpuscular Volume 86.9, Mean Corpuscular Hemoglobin 26.7 L, Mean Corpuscular Hemoglobin Concent 30.8 L, Red Cell Distribution Width 16.8 H Vital Signs Date Time Temp Pulse Resp B/P Pulse Ox O2 Delivery O2 Flow Rate FiO2 06/23/16 09:00 Room Air 06/23/16 06:00 75 138/76 84 133/68 06/23/16 06:00 96.8 18 92 I&O- Last 24 Hours up to 6 AM 06/23/16 06:00 Intake Total 0 ml Output Total 750 ml Balance -750 ml MONTSERRAT JAIN MD Jun 23, 2016 14:26
[2016-06-23] MEDS: WARFARIN SOD 4 MG TAB PO SCH (16:39)
[2016-06-23 18:00] VITALS: BP 184/80
[2016-06-23] MEDS: ASPIRIN 81 MG CHEW TABLET PO SCH (20:02)
[2016-06-23] MEDS: LATANOPROST 0.005% OPHTH SOLN 2.5 ML OD SCH (20:02)
[2016-06-23] MEDS: SIMVASTATIN 40 MG TAB PO SCH (20:02)
[2016-06-23] MEDS: PANTOPRAZOLE 40MG TAB (PROTONIX) PO SCH (20:02)
--- NOTE | 2016-06-23 20:51 | ECHO ---
DATE OF PROCEDURE: 06/23/2016 REFERRING PHYSICIAN: Nathanael iHghtower MD PATIENT LOCATION: Room 4202 REASON FOR ECHOCARDIOGRAM: Hypotension. 2D MEASUREMENTS: IVS: 0.96 cm LV: 4.1 cm LVPW: 1.0 cm LA: 3.4 cm Aorta root: 3.4 cm IVC: 1.3 cm DOPPLER MEASUREMENTS: Peak velocity across the aortic valve: 1.3 m/s Peak velocity across the LVOT: 0.73 m/s Mitral E: 0.88, Mitral A: 1.1, with a ratio of 0.8 Maximum tricuspid valve velocity: 2.9 m/s 2D COMMENTS: 1. Technically limited study due to poor acoustic window. 2. The left ventricular size is normal with a normal left ventricular wall thickness and a normal global left ventricular systolic function. The left ventricular systolic ejection fraction is estimated at 60 to 65%. 2. Normal left atrium. Normal right atrium and right ventricle. 3. The atrial septum appeared to be normal without evidence of defect or shunt. 4. Normal aortic root. 5. No pericardial effusion seen. 6. Mildly calcified aortic valve with normal leaflet excursion. Mildly calcified mitral annulus with normal anterior mitral valve leaflet motion. Normal tricuspid valve. The pulmonic valve and proximal pulmonary artery branches were not well visualized. 7. The inferior vena cava appears to be normal in size in limited views. DOPPLER: It detects mild aortic regurgitation, mild mitral regurgitation, and mild tricuspid regurgitation. The calculated pulmonary artery systolic pressure varies between 40 to 50 mmHg. Abnormal relaxation pattern was noted across the mitral valve leaflets as well as the mitral valve annulus consistent with a delayed relaxation. IMPRESSION: 1. Normal global left ventricular systolic function. There are features of left ventricular diastolic dysfunction, grade 1. 2. Aortic valve sclerosis with mild aortic regurgitation, but no aortic stenosis. 3. Mitral annulus calcification with mild mitral regurgitation. 4. Mild tricuspid regurgitation with probably moderate pulmonary hypertension. 5. Possible left pleural effusion noted in limited views. 6. This study was technically mildly limited due to poor acoustic window. [facility]
[2016-06-23 22:00] VITALS: BP 134/75
[2016-06-24 02:00] VITALS: BP 133/78
[2016-06-24] MEDS: ACETAMINOPHEN TAB 650MG DOSE (2X325MG) PO PRN ×3 (05:17→23:23)
[2016-06-24] MEDS: SODIUM CHLORIDE 0.9% INJ 10 ML SYR IV SCH ×2 (05:26→17:52)
[2016-06-24 06:00] VITALS: BP 111/67
[2016-06-24 06:03] LABS: MEAN CORPUSCULAR HEMOGLOBIN 26.2 pg (27.0-33.0); MEAN CORPUSCULAR HGB CONC 29.4 g/dl (32.0-36.5); MEAN CORPUSCULAR VOLUME 89.2 fl (80.0-96.0); RED CELL DISTRIBUTION WIDTH 17.8 % (11.5-14.5); WHITE BLOOD COUNT 8.9 K/mm3 (4.0-10.0)
[2016-06-24 06:04] LABS: INR 3.91
[2016-06-24 06:05] LABS: ANION GAP 8 MEQ/L (8-16); BLOOD UREA NITROGEN 14 MG/DL (7-18); CALCIUM LEVEL 8.3 MG/DL (8.8-10.2); CARBON DIOXIDE LEVEL 26 MEQ/L (21-32); CHLORIDE LEVEL 111 MEQ/L (98-107); GLOMERULAR FILTRATION RATE > 60.0 (>35); GLUCOSE, FASTING 107 MG/DL (83-110); POTASSIUM SERUM 3.3 MEQ/L (3.5-5.1); SODIUM LEVEL 145 MEQ/L (136-145)
[2016-06-24] MEDS: IPRATROPIUM 0.5MG/ALBUTEROL 2.5MG INH SOL UD 3ML (DUONEB)(J7620) NEB SCH ×6 (07:02→22:54)
[2016-06-24] MEDS: LACTOBACILLUS ACIDOPHILUS CAP (BACID) PO SCH ×3 (08:54→20:07)
[2016-06-24] MEDS: MIRALAX *UNIT DOSE* 17GM PACKET PO SCH (08:54)
[2016-06-24] MEDS: SINEMET 25-100 MG TAB PO SCH ×3 (08:54→20:07)
[2016-06-24] MEDS: MULTIVITAMINS/MINERALS THERAP 1 TAB PO SCH (08:54)
[2016-06-24] MEDS: FLUDROCORTISONE ACETATE 0.1 MG TAB PO SCH (08:54)
[2016-06-24] MEDS: DOCUSATE SODIUM 100 MG CAP PO SCH ×2 (08:55→20:07)
[2016-06-24] MEDS: OCUVITE 1 TAB PO SCH (08:55)
[2016-06-24] MEDS: FERROUS GLUCONATE 324 MG TAB PO SCH ×3 (08:55→20:07)
[2016-06-24] MEDS: rOPINIRole 1MG TAB PO SCH ×3 (08:55→20:07)
[2016-06-24] MEDS: MIDODRINE 5 MG TAB PO SCH ×3 (08:55→16:44)
[2016-06-24] MEDS ORDERED: POTASSIUM CHLORIDE 10 MEQ SR TABLET PO ONE (09:00)
[2016-06-24 14:00] VITALS: BP_SYST 110; BP_SYST 157; BP_SYST 92; BP_DIAS 58; BP_DIAS 70; BP_DIAS 90
--- NOTE | 2016-06-24 14:01 | IPNPDOC ---
Text Note Date of Service The patient was seen on 06/24/16 at 13:59. NOTE Subjective: No acute changes overnight. Still orthostatic. 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 Objective: Vitals: (see below) General: No acute distress, laying comfortably in bed. HEENT: Moist mucous membranes. Healing bullous lesion on scalp Neck: No JVD or lymphadenopathy Cardiac: RRR, No murmurs Pulm: Coarse crackles and diminished breath sounds b/l. No wheezing, + rhonchi b /l Abd: NT/ND + BS Ext: Trace edema. No cyanosis. Healed bullous on LE. Distal pulses intact b/l. Chronic violaceous changes b/l feet. No bleeding at the surgical site. Labs (see below) Images: CXR 05/30/16 Impression: Left lower lobe consolidation and suspected moderate pleural effusion as well as a right lower lobe consolidation are identified. Associated pulmonary vascular congestion and interstitial edema cannot be excluded. Assessment/Plan 1. Orthostatic hypotension - This is likely 2/2 Parkinson's disease. On midodrine & florinef; discussed with Dr. De La Cruz with recommendations to increase midodrine to 15 TID and florinef to 0.2. EVELIN stockings. Discuss with Dr. De La Cruz and Dr. Rolon, we will decrease the dose of ropinirole. Continue the patient's Sinemet. 2. HCAP - CXR noted above with b/l PNA. Completed Abx. 3. Left femur fracture- status post mechanical fall. s/p left total hip arthroplasty by ortho. Will return to rehab when stable. 4. Thyroid mass -patient did have a CT of the neck today which shows that the mass is 6.4 cm. There is some tracheal deviation. No airway compromise. Appreciate ENT input. 5. COPD- stable; continue nebs 6. Parkinson's disease- cinemet/ropinirole were d/c on the - Spoke with Dr. Rolon who recommended restarting them to prevent worsening of parkinson's dx and dysphasia. 7. GERD- continue meds 8. History of AAA repair - continue aspirin and statin DVT prophylaxis- per orthopedics - On coumadin Will likely need correction placement and hospice eval. VS,Fishbone, I+O VS, Fishbone, I+O Laboratory Tests 06/24/16 05:34 Calcium Level 8.3 L, Red Blood Count 3.57 L, Mean Corpuscular Volume 89.2, Mean Corpuscular Hemoglobin 26.2 L, Mean Corpuscular Hemoglobin Concent 29.4 L, Red Cell Distribution Width 17.8 H Vital Signs Date Time Temp Pulse Resp B/P Pulse Ox O2 Delivery O2 Flow Rate FiO2 06/24/16 09:00 Room Air 06/24/16 06:00 97.8 73 16 111/67 94 I&O- Last 24 Hours up to 6 AM 06/24/16 05:59 Intake Total 800 ml Output Total 825 ml Balance -25 ml MONTSERRAT JAIN MD Jun 24, 2016 14:01
[2016-06-24] MEDS: PANTOPRAZOLE 40MG TAB (PROTONIX) PO SCH (20:07)
[2016-06-24] MEDS: ASPIRIN 81 MG CHEW TABLET PO SCH (20:07)
[2016-06-24] MEDS: SIMVASTATIN 40 MG TAB PO SCH (20:07)
[2016-06-24] MEDS: LATANOPROST 0.005% OPHTH SOLN 2.5 ML OD SCH (20:07)
[2016-06-24 20:15] VITALS: BP 134/85
[2016-06-25 02:00] VITALS: BP 107/57
[2016-06-25] MEDS: SODIUM CHLORIDE 0.9% INJ 10 ML SYR IV SCH ×2 (05:27→17:01)
[2016-06-25 06:02] LABS: MEAN CORPUSCULAR HEMOGLOBIN 26.1 pg (27.0-33.0); MEAN CORPUSCULAR HGB CONC 30.3 g/dl (32.0-36.5); MEAN CORPUSCULAR VOLUME 86.3 fl (80.0-96.0); RED CELL DISTRIBUTION WIDTH 17.8 % (11.5-14.5); WHITE BLOOD COUNT 9.1 K/mm3 (4.0-10.0)
[2016-06-25 06:10] LABS: INR 3.55
[2016-06-25 06:18] LABS: ANION GAP 9 MEQ/L (8-16); BLOOD UREA NITROGEN 14 MG/DL (7-18); CALCIUM LEVEL 8.4 MG/DL (8.8-10.2); CARBON DIOXIDE LEVEL 26 MEQ/L (21-32); CHLORIDE LEVEL 109 MEQ/L (98-107); CREATININE FOR GFR 0.96 MG/DL (0.70-1.30); GLOMERULAR FILTRATION RATE > 60.0 (>35); GLUCOSE, FASTING 84 MG/DL (83-110); POTASSIUM SERUM 3.5 MEQ/L (3.5-5.1); SODIUM LEVEL 144 MEQ/L (136-145)
[2016-06-25 06:40] VITALS: BP 119/74
[2016-06-25] MEDS: IPRATROPIUM 0.5MG/ALBUTEROL 2.5MG INH SOL UD 3ML (DUONEB)(J7620) NEB SCH ×4 (07:15→19:29)
[2016-06-25] MEDS: LACTOBACILLUS ACIDOPHILUS CAP (BACID) PO SCH ×3 (08:03→20:28)
[2016-06-25] MEDS: DOCUSATE SODIUM 100 MG CAP PO SCH ×2 (08:03→20:28)
[2016-06-25] MEDS: MULTIVITAMINS/MINERALS THERAP 1 TAB PO SCH (08:03)
[2016-06-25] MEDS: FERROUS GLUCONATE 324 MG TAB PO SCH ×3 (08:03→20:27)
[2016-06-25] MEDS: SINEMET 25-100 MG TAB PO SCH ×3 (08:04→20:27)
[2016-06-25] MEDS: rOPINIRole 1MG TAB PO SCH ×3 (08:04→20:28)
[2016-06-25] MEDS: FLUDROCORTISONE ACETATE 0.1 MG TAB PO SCH (08:04)
[2016-06-25] MEDS: OCUVITE 1 TAB PO SCH (08:04)
[2016-06-25] MEDS: MIDODRINE 5 MG TAB PO SCH ×3 (08:05→17:01)
[2016-06-25] MEDS: ACETAMINOPHEN TAB 650MG DOSE (2X325MG) PO PRN ×2 (08:05→14:58)
[2016-06-25] MEDS: MIRALAX *UNIT DOSE* 17GM PACKET PO SCH (08:05)
[2016-06-25 10:00] VITALS: BP 137/81
[2016-06-25 14:00] VITALS: BP_SYST 156; BP_SYST 97; BP_DIAS 55; BP_DIAS 76
[2016-06-25] MEDS ORDERED: WARFARIN SOD 3 MG TAB PO SCH (17:00)
--- NOTE | 2016-06-25 17:05 | IPNPDOC ---
Text Note Date of Service The patient was seen on 06/25/16 at 17:04. NOTE Subjective: No acute changes overnight. Still orthostatic. Objective: Vitals: (see below) General: No acute distress, laying comfortably in bed. HEENT: Moist mucous membranes. Healing bullous lesion on scalp Neck: No JVD or lymphadenopathy Cardiac: RRR, No murmurs Pulm: Coarse crackles and diminished breath sounds b/l. No wheezing, + rhonchi b /l Abd: NT/ND + BS Ext: Trace edema. No cyanosis. Healed bullous on LE. Distal pulses intact b/l. Chronic violaceous changes b/l feet. No bleeding at the surgical site. Labs (see below) Images: CXR 05/30/16 Impression: Left lower lobe consolidation and suspected moderate pleural effusion as well as a right lower lobe consolidation are identified. Associated pulmonary vascular congestion and interstitial edema cannot be excluded. Assessment/Plan 1. Orthostatic hypotension - This is likely 2/2 Parkinson's disease. On midodrine & florinef; discussed with Dr. De La Cruz with recommendations to increase midodrine to 15 TID and florinef to 0.2. EVELIN stockings. Discuss with Dr. De La Cruz and Dr. Rolon, we will decrease the dose of ropinirole. Continue the patient's Sinemet. 2. HCAP - CXR noted above with b/l PNA. Completed Abx. 3. Left femur fracture- status post mechanical fall. s/p left total hip arthroplasty by ortho. Will return to rehab when stable. 4. Thyroid mass -patient did have a CT of the neck today which shows that the mass is 6.4 cm. There is some tracheal deviation. No airway compromise. Appreciate ENT input. 5. COPD- stable; continue nebs 6. Parkinson's disease- cinemet/ropinirole were d/c on the - Spoke with Dr. Rolon who recommended restarting them to prevent worsening of parkinson's dx and dysphasia. 7. GERD- continue meds 8. History of AAA repair - continue aspirin and statin DVT prophylaxis- per orthopedics - On coumadin Will likely need half-way placement and hospice eval. Case management on board. Family understands that this is likely a progression of the patient's parkinson's and orthostatic vitals may not improve. VS,Fishbone, I+O VS, Fishbone, I+O Laboratory Tests 06/25/16 05:23 Calcium Level 8.4 L, Red Blood Count 3.73 L, Mean Corpuscular Volume 86.3, Mean Corpuscular Hemoglobin 26.1 L, Mean Corpuscular Hemoglobin Concent 30.3 L, Red Cell Distribution Width 17.8 H Vital Signs Date Time Temp Pulse Resp B/P Pulse Ox O2 Delivery O2 Flow Rate FiO2 06/25/16 14:00 97.1 83 18 156/76 96 Room Air I&O- Last 24 Hours up to 6 AM 06/25/16 06:00 Intake Total 720 ml Output Total 1375 ml Balance -655 ml MONTSERRAT JAIN MD Jun 25, 2016 17:05
[2016-06-25 18:00] VITALS: BP 124/70
[2016-06-25] MEDS: SIMVASTATIN 40 MG TAB PO SCH (20:27)
[2016-06-25] MEDS: PANTOPRAZOLE 40MG TAB (PROTONIX) PO SCH (20:27)
[2016-06-25] MEDS: ASPIRIN 81 MG CHEW TABLET PO SCH (20:28)
[2016-06-25] MEDS: LATANOPROST 0.005% OPHTH SOLN 2.5 ML OD SCH (20:29)
[2016-06-25 20:40] VITALS: BP 133/79
[2016-06-26] VITALS (8 sets, daily range): BP systolic 83–135; BP diastolic 52–78; O2SAT 96
[2016-06-26] MEDS: IPRATROPIUM 0.5MG/ALBUTEROL 2.5MG INH SOL UD 3ML (DUONEB)(J7620) NEB SCH ×6 (04:00→19:37)
[2016-06-26] MEDS: SODIUM CHLORIDE 0.9% INJ 10 ML SYR IV SCH ×2 (05:51→18:08)
[2016-06-26 06:16] LABS: MEAN CORPUSCULAR HEMOGLOBIN 25.6 pg (27.0-33.0); MEAN CORPUSCULAR HGB CONC 29.7 g/dl (32.0-36.5); MEAN CORPUSCULAR VOLUME 86.3 fl (80.0-96.0); RED CELL DISTRIBUTION WIDTH 17.7 % (11.5-14.5); WHITE BLOOD COUNT 9.9 K/mm3 (4.0-10.0)
[2016-06-26 06:19] LABS: INR 3.36
[2016-06-26 07:09] LABS: ANION GAP 9 MEQ/L (8-16); BLOOD UREA NITROGEN 15 MG/DL (7-18); CALCIUM LEVEL 8.2 MG/DL (8.8-10.2); CARBON DIOXIDE LEVEL 27 MEQ/L (21-32); CHLORIDE LEVEL 110 MEQ/L (98-107); CREATININE FOR GFR 0.92 MG/DL (0.70-1.30); GLOMERULAR FILTRATION RATE > 60.0 (>35); GLUCOSE, FASTING 94 MG/DL (83-110); POTASSIUM SERUM 3.7 MEQ/L (3.5-5.1); SODIUM LEVEL 146 MEQ/L (136-145)
[2016-06-26] MEDS: MIDODRINE 5 MG TAB PO SCH ×3 (08:51→18:07)
[2016-06-26] MEDS: ACETAMINOPHEN TAB 650MG DOSE (2X325MG) PO PRN (08:51)
[2016-06-26] MEDS: LACTOBACILLUS ACIDOPHILUS CAP (BACID) PO SCH ×3 (09:49→20:27)
[2016-06-26] MEDS: SINEMET 25-100 MG TAB PO SCH ×3 (09:49→20:27)
[2016-06-26] MEDS: OCUVITE 1 TAB PO SCH (09:50)
[2016-06-26] MEDS: MULTIVITAMINS/MINERALS THERAP 1 TAB PO SCH (09:50)
[2016-06-26] MEDS: rOPINIRole 1MG TAB PO SCH ×3 (09:51→20:27)
[2016-06-26] MEDS: DOCUSATE SODIUM 100 MG CAP PO SCH ×2 (09:51→20:27)
[2016-06-26] MEDS: MIRALAX *UNIT DOSE* 17GM PACKET PO SCH (09:51)
[2016-06-26] MEDS: FERROUS GLUCONATE 324 MG TAB PO SCH ×3 (09:51→20:27)
[2016-06-26] MEDS: FLUDROCORTISONE ACETATE 0.1 MG TAB PO SCH (09:58)
--- NOTE | 2016-06-26 14:12 | IPNPDOC ---
Text Note Date of Service The patient was seen on 06/26/16 at 14:12. NOTE Subjective: No acute changes overnight. Still orthostatic. and pt considering senior living placement. Objective: Vitals: (see below) General: No acute distress, laying comfortably in bed. HEENT: Moist mucous membranes. Healing bullous lesion on scalp Neck: No JVD or lymphadenopathy Cardiac: RRR, No murmurs Pulm: Coarse crackles and diminished breath sounds b/l. No wheezing, + rhonchi b /l Abd: NT/ND + BS Ext: Trace edema. No cyanosis. Healed bullous on LE. Distal pulses intact b/l. Chronic violaceous changes b/l feet. No bleeding at the surgical site. Labs (see below) Images: CXR 05/30/16 Impression: Left lower lobe consolidation and suspected moderate pleural effusion as well as a right lower lobe consolidation are identified. Associated pulmonary vascular congestion and interstitial edema cannot be excluded. Assessment/Plan 1. Orthostatic hypotension - This is likely 2/2 Parkinson's disease. On midodrine & florinef; discussed with Dr. De La Cruz with recommendations to increase midodrine to 15 TID and florinef to 0.2. EVELIN stockings. Discuss with Dr. De La Cruz and Dr. Rolon, we will decrease the dose of ropinirole. Continue the patient's Sinemet. 2. HCAP - CXR noted above with b/l PNA. Completed Abx. 3. Left femur fracture- status post mechanical fall. s/p left total hip arthroplasty by ortho. Will return to rehab when stable. 4. Thyroid mass -patient did have a CT of the neck today which shows that the mass is 6.4 cm. There is some tracheal deviation. No airway compromise. Appreciate ENT input. 5. COPD- stable; continue nebs 6. Parkinson's disease- cinemet/ropinirole were d/c on the - Spoke with Dr. Rolon who recommended restarting them to prevent worsening of parkinson's dx and dysphasia. 7. GERD- continue meds 8. History of AAA repair - continue aspirin and statin DVT prophylaxis- per orthopedics - On coumadin Will likely need senior living placement and hospice eval. Case management on board. Family understands that this is likely a progression of the patient's parkinson's and orthostatic vitals may not improve. Pending placement. VS,Fishbone, I+O VS, Fishbone, I+O Laboratory Tests 06/26/16 05:50 Calcium Level 8.2 L, Red Blood Count 3.81 L, Mean Corpuscular Volume 86.3, Mean Corpuscular Hemoglobin 25.6 L, Mean Corpuscular Hemoglobin Concent 29.7 L, Red Cell Distribution Width 17.7 H Vital Signs Date Time Temp Pulse Resp B/P Pulse Ox O2 Delivery O2 Flow Rate FiO2 06/26/16 12:25 89 108/68 92 86/53 06/26/16 09:00 Room Air 06/26/16 08:00 96.8 18 91 06/25/16 09:00 1.0 I&O- Last 24 Hours up to 6 AM 06/26/16 06:00 Intake Total 300 ml Output Total 450 ml Balance -150 ml MONTSERRAT JAIN MD Jun 26, 2016 14:12
[2016-06-26] MEDS ORDERED: WARFARIN SOD 3 MG TAB PO SCH (17:00)
[2016-06-26] MEDS: ASPIRIN 81 MG CHEW TABLET PO SCH (20:27)
[2016-06-26] MEDS: PANTOPRAZOLE 40MG TAB (PROTONIX) PO SCH (20:28)
[2016-06-26] MEDS: LATANOPROST 0.005% OPHTH SOLN 2.5 ML OD SCH (20:28)
[2016-06-26] MEDS: SIMVASTATIN 40 MG TAB PO SCH (20:28)
[2016-06-27] MEDS: IPRATROPIUM 0.5MG/ALBUTEROL 2.5MG INH SOL UD 3ML (DUONEB)(J7620) NEB SCH ×6 (03:45→19:30)
[2016-06-27] MEDS: SODIUM CHLORIDE 0.9% INJ 10 ML SYR IV SCH ×2 (05:58→17:40)
[2016-06-27 06:00] VITALS: BP 119/61
[2016-06-27 06:22] LABS: INR 2.67
[2016-06-27 06:24] LABS: MEAN CORPUSCULAR HEMOGLOBIN 25.7 pg (27.0-33.0); MEAN CORPUSCULAR VOLUME 85.5 fl (80.0-96.0); RED CELL DISTRIBUTION WIDTH 17.6 % (11.5-14.5); WHITE BLOOD COUNT 10.8 K/mm3 (4.0-10.0)
[2016-06-27 06:42] LABS: ANION GAP 10 MEQ/L (8-16); BLOOD UREA NITROGEN 16 MG/DL (7-18); CALCIUM LEVEL 8.3 MG/DL (8.8-10.2); CARBON DIOXIDE LEVEL 27 MEQ/L (21-32); CHLORIDE LEVEL 110 MEQ/L (98-107); CREATININE FOR GFR 0.89 MG/DL (0.70-1.30); GLOMERULAR FILTRATION RATE > 60.0 (>35); GLUCOSE, FASTING 98 MG/DL (83-110); POTASSIUM SERUM 3.4 MEQ/L (3.5-5.1); SODIUM LEVEL 147 MEQ/L (136-145)
[2016-06-27] MEDS ORDERED: D5W 1,000 ML IV SCH (07:30)
[2016-06-27] MEDS ORDERED: POTASSIUM CHLORIDE 10 MEQ SR TABLET PO ONE (08:00)
[2016-06-27] MEDS: DOCUSATE SODIUM 100 MG CAP PO SCH ×2 (08:35→20:59)
[2016-06-27] MEDS: MULTIVITAMINS/MINERALS THERAP 1 TAB PO SCH (08:35)
[2016-06-27] MEDS: LACTOBACILLUS ACIDOPHILUS CAP (BACID) PO SCH ×3 (08:35→20:59)
[2016-06-27] MEDS: MIDODRINE 5 MG TAB PO SCH ×3 (08:35→17:40)
[2016-06-27] MEDS: OCUVITE 1 TAB PO SCH (08:35)
[2016-06-27] MEDS: MIRALAX *UNIT DOSE* 17GM PACKET PO SCH (08:35)
[2016-06-27] MEDS: rOPINIRole 1MG TAB PO SCH ×3 (08:36→20:58)
[2016-06-27] MEDS: FLUDROCORTISONE ACETATE 0.1 MG TAB PO SCH (08:36)
[2016-06-27] MEDS: SINEMET 25-100 MG TAB PO SCH ×3 (08:37→20:58)
[2016-06-27] MEDS: FERROUS GLUCONATE 324 MG TAB PO SCH ×3 (08:37→20:58)
[2016-06-27 10:00] VITALS: BP 108/72
--- NOTE | 2016-06-27 11:09 | IPNPDOC ---
Text Note Date of Service The patient was seen on 06/27/16 at 11:06. NOTE Subjective: Patient denies chest pain/shortness of breath. Still orthostatic. and pt considering long term placement. Objective: Vitals: (see below) General: No acute distress, laying comfortably in bed. HEENT: Moist mucous membranes. Healing bullous lesion on scalp Neck: No JVD or lymphadenopathy Cardiac: RRR, No murmurs Pulm: Coarse crackles and diminished breath sounds b/l. No wheezing, + rhonchi b /l Abd: NT/ND + BS Ext: No edema. No cyanosis. Healed bullous on LE. Distal pulses intact b/l. Chronic violaceous changes b/l feet. No bleeding at the surgical site. Labs (see below) Images: CXR 05/30/16 Impression: Left lower lobe consolidation and suspected moderate pleural effusion as well as a right lower lobe consolidation are identified. Associated pulmonary vascular congestion and interstitial edema cannot be excluded. Assessment/Plan 1. Orthostatic hypotension - This is likely 2/2 Parkinson's disease. On midodrine & florinef; discussed with Dr. De La Cruz with recommendations to increase midodrine to 15 TID. Florinef to be increased to 0.3. EVELIN stockings. Discuss with Dr. De La Cruz and Dr. Rolon, we will decrease the dose of ropinirole. Continue the patient's Sinemet. 2. HCAP - CXR noted above with b/l PNA. Completed Abx. 3. Left femur fracture- status post mechanical fall. s/p left total hip arthroplasty by ortho. Will return to rehab when stable. 4. Thyroid mass -patient did have a CT of the neck today which shows that the mass is 6.4 cm. There is some tracheal deviation. No airway compromise. Appreciate ENT input. 5. COPD- stable; continue nebs 6. Parkinson's disease- cinemet/ropinirole were d/c on the - Spoke with Dr. Rolon who recommended restarting them to prevent worsening of parkinson's dx and dysphasia. 7. GERD- continue meds 8. History of AAA repair - continue aspirin and statin DVT prophylaxis- per orthopedics - On coumadin Will likely need long term placement and hospice eval. Case management on board. Family understands that this is likely a progression of the patient's parkinson's and orthostatic vitals may not improve. Pending placement. VS,Fishbone, I+O VS, Fishbone, I+O Laboratory Tests 06/27/16 06:00 Calcium Level 8.3 L, Red Blood Count 3.78 L, Mean Corpuscular Volume 85.5, Mean Corpuscular Hemoglobin 25.7 L, Mean Corpuscular Hemoglobin Concent 30.0 L, Red Cell Distribution Width 17.6 H Vital Signs Date Time Temp Pulse Resp B/P Pulse Ox O2 Delivery O2 Flow Rate FiO2 06/27/16 10:00 96.8 79 18 108/72 95 Room Air 06/25/16 09:00 1.0 I&O- Last 24 Hours up to 6 AM 06/27/16 05:59 Intake Total 880 ml Output Total 850 ml Balance 30 ml Current Medications Current Medications Medications (Trade) Dose Ordered Sig/Isamar Route PRN Reason Start Time Stop Time Status Last Admin Dose Admin Acetaminophen 650 mg 650 mg Q4HP PRN PO MILD PAIN OR FEVER 06/07/16 17:45 07/07/16 17:44 06/26/16 08:51 Albuterol/ Ipratropium (Duoneb (Ipr 0.5mg/Alb 2.5mg)) 3 ml Q2HP PRN NEB SOB/WHEEZING 06/07/16 18:00 07/07/16 17:59 Albuterol/ Ipratropium (Duoneb (Ipr 0.5mg/Alb 2.5mg)) 3 ml RQ4H NEB 06/08/16 00:00 07/08/16 00:00 06/27/16 07:11 Ascorbic Acid (Vitamin C) 500 mg TID PO 06/08/16 09:00 06/19/16 16:19 DC 06/19/16 09:09 Aspirin (Aspirin Chewable) 81 mg QPM PO 06/08/16 21:00 07/08/16 20:59 06/26/16 20:27 Benzonatate (Tessalon Perles) 100 mg TID PO 06/08/16 09:00 06/19/16 16:19 DC 06/19/16 09:10 Calcium Carbonate (Tums) 1,000 mg Q4HP PRN PO HEARTBURN 06/07/16 18:00 07/07/16 17:59 Carbidopa/Levodopa (Sinemet 25/100) 1 tab TID PO 06/08/16 09:00 06/18/16 12:01 DC 06/18/16 08:54 Carbidopa/Levodopa (Sinemet 25/100) 1 tab TID PO 06/22/16 16:00 07/22/16 15:59 06/27/16 08:37 Dextrose/Water (Dextrose 5%) 1,000 ml @ 80 mls/hr [id number] IV 06/27/16 07:30 06/27/16 19:59 06/27/16 08:34 Docusate Sodium (Colace) 100 mg BID PO 06/08/16 09:00 07/08/16 08:59 06/27/16 08:35 Ferrous Gluconate (Fergon) 324 mg TID PO 06/08/16 09:00 07/08/16 08:59 06/27/16 08:37 Fludrocortisone Acetate (Florinef) 0.1 mg DAILY PO 06/17/16 09:00 06/22/16 12:21 DC 06/22/16 09:10 Fludrocortisone Acetate (Florinef) 0.2 mg DAILY PO 06/23/16 09:00 06/27/16 07:16 DC 06/26/16 09:58 Fludrocortisone Acetate (Florinef) 0.3 mg DAILY PO 06/27/16 09:00 07/27/16 08:59 06/27/16 08:36 Gabapentin (Neurontin) 200 mg TID PO 06/08/16 09:00 06/19/16 16:19 DC 06/19/16 09:10 Heparin Sodium (Heparin (Flush)) 200 units ASDIRECTED PRN IV SEE LABEL COMMENTS 06/08/16 04:15 07/08/16 04:14 06/15/16 15:21 Heparin Sodium (Heparin (Flush)) 200 units PICC IV 06/08/16 06:00 07/08/16 05:59 06/27/16 05:58 Lactobacillus Acidophilus (Bacid) 1 ea TID PO 06/08/16 09:00 07/08/16 08:59 06/27/16 08:35 Latanoprost (Xalatan 0.005% Op Soln) 1 drop QHS OD 06/08/16 21:00 07/08/16 20:59 06/26/16 20:28 Meropenem 1 gm/ Dextrose 100 ml @ 200 mls/hr Q8H IV 06/08/16 00:00 06/09/16 14:00 DC 06/09/16 07:51 Midodrine (Proamatine) 2.5 mg TID@08,12,16 PO 06/09/16 08:00 06/11/16 09:56 DC 06/10/16 16:13 Midodrine (Proamatine) 5 mg , PO 06/11/16 08:00 06/15/16 09:53 DC 06/15/16 09:42 Midodrine (Proamatine) 10 mg AC PO 06/16/16 17:30 06/22/16 12:21 DC 06/22/16 09:10 Midodrine (Proamatine) 15 mg AC PO 06/22/16 12:00 07/22/16 11:59 06/27/16 08:35 Midodrine 7.5 mg 7.5 mg BID@,16 PO 06/15/16 16:00 06/16/16 13:50 DC 06/16/16 09:57 Multivitamins (Ocuvite(I-Marcos)) 1 tab DAILY PO 06/08/16 09:00 07/08/16 08:59 06/27/16 08:35 Multivitamins (Theragram-M) 1 tab DAILY PO 06/08/16 09:00 07/08/16 08:59 06/27/16 08:35 Oxycodone/ Acetaminophen (Percocet 5mg/ 325mg Tablet) 1 tab Q4HP PRN PO MILD/MODERATE PAIN (PS 1-7) 06/07/16 18:00 06/13/16 11:09 DC Pantoprazole Sodium (Protonix) 40 mg QHS PO 06/08/16 21:00 07/08/16 20:59 06/26/16 20:28 Polyethylene Glycol (Miralax) 1 pkt DAILY PO 06/08/16 09:00 07/08/16 08:59 06/27/16 08:35 Prednisone (Deltasone) 10 mg DAILY PO 06/08/16 09:00 06/14/16 08:12 DC 06/13/16 09:57 Ropinirole HCl (Requip) 1 mg TID PO 06/24/16 16:00 07/24/16 15:59 06/27/16 08:36 Ropinirole HCl (Requip) 2 mg TID PO 06/08/16 09:00 06/15/16 11:32 DC 06/15/16 09:47 Ropinirole HCl (Requip) 2 mg TID PO 06/22/16 16:00 06/24/16 13:24 DC 06/24/16 08:55 Simvastatin (Zocor) 40 mg QPM PO 06/08/16 21:00 07/08/16 20:59 06/26/16 20:28 Sodium Chloride (Nacl 0.9%) 1,000 ml @ 50 mls/hr Q20H IV 06/16/16 12:00 06/16/16 14:24 DC Sodium Chloride (Nacl 0.9%) 1,000 ml @ 75 mls/hr [id number] IV 06/07/16 18:00 06/09/16 14:00 DC 06/09/16 05:14 Sodium Chloride (Nacl 0.9%) 1,000 ml @ 80 mls/hr [id number] IV 06/14/16 08:15 06/15/16 15:13 DC 06/15/16 09:46 Sodium Chloride (Nacl 0.9%) 1,000 ml @ 80 mls/hr [id number] IV 06/07/16 17:41 06/07/16 23:26 DC Sodium Chloride (Saline Lock Flush) 10 ml ASDIRECTED PRN IV SEE LABEL COMMENTS 06/08/16 04:30 07/08/16 04:29 06/15/16 15:21 Sodium Chloride (Saline Lock Flush) 10 ml PICC IV 06/08/16 06:00 07/08/16 05:59 06/27/16 05:58 Vancomycin HCl 1000 mg/IV Miscellaneous Supplies 1 each/ Dextrose 270 ml @ 270 mls/hr Q24H IV 06/08/16 09:00 06/09/16 14:00 DC 06/09/16 09:03 Warfarin Sodium (Coumadin) 3 mg DAILY@17 PO 06/25/16 17:00 06/25/16 17:00 DC Warfarin Sodium (Coumadin) 3 mg DAILY@17 PO 06/26/16 17:00 06/26/16 17:00 DC Warfarin Sodium (Coumadin) 4 mg DAILY@17 PO 06/20/16 17:00 06/24/16 08:48 DC 06/23/16 16:39 Warfarin Sodium (Coumadin) 5 mg DAILY@17 PO 06/09/16 17:00 06/10/16 07:28 DC 06/09/16 16:43 Warfarin Sodium (Coumadin) 5 mg DAILY@17 PO 06/11/16 17:00 06/11/16 17:00 DC Warfarin Sodium (Coumadin) 5 mg DAILY@17 PO 06/12/16 17:00 06/13/16 08:54 DC 06/12/16 16:59 Warfarin Sodium (Coumadin) 7.5 mg DAILY@17 PO 06/08/16 17:00 06/09/16 15:28 DC 06/08/16 16:41 Warfarin Sodium 7.5 mg 7.5 mg DAILY@17 PO 06/13/16 17:00 06/16/16 12:04 DC 06/15/16 16:09 Warfarin Sodium 3 mg 3 mg DAILY@17 PO 06/27/16 17:00 07/04/16 16:59 Allergies Coded Allergies: No Known Allergies (Verified , 05/05/08) MONTSERRAT JAIN MD Jun 27, 2016 11:09
[2016-06-27 13:10] VITALS: BP_SYST 132; BP_SYST 84; BP_SYST 91; BP_DIAS 53; BP_DIAS 56; BP_DIAS 79
[2016-06-27] MEDS: WARFARIN SOD 3 MG TAB PO SCH (16:28)
[2016-06-27] MEDS: PANTOPRAZOLE 40MG TAB (PROTONIX) PO SCH (20:58)
[2016-06-27] MEDS: SIMVASTATIN 40 MG TAB PO SCH (20:58)
[2016-06-27] MEDS: LATANOPROST 0.005% OPHTH SOLN 2.5 ML OD SCH (20:59)
[2016-06-27] MEDS: ASPIRIN 81 MG CHEW TABLET PO SCH (20:59)
[2016-06-27] MEDS: SODIUM CHLORIDE 0.9% INJ 10 ML SYR IV PRN (21:00)
[2016-06-27 22:00] VITALS: BP 152/87
[2016-06-28 02:00] VITALS: BP 126/67
[2016-06-28] MEDS: IPRATROPIUM 0.5MG/ALBUTEROL 2.5MG INH SOL UD 3ML (DUONEB)(J7620) NEB SCH ×7 (04:00→23:41)
[2016-06-28 06:00] VITALS: BP 114/70
[2016-06-28] MEDS: SODIUM CHLORIDE 0.9% INJ 10 ML SYR IV SCH ×2 (06:03→17:28)
[2016-06-28 06:24] LABS: MEAN CORPUSCULAR HEMOGLOBIN 25.8 pg (27.0-33.0); MEAN CORPUSCULAR HGB CONC 30.3 g/dl (32.0-36.5); MEAN CORPUSCULAR VOLUME 85.1 fl (80.0-96.0); RED CELL DISTRIBUTION WIDTH 17.5 % (11.5-14.5); WHITE BLOOD COUNT 10.6 K/mm3 (4.0-10.0)
[2016-06-28 06:33] LABS: INR 2.33
[2016-06-28 06:37] LABS: ANION GAP 8 MEQ/L (8-16); BLOOD UREA NITROGEN 14 MG/DL (7-18); CALCIUM LEVEL 8.2 MG/DL (8.8-10.2); CARBON DIOXIDE LEVEL 27 MEQ/L (21-32); CHLORIDE LEVEL 108 MEQ/L (98-107); CREATININE FOR GFR 0.91 MG/DL (0.70-1.30); GLOMERULAR FILTRATION RATE > 60.0 (>35); GLUCOSE, FASTING 86 MG/DL (83-110); POTASSIUM SERUM 3.8 MEQ/L (3.5-5.1); SODIUM LEVEL 143 MEQ/L (136-145)
[2016-06-28] MEDS: OCUVITE 1 TAB PO SCH (09:11)
[2016-06-28] MEDS: DOCUSATE SODIUM 100 MG CAP PO SCH ×2 (09:11→21:41)
[2016-06-28] MEDS: rOPINIRole 1MG TAB PO SCH ×3 (09:11→21:41)
[2016-06-28] MEDS: SINEMET 25-100 MG TAB PO SCH ×3 (09:11→21:41)
[2016-06-28] MEDS: FERROUS GLUCONATE 324 MG TAB PO SCH ×3 (09:11→21:41)
[2016-06-28] MEDS: LACTOBACILLUS ACIDOPHILUS CAP (BACID) PO SCH ×3 (09:11→21:41)
[2016-06-28] MEDS: MULTIVITAMINS/MINERALS THERAP 1 TAB PO SCH (09:11)
[2016-06-28] MEDS: MIDODRINE 5 MG TAB PO SCH ×3 (09:11→17:28)
[2016-06-28] MEDS: MIRALAX *UNIT DOSE* 17GM PACKET PO SCH (09:12)
[2016-06-28] MEDS: FLUDROCORTISONE ACETATE 0.1 MG TAB PO SCH (09:12)
[2016-06-28 10:00] VITALS: BP 143/81
[2016-06-28] MEDS: ACETAMINOPHEN TAB 650MG DOSE (2X325MG) PO PRN ×2 (13:20→21:47)
--- NOTE | 2016-06-28 13:47 | IPNPDOC ---
Text Note Date of Service The patient was seen on 06/28/16 at 13:45. NOTE Subjective: Patient states he feels well. Still orthostatic. is currently filling out paperwork for group home placement. Objective: Vitals: (see below) General: No acute distress, laying comfortably in bed. HEENT: Moist mucous membranes. Healing bullous lesion on scalp Neck: No JVD or lymphadenopathy Cardiac: RRR, No murmurs Pulm: Coarse crackles and diminished breath sounds b/l. No wheezing, + rhonchi b /l Abd: NT/ND + BS Ext: No edema. No cyanosis. Healed bullous on LE. Distal pulses intact b/l. Chronic violaceous changes b/l feet. No bleeding at the surgical site. Labs (see below) Images: CXR 05/30/16 Impression: Left lower lobe consolidation and suspected moderate pleural effusion as well as a right lower lobe consolidation are identified. Associated pulmonary vascular congestion and interstitial edema cannot be excluded. Assessment/Plan 1. Orthostatic hypotension - This is likely 2/2 Parkinson's disease. On midodrine & florinef; discussed with Dr. De La Cruz with recommendations to increase midodrine to 15 TID. Florinef 0.3. EVELIN stockings. Discuss with Dr. De La Cruz and Dr. Rolon, we will decrease the dose of ropinirole. Continue the patient's Sinemet. 2. HCAP - CXR noted above with b/l PNA. Completed Abx. 3. Left femur fracture- status post mechanical fall. s/p left total hip arthroplasty by ortho. Will return to rehab when stable. 4. Thyroid mass -patient did have a CT of the neck today which shows that the mass is 6.4 cm. There is some tracheal deviation. No airway compromise. Appreciate ENT input. 5. COPD- stable; continue nebs 6. Parkinson's disease- cinemet/ropinirole were d/c on the - Spoke with Dr. Rolon who recommended restarting them to prevent worsening of parkinson's dx and dysphasia. 7. GERD- continue meds 8. History of AAA repair - continue aspirin and statin DVT prophylaxis- per orthopedics - On coumadin Will likely need group home placement and hospice eval. Case management on board. Family understands that this is likely a progression of the patient's parkinson's and orthostatic vitals may not improve. Pending placement. VS,Fishbone, I+O VS, Fishbone, I+O Laboratory Tests 06/28/16 06:08 Calcium Level 8.2 L, Red Blood Count 3.72 L, Mean Corpuscular Volume 85.1, Mean Corpuscular Hemoglobin 25.8 L, Mean Corpuscular Hemoglobin Concent 30.3 L, Red Cell Distribution Width 17.5 H Vital Signs Date Time Temp Pulse Resp B/P Pulse Ox O2 Delivery O2 Flow Rate FiO2 06/28/16 10:00 98.2 91 18 143/81 94 Room Air 06/25/16 09:00 1.0 I&O- Last 24 Hours up to 6 AM 06/28/16 06:00 Intake Total 1240 ml Output Total 550 ml Balance 690 ml MONTSERRAT JAIN MD Jun 28, 2016 13:47
[2016-06-28 14:00] VITALS: BP 162/80
[2016-06-28] MEDS: WARFARIN SOD 3 MG TAB PO SCH (16:21)
[2016-06-28 18:00] VITALS: BP 133/76
[2016-06-28] MEDS: PANTOPRAZOLE 40MG TAB (PROTONIX) PO SCH (21:41)
[2016-06-28] MEDS: ASPIRIN 81 MG CHEW TABLET PO SCH (21:41)
[2016-06-28] MEDS: SIMVASTATIN 40 MG TAB PO SCH (21:41)
[2016-06-28] MEDS: LATANOPROST 0.005% OPHTH SOLN 2.5 ML OD SCH (21:42)
[2016-06-28 22:00] VITALS: BP 117/67
[2016-06-29 02:00] VITALS: BP 118/64
[2016-06-29] MEDS: IPRATROPIUM 0.5MG/ALBUTEROL 2.5MG INH SOL UD 3ML (DUONEB)(J7620) NEB SCH ×6 (04:00→23:41)
[2016-06-29] MEDS: SODIUM CHLORIDE 0.9% INJ 10 ML SYR IV SCH ×2 (05:33→16:48)
[2016-06-29] MEDS: CAPSAICIN 0.025% CR 60 GM TOP PRN ×2 (05:34→20:23)
[2016-06-29 06:00] VITALS: BP 134/74
[2016-06-29 06:13] LABS: MEAN CORPUSCULAR HEMOGLOBIN 25.7 pg (27.0-33.0); MEAN CORPUSCULAR HGB CONC 29.8 g/dl (32.0-36.5); MEAN CORPUSCULAR VOLUME 86.3 fl (80.0-96.0); RED CELL DISTRIBUTION WIDTH 17.4 % (11.5-14.5); WHITE BLOOD COUNT 11.5 K/mm3 (4.0-10.0)
[2016-06-29 06:14] LABS: INR 2.95
[2016-06-29 06:18] LABS: ANION GAP 8 MEQ/L (8-16); BLOOD UREA NITROGEN 15 MG/DL (7-18); CALCIUM LEVEL 8.3 MG/DL (8.8-10.2); CARBON DIOXIDE LEVEL 27 MEQ/L (21-32); CHLORIDE LEVEL 109 MEQ/L (98-107); CREATININE FOR GFR 0.94 MG/DL (0.70-1.30); GLOMERULAR FILTRATION RATE > 60.0 (>35); GLUCOSE, FASTING 84 MG/DL (83-110); POTASSIUM SERUM 3.5 MEQ/L (3.5-5.1); SODIUM LEVEL 144 MEQ/L (136-145)
[2016-06-29] MEDS: MIDODRINE 5 MG TAB PO SCH ×3 (08:15→16:48)
[2016-06-29] MEDS: DOCUSATE SODIUM 100 MG CAP PO SCH ×2 (08:16→20:23)
[2016-06-29] MEDS: LACTOBACILLUS ACIDOPHILUS CAP (BACID) PO SCH ×3 (08:16→20:23)
[2016-06-29] MEDS: FERROUS GLUCONATE 324 MG TAB PO SCH ×3 (08:16→20:22)
[2016-06-29] MEDS: OCUVITE 1 TAB PO SCH (08:17)
[2016-06-29] MEDS: FLUDROCORTISONE ACETATE 0.1 MG TAB PO SCH (08:17)
[2016-06-29] MEDS: MIRALAX *UNIT DOSE* 17GM PACKET PO SCH (08:17)
[2016-06-29] MEDS: SINEMET 25-100 MG TAB PO SCH ×3 (08:17→20:23)
[2016-06-29] MEDS: rOPINIRole 1MG TAB PO SCH ×3 (08:17→20:23)
[2016-06-29] MEDS: MULTIVITAMINS/MINERALS THERAP 1 TAB PO SCH (08:18)
--- NOTE | 2016-06-29 12:40 | IPN ---
DATE: 06/29/2016 Mr. Bowles has no complaints today. He does get weak. If he sits up and changes position, he feels like he might pass out. His is at bedside. Says that she is awaiting a [facility] bed for him and understands that he has end-stage Parkinson's. Temperature is 97.4, pulse 80, respiratory rate 17, blood pressure 134/74, 93% on room air. Input and output notable for a negative fluid balance of -285. Weight is 58.6 kg with a Body Mass Index (BMI) of 18. He is awake, appropriately interactive. Mucous membranes are moist. Neck is supple. Breathing is symmetrical and rested. Heart is distant sounding. Abdomen is soft, doughy, nontender, scaphoid. White cell count 11.5, hemoglobin 9.7, platelets of 416. BUN 15, creatinine 0.94, INR is 2.95. 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 PLAN: 1. Neurologic: The patient is continued on Sinemet, midodrine, and Florinef. This is thought to be end stage Parkinson's disease. Continue with current care and pursue placement. 2. The patient was treated for healthcare associated pneumonia. Completed a course of antibiotics. 3. The patient has left femur fracture, status post mechanical fall, status post left total hip arthroplasty. 4. The patient has thyroid mass. 5. The patient has chronic obstructive pulmonary disease (COPD). 6. The patient has Parkinson's. 7. The patient has gastroesophageal reflux disease (GERD). 8. The patient has a history of AAA repair. 9. This patient was discussed at multidisciplinary rounds.
[2016-06-29 14:00] VITALS: BP 129/71
[2016-06-29] MEDS: WARFARIN SOD 3 MG TAB PO SCH (16:48)
[2016-06-29] MEDS: PANTOPRAZOLE 40MG TAB (PROTONIX) PO SCH (20:23)
[2016-06-29] MEDS: ASPIRIN 81 MG CHEW TABLET PO SCH (20:23)
[2016-06-29] MEDS: LATANOPROST 0.005% OPHTH SOLN 2.5 ML OD SCH (20:23)
[2016-06-29] MEDS: SIMVASTATIN 40 MG TAB PO SCH (20:23)
[2016-06-29] MEDS: ACETAMINOPHEN TAB 650MG DOSE (2X325MG) PO PRN (20:24)
[2016-06-29 22:00] VITALS: BP 163/82
[2016-06-30] MEDS: SODIUM CHLORIDE 0.9% INJ 10 ML SYR IV SCH ×2 (05:35→16:55)
[2016-06-30 06:00] VITALS: BP 127/74
[2016-06-30] MEDS: IPRATROPIUM 0.5MG/ALBUTEROL 2.5MG INH SOL UD 3ML (DUONEB)(J7620) NEB SCH ×5 (07:55→23:46)
[2016-06-30] MEDS: MIRALAX *UNIT DOSE* 17GM PACKET PO SCH (09:42)
[2016-06-30] MEDS: LACTOBACILLUS ACIDOPHILUS CAP (BACID) PO SCH ×3 (09:42→20:21)
[2016-06-30] MEDS: OCUVITE 1 TAB PO SCH (09:42)
[2016-06-30] MEDS: MULTIVITAMINS/MINERALS THERAP 1 TAB PO SCH (09:43)
[2016-06-30] MEDS: SINEMET 25-100 MG TAB PO SCH ×3 (09:43→20:21)
[2016-06-30] MEDS: MIDODRINE 5 MG TAB PO SCH ×3 (09:43→16:54)
[2016-06-30] MEDS: FERROUS GLUCONATE 324 MG TAB PO SCH ×3 (09:43→20:22)
[2016-06-30] MEDS: FLUDROCORTISONE ACETATE 0.1 MG TAB PO SCH (09:43)
[2016-06-30] MEDS: rOPINIRole 1MG TAB PO SCH ×3 (09:43→20:22)
[2016-06-30] MEDS: DOCUSATE SODIUM 100 MG CAP PO SCH ×2 (09:43→20:22)
[2016-06-30] MEDS: ACETAMINOPHEN TAB 650MG DOSE (2X325MG) PO PRN (09:44)
[2016-06-30 14:00] VITALS: BP 136/75
--- NOTE | 2016-06-30 14:27 | IPN ---
DATE: 06/30/2016 Mr. Bowles is comfortable without complaint. He is frustrated at being in the hospital. He is tolerating a diet. No chest pain. No shortness of breath. Temperature 97.2, pulse 83, respiratory rate 19, blood pressure 127/74 and 92% on room air. He is awake. Breathing is symmetrical, rested. Heart is distant sounding. Abdomen soft, doughy and nontender. No labs for me to review today. ASSESSMENT: This is an 80-year-old with orthostatic hypotension thought to be secondary to Parkinson's disease at its end stage. PLAN: 1. Neurologic. Patient is continued on Sinemet, midodrine and Florinef. This is thought to be end stage Parkinson's disease. Continue with current care in the hospital and pursuing shelter care and placement. 2. The patient was treated for health care associated pneumonia. He has completed a course of antibiotics. 3. The patient had a left femur fracture status post mechanical fall, status post left total hip arthroplasty. 4. The patient has a thyroid mass. 5. The patient has chronic obstructive pulmonary disease. 6. The patient has Parkinson's. 7. The patient has gastroesophageal reflux disease. 8. The patient was discussed again at multidisciplinary rounds.
[2016-06-30 17:28] LABS: INR 3.02
[2016-06-30] MEDS: WARFARIN SOD 3 MG TAB PO SCH (17:45)
[2016-06-30] MEDS: ASPIRIN 81 MG CHEW TABLET PO SCH (20:22)
[2016-06-30] MEDS: PANTOPRAZOLE 40MG TAB (PROTONIX) PO SCH (20:22)
[2016-06-30] MEDS: SIMVASTATIN 40 MG TAB PO SCH (20:22)
[2016-06-30] MEDS: LATANOPROST 0.005% OPHTH SOLN 2.5 ML OD SCH (20:22)
[2016-06-30 22:00] VITALS: BP 153/86
[2016-07-01] MEDS: IPRATROPIUM 0.5MG/ALBUTEROL 2.5MG INH SOL UD 3ML (DUONEB)(J7620) NEB SCH ×5 (03:10→19:42)
[2016-07-01] MEDS: SODIUM CHLORIDE 0.9% INJ 10 ML SYR IV SCH ×2 (05:06→16:55)
[2016-07-01 05:26] LABS: INR 2.82
[2016-07-01 06:00] VITALS: BP 128/73
[2016-07-01] MEDS: MIDODRINE 5 MG TAB PO SCH ×3 (08:55→16:54)
[2016-07-01] MEDS: FERROUS GLUCONATE 324 MG TAB PO SCH ×3 (08:56→21:14)
[2016-07-01] MEDS: SINEMET 25-100 MG TAB PO SCH ×3 (08:56→21:14)
[2016-07-01] MEDS: rOPINIRole 1MG TAB PO SCH ×3 (08:56→21:14)
[2016-07-01] MEDS: DOCUSATE SODIUM 100 MG CAP PO SCH ×2 (08:56→21:14)
[2016-07-01] MEDS: MULTIVITAMINS/MINERALS THERAP 1 TAB PO SCH (08:56)
[2016-07-01] MEDS: FLUDROCORTISONE ACETATE 0.1 MG TAB PO SCH (08:56)
[2016-07-01] MEDS: OCUVITE 1 TAB PO SCH (08:57)
[2016-07-01] MEDS: MIRALAX *UNIT DOSE* 17GM PACKET PO SCH (08:57)
[2016-07-01] MEDS: LACTOBACILLUS ACIDOPHILUS CAP (BACID) PO SCH ×3 (08:57→21:13)
[2016-07-01] MEDS: SODIUM CHLORIDE 0.9% INJ 10 ML SYR IV PRN (09:26)
[2016-07-01] MEDS ORDERED: CIPROFLOXACIN 0.3% OPHTH SOLN 2.5ML OU SCH (13:00)
[2016-07-01 14:00] VITALS: BP 136/66
--- NOTE | 2016-07-01 14:35 | REP ---
Chest single AP view: Comparisons are 06/05/2016 and 02/19/2050. There is effacement of the left costophrenic angle, unchanged from 06/05/2016, compatible with a small left pleural effusion. The right costophrenic angle is mildly effaced compatible with a tiny right pleural effusion as an interval change. Right upper extremity PICC line is again over the tip in the superior vena cava, unchanged. There is chronic interstitial coarsening compatible with fibrosis. Cardiac size is normal. 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 Bilateral chronic shoulder impingement is noted, unchanged. Signed by Darin Mathur MD 07/01/2016 02:27 P
[2016-07-01] MEDS: WARFARIN SOD 3 MG TAB PO SCH (16:54)
[2016-07-01] MEDS: CIPROFLOXACIN 0.3% OPHTH SOLN 2.5ML OU SCH ×2 (16:55→21:14)
--- NOTE | 2016-07-01 17:32 | IPN ---
DATE: 06/07/2016 Mr. Agosto has a new complaint of cough today, said the cough was disturbing his sleep, it was dry and nonproductive, not associated with chest pain, not particularly short of breath. Temperature 97.9, pulse 87, respiratory rate 17, blood pressure 128/73, 93% on room air. Intake and output notable for a negative fluid balance of -250, one bowel movement thus far today. He is awake, appropriately interactive, pleasantly conversant. There is an intermittent cough. He is speaking in complete sentences, no accessory muscle use. Breathing is symmetrical and rested, I:E ratio is 1:3. No wheezes, rales, or rhonchi. Heart is in a regular rate and rhythm. Abdomen soft, doughy, nontender. There is bilateral conjunctival injection noted with some mucoid discharge at both eyes. White cell count 11.5, hemoglobin 9.7, platelets 416, INR 2.8, BUN 15, creatinine 0.94. Respiratory panel is reported as negative. Chest xray shows superior mediastinal mass which is unchanged. My assessment is as follows: This is an 80-year-old with orthostatic hypotension thought to be related to Parkinson's disease at its end stage. Plan is as follows: 1. Neurologic. Patient is on Sinemet, midodrine, and Florinef and is planned for long-term care and placement. 2. The patient had been treated for healthcare-associated pneumonia. He has a cough today. He has completed a course of antibiotics. There is no finding on the chest xray. He is not producing sputum. He is afebrile, although white cell count is trending upward. We have sent blood cultures. We will monitor him clinically. No signs of pneumonia at this point. 3. The patient has left femur fracture status post mechanical fall status post left total hip arthroplasty. 4. The patient has known thyroid mass. 5. The patient has chronic obstructive pulmonary disease (COPD). 6. The patient has Parkinson's. 7. The patient has gastroesophageal reflux disease (GERD). 8. The patient has conjunctival irritation and likely viral upper respiratory tract infection. Will give Cipro drops for his eye findings.
[2016-07-01 21:05] VITALS: BP 122/73
[2016-07-01] MEDS: ASPIRIN 81 MG CHEW TABLET PO SCH (21:14)
[2016-07-01] MEDS: PANTOPRAZOLE 40MG TAB (PROTONIX) PO SCH (21:14)
[2016-07-01] MEDS: LATANOPROST 0.005% OPHTH SOLN 2.5 ML OD SCH (21:14)
[2016-07-01] MEDS: SIMVASTATIN 40 MG TAB PO SCH (21:14)
[2016-07-02] MEDS: CIPROFLOXACIN 0.3% OPHTH SOLN 2.5ML OU SCH ×6 (01:03→21:02)
[2016-07-02] MEDS: IPRATROPIUM 0.5MG/ALBUTEROL 2.5MG INH SOL UD 3ML (DUONEB)(J7620) NEB SCH ×7 (03:01→23:12)
[2016-07-02 05:00] VITALS: BP 150/79
[2016-07-02] MEDS: SODIUM CHLORIDE 0.9% INJ 10 ML SYR IV SCH (05:07)
[2016-07-02 05:22] LABS: MEAN CORPUSCULAR HEMOGLOBIN 26.2 pg (27.0-33.0); MEAN CORPUSCULAR HGB CONC 30.2 g/dl (32.0-36.5); MEAN CORPUSCULAR VOLUME 86.6 fl (80.0-96.0); RED CELL DISTRIBUTION WIDTH 15.9 % (11.5-14.5); WHITE BLOOD COUNT 9.9 K/mm3 (4.0-10.0)
[2016-07-02 05:29] LABS: INR 2.87
[2016-07-02 05:40] LABS: ANION GAP 10 MEQ/L (8-16); BLOOD UREA NITROGEN 15 MG/DL (7-18); CALCIUM LEVEL 8.3 MG/DL (8.8-10.2); CARBON DIOXIDE LEVEL 28 MEQ/L (21-32); CHLORIDE LEVEL 108 MEQ/L (98-107); CREATININE FOR GFR 0.87 MG/DL (0.70-1.30); GLOMERULAR FILTRATION RATE > 60.0 (>35); GLUCOSE, FASTING 99 MG/DL (83-110); POTASSIUM SERUM 3.2 MEQ/L (3.5-5.1); SODIUM LEVEL 146 MEQ/L (136-145)
[2016-07-02] MEDS: MIDODRINE 5 MG TAB PO SCH ×3 (08:29→16:03)
[2016-07-02] MEDS ORDERED: POTASSIUM CHLORIDE 10% LIQ 20 MEQ/15 ML UDC PO ONE (09:45)
[2016-07-02] MEDS: DOCUSATE SODIUM 100 MG CAP PO SCH ×2 (09:49→21:00)
[2016-07-02] MEDS: FLUDROCORTISONE ACETATE 0.1 MG TAB PO SCH (09:49)
[2016-07-02] MEDS: rOPINIRole 1MG TAB PO SCH ×3 (09:49→21:00)
[2016-07-02] MEDS: MIRALAX *UNIT DOSE* 17GM PACKET PO SCH (09:49)
[2016-07-02] MEDS: MULTIVITAMINS/MINERALS THERAP 1 TAB PO SCH (09:49)
[2016-07-02] MEDS: FERROUS GLUCONATE 324 MG TAB PO SCH ×3 (09:49→21:00)
[2016-07-02] MEDS: SINEMET 25-100 MG TAB PO SCH ×3 (09:49→21:00)
[2016-07-02] MEDS: OCUVITE 1 TAB PO SCH (09:50)
[2016-07-02] MEDS: LACTOBACILLUS ACIDOPHILUS CAP (BACID) PO SCH ×3 (09:50→21:00)
[2016-07-02 10:05] LABS: MAGNESIUM LEVEL 2.3 MG/DL (1.8-2.4)
[2016-07-02] MEDS ORDERED: POTASSIUM CHLORIDE 10 MEQ SR TABLET PO ONE (11:15)
[2016-07-02 14:00] VITALS: BP 136/74
[2016-07-02] MEDS: WARFARIN SOD 3 MG TAB PO SCH (16:03)
[2016-07-02] MEDS: ASPIRIN 81 MG CHEW TABLET PO SCH (21:00)
[2016-07-02] MEDS: SIMVASTATIN 40 MG TAB PO SCH (21:00)
[2016-07-02] MEDS: PANTOPRAZOLE 40MG TAB (PROTONIX) PO SCH (21:00)
[2016-07-02] MEDS: LATANOPROST 0.005% OPHTH SOLN 2.5 ML OD SCH (21:01)
[2016-07-02] MEDS: ACETAMINOPHEN TAB 650MG DOSE (2X325MG) PO PRN (21:01)
[2016-07-02 22:00] VITALS: BP 159/85
[2016-07-03] MEDS: CIPROFLOXACIN 0.3% OPHTH SOLN 2.5ML OU SCH ×6 (01:20→21:31)
[2016-07-03] MEDS: IPRATROPIUM 0.5MG/ALBUTEROL 2.5MG INH SOL UD 3ML (DUONEB)(J7620) NEB SCH ×6 (04:00→23:15)
[2016-07-03 06:00] VITALS: BP 124/69
[2016-07-03] MEDS: SINEMET 25-100 MG TAB PO SCH ×3 (08:03→21:30)
[2016-07-03] MEDS: rOPINIRole 1MG TAB PO SCH ×3 (08:03→21:30)
[2016-07-03] MEDS: DOCUSATE SODIUM 100 MG CAP PO SCH ×2 (08:03→21:30)
[2016-07-03] MEDS: MULTIVITAMINS/MINERALS THERAP 1 TAB PO SCH (08:03)
[2016-07-03] MEDS: MIRALAX *UNIT DOSE* 17GM PACKET PO SCH (08:03)
[2016-07-03] MEDS: FERROUS GLUCONATE 324 MG TAB PO SCH ×3 (08:03→21:31)
[2016-07-03] MEDS: MIDODRINE 5 MG TAB PO SCH ×3 (08:04→16:05)
[2016-07-03] MEDS: FLUDROCORTISONE ACETATE 0.1 MG TAB PO SCH (08:04)
[2016-07-03] MEDS: LACTOBACILLUS ACIDOPHILUS CAP (BACID) PO SCH ×3 (08:04→21:30)
[2016-07-03] MEDS: ACETAMINOPHEN TAB 650MG DOSE (2X325MG) PO PRN ×2 (08:04→21:34)
[2016-07-03] MEDS: OCUVITE 1 TAB PO SCH (08:04)
[2016-07-03] MEDS: MUPIROCIN 2% OINT 22 GM TUBE TOP SCH ×2 (11:07→21:31)
--- NOTE | 2016-07-03 13:08 | IPN ---
DATE: 07/03/2016 Mr. Bowles is without complaint this morning. He is still frustrated at being in the hospital. Apparently, he has been scratching his head and has had some bleeding at the site. His eyes are no longer bothersome to him, but his cough has continued from two days ago, even though yesterday it seemed to have improved. Temperature 97.6, pulse 82, respiratory rate 19, blood pressure 124/69 and 92% on room air. Ins and outs notable for a negative fluid balance of -240, 2 bowel movements yesterday. He is awake. Somewhat flattened affect, but interactive. There is an area of excoriation on his head with no surrounding erythema. It is not particularly warm. Mucous membranes moist. Breathing is symmetrical, diminished throughout. Heart is in a regular rate and rhythm. White cell count 9.9, hemoglobin 10.1, sodium 146, potassium 3.2, carbon dioxide 28. ASSESSMENT: 80-year-old with orthostatic hypotension thought to be related to end stage Parkinson's disease. PLAN: 1. Neurologic. The patient is continued on Sinemet, midodrine and Florinef. Plan for penitentiary care placement. 2. Patient has an excoriation on his head. May benefit from Bactroban and a protective covering, which has been ordered. 3. Patient has been treated for health care associated pneumonia. He had a recent chest x-ray with no significant findings on recent x-ray or physical exam. Will monitor his cough clinically. 4. Patient has conjunctivitis which is believed to be related to the use of capsaicin which has been discontinued. Will continue with Cipro drops for now. 5. Patient has known thyroid mass. 6. Patient has chronic obstructive pulmonary disease. 7. Patient has gastroesophageal reflux disease. 8. Patient is status post left femur fracture, status post mechanical fall, status post left total hip arthroplasty.
[2016-07-03 14:00] VITALS: BP 136/71
[2016-07-03] MEDS: WARFARIN SOD 3 MG TAB PO SCH (16:04)
[2016-07-03] MEDS: PANTOPRAZOLE 40MG TAB (PROTONIX) PO SCH (21:30)
[2016-07-03] MEDS: SIMVASTATIN 40 MG TAB PO SCH (21:30)
[2016-07-03] MEDS: ASPIRIN 81 MG CHEW TABLET PO SCH (21:31)
[2016-07-03] MEDS: LATANOPROST 0.005% OPHTH SOLN 2.5 ML OD SCH (21:31)
[2016-07-03 22:00] VITALS: BP 157/82
[2016-07-04] MEDS: CIPROFLOXACIN 0.3% OPHTH SOLN 2.5ML OU SCH ×6 (00:33→20:33)
[2016-07-04] MEDS: IPRATROPIUM 0.5MG/ALBUTEROL 2.5MG INH SOL UD 3ML (DUONEB)(J7620) NEB SCH ×6 (03:14→23:42)
[2016-07-04] MEDS: ACETAMINOPHEN TAB 650MG DOSE (2X325MG) PO PRN ×2 (04:41→20:33)
[2016-07-04 06:00] VITALS: BP 107/58
[2016-07-04] MEDS: rOPINIRole 1MG TAB PO SCH ×3 (08:09→20:30)
[2016-07-04] MEDS: MUPIROCIN 2% OINT 22 GM TUBE TOP SCH ×2 (08:09→20:34)
[2016-07-04] MEDS: FERROUS GLUCONATE 324 MG TAB PO SCH ×3 (08:09→20:29)
[2016-07-04] MEDS: LACTOBACILLUS ACIDOPHILUS CAP (BACID) PO SCH ×3 (08:09→20:29)
[2016-07-04] MEDS: MULTIVITAMINS/MINERALS THERAP 1 TAB PO SCH (08:09)
[2016-07-04] MEDS: SINEMET 25-100 MG TAB PO SCH ×3 (08:09→20:29)
[2016-07-04] MEDS: MIDODRINE 5 MG TAB PO SCH ×3 (08:10→16:12)
[2016-07-04] MEDS: FLUDROCORTISONE ACETATE 0.1 MG TAB PO SCH (08:10)
[2016-07-04] MEDS: MIRALAX *UNIT DOSE* 17GM PACKET PO SCH (08:10)
[2016-07-04] MEDS: DOCUSATE SODIUM 100 MG CAP PO SCH ×2 (08:10→20:29)
[2016-07-04] MEDS: OCUVITE 1 TAB PO SCH (08:13)
--- NOTE | 2016-07-04 12:56 | IPN ---
DATE: 07/04/2016 Mr. Bowles is tired, but has no specific complaint this morning. He is worried that channel 2 will not be coming in very well for the Super Bowl this evening and he may have to watch it on [employer], which he believes is channel 13. Temperature is 96.9, pulse 85, respiratory rate 15, blood pressure 107/58, 93% on room air. Intake and output notable for positive fluid balance of 240. Two movements yesterday. He is wake and appropriately interactive, sitting in a chair at bedside. He has a dressing applied over the wound on his head. Mucous membranes moist. Neck is supple. Breathing is symmetrical. I-to-E ratio is 1:3, somewhat diminished. Heart is distant sounding. Normal S1 and S2. Abdomen is soft, doughy, nontender. White cell count 9.9, hemoglobin 10.1, platelets of 436 on the most recent labs. Most recent sodium is 146, most recent potassium is 3.2. Repeat labs are due for tomorrow. My assessment is as follows: This is an 80-year-old with orthostatic hypotension thought to be related to end stage Parkinson's disease. Plan is as follows: 1. Neurologic. The patient is continued on Sinemet, midodrine and Florinef. Plan is for [facility] care placement. 2. The patient has an excoriation on his head, which is currently being dressed and treated with Bactroban. 3. The patient has been treated for healthcare associated pneumonia. He had a recent chest x-ray, which was unremarkable. There are no remarkable findings on physical exam, except for some intermittent upper airway noise. Will continue to monitor this clinically. Repeat labs tomorrow. 4. The patient had conjunctivitis, which was thought to be related to the use of capsaicin cream, which has been discontinued. His eyes are generally improving. Will continue with Cipro drops for now. 5. The patient has a thyroid mass. 6. The patient has chronic obstructive pulmonary disease (COPD). 7. The patient has gastroesophageal reflux disease (GERD). 8. The patient is status post left femur fracture, status post mechanical fall and left total hip arthroplasty.
[2016-07-04 14:00] VITALS: BP 114/62
[2016-07-04] MEDS: WARFARIN SOD 3 MG TAB PO SCH (16:12)
[2016-07-04] MEDS: ASPIRIN 81 MG CHEW TABLET PO SCH (20:29)
[2016-07-04] MEDS: PANTOPRAZOLE 40MG TAB (PROTONIX) PO SCH (20:29)
[2016-07-04] MEDS: SIMVASTATIN 40 MG TAB PO SCH (20:30)
[2016-07-04] MEDS: LATANOPROST 0.005% OPHTH SOLN 2.5 ML OD SCH (20:33)
[2016-07-04 22:00] VITALS: BP 139/79
--- NOTE | 2016-07-04 23:18 | IPN ---
DATE: 07/02/2016 Mr. Bowles has no complaints of pain, chest pain, or shortness of breath. His main concern today is on the clarity of channel 2, as he is concerned about his ability to watch the Super Bowl this weekend. Staff has concerns about the redness around both eyes, which to me appears slightly more red than yesterday. Temperature is 96.9, pulse 84, respiratory rate 15, blood pressure 150/79, 93% on room air. Intake and output (I and O) notable for positive fluids of 365. One bowel movement noted. He is awake, appropriately interactive. He has erythema around both eyes. There is some conjunctival irritation. There is no discharge. Vision is grossly intact. Mucous membranes are moist. Breathing is symmetrical and rested. Heart is in a regular rate and rhythm. White cell count 9.9, hemoglobin 10.1, platelets of 436. Sodium is 146, potassium 3.2. ASSESSMENT: This is an 80-year-old with orthostatic hypotension thought to be related to end-stage Parkinson's disease. PLAN: 1. Neurologic. Patient is on Sinemet, midodrine, Florinef. Is planned for long-term care placement. 2. Patient has conjunctival irritation and surrounding erythema. I felt this was likely related to viral upper respiratory infection (URI). Viral screen was negative, and it appears as though the timing of the findings are associated with the use capsaicin cream on his shoulder. The capsaicin cream has been discontinued. Will continue with ciprofloxacin for now, but I believe this will gradually improve. 3. Patient has been treated for healthcare-associated pneumonia. Cough has resolved. There is no evidence of pneumonia at this point. 4. Patient has left femur fracture, status post mechanical fall, status post total left hip arthroplasty. 5. Patient has known thyroid mass. 6. Patient has gastroesophageal reflux disease (GERD). 7. We are pursuing placement. I did discuss the case with his at bedside.
[2016-07-05] MEDS: CIPROFLOXACIN 0.3% OPHTH SOLN 2.5ML OU SCH ×2 (00:59→05:13)
[2016-07-05] MEDS: IPRATROPIUM 0.5MG/ALBUTEROL 2.5MG INH SOL UD 3ML (DUONEB)(J7620) NEB SCH ×5 (03:58→19:48)
[2016-07-05] MEDS ORDERED: ISOVUE-370 76% 100ML VIAL (Q9967) As Ordered ONE (05:29)
[2016-07-05 05:45] LABS: MEAN CORPUSCULAR HEMOGLOBIN 25.4 pg (27.0-33.0); MEAN CORPUSCULAR HGB CONC 29.7 g/dl (32.0-36.5); MEAN CORPUSCULAR VOLUME 85.3 fl (80.0-96.0); RED CELL DISTRIBUTION WIDTH 16.1 % (11.5-14.5); WHITE BLOOD COUNT 11.6 K/mm3 (4.0-10.0)
[2016-07-05 06:00] VITALS: BP 116/62
[2016-07-05 06:00] LABS: ANION GAP 7 MEQ/L (8-16); BLOOD UREA NITROGEN 19 MG/DL (7-18); CALCIUM LEVEL 8.3 MG/DL (8.8-10.2); CARBON DIOXIDE LEVEL 30 MEQ/L (21-32); CHLORIDE LEVEL 108 MEQ/L (98-107); CREATININE FOR GFR 0.99 MG/DL (0.70-1.30); GLOMERULAR FILTRATION RATE > 60.0 (>35); GLUCOSE, FASTING 99 MG/DL (83-110); INR 3.22; SODIUM LEVEL 145 MEQ/L (136-145)
--- NOTE | 2016-07-05 06:50 | REPUSA ---
CLINICAL HISTORY: Orthostatic hypotension. TECHNIQUE: Multiple axial CT images were obtained through the neck with IV contrast material. MPR cor onal and sagittal sequences were obtained. COMMENTS: Comparison is made to the prior exam performed on 05/31/2016 Moderately enlarged right thyroid lobe measuring 6.4 cm in its largest anteroposterior dimension. No change in its mass effect on the corresponding aspect of the trachea which is deviated to the left side. The oropharyngeal soft tissues are normal and bilaterally symmetric. The piriform sinuses are normal. There is no supra or infraglottic laryngeal mass. There is no paravertebral soft tissue mass. The salivary glands are normal. There is no deep cervical or jugular lymphadenopathy. The paravertebral soft tissue space is normal. Limited images through the posterior fossa demonstrate no evidence for tonsilar herniation. Evaluation of the visualized lung apices reveals no evidence for abnormality. There is no evidence for abnormal enhancement. Moderate centrilobular emphysema. Right maxillary acute sinusitis. IMPRESSION: Enlarged right thyroid lobe with retrosternal extension and mass effect on the trachea which is devia pepe to the left side. This is unchanged. Right maxillary acute sinusitis. This was not present on prior exam. Thank you for your kind referral of this patient.
[2016-07-05] MEDS ORDERED: POTASSIUM CHLORIDE 10 MEQ SR TABLET PO ONE (08:30)
[2016-07-05] MEDS ORDERED: PHYTONADIONE 10MG/ML INJECTION (J3430) SC ONE (08:30)
[2016-07-05] MEDS: MIRALAX *UNIT DOSE* 17GM PACKET PO SCH (08:44)
[2016-07-05] MEDS: LACTOBACILLUS ACIDOPHILUS CAP (BACID) PO SCH ×3 (08:45→20:45)
[2016-07-05] MEDS: OCUVITE 1 TAB PO SCH (08:45)
[2016-07-05] MEDS: MULTIVITAMINS/MINERALS THERAP 1 TAB PO SCH (08:46)
[2016-07-05] MEDS: MIDODRINE 5 MG TAB PO SCH ×3 (08:46→18:08)
[2016-07-05] MEDS: rOPINIRole 1MG TAB PO SCH ×3 (08:46→20:45)
[2016-07-05] MEDS: FLUDROCORTISONE ACETATE 0.1 MG TAB PO SCH (08:46)
[2016-07-05] MEDS: DOCUSATE SODIUM 100 MG CAP PO SCH ×2 (08:46→20:46)
[2016-07-05] MEDS: FERROUS GLUCONATE 324 MG TAB PO SCH ×3 (08:46→20:46)
[2016-07-05] MEDS: SINEMET 25-100 MG TAB PO SCH ×3 (08:46→20:46)
[2016-07-05] MEDS: MUPIROCIN 2% OINT 22 GM TUBE TOP SCH ×2 (08:47→20:46)
[2016-07-05 14:00] VITALS: BP 150/85
[2016-07-05] MEDS: ACETAMINOPHEN TAB 650MG DOSE (2X325MG) PO PRN (16:18)
--- NOTE | 2016-07-05 18:01 | IPN ---
DATE: 07/05/2016 SUBJECTIVE: Mr. Agosto developed bleeding from his mouth overnight. He apparently had been picking at some thickened skin at the back of his mouth with his nails, and all of sudden began bleeding. This is not painful. His international normalized ratio (INR) was noted to be somewhat supratherapeutic. CT scan of his neck was done and I reviewed this with previous CT scan done with the attending radiologist. OBJECTIVE: VITAL SIGNS: This morning his temperature is 96.8, pulse 88, respiratory rate 17, blood pressure 116/62, 98% on room air. HEENT: He has an adherent clot on the right posterolateral mouth just anterior to the tonsil. Mucous membranes are moist. NECK: Supple. LUNGS: Breathing is symmetrical and rested. HEART: Distant sounding. LABORATORY DATA: White blood cell count 11.6, hemoglobin 9.3, platelets of 472. INR is 3.22. Sodium 145, potassium 3. ASSESSMENT: This is an 80-year-old with orthostatic hypotension thought to be related to end-stage Parkinson disease, now with bleeding in the posterior mouth. Plan is as follows: 1. Neurologic: The patient is on Sinemet, midodrine, Florinef. Plan for long-term care placement. 2. Bleeding from the patient's mouth is felt to be related to trauma. There is no significant findings on CT scan to suggest underlying cause. I have reversed his Coumadin which he was on due to the recent left femur fracture. I discussed discontinuing Coumadin with the orthopedic team who had no issues with stopping it now. 3. The patient had conjunctival irritation during the course of this hospitalization that was felt to be related to capsaicin cream. 4. The patient had been treated for healthcare-associated pneumonia. Cough has resolved. 5. The patient has a known thyroid mass that was re-imaged on the CT scan today. It has not changed in size since the last CT scan. 6. The patient has gastroesophageal reflux disease (GERD). 7. We are pursuing placement. 8. I discussed this case with his at the bedside.
[2016-07-05] MEDS: SIMVASTATIN 40 MG TAB PO SCH (20:45)
[2016-07-05] MEDS: LATANOPROST 0.005% OPHTH SOLN 2.5 ML OD SCH (20:46)
[2016-07-05] MEDS: PANTOPRAZOLE 40MG TAB (PROTONIX) PO SCH (20:46)
[2016-07-05 22:00] VITALS: BP 155/86
[2016-07-06] MEDS: IPRATROPIUM 0.5MG/ALBUTEROL 2.5MG INH SOL UD 3ML (DUONEB)(J7620) NEB SCH ×6 (03:49→19:14)
[2016-07-06 06:00] VITALS: BP 130/76
[2016-07-06 06:50] LABS: MEAN CORPUSCULAR HEMOGLOBIN 25.3 pg (27.0-33.0); MEAN CORPUSCULAR HGB CONC 29.6 g/dl (32.0-36.5); MEAN CORPUSCULAR VOLUME 85.5 fl (80.0-96.0); RED CELL DISTRIBUTION WIDTH 15.6 % (11.5-14.5)
[2016-07-06 06:57] LABS: INR 1.36
[2016-07-06 07:16] LABS: ANION GAP 8 MEQ/L (8-16); BLOOD UREA NITROGEN 14 MG/DL (7-18); CALCIUM LEVEL 8.8 MG/DL (8.8-10.2); CARBON DIOXIDE LEVEL 31 MEQ/L (21-32); CHLORIDE LEVEL 107 MEQ/L (98-107); CREATININE FOR GFR 0.88 MG/DL (0.70-1.30); GLOMERULAR FILTRATION RATE > 60.0 (>35); GLUCOSE, FASTING 85 MG/DL (83-110); POTASSIUM SERUM 3.2 MEQ/L (3.5-5.1); SODIUM LEVEL 146 MEQ/L (136-145)
[2016-07-06] MEDS: MIRALAX *UNIT DOSE* 17GM PACKET PO SCH (08:40)
[2016-07-06] MEDS: MIDODRINE 5 MG TAB PO SCH ×3 (08:40→16:48)
[2016-07-06] MEDS: MUPIROCIN 2% OINT 22 GM TUBE TOP SCH ×2 (08:40→22:14)
[2016-07-06] MEDS: FERROUS GLUCONATE 324 MG TAB PO SCH ×3 (08:41→22:14)
[2016-07-06] MEDS: LACTOBACILLUS ACIDOPHILUS CAP (BACID) PO SCH ×3 (08:41→22:14)
[2016-07-06] MEDS: MULTIVITAMINS/MINERALS THERAP 1 TAB PO SCH (08:41)
[2016-07-06] MEDS: SINEMET 25-100 MG TAB PO SCH ×3 (08:41→22:15)
[2016-07-06] MEDS: DOCUSATE SODIUM 100 MG CAP PO SCH ×2 (08:41→22:15)
[2016-07-06] MEDS: FLUDROCORTISONE ACETATE 0.1 MG TAB PO SCH (08:41)
[2016-07-06] MEDS: rOPINIRole 1MG TAB PO SCH ×3 (08:41→22:15)
[2016-07-06] MEDS: OCUVITE 1 TAB PO SCH (08:41)
[2016-07-06] MEDS ORDERED: POTASSIUM CHLORIDE 10 MEQ SR TABLET PO ONE (08:45)
[2016-07-06] MEDS: ACETAMINOPHEN TAB 650MG DOSE (2X325MG) PO PRN ×3 (08:46→22:14)
[2016-07-06 08:50] LABS: MAGNESIUM LEVEL 2.3 MG/DL (1.8-2.4)
--- NOTE | 2016-07-06 09:43 | IPNPDOC ---
Assessment/Plan Date Seen The patient was seen on 07/06/16. Problems Problems: (1) COPD (chronic obstructive pulmonary disease) Status: Chronic Response to Treatment: Stable Discussed With: Patient Problem Specific Plan: Monitor Clinically (2) PNA (pneumonia) Status: Resolved Problem Specific Plan: Monitor Clinically Problem Text: Completed course of anti-microbials. (3) Parkinson disease Status: Chronic Discussed With: Patient Problem Specific Plan: Monitor Clinically Problem Text: Likely end stage PD - continue with current regimen. (4) AAA (abdominal aortic aneurysm) Status: Chronic Problem Text: s/p repair. continue with asa, statin therapy. (5) GERD (gastroesophageal reflux disease) Status: Chronic Problem Specific Plan: Monitor Clinically (6) Neck mass Onset Date: 12/18/2013 Status: Chronic Discussed With: Patient Problem Specific Plan: Monitor Clinically Problem Text: Some tracheal deviation with no airway comprimise. ENT consultation appreciated. (7) Femur fracture, left Status: Chronic Discussed With: Patient Problem Specific Plan: Consult Specialist Problem Text: DVT prophylaxis discontinued, discussed with ortho who agreed with plan of care. (8) Orthostatic hypotension Status: Chronic Problem Specific Plan: Monitor Clinically Problem Text: Likely secondary to Parkinsons. Plan / VTE VTE Prophylaxis Ordered?: Yes (mechanical) Plan / Urinary Catheter Reason for insertion/continuin: Acute obstruct/retention Plan Diet: Continue Current Activity: Continue Current Anticipated Discharge: [facility] Disposition Pending placement in [facility]. Subjective Review of Systems CC/HPI The patient is a 80-year-old male admitted with a reason for visit of Symptomatic Anemia, Orthostatic Hypotension. General: Denies: Chills, Fatigue, Malaise, Night Sweats, Normal Appetite, Other Symptoms, ROS Unobtainable Constitutional: Denies: Chills, Fatigue, Fever, Lethargy, Malaise, Night Sweats , Other, Weakness, Weight Loss Eyes: Denies: Conjunctivae inflammation, Eyelid inflammation, Other, Pain, Redness, Vision change ENT: Denies: Dysphagia, Ear Pain, Epistaxis, Head Aches, Other Symptoms, Post Nasal Drip, Sinus Congestion, Sore Throat Skin: Denies: Breakdown, Bruising, Dry, Itching, Jaundice, Lesions, Nail Changes, Other, Rash Pulmonary: Denies: Cough, Dyspnea, Other Symptoms, Pleuritic Chest Pain Cardiovascular: Denies: Chest Pain, Edema, Lt Headedness, Orthopnea, Other Symptoms, Palpitations, Paroxysmal Noc. Dyspnea Gastrointestinal: Denies: Abdominal Pain, Constipation, Diarrhea, Hematochezia , Melena, Nausea, Other Symptoms, Vomiting Objective Physical Examination General Exam: Positive: Alert, Cooperative, No Acute Distress Eye Exam: Positive: PERRLA ENT Exam: Positive: Atraumatic Neck Exam: Positive: Supple Chest Exam: Positive: Clear to auscultation, Normal air movement Heart Exam: Positive: Rate Normal Abdomen Exam: Positive: Normal bowel sounds, Soft, Negative: Tenderness Psych Exam: Positive: Oriented x 3 Vital Signs/I&O Vital Signs Date Time Temp Pulse Resp B/P Pulse Ox O2 Delivery O2 Flow Rate FiO2 07/06/16 06:00 97.5 88 20 130/76 93 Room Air I&O- Last 24 Hours up to 6 AM 07/06/16 05:59 Intake Total 330 ml Output Total 775 ml Balance -445 ml Laboratory Data Labs 24H Laboratory Tests 2 07/06/16 06:22: Anion Gap 8, Blood Urea Nitrogen 14, Creatinine 0.88, Sodium Level 146H, Potassium Level 3.2L, Chloride Level 107, Carbon Dioxide Level 31, Calcium Level 8.8, Glomerular Filtration Rate > 60.0, Magnesium Level 2.3, Prothromb Time International Ratio 1.36, Prothrombin Time 16.9H CBC/BMP Laboratory Tests 07/06/16 06:22 Calcium Level 8.8, Red Blood Count 4.22 L, Mean Corpuscular Volume 85.5, Mean Corpuscular Hemoglobin 25.3 L, Mean Corpuscular Hemoglobin Concent 29.6 L, Red Cell Distribution Width 15.6 H Microbiology Microbiology 07/01/16 Blood Culture - Final, Complete NO GROWTH AFTER 5 DAYS 07/01/16 Blood Culture - Final, Complete NO GROWTH AFTER 5 DAYS 07/01/16 Respiratory Virus Panel (PCR) ([facility]) - Final, Complete SASHA MUÑIZ MD Jul 06, 2016 09:43
[2016-07-06 14:00] VITALS: BP 160/78
[2016-07-06 22:00] VITALS: BP 126/70
[2016-07-06] MEDS: SIMVASTATIN 40 MG TAB PO SCH (22:14)
[2016-07-06] MEDS: LATANOPROST 0.005% OPHTH SOLN 2.5 ML OD SCH (22:14)
[2016-07-06] MEDS: PANTOPRAZOLE 40MG TAB (PROTONIX) PO SCH (22:15)
[2016-07-07] MEDS: IPRATROPIUM 0.5MG/ALBUTEROL 2.5MG INH SOL UD 3ML (DUONEB)(J7620) NEB SCH ×7 (04:00→23:29)
[2016-07-07 05:33] LABS: MEAN CORPUSCULAR HEMOGLOBIN 25.5 pg (27.0-33.0); MEAN CORPUSCULAR HGB CONC 30.3 g/dl (32.0-36.5); MEAN CORPUSCULAR VOLUME 84.2 fl (80.0-96.0); RED CELL DISTRIBUTION WIDTH 15.6 % (11.5-14.5); WHITE BLOOD COUNT 11.1 K/mm3 (4.0-10.0)
[2016-07-07 05:36] LABS: INR 1.1
[2016-07-07 05:48] LABS: ANION GAP 9 MEQ/L (8-16); BLOOD UREA NITROGEN 15 MG/DL (7-18); CALCIUM LEVEL 8.5 MG/DL (8.8-10.2); CARBON DIOXIDE LEVEL 27 MEQ/L (21-32); CHLORIDE LEVEL 108 MEQ/L (98-107); CREATININE FOR GFR 0.94 MG/DL (0.70-1.30); GLOMERULAR FILTRATION RATE > 60.0 (>35); GLUCOSE, FASTING 95 MG/DL (83-110); POTASSIUM SERUM 3.3 MEQ/L (3.5-5.1); SODIUM LEVEL 144 MEQ/L (136-145)
[2016-07-07 06:00] VITALS: BP 135/73
[2016-07-07] MEDS: SINEMET 25-100 MG TAB PO SCH ×3 (09:13→21:03)
[2016-07-07] MEDS: rOPINIRole 1MG TAB PO SCH ×3 (09:13→21:03)
[2016-07-07] MEDS: MULTIVITAMINS/MINERALS THERAP 1 TAB PO SCH (09:13)
[2016-07-07] MEDS: MIRALAX *UNIT DOSE* 17GM PACKET PO SCH (09:13)
[2016-07-07] MEDS: LACTOBACILLUS ACIDOPHILUS CAP (BACID) PO SCH ×3 (09:13→21:03)
[2016-07-07] MEDS: OCUVITE 1 TAB PO SCH (09:13)
[2016-07-07] MEDS: MUPIROCIN 2% OINT 22 GM TUBE TOP SCH ×2 (09:13→21:04)
[2016-07-07] MEDS: FERROUS GLUCONATE 324 MG TAB PO SCH ×3 (09:13→21:03)
[2016-07-07] MEDS: FLUDROCORTISONE ACETATE 0.1 MG TAB PO SCH (09:13)
[2016-07-07] MEDS: DOCUSATE SODIUM 100 MG CAP PO SCH ×2 (09:13→21:03)
[2016-07-07] MEDS: MIDODRINE 5 MG TAB PO SCH ×3 (09:13→16:53)
[2016-07-07] MEDS: ACETAMINOPHEN TAB 650MG DOSE (2X325MG) PO PRN ×2 (09:14→18:27)
--- NOTE | 2016-07-07 09:53 | IPNPDOC ---
Subjective Subjective Date Seen The patient was seen on 07/07/16. Chief Complaint/HPI The patient is a 80-year-old male admitted with a reason for visit of Symptomatic Anemia, Orthostatic Hypotension. Events since last encounter Complains of sensation of foreign object at the back of his throat. Also complains of some itching with his lower back. Denies any difficulty breathing or difficulty swallowing. No other medical complaints. General: Denies: Chills, Fatigue, Malaise, Night Sweats, Normal Appetite, Other Symptoms, ROS Unobtainable Constitutional: Denies: Chills, Fatigue, Fever, Lethargy, Malaise, Night Sweats , Other, Weakness, Weight Loss Eyes: Denies: Conjunctivae inflammation, Eyelid inflammation, Other, Pain, Redness, Vision change ENT: Reports: Other Symptoms, Denies: Dysphagia, Ear Pain, Epistaxis, Head Aches, Post Nasal Drip, Sinus Congestion, Sore Throat Skin: Reports: Rash, Denies: Breakdown, Bruising, Dry, Itching, Jaundice, Lesions, Nail Changes, Other Pulmonary: Denies: Cough, Dyspnea, Other Symptoms, Pleuritic Chest Pain Cardiovascular: Denies: Chest Pain, Edema, Lt Headedness, Orthopnea, Other Symptoms, Palpitations, Paroxysmal Noc. Dyspnea Gastrointestinal: Denies: Abdominal Pain, Constipation, Diarrhea, Hematochezia , Melena, Nausea, Other Symptoms, Vomiting Genitourinary: Denies: Dysuria, Frequency, Hematuria, Incontinence, Other Symptoms, Retention Objective Physical Examination General Exam: Positive: Alert, Cooperative, No Acute Distress Eye Exam: Positive: PERRLA ENT Exam: Positive: Atraumatic, Other ENT (appendage like mass noted posterior pharynx with dried blood; airway patent) Neck Exam: Positive: Supple Chest Exam: Positive: Clear to auscultation, Normal air movement Heart Exam: Positive: Rate Normal Abdomen Exam: Positive: Normal bowel sounds, Soft, Negative: Tenderness Skin Exam: Positive: Rash (lower back, blanching, erythematous, macular) Psych Exam: Positive: Oriented x 3 Assessment /Plan Problems Problems: (1) COPD (chronic obstructive pulmonary disease) Status: Chronic Response to Treatment: Stable Discussed With: Patient Problem Specific Plan: Monitor Clinically (2) PNA (pneumonia) Status: Resolved Problem Specific Plan: Monitor Clinically Problem Text: Completed course of anti-microbials. (3) Parkinson disease Status: Chronic Discussed With: Patient Problem Specific Plan: Monitor Clinically Problem Text: Likely end stage PD - continue with current regimen. (4) AAA (abdominal aortic aneurysm) Status: Chronic Problem Text: s/p repair. continue with asa, statin therapy. (5) GERD (gastroesophageal reflux disease) Status: Chronic Problem Specific Plan: Monitor Clinically Problem Text: Protonix (6) Neck mass Onset Date: 12/18/2013 Status: Chronic Discussed With: Patient Problem Specific Plan: Monitor Clinically Problem Text: Some tracheal deviation with no airway comprimise. ENT consultation appreciated - Dr. Modi. Recommendation includes nuclear medicine scan of thyroid and US guided fine needle biopsy. Can be obtained as outpatient as per ENT recommendations. He did have an US guided fine needle biopsy in November 2013 which were benign. Follow up as outpatient. (7) Femur fracture, left Status: Chronic Discussed With: Patient Problem Specific Plan: Consult Specialist Problem Text: DVT prophylaxis discontinued, discussed with ortho who agreed with plan of care. (8) Orthostatic hypotension Status: Chronic Problem Specific Plan: Monitor Clinically Problem Text: Likely secondary to Parkinsons. Continue midodrine. Plan/VTE VTE Prophylaxis Ordered?: Yes (mechanical) Plan/Urinary Catheter Reason for insertion/continuin: Acute obstruct/retention Plan Diet: Continue Current Activity: Continue Current Anticipated Discharge: [facility] Vital Signs/I&O VS/I&O Vital Signs Date Time Temp Pulse Resp B/P Pulse Ox O2 Delivery O2 Flow Rate FiO2 07/07/16 06:00 96.8 85 20 135/73 93 Room Air I&O- Last 24 Hours up to 6 AM 07/07/16 06:00 Intake Total 540 ml Output Total 675 ml Balance -135 ml Laboratory Data 24H LABS Laboratory Tests 2 07/07/16 05:15: Anion Gap 9, Blood Urea Nitrogen 15, Creatinine 0.94, Sodium Level 144, Potassium Level 3.3L, Chloride Level 108H, Carbon Dioxide Level 27, Calcium Level 8.5L, Glomerular Filtration Rate > 60.0, Prothromb Time International Ratio 1.10, Prothrombin Time 14.3 CBC/BMP Laboratory Tests 07/07/16 05:15 Calcium Level 8.5 L, Red Blood Count 3.82 L, Mean Corpuscular Volume 84.2, Mean Corpuscular Hemoglobin 25.5 L, Mean Corpuscular Hemoglobin Concent 30.3 L, Red Cell Distribution Width 15.6 H Microbiology Microbiology 07/01/16 Blood Culture - Final, Complete NO GROWTH AFTER 5 DAYS 07/01/16 Blood Culture - Final, Complete NO GROWTH AFTER 5 DAYS 07/01/16 Respiratory Virus Panel (PCR) ([facility]) - Final, Complete SASHA MUÑIZ MD Jul 07, 2016 09:53
[2016-07-07] MEDS ORDERED: POTASSIUM CHLORIDE 10 MEQ SR TABLET PO ONE (10:00)
[2016-07-07 14:00] VITALS: BP 138/76
[2016-07-07] MEDS: PANTOPRAZOLE 40MG TAB (PROTONIX) PO SCH (21:03)
[2016-07-07] MEDS: SIMVASTATIN 40 MG TAB PO SCH (21:03)
[2016-07-07] MEDS: LATANOPROST 0.005% OPHTH SOLN 2.5 ML OD SCH (21:04)
[2016-07-07 22:00] VITALS: BP 102/53
[2016-07-08] MEDS: ACETAMINOPHEN TAB 650MG DOSE (2X325MG) PO PRN ×3 (04:45→16:58)
[2016-07-08 06:00] VITALS: BP 132/74
[2016-07-08 06:06] LABS: ANION GAP 10 MEQ/L (8-16); BLOOD UREA NITROGEN 14 MG/DL (7-18); CALCIUM LEVEL 8.5 MG/DL (8.8-10.2); CARBON DIOXIDE LEVEL 27 MEQ/L (21-32); CHLORIDE LEVEL 109 MEQ/L (98-107); CREATININE FOR GFR 1.04 MG/DL (0.70-1.30); GLOMERULAR FILTRATION RATE > 60.0 (>35); GLUCOSE, FASTING 87 MG/DL (83-110); MAGNESIUM LEVEL 2.2 MG/DL (1.8-2.4); POTASSIUM SERUM 3.5 MEQ/L (3.5-5.1); SODIUM LEVEL 146 MEQ/L (136-145)
[2016-07-08] MEDS: SINEMET 25-100 MG TAB PO SCH ×3 (08:08→20:07)
[2016-07-08] MEDS: FLUDROCORTISONE ACETATE 0.1 MG TAB PO SCH (08:08)
[2016-07-08] MEDS: rOPINIRole 1MG TAB PO SCH ×3 (08:08→20:08)
[2016-07-08] MEDS: MIDODRINE 5 MG TAB PO SCH ×3 (08:08→16:58)
[2016-07-08] MEDS: MUPIROCIN 2% OINT 22 GM TUBE TOP SCH ×2 (08:10→20:08)
[2016-07-08] MEDS: DOCUSATE SODIUM 100 MG CAP PO SCH ×2 (09:00→20:07)
--- NOTE | 2016-07-08 10:07 | IPNPDOC ---
Subjective General Date Seen The patient was seen on 07/08/16. Subjective Chief Complaint/HPI The patient is a 80-year-old male admitted with a reason for visit of Symptomatic Anemia, Orthostatic Hypotension. General: Denies: Chills, Fatigue, Malaise, Night Sweats, Normal Appetite, Other Symptoms, ROS Unobtainable Constitutional: Denies: Chills, Fatigue, Fever, Lethargy, Malaise, Night Sweats , Other, Weakness, Weight Loss Eyes: Denies: Conjunctivae inflammation, Eyelid inflammation, Other, Pain, Redness, Vision change ENT: Denies: Dysphagia, Ear Pain, Epistaxis, Head Aches, Other Symptoms, Post Nasal Drip, Sinus Congestion, Sore Throat Skin: Denies: Breakdown, Bruising, Dry, Itching, Jaundice, Lesions, Nail Changes, Other, Rash Pulmonary: Denies: Cough, Dyspnea, Other Symptoms, Pleuritic Chest Pain Cardiovascular: Denies: Chest Pain, Edema, Lt Headedness, Orthopnea, Other Symptoms, Palpitations, Paroxysmal Noc. Dyspnea Gastrointestinal: Denies: Abdominal Pain, Constipation, Diarrhea, Hematochezia , Melena, Nausea, Other Symptoms, Vomiting Objective Physical Examination General Exam: Positive: Alert, Cooperative, No Acute Distress Eye Exam: Positive: PERRLA ENT Exam: Positive: Atraumatic, Other ENT (appendage like mass noted posterior pharynx with dried blood; airway patent) Neck Exam: Positive: Supple Chest Exam: Positive: Clear to auscultation, Normal air movement Heart Exam: Positive: Rate Normal Abdomen Exam: Positive: Normal bowel sounds, Soft, Negative: Tenderness Skin Exam: Positive: Rash (lower back, blanching, erythematous, macular - much improved) Psych Exam: Positive: Oriented x 3 Assessment /Plan Problems Problems: (1) COPD (chronic obstructive pulmonary disease) Status: Chronic Response to Treatment: Stable Discussed With: Patient Problem Specific Plan: Monitor Clinically (2) PNA (pneumonia) Status: Resolved Problem Specific Plan: Monitor Clinically Problem Text: Completed course of anti-microbials. (3) Parkinson disease Status: Chronic Discussed With: Patient Problem Specific Plan: Monitor Clinically Problem Text: Likely end stage PD - continue with current regimen. (4) AAA (abdominal aortic aneurysm) Status: Chronic Problem Text: s/p repair. continue with asa, statin therapy. (5) GERD (gastroesophageal reflux disease) Status: Chronic Problem Specific Plan: Monitor Clinically Problem Text: Protonix (6) Neck mass Onset Date: 12/18/2013 Status: Chronic Discussed With: Patient Problem Specific Plan: Monitor Clinically Problem Text: Some tracheal deviation with no airway comprimise. ENT consultation appreciated - Dr. Modi. Recommendation includes nuclear medicine scan of thyroid and US guided fine needle biopsy. Can be obtained as outpatient as per ENT recommendations. He did have an US guided fine needle biopsy in November 2013 which were benign. Follow up as outpatient. Plan of care appears to be a factor with his disposition, will contact ENT for further input. (7) Femur fracture, left Status: Chronic Discussed With: Patient Problem Specific Plan: Consult Specialist Problem Text: DVT prophylaxis discontinued, discussed with ortho who agreed with plan of care. (8) Orthostatic hypotension Status: Chronic Problem Specific Plan: Monitor Clinically Problem Text: Likely secondary to Parkinsons. Continue midodrine. (9) Bullous pemphigus Status: Acute Response to Treatment: Worse Discussed With: Patient Problem Specific Plan: Monitor Clinically Problem Text: Local exacerbation through his scrotum and lower back. Will restart his steroid therapy. Plan/VTE VTE Prophylaxis Ordered?: Yes (mechanical) Plan/Urinary Catheter Reason for insertion/continuin: Acute obstruct/retention Plan Diet: Continue Current Activity: Continue Current Anticipated Discharge: Half-Way VS, I&O, 24H, [facility] Vital Signs/I&O Vital Signs Date Time Temp Pulse Resp B/P Pulse Ox O2 Delivery O2 Flow Rate FiO2 07/08/16 09:26 18 07/08/16 06:00 96.7 89 132/74 94 Room Air I&O- Last 24 Hours up to 6 AM 07/08/16 06:00 Intake Total 300 ml Output Total 750 ml Balance -450 ml Laboratory Data 24H LABS Laboratory Tests 2 07/08/16 05:25: Anion Gap 10, Blood Urea Nitrogen 14, Creatinine 1.04, Sodium Level 146H, Potassium Level 3.5, Chloride Level 109H, Carbon Dioxide Level 27, Calcium Level 8.5L, Glomerular Filtration Rate > 60.0, Magnesium Level 2.2 CBC/BMP Laboratory Tests 07/08/16 05:25 Calcium Level 8.5 L Microbiology Microbiology 07/01/16 Blood Culture - Final, Complete NO GROWTH AFTER 5 DAYS 07/01/16 Blood Culture - Final, Complete NO GROWTH AFTER 5 DAYS 07/01/16 Respiratory Virus Panel (PCR) ([facility]) - Final, Complete SASHA MUÑIZ MD Jul 08, 2016 10:07
[2016-07-08 10:17] VITALS: BP 132/74
[2016-07-08] MEDS: MIRALAX *UNIT DOSE* 17GM PACKET PO SCH (10:35)
[2016-07-08] MEDS: LACTOBACILLUS ACIDOPHILUS CAP (BACID) PO SCH ×3 (10:36→20:07)
[2016-07-08] MEDS: FERROUS GLUCONATE 324 MG TAB PO SCH ×3 (10:36→20:07)
[2016-07-08] MEDS: MULTIVITAMINS/MINERALS THERAP 1 TAB PO SCH (10:36)
[2016-07-08 14:00] VITALS: BP 168/84
[2016-07-08] MEDS: predniSONE 20 MG TAB PO SCH (14:28)
[2016-07-08] MEDS: IPRATROPIUM 0.5MG/ALBUTEROL 2.5MG INH SOL UD 3ML (DUONEB)(J7620) NEB SCH ×2 (16:04→19:16)
[2016-07-08] MEDS: SIMVASTATIN 40 MG TAB PO SCH (20:07)
[2016-07-08] MEDS: LATANOPROST 0.005% OPHTH SOLN 2.5 ML OD SCH (20:08)
[2016-07-08] MEDS: PANTOPRAZOLE 40MG TAB (PROTONIX) PO SCH (20:08)
[2016-07-08 20:50] VITALS: BP 137/76
[2016-07-09] MEDS: IPRATROPIUM 0.5MG/ALBUTEROL 2.5MG INH SOL UD 3ML (DUONEB)(J7620) NEB SCH ×7 (04:00→23:38)
[2016-07-09 06:40] VITALS: BP 127/72
[2016-07-09 06:47] LABS: ANION GAP 8 MEQ/L (8-16); BLOOD UREA NITROGEN 16 MG/DL (7-18); CALCIUM LEVEL 8.3 MG/DL (8.8-10.2); CARBON DIOXIDE LEVEL 27 MEQ/L (21-32); CHLORIDE LEVEL 110 MEQ/L (98-107); CREATININE FOR GFR 0.99 MG/DL (0.70-1.30); GLOMERULAR FILTRATION RATE > 60.0 (>35); GLUCOSE, FASTING 140 MG/DL (83-110); POTASSIUM SERUM 3.6 MEQ/L (3.5-5.1); SODIUM LEVEL 145 MEQ/L (136-145)
[2016-07-09] MEDS: FLUDROCORTISONE ACETATE 0.1 MG TAB PO SCH (08:26)
[2016-07-09] MEDS: MULTIVITAMINS/MINERALS THERAP 1 TAB PO SCH (08:26)
[2016-07-09] MEDS: MIDODRINE 5 MG TAB PO SCH ×3 (08:26→17:18)
[2016-07-09] MEDS: rOPINIRole 1MG TAB PO SCH ×3 (08:26→20:10)
[2016-07-09] MEDS: FERROUS GLUCONATE 324 MG TAB PO SCH ×3 (08:27→20:10)
[2016-07-09] MEDS: MIRALAX *UNIT DOSE* 17GM PACKET PO SCH (08:27)
[2016-07-09] MEDS: SINEMET 25-100 MG TAB PO SCH ×3 (08:27→20:10)
[2016-07-09] MEDS: DOCUSATE SODIUM 100 MG CAP PO SCH ×2 (08:27→20:10)
[2016-07-09] MEDS: LACTOBACILLUS ACIDOPHILUS CAP (BACID) PO SCH ×3 (08:27→20:10)
[2016-07-09] MEDS: predniSONE 20 MG TAB PO SCH (08:27)
[2016-07-09] MEDS: MUPIROCIN 2% OINT 22 GM TUBE TOP SCH ×2 (08:28→20:11)
--- NOTE | 2016-07-09 08:44 | IPNPDOC ---
Subjective General Date Seen The patient was seen on 07/09/16. Subjective Chief Complaint/HPI The patient is a 80-year-old male admitted with a reason for visit of Symptomatic Anemia, Orthostatic Hypotension. General: Denies: Chills, Fatigue, Malaise, Night Sweats, Normal Appetite, Other Symptoms, ROS Unobtainable Constitutional: Denies: Chills, Fatigue, Fever, Lethargy, Malaise, Night Sweats , Other, Weakness, Weight Loss Eyes: Denies: Conjunctivae inflammation, Eyelid inflammation, Other, Pain, Redness, Vision change ENT: Denies: Dysphagia, Ear Pain, Epistaxis, Head Aches, Other Symptoms, Post Nasal Drip, Sinus Congestion, Sore Throat Skin: Reports: Itching, Denies: Breakdown, Bruising, Dry, Jaundice, Lesions, Nail Changes, Other, Rash Pulmonary: Denies: Cough, Dyspnea, Other Symptoms, Pleuritic Chest Pain Cardiovascular: Denies: Chest Pain, Edema, Lt Headedness, Orthopnea, Other Symptoms, Palpitations, Paroxysmal Noc. Dyspnea Gastrointestinal: Denies: Abdominal Pain, Constipation, Diarrhea, Hematochezia , Melena, Nausea, Other Symptoms, Vomiting Objective Physical Examination General Exam: Positive: Alert, Cooperative, No Acute Distress Eye Exam: Positive: PERRLA ENT Exam: Positive: Atraumatic, Other ENT (appendage like mass noted posterior pharynx with dried blood; airway patent) Neck Exam: Positive: Supple Chest Exam: Positive: Clear to auscultation, Normal air movement Heart Exam: Positive: Rate Normal Abdomen Exam: Positive: Normal bowel sounds, Soft, Negative: Tenderness Skin Exam: Positive: Rash (lower back, blanching, erythematous, macular - much improved) Psych Exam: Positive: Oriented x 3 Assessment /Plan Problems Problems: (1) Neck mass Onset Date: 12/18/2013 Status: Chronic Discussed With: Patient Problem Specific Plan: Monitor Clinically Problem Text: Some tracheal deviation with no airway comprimise. ENT consultation appreciated - Dr. Modi. Recommendation includes nuclear medicine scan of thyroid and US guided fine needle biopsy. Can be obtained as outpatient as per ENT recommendations. He did have an US guided fine needle biopsy in November 2013 which were benign. Discussed with ENT yesterday, pending chart review for further input. (2) COPD (chronic obstructive pulmonary disease) Status: Chronic Response to Treatment: Stable Discussed With: Patient Problem Specific Plan: Monitor Clinically (3) PNA (pneumonia) Status: Resolved Problem Specific Plan: Monitor Clinically Problem Text: Completed course of anti-microbials. (4) Parkinson disease Status: Chronic Discussed With: Patient Problem Specific Plan: Monitor Clinically Problem Text: Likely end stage PD - continue with current regimen. (5) AAA (abdominal aortic aneurysm) Status: Chronic Problem Text: s/p repair. continue with asa, statin therapy. (6) GERD (gastroesophageal reflux disease) Status: Chronic Problem Specific Plan: Monitor Clinically Problem Text: Protonix (7) Femur fracture, left Status: Chronic Discussed With: Patient Problem Specific Plan: Consult Specialist Problem Text: DVT prophylaxis discontinued, discussed with ortho who agreed with plan of care. (8) Orthostatic hypotension Status: Chronic Problem Specific Plan: Monitor Clinically Problem Text: Likely secondary to Parkinsons. Continue midodrine. (9) Bullous pemphigus Status: Acute Response to Treatment: Worse Discussed With: Patient Problem Specific Plan: Monitor Clinically Problem Text: Local exacerbation through his scrotum and lower back. Restarted steroids. Follow clinically. Plan/VTE VTE Prophylaxis Ordered?: Yes (mechanical) Plan/Urinary Catheter Reason for insertion/continuin: Acute obstruct/retention Plan Diet: Continue Current Activity: Continue Current Anticipated Discharge: Jail VS, I&O, 24H, [facility], [facility] Vital Signs/I&O Vital Signs Date Time Temp Pulse Resp B/P Pulse Ox O2 Delivery O2 Flow Rate FiO2 07/09/16 06:40 96.5 84 17 127/72 96 Room Air 07/08/16 10:17 1.0 I&O- Last 24 Hours up to 6 AM 07/09/16 06:00 Intake Total 480 ml Output Total 625 ml Balance -145 ml Laboratory Data 24H LABS Laboratory Tests 2 07/09/16 06:04: Anion Gap 8, Blood Urea Nitrogen 16, Creatinine 0.99, Sodium Level 145, Potassium Level 3.6, Chloride Level 110H, Carbon Dioxide Level 27, Calcium Level 8.3L, Glomerular Filtration Rate > 60.0 CBC/BMP Laboratory Tests 07/09/16 06:04 Calcium Level 8.3 L Microbiology Microbiology 07/01/16 Blood Culture - Final, Complete NO GROWTH AFTER 5 DAYS 07/01/16 Blood Culture - Final, Complete NO GROWTH AFTER 5 DAYS 07/01/16 Respiratory Virus Panel (PCR) ([facility]) - Final, Complete SASHA MUÑIZ MD Jul 09, 2016 08:44
[2016-07-09] MEDS: ACETAMINOPHEN TAB 650MG DOSE (2X325MG) PO PRN (12:16)
[2016-07-09 14:00] VITALS: BP 145/80
[2016-07-09] MEDS: OCUVITE 1 TAB PO SCH (17:19)
[2016-07-09] MEDS: SIMVASTATIN 40 MG TAB PO SCH (20:10)
[2016-07-09] MEDS: PANTOPRAZOLE 40MG TAB (PROTONIX) PO SCH (20:10)
[2016-07-09] MEDS: LATANOPROST 0.005% OPHTH SOLN 2.5 ML OD SCH (20:11)
[2016-07-09 20:15] VITALS: BP 135/72
[2016-07-10] MEDS: IPRATROPIUM 0.5MG/ALBUTEROL 2.5MG INH SOL UD 3ML (DUONEB)(J7620) NEB SCH ×6 (04:00→23:31)
[2016-07-10 06:05] VITALS: BP 156/84
[2016-07-10 06:57] LABS: ANION GAP 9 MEQ/L (8-16); BLOOD UREA NITROGEN 16 MG/DL (7-18); CALCIUM LEVEL 8.6 MG/DL (8.8-10.2); CARBON DIOXIDE LEVEL 28 MEQ/L (21-32); CHLORIDE LEVEL 108 MEQ/L (98-107); CREATININE FOR GFR 0.88 MG/DL (0.70-1.30); GLOMERULAR FILTRATION RATE > 60.0 (>35); GLUCOSE, FASTING 107 MG/DL (83-110); POTASSIUM SERUM 3.2 MEQ/L (3.5-5.1); SODIUM LEVEL 145 MEQ/L (136-145)
[2016-07-10] MEDS: MIRALAX *UNIT DOSE* 17GM PACKET PO SCH (08:36)
[2016-07-10] MEDS: ACETAMINOPHEN TAB 650MG DOSE (2X325MG) PO PRN ×3 (08:36→17:01)
[2016-07-10] MEDS: LACTOBACILLUS ACIDOPHILUS CAP (BACID) PO SCH ×3 (08:37→20:03)
[2016-07-10] MEDS: DOCUSATE SODIUM 100 MG CAP PO SCH ×2 (08:37→20:02)
[2016-07-10] MEDS: OCUVITE 1 TAB PO SCH (08:37)
[2016-07-10] MEDS: rOPINIRole 1MG TAB PO SCH ×3 (08:37→20:02)
[2016-07-10] MEDS: predniSONE 20 MG TAB PO SCH (08:37)
[2016-07-10] MEDS: MIDODRINE 5 MG TAB PO SCH ×3 (08:37→16:58)
[2016-07-10] MEDS: MULTIVITAMINS/MINERALS THERAP 1 TAB PO SCH (08:37)
[2016-07-10] MEDS: FERROUS GLUCONATE 324 MG TAB PO SCH ×3 (08:37→20:03)
[2016-07-10] MEDS: FLUDROCORTISONE ACETATE 0.1 MG TAB PO SCH (08:37)
[2016-07-10] MEDS: SINEMET 25-100 MG TAB PO SCH ×3 (08:37→20:02)
[2016-07-10] MEDS: MUPIROCIN 2% OINT 22 GM TUBE TOP SCH ×2 (08:38→20:03)
[2016-07-10] MEDS ORDERED: POTASSIUM CHLORIDE 10% LIQ 20 MEQ/15 ML UDC PO ONE (08:45)
[2016-07-10 09:02] LABS: MAGNESIUM LEVEL 2.3 MG/DL (1.8-2.4)
--- NOTE | 2016-07-10 11:57 | IPNPDOC ---
Subjective General Date Seen The patient was seen on 07/10/16. Subjective Chief Complaint/HPI The patient is a 80-year-old male admitted with a reason for visit of Symptomatic Anemia, Orthostatic Hypotension. General: Denies: Chills, Fatigue, Malaise, Night Sweats, Normal Appetite, Other Symptoms, ROS Unobtainable Constitutional: Denies: Chills, Fatigue, Fever, Lethargy, Malaise, Night Sweats , Other, Weakness, Weight Loss Eyes: Denies: Conjunctivae inflammation, Eyelid inflammation, Other, Pain, Redness, Vision change ENT: Denies: Dysphagia, Ear Pain, Epistaxis, Head Aches, Other Symptoms, Post Nasal Drip, Sinus Congestion, Sore Throat Skin: Reports: Rash, Denies: Breakdown, Bruising, Dry, Itching, Jaundice, Lesions, Nail Changes, Other Pulmonary: Denies: Cough, Dyspnea, Other Symptoms, Pleuritic Chest Pain Cardiovascular: Denies: Chest Pain, Edema, Lt Headedness, Orthopnea, Other Symptoms, Palpitations, Paroxysmal Noc. Dyspnea Objective Physical Examination General Exam: Positive: Alert, Cooperative, No Acute Distress Eye Exam: Positive: PERRLA ENT Exam: Positive: Atraumatic, Other ENT (appendage like mass noted posterior pharynx with dried blood; airway patent) Neck Exam: Positive: Supple Chest Exam: Positive: Clear to auscultation, Normal air movement Heart Exam: Positive: Rate Normal Abdomen Exam: Positive: Normal bowel sounds, Soft, Negative: Tenderness Skin Exam: Positive: Rash (lower back, blanching, erythematous, macular - much improved) Psych Exam: Positive: Oriented x 3 Assessment /Plan Problems Problems: (1) Neck mass Onset Date: 12/18/2013 Status: Chronic Discussed With: Patient Problem Specific Plan: Monitor Clinically Problem Text: Some tracheal deviation with no airway comprimise. Previous ENT consultation appreciated - Dr. Modi. Recommendation includes nuclear medicine scan of thyroid and US guided fine needle biopsy. Can be obtained as outpatient as per ENT recommendations. He did have an US guided fine needle biopsy in November 2013 which were benign. Discussed with ENT again, pending chart review for further input. (2) COPD (chronic obstructive pulmonary disease) Status: Chronic Response to Treatment: Stable Discussed With: Patient Problem Specific Plan: Monitor Clinically (3) PNA (pneumonia) Status: Resolved Problem Specific Plan: Monitor Clinically Problem Text: Completed course of anti-microbials. (4) Parkinson disease Status: Chronic Discussed With: Patient Problem Specific Plan: Monitor Clinically Problem Text: Likely end stage PD - continue with current regimen. (5) AAA (abdominal aortic aneurysm) Status: Chronic Problem Text: s/p repair. continue with asa, statin therapy. (6) GERD (gastroesophageal reflux disease) Status: Chronic Problem Specific Plan: Monitor Clinically Problem Text: Protonix (7) Femur fracture, left Status: Chronic Discussed With: Patient Problem Specific Plan: Consult Specialist Problem Text: DVT prophylaxis discontinued, discussed with ortho who agreed with plan of care. (8) Orthostatic hypotension Status: Chronic Problem Specific Plan: Monitor Clinically Problem Text: Likely secondary to Parkinsons. Continue midodrine. (9) Bullous pemphigus Status: Acute Response to Treatment: Worse Discussed With: Patient Problem Specific Plan: Monitor Clinically Problem Text: Local exacerbation through his scrotum and lower back. Restarted steroids. Follow clinically. Plan/VTE VTE Prophylaxis Ordered?: Yes (mechanical) Plan/Urinary Catheter Reason for insertion/continuin: Acute obstruct/retention Plan Diet: Continue Current Activity: Continue Current Anticipated Discharge: Custodial VS, I&O, 24H, [facility], [facility] Vital Signs/I&O Vital Signs Date Time Temp Pulse Resp B/P Pulse Ox O2 Delivery O2 Flow Rate FiO2 07/10/16 08:35 Room Air 07/10/16 06:05 96.8 81 18 156/84 98 07/08/16 10:17 1.0 I&O- Last 24 Hours up to 6 AM 07/10/16 06:00 Intake Total 1160 ml Output Total 750 ml Balance 410 ml Laboratory Data 24H LABS Laboratory Tests 2 07/10/16 06:19: Anion Gap 9, Blood Urea Nitrogen 16, Creatinine 0.88, Sodium Level 145, Potassium Level 3.2L, Chloride Level 108H, Carbon Dioxide Level 28, Calcium Level 8.6L, Glomerular Filtration Rate > 60.0, Magnesium Level 2.3 CBC/BMP Laboratory Tests 07/10/16 06:19 Calcium Level 8.6 L Microbiology Microbiology 07/01/16 Blood Culture - Final, Complete NO GROWTH AFTER 5 DAYS 07/01/16 Blood Culture - Final, Complete NO GROWTH AFTER 5 DAYS 07/01/16 Respiratory Virus Panel (PCR) ([facility]) - Final, Complete SASHA MUÑIZ MD Jul 10, 2016 11:57
[2016-07-10 13:30] VITALS: BP 127/60
[2016-07-10] MEDS: PANTOPRAZOLE 40MG TAB (PROTONIX) PO SCH (20:02)
[2016-07-10] MEDS: SIMVASTATIN 40 MG TAB PO SCH (20:03)
[2016-07-10] MEDS: LATANOPROST 0.005% OPHTH SOLN 2.5 ML OD SCH (20:03)
[2016-07-10 22:00] VITALS: BP 152/70
[2016-07-11] MEDS: IPRATROPIUM 0.5MG/ALBUTEROL 2.5MG INH SOL UD 3ML (DUONEB)(J7620) NEB SCH ×6 (04:00→23:55)
[2016-07-11 06:00] VITALS: BP 140/83
[2016-07-11 06:04] LABS: ANION GAP 8 MEQ/L (8-16); BLOOD UREA NITROGEN 15 MG/DL (7-18); CALCIUM LEVEL 8.4 MG/DL (8.8-10.2); CARBON DIOXIDE LEVEL 29 MEQ/L (21-32); CHLORIDE LEVEL 106 MEQ/L (98-107); GLOMERULAR FILTRATION RATE > 60.0 (>35); GLUCOSE, FASTING 128 MG/DL (83-110); POTASSIUM SERUM 3.1 MEQ/L (3.5-5.1); SODIUM LEVEL 143 MEQ/L (136-145)
[2016-07-11] MEDS: ACETAMINOPHEN TAB 650MG DOSE (2X325MG) PO PRN ×3 (06:39→17:13)
[2016-07-11] MEDS ORDERED: POTASSIUM CHLORIDE 10 MEQ SR TABLET PO ONE (07:00)
[2016-07-11 07:20] LABS: MAGNESIUM LEVEL 2.3 MG/DL (1.8-2.4)
[2016-07-11] MEDS: MUPIROCIN 2% OINT 22 GM TUBE TOP SCH ×2 (08:07→21:33)
[2016-07-11] MEDS: LACTOBACILLUS ACIDOPHILUS CAP (BACID) PO SCH ×3 (08:07→21:32)
[2016-07-11] MEDS: OCUVITE 1 TAB PO SCH (08:07)
[2016-07-11] MEDS: FLUDROCORTISONE ACETATE 0.1 MG TAB PO SCH (08:07)
[2016-07-11] MEDS: MIRALAX *UNIT DOSE* 17GM PACKET PO SCH (08:07)
[2016-07-11] MEDS: MULTIVITAMINS/MINERALS THERAP 1 TAB PO SCH (08:08)
[2016-07-11] MEDS: predniSONE 20 MG TAB PO SCH (08:08)
[2016-07-11] MEDS: FERROUS GLUCONATE 324 MG TAB PO SCH ×3 (08:08→21:32)
[2016-07-11] MEDS: MIDODRINE 5 MG TAB PO SCH ×3 (08:08→17:14)
[2016-07-11] MEDS: rOPINIRole 1MG TAB PO SCH ×3 (08:08→21:32)
[2016-07-11] MEDS: SINEMET 25-100 MG TAB PO SCH ×3 (08:08→21:32)
[2016-07-11] MEDS: DOCUSATE SODIUM 100 MG CAP PO SCH ×2 (08:08→21:32)
--- NOTE | 2016-07-11 11:19 | IPNPDOC ---
Subjective General Date Seen The patient was seen on 07/11/16. Subjective Chief Complaint/HPI The patient is a 80-year-old male admitted with a reason for visit of Symptomatic Anemia, Orthostatic Hypotension. General: Denies: Chills, Fatigue, Malaise, Night Sweats, Normal Appetite, Other Symptoms, ROS Unobtainable Constitutional: Denies: Chills, Fatigue, Fever, Lethargy, Malaise, Night Sweats , Other, Weakness, Weight Loss Eyes: Denies: Conjunctivae inflammation, Eyelid inflammation, Other, Pain, Redness, Vision change ENT: Denies: Dysphagia, Ear Pain, Epistaxis, Head Aches, Other Symptoms, Post Nasal Drip, Sinus Congestion, Sore Throat Skin: Denies: Breakdown, Bruising, Dry, Itching, Jaundice, Lesions, Nail Changes, Other, Rash Pulmonary: Denies: Cough, Dyspnea, Other Symptoms, Pleuritic Chest Pain Cardiovascular: Denies: Chest Pain, Edema, Lt Headedness, Orthopnea, Other Symptoms, Palpitations, Paroxysmal Noc. Dyspnea Gastrointestinal: Denies: Abdominal Pain, Constipation, Diarrhea, Hematochezia , Melena, Nausea, Other Symptoms, Vomiting Genitourinary: Denies: Dysuria, Frequency, Hematuria, Incontinence, Other Symptoms, Retention Hematologic: Denies: Bleeding Excessively, Bruising, Enlarged Lymph Nodes, Other Hematologic, Petecchia, Purpura Objective Physical Examination General Exam: Positive: Alert, Cooperative, No Acute Distress Eye Exam: Positive: PERRLA ENT Exam: Positive: Atraumatic, Other ENT (appendage like mass noted posterior pharynx with dried blood; airway patent) Neck Exam: Positive: Supple Chest Exam: Positive: Clear to auscultation, Normal air movement Heart Exam: Positive: Rate Normal Abdomen Exam: Positive: Normal bowel sounds, Soft, Negative: Tenderness Skin Exam: Positive: Rash (lower back, blanching, erythematous, macular - much improved) Psych Exam: Positive: Oriented x 3 Assessment /Plan Problems Problems: (1) Neck mass Onset Date: 12/18/2013 Status: Chronic Discussed With: Patient Problem Specific Plan: Monitor Clinically Problem Text: Some tracheal deviation with no airway comprimise. Previous ENT consultation appreciated - Dr. Modi. Recommendations included nuclear medicine scan of thyroid and US guided fine needle biopsy. Can be obtained as outpatient as per ENT recommendations. He did have an US guided fine needle biopsy in November 2013 which were benign. Discussed with ENT again, will re-eval with US thyroid. If no changes in size, no further intervention. If increased will obtain second FNA. (2) COPD (chronic obstructive pulmonary disease) Status: Chronic Response to Treatment: Stable Discussed With: Patient Problem Specific Plan: Monitor Clinically (3) PNA (pneumonia) Status: Resolved Problem Specific Plan: Monitor Clinically Problem Text: Completed course of anti-microbials. (4) Parkinson disease Status: Chronic Discussed With: Patient Problem Specific Plan: Monitor Clinically Problem Text: Likely end stage PD - continue with current regimen. (5) AAA (abdominal aortic aneurysm) Status: Chronic Problem Text: s/p repair. continue with asa, statin therapy. (6) GERD (gastroesophageal reflux disease) Status: Chronic Problem Specific Plan: Monitor Clinically Problem Text: Protonix (7) Femur fracture, left Status: Chronic Discussed With: Patient Problem Specific Plan: Consult Specialist Problem Text: DVT prophylaxis discontinued, discussed with ortho who agreed with plan of care. (8) Orthostatic hypotension Status: Chronic Problem Specific Plan: Monitor Clinically Problem Text: Likely secondary to Parkinsons. Continue midodrine. (9) Bullous pemphigus Status: Acute Response to Treatment: Worse Discussed With: Patient Problem Specific Plan: Monitor Clinically Problem Text: Local exacerbation through his scrotum and lower back. Restarted steroids. Follow clinically. Plan/VTE VTE Prophylaxis Ordered?: Yes (mechanical) Plan/Urinary Catheter Reason for insertion/continuin: Acute obstruct/retention Plan Diet: Continue Current Activity: Continue Current Medications: Replete Electrolytes PO Diagnostics: Repeat Labs in AM Anticipated Discharge: [facility], I&O, 24H[facility] Vital Signs/I&O Vital Signs Date Time Temp Pulse Resp B/P Pulse Ox O2 Delivery O2 Flow Rate FiO2 07/11/16 06:00 97.1 83 18 140/83 93 07/10/16 21:20 Room Air 07/08/16 10:17 1.0 I&O- Last 24 Hours up to 6 AM 07/11/16 05:59 Intake Total 2010 ml Output Total 1750 ml Balance 260 ml Laboratory Data 24H LABS Laboratory Tests 2 07/11/16 05:31: Anion Gap 8, Blood Urea Nitrogen 15, Creatinine 0.80, Sodium Level 143, Potassium Level 3.1L, Chloride Level 106, Carbon Dioxide Level 29, Calcium Level 8.4L, Glomerular Filtration Rate > 60.0, Magnesium Level 2.3 CBC/BMP Laboratory Tests 07/11/16 05:31 Calcium Level 8.4 L Microbiology Microbiology 07/01/16 Blood Culture - Final, Complete NO GROWTH AFTER 5 DAYS 07/01/16 Blood Culture - Final, Complete NO GROWTH AFTER 5 DAYS 07/01/16 Respiratory Virus Panel (PCR) ([facility]) - Final, Complete SASHA MUÑIZ MD Jul 11, 2016 11:19
[2016-07-11 14:00] VITALS: BP 124/86
--- NOTE | 2016-07-11 14:48 | REP ---
THYROID ULTRASOUND: 07/11/2016. Comparison: CT neck with contrast 07/05/2016, thyroid ultrasound of 05/15/2008. Clinical history: Evaluate thyroid mass. Sonographic evaluation of the thyroid lobes performed. This patient whose recent CT showed the large thyroid mass at the thoracic inlet and extending below. The right lobe is 6.4 x 5.3 x 6 cm. The left lobe is 3.4 x 1.4 x 0.9 cm. Most of the right lobe is filled by a dominant solid nodule with some central hypoechogenic area suggesting cystic component measures 6.4 x 6 x 5.3 cm. The dominant nodule measures 5.6 x 5.5 x 5.1 cm with low-density central zones seen and this corresponds in location and size to that seen on CT last week. On the previous study the mass had less central hypoechogenicity and it fills most of the thyroid lobe. Overall that lobe was 5.3 x 3.8 x 3.5 cm smaller than the size of just the mass today. The isthmus has a thickness of 5.1 mm. There is a 6 x 3 x 3.5 mm small cyst in the upper pole of the left thyroid which was otherwise homogeneous. Impression: 1. Complex solid nodule with hypoechoic central areas likely cystic. This is in the right lobe of the thyroid corresponds to the mass seen on CT and is of similar size. I see a mass in the 2007 thyroid ultrasound which showed its right lobe smaller than in the mass alone is today. Increasing size of this dominant nodule/mass. Complex ultrasound features. Malignancy not excluded. 2. Left lobe shows only a 6 x 3.5 mm cyst upper pole and the isthmus was unremarkable. Signed by Mark Redding MD 07/11/2016 07:28 P
[2016-07-11] MEDS: PANTOPRAZOLE 40MG TAB (PROTONIX) PO SCH (21:32)
[2016-07-11] MEDS: SIMVASTATIN 40 MG TAB PO SCH (21:32)
[2016-07-11] MEDS: LATANOPROST 0.005% OPHTH SOLN 2.5 ML OD SCH (21:33)
[2016-07-12] MEDS: IPRATROPIUM 0.5MG/ALBUTEROL 2.5MG INH SOL UD 3ML (DUONEB)(J7620) NEB SCH ×6 (04:00→23:47)
[2016-07-12 06:00] VITALS: BP 143/82
[2016-07-12 06:35] LABS: ANION GAP 8 MEQ/L (8-16); BLOOD UREA NITROGEN 18 MG/DL (7-18); CALCIUM LEVEL 8.8 MG/DL (8.8-10.2); CARBON DIOXIDE LEVEL 31 MEQ/L (21-32); CHLORIDE LEVEL 107 MEQ/L (98-107); CREATININE FOR GFR 0.84 MG/DL (0.70-1.30); GLOMERULAR FILTRATION RATE > 60.0 (>35); GLUCOSE, FASTING 125 MG/DL (83-110); MAGNESIUM LEVEL 2.4 MG/DL (1.8-2.4); POTASSIUM SERUM 3.3 MEQ/L (3.5-5.1); SODIUM LEVEL 146 MEQ/L (136-145)
[2016-07-12] MEDS ORDERED: POTASSIUM CHLORIDE 10% LIQ 20 MEQ/15 ML UDC PO ONE (07:00)
[2016-07-12] MEDS: MIRALAX *UNIT DOSE* 17GM PACKET PO SCH (08:14)
[2016-07-12] MEDS: FLUDROCORTISONE ACETATE 0.1 MG TAB PO SCH (08:14)
[2016-07-12] MEDS: OCUVITE 1 TAB PO SCH (08:15)
[2016-07-12] MEDS: MIDODRINE 5 MG TAB PO SCH ×3 (08:15→16:42)
[2016-07-12] MEDS: rOPINIRole 1MG TAB PO SCH ×3 (08:15→21:16)
[2016-07-12] MEDS: SINEMET 25-100 MG TAB PO SCH ×3 (08:15→21:16)
[2016-07-12] MEDS: FERROUS GLUCONATE 324 MG TAB PO SCH ×3 (08:15→21:16)
[2016-07-12] MEDS: MULTIVITAMINS/MINERALS THERAP 1 TAB PO SCH (08:16)
[2016-07-12] MEDS: MUPIROCIN 2% OINT 22 GM TUBE TOP SCH ×2 (08:16→21:17)
[2016-07-12] MEDS: predniSONE 20 MG TAB PO SCH (08:16)
[2016-07-12] MEDS: DOCUSATE SODIUM 100 MG CAP PO SCH ×2 (08:16→21:16)
[2016-07-12] MEDS: LACTOBACILLUS ACIDOPHILUS CAP (BACID) PO SCH ×3 (08:16→21:16)
--- NOTE | 2016-07-12 11:01 | IPNPDOC ---
Subjective General Date Seen The patient was seen on 07/12/16. Subjective Chief Complaint/HPI The patient is a 80-year-old male admitted with a reason for visit of Symptomatic Anemia, Orthostatic Hypotension. General: Denies: Chills, Fatigue, Malaise, Night Sweats, Normal Appetite, Other Symptoms, ROS Unobtainable Constitutional: Denies: Chills, Fatigue, Fever, Lethargy, Malaise, Night Sweats , Other, Weakness, Weight Loss Eyes: Denies: Conjunctivae inflammation, Eyelid inflammation, Other, Pain, Redness, Vision change ENT: Denies: Dysphagia, Ear Pain, Epistaxis, Head Aches, Other Symptoms, Post Nasal Drip, Sinus Congestion, Sore Throat Skin: Denies: Breakdown, Bruising, Dry, Itching, Jaundice, Lesions, Nail Changes, Other, Rash Pulmonary: Denies: Cough, Dyspnea, Other Symptoms, Pleuritic Chest Pain Cardiovascular: Denies: Chest Pain, Edema, Lt Headedness, Orthopnea, Other Symptoms, Palpitations, Paroxysmal Noc. Dyspnea Gastrointestinal: Denies: Abdominal Pain, Constipation, Diarrhea, Hematochezia , Melena, Nausea, Other Symptoms, Vomiting Genitourinary: Denies: Dysuria, Frequency, Hematuria, Incontinence, Other Symptoms, Retention Objective Physical Examination General Exam: Positive: Alert, Cooperative, No Acute Distress Eye Exam: Positive: PERRLA ENT Exam: Positive: Atraumatic, Other ENT (appendage like mass noted posterior pharynx with dried blood; airway patent) Neck Exam: Positive: Supple Chest Exam: Positive: Clear to auscultation, Normal air movement Heart Exam: Positive: Rate Normal, Regular Rhythm Abdomen Exam: Positive: Normal bowel sounds, Soft, Negative: Tenderness Skin Exam: Positive: Rash (lower back, blanching, erythematous, macular - much improved) Psych Exam: Positive: Oriented x 3 Assessment /Plan Problems Problems: (1) Neck mass Onset Date: 12/18/2013 Status: Chronic Discussed With: Patient Problem Specific Plan: Monitor Clinically Problem Text: Some tracheal deviation with no airway comprimise. Previous ENT consultation appreciated - Dr. Modi. Recommendations included nuclear medicine scan of thyroid and US guided fine needle biopsy. Can be obtained as outpatient as per ENT recommendations. He did have an US guided fine needle biopsy in November 2013 which were benign. Discussed with ENT again, repeat US indicates some growth of thyroid mass. Recommending repeat FNA. If benign no further intervention. Discussed with . (2) COPD (chronic obstructive pulmonary disease) Status: Chronic Response to Treatment: Stable Discussed With: Patient Problem Specific Plan: Monitor Clinically (3) PNA (pneumonia) Status: Resolved Problem Specific Plan: Monitor Clinically Problem Text: Completed course of anti-microbials. (4) Parkinson disease Status: Chronic Discussed With: Patient Problem Specific Plan: Monitor Clinically Problem Text: Likely end stage PD - continue with current regimen. (5) AAA (abdominal aortic aneurysm) Status: Chronic Problem Text: s/p repair. continue with asa, statin therapy. (6) GERD (gastroesophageal reflux disease) Status: Chronic Problem Specific Plan: Monitor Clinically Problem Text: Protonix (7) Femur fracture, left Status: Chronic Discussed With: Patient Problem Specific Plan: Consult Specialist Problem Text: DVT prophylaxis discontinued, discussed with ortho who agreed with plan of care. (8) Orthostatic hypotension Status: Chronic Problem Specific Plan: Monitor Clinically Problem Text: Likely secondary to Parkinsons. Continue midodrine. (9) Bullous pemphigus Status: Acute Response to Treatment: Improving Discussed With: Patient Problem Specific Plan: Monitor Clinically Problem Text: Local exacerbation through his scrotum and lower back. Restarted steroids. Follow clinically. Plan/VTE VTE Prophylaxis Ordered?: Yes (mechanical) Plan/Urinary Catheter Reason for insertion/continuin: Acute obstruct/retention Plan Diet: Continue Current Activity: Continue Current Medications: Replete Electrolytes PO Diagnostics: Repeat Labs in AM, Ultrasound (FNA biopsy thyroid pending) Anticipated Discharge: [facility] Disposition Pending placement. Potential receiving facility concerned regarding plan of care with regards to thyroid mass. ENT re-consulted, US indicates increased growth, repeat FNA biopsy for further eval as per ENT. If benign, no further treatment/evaluation. Discussed with and . VS, I&O, 24H, Fishbone Vital Signs/I&O Vital Signs Date Time Temp Pulse Resp B/P Pulse Ox O2 Delivery O2 Flow Rate FiO2 07/12/16 06:00 98.0 80 20 143/82 95 07/11/16 21:00 Room Air 07/08/16 10:17 1.0 I&O- Last 24 Hours up to 6 AM 07/12/16 06:00 Intake Total 720 ml Output Total 1150 ml Balance -430 ml Laboratory Data 24H LABS Laboratory Tests 2 07/12/16 05:28: Anion Gap 8, Blood Urea Nitrogen 18, Creatinine 0.84, Sodium Level 146H, Potassium Level 3.3L, Chloride Level 107, Carbon Dioxide Level 31, Calcium Level 8.8, Glomerular Filtration Rate > 60.0, Magnesium Level 2.4 CBC/BMP Laboratory Tests 07/12/16 05:28 Calcium Level 8.8 SASHA MUÑIZ MD Jul 12, 2016 11:01
[2016-07-12 14:00] VITALS: BP 149/78
[2016-07-12] MEDS ORDERED: LIDOCAINE 1% MDV 20ML VIAL As Ordered ONE (14:48)
[2016-07-12] MEDS: ACETAMINOPHEN TAB 650MG DOSE (2X325MG) PO PRN ×2 (16:42→21:16)
--- NOTE | 2016-07-12 17:40 | REP ---
ULTRASOUND GUIDED THYROID BIOPSY: The procedure was performed under the direct supervision of Dr. Monroy. The patient has a history of a complex solid nodule with hypoechoic central areas in the right lobe of the thyroid seen on a previous ultrasound dated 07/11/2016. The risks and benefits of the procedure were explained to the patient and informed consent was obtained. The right thyroid mass was localized using ultrasound guidance. The skin was prepped and draped in a sterile fashion. 1% Lidocaine was used as a local anesthetic. Using ultrasound guidance four fine-needle aspirations were obtained using 25-gauge needles. The patient tolerated the procedure well and there were no immediate complications. Reviewed by JIN Moore 07/13/2016 12:54 PEdited and Signed by Darin Monroy MD 07/13/2016 03:29 P
[2016-07-12] MEDS: PANTOPRAZOLE 40MG TAB (PROTONIX) PO SCH (21:16)
[2016-07-12] MEDS: SIMVASTATIN 40 MG TAB PO SCH (21:16)
[2016-07-12] MEDS: LATANOPROST 0.005% OPHTH SOLN 2.5 ML OD SCH (21:17)
[2016-07-12 22:00] VITALS: BP 160/80
[2016-07-13] MEDS: IPRATROPIUM 0.5MG/ALBUTEROL 2.5MG INH SOL UD 3ML (DUONEB)(J7620) NEB SCH ×5 (04:00→19:31)
[2016-07-13 06:00] VITALS: BP 150/91
[2016-07-13] MEDS: MIRALAX *UNIT DOSE* 17GM PACKET PO SCH (08:36)
[2016-07-13] MEDS: ACETAMINOPHEN TAB 650MG DOSE (2X325MG) PO PRN (08:36)
[2016-07-13] MEDS: OCUVITE 1 TAB PO SCH (08:37)
[2016-07-13] MEDS: LACTOBACILLUS ACIDOPHILUS CAP (BACID) PO SCH ×3 (08:37→21:01)
[2016-07-13] MEDS: predniSONE 20 MG TAB PO SCH (08:38)
[2016-07-13] MEDS: DOCUSATE SODIUM 100 MG CAP PO SCH ×2 (08:38→21:01)
[2016-07-13] MEDS: MULTIVITAMINS/MINERALS THERAP 1 TAB PO SCH (08:38)
[2016-07-13] MEDS: rOPINIRole 1MG TAB PO SCH ×3 (08:38→21:01)
[2016-07-13] MEDS: FLUDROCORTISONE ACETATE 0.1 MG TAB PO SCH (08:38)
[2016-07-13] MEDS: MIDODRINE 5 MG TAB PO SCH ×3 (08:39→18:30)
[2016-07-13] MEDS: FERROUS GLUCONATE 324 MG TAB PO SCH ×3 (08:39→21:02)
[2016-07-13] MEDS: MUPIROCIN 2% OINT 22 GM TUBE TOP SCH ×2 (08:40→21:02)
[2016-07-13] MEDS: NYSTATIN 100,000 UNITS/GM TOPICAL PWD 15 GM TOP SCH ×2 (09:00→21:04)
[2016-07-13] MEDS: SINEMET 25-100 MG TAB PO SCH ×3 (09:29→21:01)
[2016-07-13 14:00] VITALS: BP_SYST 105; BP_SYST 156; BP_DIAS 69; BP_DIAS 84
[2016-07-13] MEDS ORDERED: POTASSIUM CHLORIDE 10 MEQ SR TABLET PO ONE (14:00)
--- NOTE | 2016-07-13 17:01 | IPN ---
DATE: 07/13/2016 Mr. Agosto is complaining of some burning pain in the area around his scrotum. No chest pain. No shortness of breath. Tolerating a diet. He feels like he is getting strongly from when I saw him last week. Temperature is 97, pulse 86, respirations 18, blood pressure 150/91, 96% on room air. Intake and output notable for negative fluid balance of -182. One bowel movements thus far today. He is awake, appropriately interactive, pleasantly conversant. Breathing is symmetrically rested. Heart is distant sounding. Abdomen is soft, dough, nontender. There is no lower extremity edema. White cell count is 11.1, hemoglobin 9.7. INR is 1.1. Potassium 3.3, sodium 146. ASSESSMENT: This is an 80-year-old with end-stage Parkinson's disease, incidentally noted to have a neck mass. PLAN: 1. Patient has a thyroid mass, which was biopsied yesterday. There are no plans to do anything about this after further discussions with the patient and his today, so no matter the result of the biopsy result, they are not interested in pursuing further diagnosis or treatment. 2. Patient has chronic obstructive pulmonary disease (COPD), which is stable. 3. Patient has end-stage Parkinson's disease with orthostatic hypotension. His blood pressure has been trending upward, though, and I would like to recheck orthostatic vital signs, which will be done today. 4. Patient has abdominal aortic aneurysm. 5. Patient has a remote left femur fracture. No longer requires Coumadin for deep vein thrombosis (DVT) prophylaxis. 6. Patient has bullous pemphigus. Looks much better than it did a week and a half ago.
[2016-07-13] MEDS: LATANOPROST 0.005% OPHTH SOLN 2.5 ML OD SCH (21:02)
[2016-07-13] MEDS: PANTOPRAZOLE 40MG TAB (PROTONIX) PO SCH (21:02)
[2016-07-13] MEDS: SIMVASTATIN 40 MG TAB PO SCH (21:02)
[2016-07-13 22:00] VITALS: BP 140/84
[2016-07-14] MEDS: IPRATROPIUM 0.5MG/ALBUTEROL 2.5MG INH SOL UD 3ML (DUONEB)(J7620) NEB SCH ×5 (04:00→20:49)
[2016-07-14 06:00] VITALS: BP 140/78
[2016-07-14] MEDS: SINEMET 25-100 MG TAB PO SCH ×3 (08:35→20:52)
[2016-07-14] MEDS: predniSONE 20 MG TAB PO SCH (08:35)
[2016-07-14] MEDS: MIRALAX *UNIT DOSE* 17GM PACKET PO SCH (08:35)
[2016-07-14] MEDS: MIDODRINE 5 MG TAB PO SCH ×3 (08:35→17:25)
[2016-07-14] MEDS: MULTIVITAMINS/MINERALS THERAP 1 TAB PO SCH (08:35)
[2016-07-14] MEDS: MUPIROCIN 2% OINT 22 GM TUBE TOP SCH ×2 (08:36→20:53)
[2016-07-14] MEDS: FERROUS GLUCONATE 324 MG TAB PO SCH ×3 (08:36→20:52)
[2016-07-14] MEDS: rOPINIRole 1MG TAB PO SCH ×3 (08:36→20:52)
[2016-07-14] MEDS: OCUVITE 1 TAB PO SCH (08:36)
[2016-07-14] MEDS: FLUDROCORTISONE ACETATE 0.1 MG TAB PO SCH (08:36)
[2016-07-14] MEDS: LACTOBACILLUS ACIDOPHILUS CAP (BACID) PO SCH ×3 (08:36→20:52)
[2016-07-14] MEDS: DOCUSATE SODIUM 100 MG CAP PO SCH ×2 (08:36→20:52)
[2016-07-14] MEDS: NYSTATIN 100,000 UNITS/GM TOPICAL PWD 15 GM TOP SCH ×2 (08:37→20:52)
[2016-07-14] MEDS: ACETAMINOPHEN TAB 650MG DOSE (2X325MG) PO PRN ×2 (08:40→12:57)
[2016-07-14] MEDS ORDERED: NYST10PW TOP (12:02)
[2016-07-14] MEDS ORDERED: PEG1POW PO (12:02)
[2016-07-14] MEDS ORDERED: FLUD1TA PO (12:02)
[2016-07-14] MEDS ORDERED: MIDO5TA PO (12:02)
[2016-07-14] MEDS ORDERED: DELT1TAB PO (12:02)
[2016-07-14 14:00] VITALS: BP 164/86
[2016-07-14] MEDS ORDERED: IPRATROPIUM 0.5MG/ALBUTEROL 2.5MG INH SOL UD 3ML (DUONEB)(J7620) NEB PRN (15:15)
--- NOTE | 2016-07-14 16:41 | IPN ---
DATE: 07/14/2016 Mr. Agosto is feeling well today. He has no complaints of pain, chest pain, or shortness of breath. He would like to get up to [facility]. Yesterday when he did get out of bed for orthostatic heart rate and blood pressure, he lost consciousness when upright. Temperature is 96, pulse 85, respiratory rate 18, blood pressure 140/78, 93% on room air. Intake and output notable for a negative fluid balance of -65. One bowel movements noted yesterday. He is awake, appropriately interactive, pleasantly conversant. Mucous membranes are moist. Neck is supple. Breathing is symmetrical and rested. I:E ratio is 1:3. No wheezes, rales, or rhonchi. Heart is distant sounding. Normal S1, S2. Abdomen is soft. There are no recent laboratories for me to review. ASSESSMENT: This is an 80-year-old with end-stage Parkinson's disease and incidentally noted neck mass which is longstanding. PLAN: 1. Thyroid mass. Biopsy was found to be benign. No further planned intervention at this point. 2. The patient has chronic obstructive pulmonary disease (COPD) which is stable. 3. The patient has end-stage Parkinson's disease with orthostatic hypotension. He is still quite symptomatic and likely shows that he has end-state Parkinson's. 4. The patient has abdominal aortic aneurysm (AAA). 5. The patient has a remote left femur fracture. No longer requires Coumadin for deep vein thrombosis (DVT) prophylaxis. 6. The patient has bullous pemphigus which is improving.
[2016-07-14] MEDS: SIMVASTATIN 40 MG TAB PO SCH (20:52)
[2016-07-14] MEDS: PANTOPRAZOLE 40MG TAB (PROTONIX) PO SCH (20:52)
[2016-07-14] MEDS: LATANOPROST 0.005% OPHTH SOLN 2.5 ML OD SCH (20:52)
[2016-07-14 22:00] VITALS: BP 154/87
[2016-07-15 06:00] VITALS: BP 124/74
[2016-07-15] MEDS: IPRATROPIUM 0.5MG/ALBUTEROL 2.5MG INH SOL UD 3ML (DUONEB)(J7620) NEB SCH ×2 (07:14→19:27)
[2016-07-15] MEDS: MUPIROCIN 2% OINT 22 GM TUBE TOP SCH ×2 (08:12→21:31)
[2016-07-15] MEDS: rOPINIRole 1MG TAB PO SCH ×3 (08:12→21:30)
[2016-07-15] MEDS: NYSTATIN 100,000 UNITS/GM TOPICAL PWD 15 GM TOP SCH ×2 (08:12→21:31)
[2016-07-15] MEDS: MIRALAX *UNIT DOSE* 17GM PACKET PO SCH (08:12)
[2016-07-15] MEDS: DOCUSATE SODIUM 100 MG CAP PO SCH ×2 (08:13→21:30)
[2016-07-15] MEDS: MIDODRINE 5 MG TAB PO SCH ×3 (08:13→17:18)
[2016-07-15] MEDS: FLUDROCORTISONE ACETATE 0.1 MG TAB PO SCH (08:13)
[2016-07-15] MEDS: SINEMET 25-100 MG TAB PO SCH ×3 (08:13→21:30)
[2016-07-15] MEDS: MULTIVITAMINS/MINERALS THERAP 1 TAB PO SCH (08:13)
[2016-07-15] MEDS: predniSONE 20 MG TAB PO SCH (08:13)
[2016-07-15] MEDS: LACTOBACILLUS ACIDOPHILUS CAP (BACID) PO SCH ×3 (08:13→21:30)
[2016-07-15] MEDS: FERROUS GLUCONATE 324 MG TAB PO SCH ×3 (08:13→21:30)
[2016-07-15] MEDS: OCUVITE 1 TAB PO SCH (08:13)
[2016-07-15] MEDS: ACETAMINOPHEN TAB 650MG DOSE (2X325MG) PO PRN ×2 (11:22→17:18)
[2016-07-15 12:13] LABS: MEAN CORPUSCULAR HEMOGLOBIN 25.4 pg (27.0-33.0); MEAN CORPUSCULAR HGB CONC 30.1 g/dl (32.0-36.5); MEAN CORPUSCULAR VOLUME 84.6 fl (80.0-96.0); RED CELL DISTRIBUTION WIDTH 16.6 % (11.5-14.5); WHITE BLOOD COUNT 22.1 K/mm3 (4.0-10.0)
[2016-07-15 12:35] LABS: ANION GAP 8 MEQ/L (8-16); BLOOD UREA NITROGEN 22 MG/DL (7-18); CARBON DIOXIDE LEVEL 32 MEQ/L (21-32); CHLORIDE LEVEL 105 MEQ/L (98-107); GLOMERULAR FILTRATION RATE > 60.0 (>35); GLUCOSE, FASTING 147 MG/DL (83-110); POTASSIUM SERUM 3.5 MEQ/L (3.5-5.1); SODIUM LEVEL 145 MEQ/L (136-145)
[2016-07-15 14:00] VITALS: BP 133/74
--- NOTE | 2016-07-15 18:38 | IPN ---
DATE: 07/15/2016 Mr. Agosto was scheduled to be transferred to [facility] but apparently his bed was no longer available. He is currently without pain, chest pain, shortness of breath. He is tolerating a diet. He believes the Nystatin powder is helpful for his groin area irritation. Temperature is 96.6, pulse 96, respiratory rate 18, blood pressure 133/74, 94% on room air. Intake and output notable for a negative fluid balance of -480. He is awake, appropriately interactive, pleasantly conversant. No acute distress. Breathing is symmetrical, diminished throughout. I:E ratio is 1:3. Heart is distant sounding, normal S1, S2. Abdomen is soft, dough, nontender. White cell count is 22.1, hemoglobin 10.3 and platelets of 374. BUN 22, creatinine 1.1. ASSESSMENT: This is an 80-year-old with end-stage Parkinson's disease, incidentally noted to have a neck mass. PLAN: 1. The patient has a thyroid mass, which was biopsied and is noted to be benign. No further workup is intended by the patient or his family. 2. The patient has chronic obstructive pulmonary disease (COPD), which is stable. 3. The patient has end-stage Parkinson's disease with orthostatic hypotension, is unable to maintain an upright status. This is likely to be chronic. This is most likely related to steroid use. 4. The patient has an abdominal aortic aneurysm. 5. The patient has a remote left femur fracture, no longer requires Coumadin for . 6. pemphigus. Weaning steroids.
[2016-07-15] MEDS: PANTOPRAZOLE 40MG TAB (PROTONIX) PO SCH (21:30)
[2016-07-15] MEDS: SIMVASTATIN 40 MG TAB PO SCH (21:30)
[2016-07-15] MEDS: LATANOPROST 0.005% OPHTH SOLN 2.5 ML OD SCH (21:31)
[2016-07-15 22:00] VITALS: BP 134/75
[2016-07-16 06:00] VITALS: BP 130/71
[2016-07-16] MEDS: IPRATROPIUM 0.5MG/ALBUTEROL 2.5MG INH SOL UD 3ML (DUONEB)(J7620) NEB SCH ×2 (07:09→19:28)
[2016-07-16] MEDS: MIDODRINE 5 MG TAB PO SCH ×3 (08:23→16:54)
[2016-07-16] MEDS: LACTOBACILLUS ACIDOPHILUS CAP (BACID) PO SCH ×3 (08:23→20:24)
[2016-07-16] MEDS: FERROUS GLUCONATE 324 MG TAB PO SCH ×3 (08:23→20:25)
[2016-07-16] MEDS: DOCUSATE SODIUM 100 MG CAP PO SCH ×2 (08:23→20:25)
[2016-07-16] MEDS: OCUVITE 1 TAB PO SCH (08:23)
[2016-07-16] MEDS: rOPINIRole 1MG TAB PO SCH ×3 (08:23→20:25)
[2016-07-16] MEDS: FLUDROCORTISONE ACETATE 0.1 MG TAB PO SCH (08:23)
[2016-07-16] MEDS: MULTIVITAMINS/MINERALS THERAP 1 TAB PO SCH (08:23)
[2016-07-16] MEDS: NYSTATIN 100,000 UNITS/GM TOPICAL PWD 15 GM TOP SCH ×2 (08:24→20:26)
[2016-07-16] MEDS: SINEMET 25-100 MG TAB PO SCH ×3 (08:24→20:24)
[2016-07-16] MEDS: predniSONE 20 MG TAB PO SCH (08:24)
[2016-07-16] MEDS: MUPIROCIN 2% OINT 22 GM TUBE TOP SCH ×2 (08:24→20:26)
[2016-07-16] MEDS: MIRALAX *UNIT DOSE* 17GM PACKET PO SCH ×2 (08:24→08:36)
[2016-07-16 14:00] VITALS: BP 148/78
[2016-07-16] MEDS: ACETAMINOPHEN TAB 650MG DOSE (2X325MG) PO PRN (15:14)
--- NOTE | 2016-07-16 15:55 | IPN ---
DATE: 07/16/2016 Mr. Agosto is complaining of some impaired vision, apparently his glasses are at home and he is not able to see the TV very well at a distance. He has no complaints of pain, chest pain, shortness of breath, no cough. He has been tolerating a diet. His is at bedside and says that he seems much more interactive than he has been. Temperature 97, pulse 64, respiratory rate 18, blood pressure 130/71, 93% on room air. Intake and output notable for a positive fluid balance of 690, four bowel movements were noted yesterday. He is awake, appropriately interactive and pleasantly conversant, thin appearing. Breathing is symmetrical, rested. Heart is distant sounding. Abdomen is soft, doughy, nontender, with hyperactive bowel sounds. White cell count 22.1, hemoglobin 10.3, and platelets 374. BUN 22, creatinine 1.1. My assessment is as follows: This is an 80-year-old with end-stage Parkinson's disease incidentally noted to have a neck mass. Plan is as follows: 1. The patient has end-stage Parkinson's disease with orthostatic hypotension, unable to maintain an upright position. This is going to be chronic and he is continued on medical management of his Parkinson's. 2. The patient has a thyroid mass which was biopsied and is benign. We did discuss this again today as the patient had forgotten the status of the mass. No further workup is intended. 3. The patient has chronic obstructive pulmonary disease (COPD) which is stable. 4. The patient has leukocytosis. Will repeat labs and follow clinically. A number of stools were noted yesterday but he has no abdominal findings and no complaints today. This can be monitored clinically. 5. The patient has remote left femur fracture. No longer on Coumadin for deep venous thrombosis (DVT) prophylaxis. 6. The patient has bullous pemphigus. We are weaning steroids.
[2016-07-16 19:29] VITALS: O2SAT 96
[2016-07-16] MEDS: PANTOPRAZOLE 40MG TAB (PROTONIX) PO SCH (20:25)
[2016-07-16] MEDS: SIMVASTATIN 40 MG TAB PO SCH (20:25)
[2016-07-16] MEDS: LATANOPROST 0.005% OPHTH SOLN 2.5 ML OD SCH (20:26)
[2016-07-16 21:20] VITALS: BP 130/73
[2016-07-17 06:25] VITALS: BP 136/73
[2016-07-17] MEDS: IPRATROPIUM 0.5MG/ALBUTEROL 2.5MG INH SOL UD 3ML (DUONEB)(J7620) NEB SCH ×2 (07:52→19:26)
[2016-07-17] MEDS: rOPINIRole 1MG TAB PO SCH ×3 (08:28→19:58)
[2016-07-17] MEDS: MULTIVITAMINS/MINERALS THERAP 1 TAB PO SCH (08:28)
[2016-07-17] MEDS: DOCUSATE SODIUM 100 MG CAP PO SCH ×2 (08:28→19:58)
[2016-07-17] MEDS: FERROUS GLUCONATE 324 MG TAB PO SCH ×3 (08:28→19:58)
[2016-07-17] MEDS: MIDODRINE 5 MG TAB PO SCH ×3 (08:28→17:15)
[2016-07-17] MEDS: LACTOBACILLUS ACIDOPHILUS CAP (BACID) PO SCH ×3 (08:28→19:57)
[2016-07-17] MEDS: SINEMET 25-100 MG TAB PO SCH ×3 (08:28→19:58)
[2016-07-17] MEDS: MUPIROCIN 2% OINT 22 GM TUBE TOP SCH ×2 (08:29→19:59)
[2016-07-17] MEDS: predniSONE 20 MG TAB PO SCH (08:29)
[2016-07-17] MEDS: OCUVITE 1 TAB PO SCH (08:29)
[2016-07-17] MEDS: NYSTATIN 100,000 UNITS/GM TOPICAL PWD 15 GM TOP SCH ×2 (08:29→19:59)
[2016-07-17] MEDS: FLUDROCORTISONE ACETATE 0.1 MG TAB PO SCH (08:33)
[2016-07-17] MEDS: MIRALAX *UNIT DOSE* 17GM PACKET PO SCH (08:38)
[2016-07-17] MEDS: ACETAMINOPHEN TAB 650MG DOSE (2X325MG) PO PRN (11:57)
[2016-07-17 14:00] VITALS: BP 150/65
[2016-07-17] MEDS: SIMVASTATIN 40 MG TAB PO SCH (19:58)
[2016-07-17] MEDS: PANTOPRAZOLE 40MG TAB (PROTONIX) PO SCH (19:58)
[2016-07-17] MEDS: LATANOPROST 0.005% OPHTH SOLN 2.5 ML OD SCH (19:58)
[2016-07-17 20:15] VITALS: BP 121/69
[2016-07-18] MEDS: ACETAMINOPHEN TAB 650MG DOSE (2X325MG) PO PRN ×2 (04:53→20:19)
[2016-07-18 05:35] VITALS: BP 165/85
[2016-07-18] MEDS: IPRATROPIUM 0.5MG/ALBUTEROL 2.5MG INH SOL UD 3ML (DUONEB)(J7620) NEB SCH ×2 (08:08→19:42)
[2016-07-18] MEDS: DOCUSATE SODIUM 100 MG CAP PO SCH ×2 (09:06→20:18)
[2016-07-18] MEDS: FERROUS GLUCONATE 324 MG TAB PO SCH ×3 (09:06→20:19)
[2016-07-18] MEDS: MULTIVITAMINS/MINERALS THERAP 1 TAB PO SCH (09:06)
[2016-07-18] MEDS: predniSONE 20 MG TAB PO SCH (09:06)
[2016-07-18] MEDS: rOPINIRole 1MG TAB PO SCH ×3 (09:06→20:19)
[2016-07-18] MEDS: SINEMET 25-100 MG TAB PO SCH ×3 (09:06→20:18)
[2016-07-18] MEDS: MIRALAX *UNIT DOSE* 17GM PACKET PO SCH (09:07)
[2016-07-18] MEDS: FLUDROCORTISONE ACETATE 0.1 MG TAB PO SCH (09:07)
[2016-07-18] MEDS: MUPIROCIN 2% OINT 22 GM TUBE TOP SCH ×2 (09:07→20:19)
[2016-07-18] MEDS: OCUVITE 1 TAB PO SCH (09:07)
[2016-07-18] MEDS: MIDODRINE 5 MG TAB PO SCH ×3 (09:07→16:38)
[2016-07-18] MEDS: LACTOBACILLUS ACIDOPHILUS CAP (BACID) PO SCH ×3 (09:07→20:18)
[2016-07-18] MEDS: NYSTATIN 100,000 UNITS/GM TOPICAL PWD 15 GM TOP SCH ×2 (09:08→20:19)
--- NOTE | 2016-07-18 10:28 | IPN ---
DATE: 07/17/2016 Mr. Agosto says he is feeling about the same as yesterday. He has no cough. No chest pain. He still feels weak. Not complaining of abdominal pain. Temperature is 96.6, pulse is 82, respiratory rate 17, blood pressure 136/73, 94% on room air. Intake and output notable for a negative fluid balance of -120. One bowel movement thus far today. He is awake, appropriately interactive and pleasantly conversant, lying flat in bed. Neck is supple. Breathing is symmetrical but somewhat diminished throughout. No wheezes, rales, or rhonchi. Andujar catheter is in place. LABORATORY DATA: White cell count is 22.1 from 07/15/2016. ASSESSMENT: This is an 80-year-old with end-stage Parkinson's disease, incidentally noted to have a neck mass, now with leukocytosis with unclear etiology. PLAN 1. For leukocytosis, the patient will have repeat blood test today and again on Tuesday. No focal source of infection at this point, although he does have an indwelling Andujar. 2. The patient has end-stage Parkinson's disease with orthostatic hypotension, unable to maintain an upright position. This is chronic and he is continued on medical management of his Parkinson's. 3. The patient has a thyroid mass which was biopsied and benign. He has no further plans for workup. 4. The patient has chronic obstructive pulmonary disease (COPD) which is stable. 5. The patient has history of remote left femur fracture. He had previously been on Coumadin for deep venous thrombosis (DVT) prophylaxis. 6. The patient has bullous pemphigus. Increased dose of steroids could be cause for his leukocytosis. Dose will be decreased tomorrow.
[2016-07-18 10:37] LABS: ALBUMIN 2.8 GM/DL (3.2-5.2); ALBUMIN/GLOBULIN RATIO 0.85 (1.00-1.93); ALKALINE PHOSPHATASE 83 U/L (45-117); ALT/SGPT 16 U/L (12-78); ANION GAP 9 MEQ/L (8-16); AST/SGOT 16 U/L (15-37); BILIRUBIN,TOTAL 0.3 MG/DL (0.2-1.0); BLOOD UREA NITROGEN 20 MG/DL (7-18); CALCIUM LEVEL 8.5 MG/DL (8.8-10.2); CARBON DIOXIDE LEVEL 32 MEQ/L (21-32); CHLORIDE LEVEL 104 MEQ/L (98-107); CREATININE FOR GFR 0.92 MG/DL (0.70-1.30); GLOMERULAR FILTRATION RATE > 60.0 (>35); GLUCOSE, FASTING 118 MG/DL (83-110); MAGNESIUM LEVEL 2.4 MG/DL (1.8-2.4); SODIUM LEVEL 145 MEQ/L (136-145); TOTAL PROTEIN 6.1 GM/DL (6.4-8.2)
[2016-07-18 10:46] LABS: POTASSIUM SERUM 2.8 MEQ/L (3.5-5.1)
[2016-07-18] MEDS ORDERED: POTASSIUM CHLORIDE 10 MEQ SR TABLET PO ONE ×2 (12:00→18:00)
[2016-07-18 14:00] VITALS: BP 146/77
[2016-07-18] MEDS: LATANOPROST 0.005% OPHTH SOLN 2.5 ML OD SCH (20:18)
[2016-07-18] MEDS: PANTOPRAZOLE 40MG TAB (PROTONIX) PO SCH (20:19)
[2016-07-18] MEDS: SIMVASTATIN 40 MG TAB PO SCH (20:19)
[2016-07-18 22:00] VITALS: BP 144/78
[2016-07-19 06:00] VITALS: BP 164/89
[2016-07-19] MEDS: IPRATROPIUM 0.5MG/ALBUTEROL 2.5MG INH SOL UD 3ML (DUONEB)(J7620) NEB SCH (07:05)
[2016-07-19] MEDS: OCUVITE 1 TAB PO SCH (08:21)
[2016-07-19] MEDS: DOCUSATE SODIUM 100 MG CAP PO SCH (08:23)
[2016-07-19] MEDS: MIDODRINE 5 MG TAB PO SCH ×2 (08:24→12:40)
[2016-07-19] MEDS: MULTIVITAMINS/MINERALS THERAP 1 TAB PO SCH (08:24)
[2016-07-19] MEDS: predniSONE 20 MG TAB PO SCH (08:24)
[2016-07-19] MEDS: LACTOBACILLUS ACIDOPHILUS CAP (BACID) PO SCH (08:25)
[2016-07-19] MEDS: SINEMET 25-100 MG TAB PO SCH (08:25)
[2016-07-19] MEDS: rOPINIRole 1MG TAB PO SCH (08:25)
[2016-07-19] MEDS: FERROUS GLUCONATE 324 MG TAB PO SCH (08:25)
[2016-07-19] MEDS: FLUDROCORTISONE ACETATE 0.1 MG TAB PO SCH (08:25)
[2016-07-19] MEDS: MIRALAX *UNIT DOSE* 17GM PACKET PO SCH (08:25)
[2016-07-19] MEDS: NYSTATIN 100,000 UNITS/GM TOPICAL PWD 15 GM TOP SCH (08:26)
[2016-07-19] MEDS: MUPIROCIN 2% OINT 22 GM TUBE TOP SCH (08:27)
[2016-07-19 10:28] LABS: MEAN CORPUSCULAR HEMOGLOBIN 25.8 pg (27.0-33.0); MEAN CORPUSCULAR HGB CONC 30.5 g/dl (32.0-36.5); MEAN CORPUSCULAR VOLUME 84.8 fl (80.0-96.0); RED CELL DISTRIBUTION WIDTH 17.3 % (11.5-14.5); WHITE BLOOD COUNT 16.8 K/mm3 (4.0-10.0)
[2016-07-19 10:44] LABS: ANION GAP 7 MEQ/L (8-16); BLOOD UREA NITROGEN 19 MG/DL (7-18); CALCIUM LEVEL 8.9 MG/DL (8.8-10.2); CARBON DIOXIDE LEVEL 33 MEQ/L (21-32); CHLORIDE LEVEL 105 MEQ/L (98-107); CREATININE FOR GFR 0.84 MG/DL (0.70-1.30); GLOMERULAR FILTRATION RATE > 60.0 (>35); GLUCOSE, FASTING 114 MG/DL (83-110); POTASSIUM SERUM 3.5 MEQ/L (3.5-5.1); SODIUM LEVEL 145 MEQ/L (136-145)
[2016-07-19] MEDS ORDERED: K-TA10TA2 PO (12:57)
[2016-07-19] MEDS ORDERED: PRED10TA PO (12:57)
--- NOTE | 2016-07-19 13:59 | IPN ---
DATE: 07/18/2016 Mr. Bowles is feeling well this morning. Last evening he had cramping or paresthesias in both arms. It was self limited and lasting minutes. He has never had this before. No chest pain or shortness of breath. Temperature 96.2, pulse 75, respiratory rate 18, blood pressure 165/85, 95% on room air. Intake and output notable for negative fluid balance of -730, two bowel movements noted. He is awake, appropriately interactive, thin, pleasant. Breathing is symmetrical and rested. Heart is distant sounding. Normal S1, S2. Abdomen is soft, doughy, nontender. Strength is symmetrical in both upper extremities. No paresthesias noted. White cell count 22.1 on 07/15/2016, repeat laboratories not drawn yesterday, we will get it tomorrow, potassium today is 2.8 with a magnesium of 2.4. ASSESSMENT: 89-year-old with end stage Parkinson's disease, incidentally noted neck mass with leukocytosis and hypokalemia. PLAN: 1. For leukocytosis, white cell count was not drawn yesterday. We will get one tomorrow. No evidence of ongoing infection noted, although he does have an indwelling Andujar. 2. The patient had what was likely muscle cramping last evening. Is noted to have a low potassium, we will replete and recheck laboratories tomorrow. 3. The patient has end stage Parkinson's disease with orthostatic hypotension, unable to maintain an upright posture. This is chronic at this point. Continue on medical management of Parkinson's. 4. The patient has thyroid mass, which was biopsied and found to be benign. No further plans for a workup. 5. The patient has chronic obstructive pulmonary disease (COPD), which is stable. 6. The patient has a history of left femur fracture and has been on Coumadin for deep vein thrombosis (DVT) prophylaxis. 7. The patient has bullous pemphigus and is now on home dose of steroids.
[2016-07-19 14:00] VITALS: BP 132/70
--- NOTE | 2016-07-20 14:18 | DSES ---
DATE OF ADMISSION: 06/07/2016 DATE OF DISCHARGE: 07/19/2016 SPECIALISTS INVOLVED IN CARE: None. COMPLICATIONS DURING STAY: None. PROCEDURES PERFORMED DURING STAY: None. DISCHARGE DIAGNOSES: 1. Benign thyroid mass, status post biopsy. 2. Chronic obstructive pulmonary disease (COPD). 3. Suspected pneumonia. 4. End stage Parkinson's disease. 5. Shy-Drager's syndrome. 6. Autonomic instability. 7. Abdominal aortic aneurysm. 8. Gastroesophageal reflux disease (GERD). 9. Status post left sided femur fracture in April 2016. 10. Bullous pemphigus. 11. Healthcare-associated pneumonia. 12. Bleeding from mouth from trauma in the setting of anticoagulation for deep vein thrombosis (DVT) prophylaxis, status post orthopedic surgery. SUMMARY OF HIS HOSPITALIZATION: This is an 80-year-old who was transferred from acute inpatient rehabilitation because of orthostatic hypotension. He was found to have orthostatic hypotension and productive cough, which was felt to be healthcare associated pneumonia. He had an elevated lactic acidosis. He was given IV fluids. He was transferred from acute rehabilitation to the medical team and was followed by the medical team for healthcare associated pneumonia and orthostatic hypotension. Case was discussed with neurology. The patient was continued on medications to support his blood pressure with position changes. Case was discussed with Dr. De La Cruz. He was thought to have end stages of Parkinson's disease and was thought to be appropriate for placement. Prior to placement, the assisted was requiring further workup of his intermediate neck mass. Fine needle aspiration was done, which showed benign tissue, similar to the previous biopsy done in November 2013. Currently, the patient continues to be orthostatic. He has leukocytosis, most likely related to the use of steroids. He does have a chronic indwelling Andujar catheter. He is tolerating a diet. He is in good spirits. He would like to restart physical therapy (PT), but every time we have tried thus far he has been orthostatic. On the day of discharge, he is feeling well. He is engaging. Pleasantly conversant. Temperature 98.2, pulse 84, respiratory rate 17, blood pressure 132/70, 95% on room air. Breathing is symmetrical and rested. HEART: Regular rate and rhythm. ABDOMEN: Soft, doughy, nontender. He is relatively thin appearing with a Body Mass Index (BMI) of 18.5. Potassium is 3.5. White cell count 16.8, hemoglobin 10.2. DISCHARGE INSTRUCTIONS: Include the following: Followup with [facility] per their protocol. Activity and diet as tolerated. The patient can experience syncopal episodes if he stands. Two assistants for transfers. Keep his legs elevated when he is in a chair. MEDICATIONS: At the time of discharge include: - fludrocortisone 0.3 mg by mouth daily - midodrine 15 mg by mouth before meals - nystatin powder topically twice a day - MiraLAX one packet by mouth daily - potassium chloride 10 mEq by mouth daily - prednisone 10 mg by mouth daily Continue albuterol two puffs every 4 hours as needed for shortness of breath and DuoNeb every 4 hours and every 2 hours as needed. - vitamin C supplement three times a day - aspirin 81 mg by mouth every evening - calcium and vitamin D supplement - Sinemet 25/100 three times daily - ferrous gluconate 324 mg by mouth three times a day - finasteride 5 mg by mouth every evening - fluticasone one puff inhaled daily - latanoprost one drop right eye daily at bedtime - Ocuvite tablet daily - Percocet one tablet every four hours as needed for pain - Protonix 40 mg by mouth twice a day - probiotic three times daily - Requip 2 mg by mouth three times a day - simvastatin 40 mg by mouth every evening Discontinue Geoffrey Monreal. I recommend a BMP once weekly and the patient would like intermittent reevaluation of physical therapy (PT), but I would recommend two person assistance, as he has passed out with position change.
== END 2016-07-19 14:16 | DRG 194 ==
LOC: M MSPAV 22:33 → EEVIPCON 22:33
PROVIDERS: ADMIT Internal Medicine; ATTEND Internal Medicine
PROC: 0G9K3ZX Drainage of Thyroid Gland, Percutaneous Approach, Diagnostic (ICD-10-PCS; principal; 2016-07-12)
DX: J18.9 Pneumonia, unspecified organism (principal); L10.89 Other pemphigus; G90.3 Multi-system degeneration of the autonomic nervous system; I95.1 Orthostatic hypotension; J44.9 Chronic obstructive pulmonary disease, unspecified; K21.9 Gastro-esophageal reflux disease without esophagitis; I71.4 Abdominal aortic aneurysm, without rupture; G20 Parkinson's disease; Z79.899 Other long term (current) drug therapy; Z79.82 Long term (current) use of aspirin; Z79.52 Long term (current) use of systemic steroids; E06.3 Autoimmune thyroiditis; H10.9 Unspecified conjunctivitis

== ENCOUNTER → 2016-08-26 | Outpatient (REF) ==
[~2016-08-26] MED LIST changes: +DELT1TAB PO; +FLUD1TA PO; +K-TA10TA2 PO; +MIDO5TA PO; +NYST10PW TOP; +PEG1POW PO
== END ==
LOC: SKLAB3 13:24
PROVIDERS: ATTEND Family Medicine
DX: N39.9 Disorder of urinary system, unspecified (principal)

== ENCOUNTER → 2016-08-27 | Emergency (ER) | payer MEDICARE, OTHER | END | disposition E | LOC: EDUNIT# 03:47 → EDBD 03:51 → M ED 04:04 | DX: I46.9 Cardiac arrest, cause unspecified (principal); Z79.899 Other long term (current) drug therapy; Z79.52 Long term (current) use of systemic steroids; Z79.82 Long term (current) use of aspirin; Z79.51 Long term (current) use of inhaled steroids ==